=== PATIENT | male | born 1945 | race Caucasian/White ===

== ENCOUNTER 2017-07-03 13:15 | Emergency (ER) | payer OTHER ==
[~2017-07-03] VITALS: Ht 172.7 cm; Wt 109.3 kg
[~2017-07-03 13:15] MED LIST: ASPEC81 PO; ATOR-24 PO; AVD5 PO; BENICAR PO; CMD3 PO; CRG125 PO; CYAN250T PO; FOLIC ACID PO; IMDSR60 PO; NTRGSL/4 UT; NXM/40 PO; PYRI100T4 PO; WARF-283 PO
[2017-07-03 13:32] VITALS: TEMP 37.1; Ht 172.7 cm; Wt 109.3 kg
[2017-07-03] MEDS ORDERED: SODIUM CHLORIDE 0.9% 1000ML 500 ML IV STA (13:51)
[2017-07-03] MEDS ORDERED: ONDANSETRON INJ 2 MG/ML 2 ML VIAL IV STA ×2 (13:51→17:08)
--- NOTE | 2017-07-03 14:08 | EMERGENCY ROOM VISIT NOTE ---
History Report prepared by Jimi: Shana Julien Under the Supervision of: Dr. Carlos Naylor M.D. First contact with patient: 13:35 Chief Complaint: GI ASSESSMENT Stated Complaint: BOWEL OBSTRUCTION-SEVERE PAIN-RT KIDNEY AREA Nursing Triage Summary: pt reports hx of bowel obstruction , started with the same pain this morning , with N V History of Present Illness The patient is a 72 year old white male with a past medical history of PE, factor V clotting disorder, bowel obstruction, hypertension, asthma, and CAD who presents to the ED with a cc of constant right sided abdominal pain beginning this morning. The patient states that he woke up from sleep this morning from right sided flank and abdominal pressure. He notes that he been constipated and has been trying to drink more fluids recently. He reports that he has been straining with bowel movements. Positive nausea, intermittent palpitations, belching, difficulty passing gas. Negative urinary symptoms, penile pain, scrotal pain, chest pain, fever, chills, vomiting. The patient states that he is on Aspirin and Warfarin and has heart stents. He notes that he has had hernia repairs before, bowel resection, and cholecystectomy. Source of History: patient Onset: this morning Position: abdomen Quality: pressure Timing: constant Associated Symptoms: + nausea, No fevers, No chills, No chest pain, No vomiting, No urinary symptoms Note: Positive scrotal swelling, intermittent palpitations, belching, difficulty passing gas. Negative penile pain, scrotal pain. Review of Systems See HPI for pertinent positives and negatives. A total of ten systems were reviewed and were otherwise negative. Past Medical & Surgical Medical Problems: (1) Asthma (2) Heart disease (3) Hypertension Surgical Problems: (1) History of gastric surgery (2) History of hand surgery (3) History of hip surgery Family History Gallbladder disease Heart disease Hypertension Kidney disease Kidney stones Social History Smoking Status: Former Smoker Alcohol Use: occasionally Drug Use: none Marital Status: Housing Status: lives with family Occupation Status: employed Current/Historical Medications Scheduled Aspirin (Aspirin Ec), 81 MG PO DAILY Atorvastatin (Lipitor), 20 MG PO DAILY Carvedilol (Coreg), 12.5 MG PO BIDM Cyanocobalamin (Vitamin B-12), 1,000 MCG PO DAILY Dutasteride (Avodart), 0.5 MG PO DAILY Esomeprazole Magnesium (Nexium), 40 MG PO DAILY Isosorbide Mononitrate (Isosorbide Mononitrate ER), 60 MG PO DAILY Nitroglycerin (Nitrostat), 0.4 MG UT PRN Olmesartan Medoxomil (Benicar), 10 MG PO DAILY Pyridoxine (Vitamin B6), 100 MG PO DAILY Warfarin Sod (Jantoven), 3 MG PO 4XWK Warfarin Sodium (Warfarin Sodium), 4 MG PO 3XWK Allergies Coded Allergies: Moxifloxacin (Verified Allergy, Intermediate, ITCHING. N/V, 03/18/16) Physical Exam Vital Signs Date Time Temp Pulse Resp B/P (MAP) Pulse Ox O2 Delivery O2 Flow Rate FiO2 07/03/17 22:51 94 17 150/98 95 07/03/17 21:30 83 19 169/105 98 Room Air 07/03/17 19:27 59 18 168/88 92 Room Air 07/03/17 18:53 78 07/03/17 18:30 57 20 170/95 92 Room Air 07/03/17 18:00 66 12 181/95 96 Room Air 07/03/17 17:21 60 16 174/100 96 Room Air 07/03/17 15:30 74 17 172/105 98 Room Air 07/03/17 15:01 191/99 07/03/17 15:00 61 14 96 Room Air 07/03/17 14:30 69 17 170/112 96 Room Air 07/03/17 14:24 58 07/03/17 14:00 64 14 170/97 98 Room Air 07/03/17 13:32 37.1 63 20 187/95 98 Room Air Physical Exam GENERAL: Awake, alert, well-appearing, mild discomfort HENT: Right eye subconjunctival hemorrhage without hyphema, vision intact EYES: Normal conjunctiva. Sclera non-icteric. NECK: Supple. No nuchal rigidity. FROM. RESPIRATORY: CTAB, no rhonchi, wheezing, crackles CARDIAC: RRR, no MRG ABDOMEN: Midline incisional laparotomy scar, LLQ incisional scar, pain greater in lower abdomen than upper abdomen, RUQ tenderness to palpation, appears distended, bowel sounds diminished obturators psoas MSK: No chest wall TTP, no LE edema NEURO: GCS 15, CN 2-12 intact, moves all 4s on command SKIN: No rash or jaundice noted. : circumcised, testes distended, no pain or swelling. Medical Decision & Procedures ER Provider Diagnostic Interpretation: Radiology results as stated below per my review and radiologist interpretation: CHEST ONE VIEW PORTABLE FINDINGS: Lung volumes are at the lower limits of normal. There is no pneumothorax or pleural effusion. There is mild elevation of the right hemidiaphragm. Mild cardiomegaly is noted without evidence of pulmonary edema. IMPRESSION: No acute cardiopulmonary findings. Electronically signed by: Rubens Sullivan M.D. 07/03/2017 2:23 PM Dictated Date/Time: 07/03/2017 2:22 PM ABDOMEN AND PELVIS CT WITH IV AND ORAL CONTRAST CT DOSE: 1269.54 mGy.cm HISTORY: acute generalized abdominal pain TECHNIQUE: Multiaxial CT images of the abdomen and pelvis were performed following the use of intravenous and oral contrast. A dose lowering technique was utilized adhering to the principles of ALARA. COMPARISON STUDY: Renal ultrasound 03/18/2016. FINDINGS: Small hiatus hernia. A 7 mm nodule within the base of the left lower lobe on image 89. Linear scarlike densities within the base of the right lower lobe. No pneumoperitoneum. No pneumatosis. Bilateral total hip arthroplasties. Multiple small fat-containing ventral hernias. Cholecystectomy. Hepatic steatosis. A 1.5 cm enhancing lesion within the spleen. The adrenal glands and left kidney are unremarkable. Heterogeneous enhancement within the upper to mid right kidney. There is also right greater than left perinephric edema. No renal or ureteral stones. No hydronephrosis. Of note, the the distal ureters are not well visualized due to the metallic artifact from the total hip arthroplasties. The visualized bladder appears unremarkable. A few colonic diverticula. No definite bowel wall thickening or obstruction. Normal appendix. IMPRESSION: 1. Heterogeneous enhancement within the upper to mid right kidney with associated perinephric edema. This favors a pyelonephritis. Recommend correlation with urinalysis. 2. No renal or ureteral stones. No hydronephrosis. 3. Small hiatus hernia. 4. Multiple small fat-containing midline epigastric hernia is. 5. A 1.5 cm enhancing lesion within the spleen. This is indeterminate but favors a benign lesion. 6. A 7 mm nodule within the left lower lobe. Please refer to the chart below for recommended follow-up. Please refer to below summary of Fleischner criteria recommendations for follow-up of incidental CT nodules (H MacMahon, Guidelines for management of small pulmonary nodules detected on CT scans: A statement from the Fleischner Society, Radiology 237: [id number].) SOLID NODULES Solitary nodule size: <6 mm * Low risk patients: no follow-up needed * high risk patients: optional CT at 12 months Solitary nodule size: 6-8 mm * Low risk patients: follow-up at 6-12 months, then consider further follow-up at 18-24 months * high risk patients: initial follow-up CT at 6-12 months and then at 18-24 months if no change Solitary nodule size: >8 mm * either low or high risk patients - consider follow-up CT at 3 months, and/or CT-PET, and/or biopsy Multiple nodules size: <6 mm * Low risk patients: no routine follow-up * high risk patients: optional CT at 12 months Multiple nodules size: 6-8 mm * Low risk patients: follow-up at 3-6 months, then consider further follow-up at 18-24 months * high risk patients: follow-up at 3-6 months, then at 18-24 months if no change Multiple nodules size: >8 mm * Low risk patients: follow-up at 3-6 months, then consider further follow-up at 18-24 months * high risk patients: follow-up at 3-6 months, then at 18-24 months if no change Note: newly detected indeterminate nodule in persons 35 years of age or older. * Low risk patients: minimal or absent history of smoking and/or other known risk factors * high risk patients: history of smoking or of other known risk factors (e.g. first degree relative with lung cancer, or exposure to asbestos, radon, uranium) * if a nodule up to 8 mm is partly solid or is ground glass further follow-up is required after 24 months to exclude possible slow growing adenocarcinoma (JOSE R) SUBSOLID NODULES Solitary pure ground-glass nodule * nodule size <6 mm - no CT follow-up required * nodule size >=6 mm - follow-up CT at 6-12 months, then every 2 years until 5 years Solitary part-solid nodule * nodule size <6 mm - no CT follow-up required * nodule size >=6 mm - follow-up CT at 3-6 months. If unchanged, and solid component remains <6 mm, then annual follow-up for 5 years Multiple subsolid nodules * nodule size <6 mm - follow-up CT at 3-6 months, consider further follow-up at 2 and 4 years if stable * nodule size >=6 mm - follow-up CT at 3-6 months, subsequent management based on the most suspicious nodule(s) Electronically signed by: Melquiades Mccoy M.D. 07/03/2017 5:47 PM Dictated Date/Time: 07/03/2017 5:37 PM Laboratory Results 07/03/17 14:16 Red Blood Count 4.96, Mean Corpuscular Volume 91.3, Mean Corpuscular Hemoglobin 31.5, Mean Corpuscular Hemoglobin Concent 34.4, Mean Platelet Volume 9.9, Neutrophils (%) (Auto) 84.8, Lymphocytes (%) (Auto) 9.9, Monocytes (%) (Auto) 4.8, Eosinophils (%) (Auto) 0.1, Basophils (%) (Auto) 0.1, Neutrophils # (Auto) 8.60, Lymphocytes # (Auto) 1.00, Monocytes # (Auto) 0.49, Eosinophils # (Auto) 0.01, Basophils # (Auto) 0.01 07/03/17 14:16 Test 07/03/17 14:16 07/03/17 14:35 07/03/17 17:25 White Blood Count 10.14 K/uL (4.8-10.8) Red Blood Count 4.96 M/uL (4.7-6.1) Hemoglobin 15.6 g/dL (14.0-18.0) Hematocrit 45.3 % (42-52) Mean Corpuscular Volume 91.3 fL (80-100) Mean Corpuscular Hemoglobin 31.5 pg (25-34) Mean Corpuscular Hemoglobin Concent 34.4 g/dl (32-36) Platelet Count 141 K/uL (130-400) Mean Platelet Volume 9.9 fL (7.4-10.4) Neutrophils (%) (Auto) 84.8 % Lymphocytes (%) (Auto) 9.9 % Monocytes (%) (Auto) 4.8 % Eosinophils (%) (Auto) 0.1 % Basophils (%) (Auto) 0.1 % Neutrophils # (Auto) 8.60 K/uL (1.4-6.5) Lymphocytes # (Auto) 1.00 K/uL (1.2-3.4) Monocytes # (Auto) 0.49 K/uL (0.11-0.59) Eosinophils # (Auto) 0.01 K/uL (0-0.5) Basophils # (Auto) 0.01 K/uL (0-0.2) RDW Standard Deviation 43.3 fL (36.4-46.3) RDW Coefficient of Variation 13.1 % (11.5-14.5) Immature Granulocyte % (Auto) 0.3 % Immature Granulocyte # (Auto) 0.03 K/uL (0.00-0.02) Prothrombin Time 33.1 SECONDS (9.0-12.0) Prothromb Time International Ratio 3.0 (0.9-1.1) Venous Blood pH 7.43 (7.36-7.41) Venous Blood Partial Pressure CO2 37 mmHg (38.0-50.0) Venous Blood Partial Pressure O2 48 mmHg Venous Blood HCO3 24 mmol/L Venous Blood Oxygen Saturation 81.9 % Venous Blood Base Excess -0.4 mEq/L Anion Gap 9.0 mmol/L (3-11) Est Creatinine Clear Calc Drug Dose 73.8 ml/min Estimated GFR () 77.9 Estimated GFR (Non- 67.2 BUN/Creatinine Ratio 16.1 (10-20) Calcium Level 8.5 mg/dl (8.5-10.1) Total Bilirubin 0.7 mg/dl (0.2-1) Direct Bilirubin 0.2 mg/dl (0-0.2) Aspartate Amino Transf (AST/SGOT) 20 U/L (15-37) Alanine Aminotransferase (ALT/SGPT) 36 U/L (12-78) Alkaline Phosphatase 77 U/L (45-117) Total Protein 7.2 gm/dl (6.4-8.2) Albumin 3.4 gm/dl (3.4-5.0) Lipase 93 U/L (73-393) Bedside Lactic Acid Venous 1.90 mmol/L (0.90-1.70) Bedside Troponin I < 0.030 ng/ml (0-0.045) Urine Color YELLOW Urine Appearance CLEAR (CLEAR) Urine pH 5.0 (4.5-7.5) Urine Specific [place] 1.020 (1.000-1.030) Urine Protein NEG (NEG) Urine Glucose (UA) 2+ (NEG) Urine Ketones NEG (NEG) Urine Occult Blood NEG (NEG) Urine Nitrite NEG (NEG) Urine Bilirubin NEG (NEG) Urine Urobilinogen NEG (NEG) Urine Leukocyte Esterase NEG (NEG) Laboratory results reviewed by me Medications Administered Medications (Trade) Dose Ordered Sig/Love Route Start Time Stop Time Status Last Admin Dose Admin Sodium Chloride 500 ml @ 999 mls/hr Q31M STAT IV 07/03/17 13:51 07/03/17 14:21 DC 07/03/17 14:41 999 MLS/HR Ondansetron HCl (Zofran Inj) 4 mg NOW STAT IV 07/03/17 13:51 07/03/17 13:52 DC 07/03/17 14:42 4 MG Morphine Sulfate (MoRPHine SULFATE INJ) 4 mg NOW STAT IV 07/03/17 17:08 07/03/17 17:09 DC 07/03/17 17:18 4 MG Ondansetron HCl (Zofran Inj) 4 mg NOW STAT IV 07/03/17 17:08 07/03/17 17:09 DC 07/03/17 17:17 4 MG Sodium Chloride 500 ml @ 999 mls/hr Q31M STAT IV 07/03/17 17:08 07/03/17 17:38 DC 07/03/17 17:20 999 MLS/HR Lactulose (Chronulac Syrup) 30 gm NOW STAT PO 07/03/17 18:11 07/03/17 18:12 DC 07/03/17 19:25 30 GM Miscellaneous Medication (Milk And Molasses Enema) 1 ea ONE STAT VA 07/03/17 18:11 07/03/17 18:12 DC 07/03/17 18:11 1 EA Metoclopramide HCl (Reglan Inj) 10 mg NOW STAT IV 07/03/17 18:52 07/03/17 18:53 DC 07/03/17 19:25 10 MG ECG Indication: abdominal pain Rate (beats per minute): 59 Rhythm: sinus bradycardia Findings: RBBB, T-wave inversion (Anterior and L3), other (QRS prolonged) ED Course 1335: The patient was evaluated in room B9. A complete history and physical exam was performed. 1708: I reevaluated the patient. He is still having some pain. Medical Decision The patient is a 72 year old white male with a past medical history of PE, factor V clotting disorder, bowel obstruction, hypertension, asthma, and CAD who presents to the ED with a cc of constant right sided abdominal pain beginning this morning. Differential diagnosis: Etiologies such as appendicitis, diverticulitis, PUD, biliary pathology, UTI, pancreatitis, obstruction, mesenteric ischemia, aortic pathology, infections, inflammatory bowel disease, renal colic, as well as others were entertained. Patient was seen and evaluated at the bedside. Patient's story more concerning for abdominal pathology. Patient had an EKG and troponin that were completed. Patient's EKG with no acute changes and negative troponin. Patient had negative chest x-ray. Patient's abdomen nondistended patient states he has been obstipated. Patient has had significant surgical procedures and adhesions in the past along with prior bowel obstruction. This concerning for possible bowel obstruction. Patient had a CT of the abdomen and pelvis was ordered. Patient's blood work fairly unremarkable. Patient's lactate mildly elevated at 1.9. Patient was given fluids. Patient was given subsequent rounds of pain medication and anti-medics. Patient CT completed. No definite bowel obstruction or bowel wall thickening. LLL nodule. Informed and will need to follow up. Patient still w/ mild pain. Lactulose and MOM enema ordered. Patient CT did have decreased enhancement of R upper/mid pole of kidney. Spoke w/ radiology who stated more consistent w/ pyelo ; however, patient w/ a UA that is w/o signs of infection or blood. Patent renal artery, patent ureter. No kidney stones identified. Patient was given additional pain control. I signed out care to Dr. Caballero to ensure patient has a bowel movement. If pain still present and unable to tolerate PO or inability to have a BM, patient to be admitted. If able, then likely d/c to home w/ return precautions. Medication Reconcilliation Current Medication List: was personally reviewed by me Blood Pressure Screening Patient's blood pressure: Elevated blood pressure Blood pressure disposition: Referred to PCP Impression Primary Impression: Abdominal pain Additional Impression: Lung nodule Scribe Attestation The scribe's documentation has been prepared under my direction and personally reviewed by me in its entirety. I confirm that the note above accurately reflects all work, treatment, procedures, and medical decision making performed by me. Departure Information Referrals No Doctor, Assigned (PCP) Patient Instructions Abdominal Pain, Diet High Fiber, ED Constipation, ED Diet High Fiber, My [facility] Additional Instructions Please return to the emergency department if you have worsening or recurrent symptoms not amenable to at-home treatment. Please call for a follow-up appointment with her primary care physician. Please take your medications as prescribed. If you have other concerns and/or complaints please feel free to also call your primary care physician's office or return the ED for further evaluation, management, and treatment. Please avoid narcotics and benadryl as this may slow your bowel transit. Please add fiber, fluids, and leafy greens to your diet to help w/ your bowel movements. Please also consider taking senna and/or docusate to help w/ your bowel movements. You were found to have a small nodule that was > 6mm in your left lower lung. Please follow up in 3-6 months to have a repeat CT of your chest. Solitary part-solid nodule * nodule size <6 mm - no CT follow-up required * nodule size >=6 mm - follow-up CT at 3-6 months. If unchanged, and solid component remains <6 mm, then annual follow-up for 5 years You were found to have an elevated blood pressure today (>120 sytolic or >90 diastolic). Per medicare guidelines, you need to follow up with this blood pressure screening with your Primary Care Physician (PCP). For a new PCP call [phone]. You have been examined and treated today on an emergency basis only. This is not a substitute for, or an effort to provide, complete comprehensive medical care. It is impossible to recognize and treat all injuries or illnesses in a single emergency department visit. It is therefore important that you follow up closely with [facility]. Call as soon as possible for an appointment. Thank you for your time and consideration. I look forward to speaking with you again soon. Please don't hesitate to call us if you have any questions. Problem Qualifiers Primary Impression: Abdominal pain Abdominal location: lower abdomen, unspecified Qualified Codes: R10.30 - Lower abdominal pain, unspecified
[2017-07-03] MEDS ORDERED: OPTIRAY 320 IV PRN (14:15)
--- NOTE | 2017-07-03 14:25 | DIAGNOSTIC IMAGING REPORT ---
CHEST ONE VIEW PORTABLE CLINICAL HISTORY: Abdominal pain. COMPARISON STUDY: Chest radiograph January 07, 2012. FINDINGS: Lung volumes are at the lower limits of normal. There is no pneumothorax or pleural effusion. There is mild elevation of the right hemidiaphragm. Mild cardiomegaly is noted without evidence of pulmonary edema. IMPRESSION: No acute cardiopulmonary findings. Electronically signed by: Rubens Sullivan M.D. 07/03/2017 2:23 PM Dictated Date/Time: 07/03/2017 2:22 PM
[2017-07-03 14:27] LABS: BASO % 0.1 %; BASO ABS # 0.01 K/uL (0-0.2); COMPLETE YES; EOS % 0.1 %; HEMATOCRIT 45.3 % (42-52); IG% 0.3 %; LYMPH % 9.9 %; MEAN CELL VOLUME 91.3 fL (80-100); MEAN CORPUSCULAR HEMOGLOBIN 31.5 pg (25-34); MEAN CORPUSCULAR HGB CONC 34.4 g/dl (32-36); MEAN PLATELET VOLUME 9.9 fL (7.4-10.4); MONO % 4.8 %; NEUT % 84.8 %; PLATELET COUNT 141 K/uL (130-400); RED BLOOD COUNT 4.96 M/uL (4.7-6.1); WHITE BLOOD COUNT 10.14 K/uL (4.8-10.8)
[2017-07-03 14:28] LABS: VEN BLD GAS O2 SATURATION 81.9 %; VEN BLOOD GAS BASE EXCESS -0.4 mEq/L
[2017-07-03] MEDS ORDERED: CARV12.52 PO (14:29)
[2017-07-03] MEDS ORDERED: ATOR-22 PO (14:29)
[2017-07-03] MEDS ORDERED: DUTA0.5C PO (14:29)
[2017-07-03] MEDS ORDERED: ASPI81TA28 PO (14:29)
[2017-07-03] MEDS ORDERED: BNC5 PO (14:29)
[2017-07-03] MEDS ORDERED: WARF3TAB6 PO (14:30)
[2017-07-03 14:45] LABS: BUN/CREATININE RATIO 16.1 (10-20); CALCIUM 8.5 mg/dl (8.5-10.1); CREATININE 1.1 mg/dl (0.60-1.40)
[2017-07-03] MEDS ORDERED: SODIUM CHLORIDE 0.9% 500ML 500 ML IV STA (17:08)
[2017-07-03] MEDS ORDERED: MoRPHine SULFATE 4 MG/ML 1 ML CARP\\VIAL IV STA (17:08)
[2017-07-03 17:39] LABS: URINE APPEARANCE CLEAR (CLEAR); URINE BILIRUBIN NEG (NEG); URINE COLOR YELLOW; URINE NITRITE NEG (NEG); UROBILINOGEN NEG (NEG); ZZUR CULT IF INDIC CLEAN CATCH NO
[2017-07-03 17:41] LABS: MANUAL MICROSCOPIC REQUIRED? NO; REVIEW REQ? NO
--- NOTE | 2017-07-03 17:48 | DIAGNOSTIC IMAGING REPORT ---
ADDENDUM There is a duplicated right renal collecting system. Therefore, it is the upper pole moiety which demonstrates decreased enhancement. However, there is no hydronephrosis. If the patient is not presenting with infectious-type symptoms, then a [address] with intravenous contrast is recommended to evaluate for resolution or stability of this finding. The ureters appear to join distally. Electronically signed by: Melquiades Mccoy M.D. 07/03/2017 6:35 PM Dictated Date/Time: 07/03/2017 6:33 PM ORIGINAL REPORT ABDOMEN AND PELVIS CT WITH IV AND ORAL CONTRAST CT DOSE: 1269.54 mGy.cm HISTORY: acute generalized abdominal pain TECHNIQUE: Multiaxial CT images of the abdomen and pelvis were performed following the use of intravenous and oral contrast. A dose lowering technique was utilized adhering to the principles of ALARA. COMPARISON STUDY: Renal ultrasound 03/18/2016. FINDINGS: Small hiatus hernia. A 7 mm nodule within the base of the left lower lobe on image 89. Linear scarlike densities within the base of the right lower lobe. No pneumoperitoneum. No pneumatosis. Bilateral total hip arthroplasties. Multiple small fat-containing ventral hernias. Cholecystectomy. Hepatic steatosis. A 1.5 cm enhancing lesion within the spleen. The adrenal glands and left kidney are unremarkable. Heterogeneous enhancement within the upper to mid right kidney. There is also right greater than left perinephric edema. No renal or ureteral stones. No hydronephrosis. Of note, the the distal ureters are not well visualized due to the metallic artifact from the total hip arthroplasties. The visualized bladder appears unremarkable. A few colonic diverticula. No definite bowel wall thickening or obstruction. Normal appendix. IMPRESSION: 1. Heterogeneous enhancement within the upper to mid right kidney with associated perinephric edema. This favors a pyelonephritis. Recommend correlation with urinalysis. 2. No renal or ureteral stones. No hydronephrosis. 3. Small hiatus hernia. 4. Multiple small fat-containing midline epigastric hernia is. 5. A 1.5 cm enhancing lesion within the spleen. This is indeterminate but favors a benign lesion. 6. A 7 mm nodule within the left lower lobe. Please refer to the chart below for recommended follow-up. Please refer to below summary of Fleischner criteria recommendations for follow-up of incidental CT nodules (Marilyn Bishop, Guidelines for management of small pulmonary nodules detected on CT scans: A statement from the Fleischner Society, Radiology 237: [phone].) SOLID NODULES Solitary nodule size: <6 mm * Low risk patients: no follow-up needed * high risk patients: optional CT at 12 months Solitary nodule size: 6-8 mm * Low risk patients: follow-up at 6-12 months, then consider further follow-up at 18-24 months * high risk patients: initial follow-up CT at 6-12 months and then at 18-24 months if no change Solitary nodule size: >8 mm * either low or high risk patients - consider follow-up CT at 3 months, and/or CT-PET, and/or biopsy Multiple nodules size: <6 mm * Low risk patients: no routine follow-up * high risk patients: optional CT at 12 months Multiple nodules size: 6-8 mm * Low risk patients: follow-up at 3-6 months, then consider further follow-up at 18-24 months * high risk patients: follow-up at 3-6 months, then at 18-24 months if no change Multiple nodules size: >8 mm * Low risk patients: follow-up at 3-6 months, then consider further follow-up at 18-24 months * high risk patients: follow-up at 3-6 months, then at 18-24 months if no change Note: newly detected indeterminate nodule in persons 35 years of age or older. * Low risk patients: minimal or absent history of smoking and/or other known risk factors * high risk patients: history of smoking or of other known risk factors (e.g. first degree relative with lung cancer, or exposure to asbestos, radon, uranium) * if a nodule up to 8 mm is partly solid or is ground glass further follow-up is required after 24 months to exclude possible slow growing adenocarcinoma (JOSE R) SUBSOLID NODULES Solitary pure ground-glass nodule * nodule size <6 mm - no CT follow-up required * nodule size >=6 mm - follow-up CT at 6-12 months, then every 2 years until 5 years Solitary part-solid nodule * nodule size <6 mm - no CT follow-up required * nodule size >=6 mm - follow-up CT at 3-6 months. If unchanged, and solid component remains <6 mm, then annual follow-up for 5 years Multiple subsolid nodules * nodule size <6 mm - follow-up CT at 3-6 months, consider further follow-up at 2 and 4 years if stable * nodule size >=6 mm - follow-up CT at 3-6 months, subsequent management based on the most suspicious nodule(s) Electronically signed by: Melquiades Mccoy M.D. 07/03/2017 5:47 PM Dictated Date/Time: 07/03/2017 5:37 PM
[2017-07-03] MEDS ORDERED: LACTULOSE SYRUP 20 GM/30 ML UDC PO STA (18:11)
[2017-07-03] MEDS ORDERED: MILK AND MOLASSES ENEMA PR STA (18:11)
[2017-07-03] MEDS ORDERED: METOCLOPRAMIDE HCL INJ 5 MG/ML 2 ML VIAL IV STA (18:52)
--- NOTE | 2017-07-03 18:52 | EMERGENCY ROOM VISIT NOTE ---
ED Visit Note First contact with patient: 20:04 s/o from Dr. Naylor. On coumadin for factor V. Abd pain with constipation. CT negative for obstruction. Labs unremarkable. Lactate 1.9 prior to fluids. UA negative therefore CT ?pyelo not likely. EKG trop negative. Plan: If no BM and can't tolerate PO then will admit. Otherwise, pcp f/u. Patient reassessed after enema and still unable to have a bowel movement. Rectal exam performed to attempt disimpaction were no stool within the rectum. However discussed with patient and he attempted to ambulate and subsequently was eventually to have a large bowel movement with relief. Tolerating po fluids without difficulty. Discharged per instructions.
[2017-07-03 19:11] LABS: PROTHROMBIN TIME (PATIENT) 33.1 SECONDS (9.0-12.0)
[2017-07-03 22:51] VITALS: BP 150/98; PULSE 94; O2SAT 95
== END 2017-07-03 22:50 | disposition home or self-care (01) ==
LOC: C.EDB 13:20
DX: R10.30 Lower abdominal pain, unspecified (principal); R91.1 Solitary pulmonary nodule; K59.00 Constipation, unspecified; R11.0 Nausea; R00.1 Bradycardia, unspecified; I45.10 Unspecified right bundle-branch block; I10 Essential (primary) hypertension; J45.909 Unspecified asthma, uncomplicated; D68.2 Hereditary deficiency of other clotting factors; Z79.01 Long term (current) use of anticoagulants; Z79.82 Long term (current) use of aspirin; Z79.899 Other long term (current) drug therapy; Z86.711 Personal history of pulmonary embolism; Z87.19 Personal history of other diseases of the digestive system; Z82.49 Family history of ischemic heart disease and other diseases of the circulatory system; Z83.6 Family history of other diseases of the respiratory system; Z83.79 Family history of other diseases of the digestive system; Z84.1 Family history of disorders of kidney and ureter; F17.200 Nicotine dependence, unspecified, uncomplicated

== ENCOUNTER 2017-11-17 07:47 | Inpatient (IN) | payer OTHER ==
[~2017-11-17] VITALS: Ht 170.2 cm; Wt 114.9 kg
[~2017-11-17 07:47] MED LIST changes: -ASPEC81 PO; +ASPI81TA28 PO; +ATOR-22 PO; -ATOR-24 PO; -AVD5 PO; -BENICAR PO; +BNC5 PO; +CARV12.52 PO; -CMD3 PO; -CRG125 PO; +DUTA0.5C PO; -FOLIC ACID PO; +WARF3TAB6 PO
[2017-11-17] MEDS ORDERED: MoRPHine SULFATE 4 MG/ML 1 ML CARP\\VIAL IV STA ×2 (07:55→12:39)
[2017-11-17] MEDS ORDERED: SODIUM CHLORIDE 0.9% 1000ML 1,000 ML IV STA (07:55)
[2017-11-17] MEDS ORDERED: ONDANSETRON INJ 2 MG/ML 2 ML VIAL IV STA (07:55)
--- NOTE | 2017-11-17 08:02 | EMERGENCY ROOM VISIT NOTE ---
History Report prepared by Jimi: Yanelis Degroot Under the Supervision of: Dr. Merle Willis M.D. First contact with patient: 07:53 Chief Complaint: LEG PAIN,LEG INJURY Stated Complaint: HIP PAIN History of Present Illness The patient is a 72 year old male who presents to the Emergency Room with complaints of constant right leg pain beginning 2 days ago. He rates his pain at a 9/10. The patient states that he slipped and fell on ice 2 days ago, and that he landed on his left knee while his right leg straightened out. The patient states that he hit his head but denies having head pain from it. The patient reports having nausea, but denies vomiting. He reports a history of a bilateral hip replacement and states that he is on Coumadin and aspirin. The patient denies a history of diabetes. Source of History: patient Onset: 2 days ago Position: leg (right) Symptom Intensity: rated at a 9/10 Timing: constant Associated Symptoms: + nausea, No vomiting Review of Systems See HPI for pertinent positives & negatives. A total of 10 systems reviewed and were otherwise negative. Past Medical & Surgical Medical Problems: (1) Asthma (2) Heart disease (3) Hypertension Surgical Problems: (1) History of gastric surgery (2) History of hand surgery (3) History of hip surgery Family History Gallbladder disease Heart disease Hypertension Kidney disease Kidney stones Social History Smoking Status: Former Smoker Alcohol Use: occasionally Drug Use: none Marital Status: Housing Status: lives with family Occupation Status: employed Current/Historical Medications Scheduled Aspirin (Aspirin Ec), 81 MG PO 1200 Atorvastatin (Lipitor), 40 MG PO PM Carvedilol (Coreg), 12.5 MG PO BIDM Cyanocobalamin (Vitamin B-12), 1,000 MCG PO 1200 Docusate Sodium (Docusate Sodium), 1 CAP PO TIDM Dutasteride (Avodart), 0.5 MG PO QAM Esomeprazole Magnesium (Nexium), 40 MG PO HS Folic Acid (Folvite), 1 MG PO 1200 Isosorbide Mononitrate (Isosorbide Mononitrate ER), 60 MG PO QAM Nitroglycerin (Nitrostat), 0.4 MG UT PRN Olmesartan Medoxomil (Benicar), 10 MG PO HS Pyridoxine (Vitamin B6), 100 MG PO 1200 Warfarin Sod (Jantoven), 3 MG PO [id number] Warfarin Sodium (Warfarin Sodium), 4 MG PO [id number] Scheduled PRN Hydrocodone/Acetaminophen 5MG/325MG ([place] 5MG/325MG), 1 TABLET PO Q4H PRN for Pain Allergies Coded Allergies: Moxifloxacin (Verified Allergy, Intermediate, ITCHING. N/V, 11/17/17) Physical Exam Vital Signs Date Time Temp Pulse Resp B/P (MAP) Pulse Ox O2 Delivery O2 Flow Rate FiO2 11/17/17 15:11 75 18 104/68 97 Room Air 11/17/17 13:03 72 12 113/67 98 Room Air 11/17/17 12:18 70 16 134/76 96 Room Air 11/17/17 12:12 71 11/17/17 10:56 74 13 150/96 97 Room Air 11/17/17 09:48 67 18 131/82 11/17/17 08:02 80 11/17/17 07:54 36.5 85 18 134/111 98 Room Air Physical Exam Vital signs reviewed. General: Well-appearing male, in some discomfort. HEENT: No scleral icterus, PERRLA, neck supple. Atraumatic. Cardiovascular: Regular rate and rhythm, no extra sounds. Pulmonary: Clear to auscultation bilaterally, normal work of breathing. Abdomen: Soft, nontender, nondistended, positive bowel sounds. Musculoskeletal: No peripheral edema. Large hematoma to medial and posterior right thigh with swelling of the anterior and posterior thigh. Pain with range of motion of right hip, no significant pain to palpation over the lumbar spine. Minimal discomfort with range of motion of the left knee. No significant distal lower extremity edema. Neurovascularly intact distally. Neurologic: Patient awake alert and oriented x 3. Skin: Warm, dry, no rash Medical Decision & Procedures ER Provider Diagnostic Interpretation: Radiology results as stated below per my review and radiologist interpretation: L-SPINE MIN 4 VIEWS ROUTINE HISTORY: Pain low back pain COMPARISON: 03/18/2016 FINDINGS: There is no fracture. No subluxation. Moderate degenerative disc change most prominent from L4 through S1. This is similar as compared to the prior study. Mild degenerative disc change throughout the remainder the lumbar region. Osteophytic change of the entire lumbar region unaltered from the prior study. No evidence for subluxation. Evidence for an old fracture of the sacrococcygeal junction. Bilateral total hip arthroplasties. IMPRESSION: Degenerative change throughout the low lumbar spine and to lesser extent upper lumbar spine. Findings are perhaps minimally progressive compared to the prior study. The above report was generated using voice recognition software. It may contain grammatical, syntax or spelling errors. Electronically signed by: Emil Dee M.D. 11/17/2017 9:12 AM Dictated Date/Time: 11/17/2017 9:10 AM R KNEE 1 OR 2 VIEWS ROUTINE HISTORY: 72 years-old Male L >R knee pain, fall acute right knee pain status post fall COMPARISON: Left knee radiographs of same day TECHNIQUE: 2 views of the right knee FINDINGS: Mild genu varum deformity of the right knee of approximately 10 degrees with mild tricompartmental degenerative changes. Small joint effusion. No acute fracture or subluxation is identified. Peripheral vascular disease. IMPRESSION: 1. No acute fracture or subluxation identified. 2. Mild genu varum with mild tricompartmental degenerative changes. 3. Peripheral vascular disease. The above report was generated using voice recognition software. It may contain grammatical, syntax or spelling errors. Electronically signed by: Sven Hairston M.D. 11/17/2017 10:48 AM Dictated Date/Time: 11/17/2017 10:44 AM R HIP UNILATERAL 2 VIEWS CLINICAL HISTORY: Right hip pain COMPARISON: July 2011 DISCUSSION: There are postsurgical changes of a total right hip arthroplasty. No acute fractures or dislocations are visualized. There is a crescentic calcification at the level of the lesser trochanter. This may relate to a prior avulsion. This does not appear acute, but was not present in 2010 IMPRESSION: No acute fractures or dislocations identified. Postsurgical changes of a right total hip arthroplasty Electronically signed by: Devan Osullivan M.D. 11/17/2017 10:44 AM Dictated Date/Time: 11/17/2017 10:41 AM HEAD WITHOUT CONTRAST (CT) CLINICAL HISTORY: 72 years-old Male with CHI. Acute headache status post fall TECHNIQUE: Multiple axial CT images of the head were obtained without contrast. A dose lowering technique was utilized adhering to the principles of ALARA. CT DOSE: 537.48 mGy.cm COMPARISON: CT head 01/07/2012. FINDINGS: No acute intracranial hemorrhage, midline shift, intracranial mass, hydrocephalus, territorial ischemia or abnormal extra-axial collection. Mild brain atrophy. Probable senescent calcifications of the lentiform nuclei, right greater than left, unchanged. Ill-defined areas of low-attenuation within the periventricular white matter suggests chronic microvascular ischemic changes. The calvarium is intact. The paranasal sinuses, mastoid air cells, and middle ear cavities are clear. IMPRESSION: No acute intracranial abnormality. The above report was generated using voice recognition software. It may contain grammatical, syntax or spelling errors. Electronically signed by: Sven Hairston M.D. 11/17/2017 8:46 AM Dictated Date/Time: 11/17/2017 8:40 AM L KNEE 1 OR 2 VIEWS ROUTINE CLINICAL HISTORY: LEFT HIP, OKD BY ER MD trauma. Pain. COMPARISON: None. DISCUSSION: Minimal degenerative change. Minimal chondrocalcinosis. No acute abnormality. There is no evidence for soft tissue swelling. IMPRESSION: Minimal degenerative change. Minimal chondrocalcinosis. No acute posttraumatic bony antibody. The above report was generated using voice recognition software. It may contain grammatical, syntax or spelling errors. Electronically signed by: Emil Dee M.D. 11/17/2017 9:15 AM Dictated Date/Time: 11/17/2017 9:13 AM L HIP UNILATERAL 2 VIEWS CLINICAL HISTORY: Left hip pain COMPARISON: 2010 DISCUSSION: 3 views are provided for interpretation. There are postsurgical changes of a total left hip arthroplasty. No acute fractures or dislocations are visualized. There is 1.5 mm of lucency surrounding the tip of the femoral spike. This represents a slight interval increase from the prior 2010 study. IMPRESSION: 1. No fractures or dislocations identified 2. Subtle increase in the lucency surrounding the tip of the femoral spike. Electronically signed by: Devan Osullivan M.D. 11/17/2017 9:18 AM Dictated Date/Time: 11/17/2017 9:15 AM Laboratory Results Test 11/17/17 08:00 Activated Partial Thromboplast Time 49.7 SECONDS (21.0-31.0) Partial Thromboplastin Ratio 1.9 Total Bilirubin 0.8 mg/dl (0.2-1) Direct Bilirubin 0.2 mg/dl (0-0.2) Aspartate Amino Transf (AST/SGOT) 22 U/L (15-37) Alanine Aminotransferase (ALT/SGPT) 30 U/L (12-78) Alkaline Phosphatase 59 U/L (45-117) Total Protein 7.0 gm/dl (6.4-8.2) Albumin 3.4 gm/dl (3.4-5.0) Laboratory results per my review. Medications Administered Medications (Trade) Dose Ordered Sig/Love Route Start Time Stop Time Status Last Admin Dose Admin Morphine Sulfate (MoRPHine SULFATE INJ) 4 mg NOW STAT IV 11/17/17 07:55 11/17/17 08:01 DC 11/17/17 08:28 4 MG Ondansetron HCl (Zofran Inj) 4 mg NOW STAT IV 11/17/17 07:55 11/17/17 08:01 DC 11/17/17 08:28 4 MG Morphine Sulfate (MoRPHine SULFATE INJ) 4 mg NOW STAT IV 11/17/17 12:39 11/17/17 12:40 DC 11/17/17 12:39 4 MG Acetaminophen/ Hydrocodone Bitart ([place] 5/325 Tab) 1 tab Q4H PRN PO 11/17/17 17:15 12/01/17 17:14 11/18/17 16:24 1 TAB ED Course 0754: Past medical records reviewed. The patient was evaluated in room B6. A complete history and physical examination was performed. 0755: Ordered Sodium Chloride 1,000 ml @ 150 mls/hr IV, Zofran Inj 4 mg IV, Morphine Sulfate 4 mg IV. 1239: Ordered Morphine Sulfate Sulfate 4 mg IV. 1435: [facility] is in the room. Medical Decision Differentials include: fracture, dislocation, contusion, muscular strain, and hematoma. This patient was evaluated and appeared to be in some discomfort. IV access was obtained and laboratory work was drawn. The patient was given IV morphine and Zofran for his discomfort. Laboratory work was obtained and reveals a stable H&H. CT scan of the head was performed due to the mechanism of injury and anticoagulation, there is no evidence of acute intracranial abnormality. X- rays of the bilateral hips reveal BLAS. Patient's left prosthetic reveals some lucency around the distal femoral spike. The patient has the least amount of pain in this area. The right hip reveals no acute fracture or abnormality. The patient has a large hematoma along the thigh. He did require second dose of IV morphine for comfort. A PT OT evaluation was obtained. Pt will require inpatient rehab. He was referred to the hospitalist service for repeat H/H d/t coumadin and large hematoma of the thigh. His Hbg has dropped 3 points from previous. Pt and are aware of the plan and agree. Impression Primary Impression: Leg pain, right Additional Impressions: Hematoma of right thigh Anticoagulant long-term use Scribe Attestation The scribe's documentation has been prepared under my direction and personally reviewed by me in its entirety. I confirm that the note above accurately reflects all work, treatment, procedures, and medical decision making performed by me. Departure Information Prescriptions Atorvastatin (LIPITOR) 20 Mg Tab 40 MG PO PM, #30 Prov: Brayden Foley MD 11/17/17 Referrals Nate Regan M.D. (PCP) Patient Instructions My [facility] Problem Qualifiers
[2017-11-17 08:22] LABS: BASO % 0.1 %; BASO ABS # 0.01 K/uL (0-0.2); EOS % 0.2 %; EOS ABS # 0.02 K/uL (0-0.5); HEMATOCRIT 36.2 % (42-52); HEMOGLOBIN 12.7 g/dL (14.0-18.0); IG# 0.04 K/uL (0.00-0.02); LYMPH % 10.3 %; LYMPH ABS # 1.23 K/uL (1.2-3.4); MEAN CELL VOLUME 90.7 fL (80-100); MEAN CORPUSCULAR HEMOGLOBIN 31.8 pg (25-34); MEAN CORPUSCULAR HGB CONC 35.1 g/dl (32-36); MEAN PLATELET VOLUME 10.3 fL (7.4-10.4); MONO % 11.5 %; MONO ABS # 1.37 K/uL (0.11-0.59); NEUT % 77.6 %; NEUT ABS # 9.29 K/uL (1.4-6.5); PLATELET COUNT 156 K/uL (130-400); RED CELL DISTRIBUTION WIDTH CV 13.3 % (11.5-14.5); RED CELL DISTRIBUTION WIDTH SD 44.3 fL (36.4-46.3); WHITE BLOOD COUNT 11.96 K/uL (4.8-10.8)
[2017-11-17 08:40] LABS: ALBUMIN 3.4 gm/dl (3.4-5.0); CALCIUM 8.3 mg/dl (8.5-10.1); CREATININE 0.77 mg/dl (0.60-1.40); POTASSIUM 3.5 mmol/L (3.5-5.1)
[2017-11-17 08:41] LABS: INR 3.3 (0.9-1.1)
--- NOTE | 2017-11-17 08:47 | DIAGNOSTIC IMAGING REPORT ---
HEAD WITHOUT CONTRAST (CT) CLINICAL HISTORY: 72 years-old Male with CHI. Acute headache status post fall TECHNIQUE: Multiple axial CT images of the head were obtained without contrast. A dose lowering technique was utilized adhering to the principles of ALARA. CT DOSE: 537.48 mGy.cm COMPARISON: CT head 01/07/2012. FINDINGS: No acute intracranial hemorrhage, midline shift, intracranial mass, hydrocephalus, territorial ischemia or abnormal extra-axial collection. Mild brain atrophy. Probable senescent calcifications of the lentiform nuclei, right greater than left, unchanged. Ill-defined areas of low-attenuation within the periventricular white matter suggests chronic microvascular ischemic changes. The calvarium is intact. The paranasal sinuses, mastoid air cells, and middle ear cavities are clear. IMPRESSION: No acute intracranial abnormality. The above report was generated using voice recognition software. It may contain grammatical, syntax or spelling errors. Electronically signed by: Sven Hairston M.D. 11/17/2017 8:46 AM Dictated Date/Time: 11/17/2017 8:40 AM
[2017-11-17 09:05] LABS: PTT PATIENT 49.7 SECONDS (21.0-31.0)
--- NOTE | 2017-11-17 09:13 | DIAGNOSTIC IMAGING REPORT ---
L-SPINE MIN 4 VIEWS ROUTINE HISTORY: Pain low back pain COMPARISON: 03/18/2016 FINDINGS: There is no fracture. No subluxation. Moderate degenerative disc change most prominent from L4 through S1. This is similar as compared to the prior study. Mild degenerative disc change throughout the remainder the lumbar region. Osteophytic change of the entire lumbar region unaltered from the prior study. No evidence for subluxation. Evidence for an old fracture of the sacrococcygeal junction. Bilateral total hip arthroplasties. IMPRESSION: Degenerative change throughout the low lumbar spine and to lesser extent upper lumbar spine. Findings are perhaps minimally progressive compared to the prior study. The above report was generated using voice recognition software. It may contain grammatical, syntax or spelling errors. Electronically signed by: Emil Dee M.D. 11/17/2017 9:12 AM Dictated Date/Time: 11/17/2017 9:10 AM
--- NOTE | 2017-11-17 09:17 | DIAGNOSTIC IMAGING REPORT ---
L KNEE 1 OR 2 VIEWS ROUTINE CLINICAL HISTORY: LEFT HIP, OKD BY ER MD trauma. Pain. COMPARISON: None. DISCUSSION: Minimal degenerative change. Minimal chondrocalcinosis. No acute abnormality. There is no evidence for soft tissue swelling. IMPRESSION: Minimal degenerative change. Minimal chondrocalcinosis. No acute posttraumatic bony antibody. The above report was generated using voice recognition software. It may contain grammatical, syntax or spelling errors. Electronically signed by: Emil Dee M.D. 11/17/2017 9:15 AM Dictated Date/Time: 11/17/2017 9:13 AM
--- NOTE | 2017-11-17 09:19 | DIAGNOSTIC IMAGING REPORT ---
L HIP UNILATERAL 2 VIEWS CLINICAL HISTORY: Left hip pain COMPARISON: 2011 DISCUSSION: 3 views are provided for interpretation. There are postsurgical changes of a total left hip arthroplasty. No acute fractures or dislocations are visualized. There is 1.5 mm of lucency surrounding the tip of the femoral spike. This represents a slight interval increase from the prior 2010 study. IMPRESSION: 1. No fractures or dislocations identified 2. Subtle increase in the lucency surrounding the tip of the femoral spike. Electronically signed by: Devan Osullivan M.D. 11/17/2017 9:18 AM Dictated Date/Time: 11/17/2017 9:15 AM
[2017-11-17] MEDS ORDERED: FOLI1TAB8 PO (10:38)
[2017-11-17] MEDS ORDERED: DOCU100C31 PO (10:39)
[2017-11-17] MEDS ORDERED: HYDR-5688 PO (10:41)
--- NOTE | 2017-11-17 10:46 | DIAGNOSTIC IMAGING REPORT ---
R HIP UNILATERAL 2 VIEWS CLINICAL HISTORY: Right hip pain COMPARISON: July 2011 DISCUSSION: There are postsurgical changes of a total right hip arthroplasty. No acute fractures or dislocations are visualized. There is a crescentic calcification at the level of the lesser trochanter. This may relate to a prior avulsion. This does not appear acute, but was not present in 2010 IMPRESSION: No acute fractures or dislocations identified. Postsurgical changes of a right total hip arthroplasty Electronically signed by: Devan Osullivan M.D. 11/17/2017 10:44 AM Dictated Date/Time: 11/17/2017 10:41 AM
--- NOTE | 2017-11-17 10:49 | DIAGNOSTIC IMAGING REPORT ---
R KNEE 1 OR 2 VIEWS ROUTINE HISTORY: 72 years-old Male L >R knee pain, fall acute right knee pain status post fall COMPARISON: Left knee radiographs of same day TECHNIQUE: 2 views of the right knee FINDINGS: Mild genu varum deformity of the right knee of approximately 10 degrees with mild tricompartmental degenerative changes. Small joint effusion. No acute fracture or subluxation is identified. Peripheral vascular disease. IMPRESSION: 1. No acute fracture or subluxation identified. 2. Mild genu varum with mild tricompartmental degenerative changes. 3. Peripheral vascular disease. The above report was generated using voice recognition software. It may contain grammatical, syntax or spelling errors. Electronically signed by: Sven Hairston M.D. 11/17/2017 10:48 AM Dictated Date/Time: 11/17/2017 10:44 AM
[2017-11-17 13:33] VITALS: BP 123/73
[2017-11-17] MEDS ORDERED: HYDROCODONE/ACETAMOPHEN 5/325MG TAB PO PRN (17:15)
[2017-11-17] MEDS ORDERED: NITROGLYCERIN 0.4 MG SL PER TAB CHARGE UT PRN (17:15)
[2017-11-17] MEDS ORDERED: ONDANSETRON INJ 2 MG/ML 2 ML VIAL IV PRN (17:15)
[2017-11-17] MEDS ORDERED: ACETAMINOPHEN 325 MG TAB PO PRN (17:15)
[2017-11-17] MEDS ORDERED: ALUMINUM/MAGNESIUM/SIMETH (MAALOX MAX) 30 ML UDC PO PRN (17:15)
[2017-11-17] MEDS ORDERED: ATOR-22 PO (17:28)
[2017-11-17] MEDS ORDERED: POLYETHYLENE (MIRALAX) 17 GM PACK PO PRN (17:30)
[2017-11-17 17:53] VITALS: O2SAT 96; Ht 170.2 cm; Wt 114.9 kg
--- NOTE | 2017-11-17 17:59 | HISTORY & PHYSICAL EXAMINATION ---
DATE OF ADMISSION: 11/17/2017 CHIEF COMPLAINT: Status post fall and right thigh hematoma. HISTORY OF PRESENT ILLNESS: This is a 72-year-old male with past medical history significant for hypertension, obesity, CAD status post stent, hyperlipidemia, history of depression, osteoarthrosis, diaphragmatic hernia, history of factor V Leiden deficiency, history of multiple mini strokes 20 years ago and was placed on Coumadin and since then he was doing okay and history of pulmonary embolism in 1967 and also in 1974 after abdominal surgery, who came here because of status post fall and right thigh hematoma. A couple of days ago patient slipped on the ice on his driveway and fell on his left knee and then on the right thigh. No loss of consciousness. Since then, he was having severe pain in his right thigh. He is only able to walk a few steps and is not able to sit. That is the reason he came to the ER today. He did not stop taking Coumadin because of his history and his INR supposed to be in between 2.5 and 3.5. Denies any blood in the stools or blood in the urine. He felt dizzy and nauseous when he is standing up, but no headaches, no runny nose, no cough, no sore throat, no difficulty swallowing. No chest pain, no shortness of breath, no abdominal pain. Currently resting comfortably and hemodynamically stable. ALLERGIES: AVELOX. PAST MEDICAL HISTORY: As mentioned above. PAST SURGICAL HISTORY: Left heart catheterization, laparoscopic cholecystectomy, laparoscopic inguinal hernia repair, lumbar spine fusion surgery, partial removal of the colon, tonsillectomy and adenoidectomy, repair of the diaphragm, repair of the transthoracic hernia, repair of acute ruptured rotator cuff, and total hip replacement on the left side. MEDICATIONS: The patient is on Benicar 10 mg p.o. daily, Lipitor 40 mg p.o. daily, Colace 100 mg p.o. t.i.d., Avodart 0.5 mg capsule p.o. daily, Coumadin as directed 3 and 4 mg, Imdur 60 mg p.o. daily, esomeprazole 40 mg p.o. daily, Coreg 12.5 mg p.o. b.i.d., vitamin B6 100 mg p.o. daily, nitroglycerin 0.4 mg p.o. sublingual p.r.n., cyanocobalamin 1000 mcg p.o. daily, folic acid 1 mg p.o. daily, and aspirin 81 mg p.o. daily. FAMILY HISTORY: Significant for mother had arthritis, eye problems, gastrointestinal disorder, glaucoma, heart disorder, hypertension and stroke. Father had thyroid disorder and gastrointestinal disorder. SOCIAL HISTORY: . Former smoker, quit in 2017 Smoked cigars. Alcohol occasionally. No drug use. REVIEW OF SYMPTOMS: As per HPI. Rest of review of symptoms negative. PHYSICAL EXAMINATION: GENERAL: The patient is obese, not in distress. VITAL SIGNS: Temperature 36.5, pulse 75, respiratory rate 18, blood pressure 104/68, oxygen 97% on room air. HEENT: No pallor, no icterus. Pupils equal, round, and reactive to light. NECK: No JVD, no neck masses, no carotid bruits. CARDIOVASCULAR: S1, S2 heard; regular rate and rhythm; no murmur, no gallop. RESPIRATORY SYSTEM: Normal AP diameter. No accessory muscle use. No wheezing, no crackles. ABDOMEN: Soft, bowel sounds present. Nontender. No distention. CENTRAL NERVOUS SYSTEM: Cranial nerves II-XII grossly intact. Nonfocal. EXTREMITIES: Right thigh bruising on the middle side of the thigh and right thigh swelling noted and tender. LABORATORY DATA: WBC 11.9, hemoglobin 12.7, hematocrit 36.2, and platelets 156. Sodium 136, potassium 3.5, chloride 103, bicarbonate 24, BUN 9, creatinine 0.7, serum glucose 141, calcium 8.3. Total bilirubin 0.8, direct bilirubin 0.2, AST 22, ALT 30, alkaline phosphatase 59, albumin 3.4. PT 33.7 and INR 3.3. IMAGING DATA: Lumbar spine x-ray - degenerative changes seen. Right knee x-ray - no acute fracture or subluxation identified, mild genu varum and mild tricompartmental degenerative changes. Right hip x-ray - no acute fractures or dislocation identified. CT of the head - no acute intracranial abnormalities. Left knee x-ray - mild chondrocalcinosis, no acute findings. Left hip x-ray - no fractures or dislocation identified . increase in the lucencies around the tip of the femoral spike. ASSESSMENT AND PLAN: This is a 72-year-old male who presents with fall and right thigh hematoma. 1. Status post mechanical fall , a couple of days ago and having ambulatory dysfunction because of pain and also swelling on the right thigh with a hematoma and bruise. The patient is on Coumadin, INR is 3.3. Will reverse the INR with IV vitamin K. Follow H&H. Physical therapy, occupational therapy. Plan for rehabilitation. Will consult ortho for any further recommendations. Monitor and observe on the medical floor. 2. Anemia, acute blood loss secondary to above with right thigh hematoma. Hemoglobin down from 15 to 12, reversing the INR. Follow H&H. 3. History of factor V Leiden deficiency, history of pulmonary embolism twice in 1967 and once in 1974, history of mini strokes 20 years ago and no more episodes since starting on Coumadin. Currently, goal of INR is 2.5 to 3.5. Presented with INR of 3.3. Holding Coumadin, reversing INR secondary to hematoma and anemia. To restart as soon as possible. 4. History of coronary artery disease status post stent. We will continue the Lipitor, Imdur and Coreg, holding the aspirin. 5. Hypertension. Continue Benicar, Imdur and Coreg. We will monitor the blood pressure. 6. History of hyperlipidemia. Continue statin. 7. History of benign prostatic hyperplasia, continue avodart. 8. Deep venous thrombosis prophylaxis, sequential compression devices for now. 9. Disposition: Observation on medical floor. Physical therapy, Occupational therapy, social service to help with discharge planning. Plan for [facility] when bed available. Level 1 full code. MTDD
[2017-11-17] MEDS ORDERED: PHYTONADIONE INJ 2.5 MG in SODIUM CHLORIDE 0.9% 50ML 50 ML IV ONE (18:00)
[2017-11-17 19:00] VITALS: BP 129/68; PULSE 90; TEMP 36.7; O2SAT 98
[2017-11-17] MEDS: SODIUM CHLORIDE 0.9% 1000ML 1,000 ML IV SCH (19:35)
[2017-11-17] MEDS ORDERED: IV FLUIDS COMPLETED PRN (20:30)
[2017-11-17] MEDS: PANTOprazole SOD 40 MG TAB PO SCH (21:15)
[2017-11-17] MEDS: DOCUSATE SODIUM 100 MG CAP PO SCH (21:15)
[2017-11-17] MEDS: ATORVASTATIN 40 MG TAB PO SCH (21:15)
[2017-11-17] MEDS: CARVEDILOL 12.5 MG TAB PO SCH (21:15)
[2017-11-17] MEDS: OLMESARTAN MEDOXOMIL 20 MG TAB PO SCH (21:16)
[2017-11-17 21:30] VITALS: BP 107/64; PULSE 84
[2017-11-17 22:56] VITALS: BP 115/62; PULSE 85; TEMP 36.8; O2SAT 94
[2017-11-18 06:10] LABS: BASO % 0.1 %; BASO ABS # 0.01 K/uL (0-0.2); EOS % 0.5 %; EOS ABS # 0.04 K/uL (0-0.5); HEMATOCRIT 30.2 % (42-52); HEMOGLOBIN 10.7 g/dL (14.0-18.0); IG# 0.03 K/uL (0.00-0.02); LYMPH % 20.3 %; LYMPH ABS # 1.79 K/uL (1.2-3.4); MEAN CELL VOLUME 91.5 fL (80-100); MEAN CORPUSCULAR HEMOGLOBIN 32.4 pg (25-34); MEAN CORPUSCULAR HGB CONC 35.4 g/dl (32-36); MEAN PLATELET VOLUME 10.1 fL (7.4-10.4); MONO % 13.3 %; MONO ABS # 1.17 K/uL (0.11-0.59); NEUT % 65.5 %; NEUT ABS # 5.76 K/uL (1.4-6.5); PLATELET COUNT 125 K/uL (130-400); RED CELL DISTRIBUTION WIDTH CV 13.7 % (11.5-14.5); RED CELL DISTRIBUTION WIDTH SD 45.3 fL (36.4-46.3)
[2017-11-18 06:33] LABS: INR 1.4 (0.9-1.1)
[2017-11-18 06:45] LABS: CREATININE 0.72 mg/dl (0.60-1.40); POTASSIUM 3.4 mmol/L (3.5-5.1)
[2017-11-18 07:51] VITALS: BP 119/71; PULSE 74; TEMP 37; O2SAT 97
[2017-11-18] MEDS: SODIUM CHLORIDE 0.9% 1000ML 1,000 ML IV SCH (08:26)
[2017-11-18] MEDS: ISOSORBIDE MONONITRATE 60 MG TABCR PO SCH (09:12)
[2017-11-18] MEDS: CARVEDILOL 12.5 MG TAB PO SCH ×2 (09:12→19:09)
[2017-11-18] MEDS: DOCUSATE SODIUM 100 MG CAP PO SCH ×3 (09:12→18:43)
[2017-11-18] MEDS: CYANOCOBALAMIN 500 MCG TAB (VIT B-12) PO SCH (12:02)
[2017-11-18] MEDS: PYRIDOXINE HCL 50 MG TAB PO SCH (12:02)
[2017-11-18 15:33] VITALS: BP 102/53; PULSE 80; TEMP 37.1; O2SAT 96
[2017-11-18] MEDS ORDERED: POTASSIUM CHLORIDE 10 MEQ TABCR PO ONE (16:00)
--- NOTE | 2017-11-18 16:00 | Progress Note ---
Internal Med Progress Note Date of Service: Nov 18, 2017. Provider Documentation: SUBJECTIVE: Seen and examined at bedside States having RLE pain with movement Denies chest pain, SOB, dizziness Family at bedside No other complaints OBJECTIVE: Vital Signs-as noted below Physical Exam: Vitals signs as noted above General Appearance:Obese, no apparent distress Head: normocephalic, Atraumatic Eyes: normal inspection, EOMI, PERRL Neck: supple, Trachea midline Respiratory/Chest: Normal breath sounds, CTA Cardiovascular: S1, S2, No murmur Abdomen/GI:Soft, Non tender, Bowel sounds present Extremities/Musculoskelatal:normal inspection, Large Ecchymosis on RLE Neurologic/Psych:AAOX3, grossly no focal neurological deficits Skin: normal color, warm Lab data as noted below. ASSESSMENT & PLAN: Patient is a 72 yr male who presents with fall and right thigh hematoma. S/P Mechanical fall Right thigh Hematoma: patient on coumadin INR:3.3 on admission S/P VIt K INR:1.4 today Hb dropped to 10.7 but partly likely hemodilutional secondary to IV fluids Extremity USD: Subcutaneous soft tissue edema in right thigh. No organized collection is identified to indicate hematoma. Conservative management for now Appreciate Orthopedics Input Will resume coumadin at low dose 1mg today given history of PE, Factor V Monitor Hb, INR Pain control PT/OT May need Rehab placement Anemia, acute blood loss secondary to above Monitor Hb Will transfuse PRBCs if needed Hypokalemia: Replace and monitor H/O factor V Leiden deficiency H/O Pulmonary embolism H/O mini strokes Restart coumadin Monitor INR continue statin Goal of INR is 2.5 to 3.5. H/O CAD S/P stent continue Lipitor, Imdur, Coreg hold aspirin for now Hypertension Continue Benicar, Imdur and Coreg monitor Hyperlipidemia Continue statin BPH: continue avodart. DVT Px: SCDs Restarted Coumadin Code Status: Full Code Disposition: To be determined PT/OT Vital Signs: Date Time Temp Pulse Resp B/P (MAP) Pulse Ox O2 Delivery O2 Flow Rate FiO2 11/18/17 18:49 86 108/65 (79) 11/18/17 15:33 37.1 80 20 102/53 (69) 96 Room Air 11/18/17 15:30 Room Air 11/18/17 07:51 37.0 74 16 119/71 (87) 97 Room Air 11/18/17 07:10 Room Air 11/17/17 23:27 Room Air 11/17/17 22:56 36.8 85 18 115/62 (79) 94 Room Air 11/17/17 21:30 84 107/64 (78) Lab Results: Results Past 24 Hours Test 11/18/17 05:39 Range/Units White Blood Count 8.80 4.8-10.8 K/uL Red Blood Count 3.30 4.7-6.1 M/uL Hemoglobin 10.7 14.0-18.0 g/dL Hematocrit 30.2 42-52 % Mean Corpuscular Volume 91.5 80-100 fL Mean Corpuscular Hemoglobin 32.4 25-34 pg Mean Corpuscular Hemoglobin Concent 35.4 32-36 g/dl Platelet Count 125 130-400 K/uL Mean Platelet Volume 10.1 7.4-10.4 fL Neutrophils (%) (Auto) 65.5 % Lymphocytes (%) (Auto) 20.3 % Monocytes (%) (Auto) 13.3 % Eosinophils (%) (Auto) 0.5 % Basophils (%) (Auto) 0.1 % Neutrophils # (Auto) 5.76 1.4-6.5 K/uL Lymphocytes # (Auto) 1.79 1.2-3.4 K/uL Monocytes # (Auto) 1.17 0.11-0.59 K/uL Eosinophils # (Auto) 0.04 0-0.5 K/uL Basophils # (Auto) 0.01 0-0.2 K/uL RDW Standard Deviation 45.3 36.4-46.3 fL RDW Coefficient of Variation 13.7 11.5-14.5 % Immature Granulocyte % (Auto) 0.3 % Immature Granulocyte # (Auto) 0.03 0.00-0.02 K/uL Prothrombin Time 14.8 9.0-12.0 SECONDS Prothromb Time International Ratio 1.4 0.9-1.1 Sodium Level 138 136-145 mmol/L Potassium Level 3.4 3.5-5.1 mmol/L Chloride Level 104 98-107 mmol/L Carbon Dioxide Level 25 21-32 mmol/L Anion Gap 9.0 3-11 mmol/L Blood Urea Nitrogen 14 7-18 mg/dl Creatinine 0.72 0.60-1.40 mg/dl Est Creatinine Clear Calc Drug Dose 114.0 ml/min Estimated GFR () 108.8 Estimated GFR (Non- 93.9 BUN/Creatinine Ratio 19.8 10-20 Random Glucose 120 70-99 mg/dl Calcium Level 8.0 8.5-10.1 mg/dl Magnesium Level 2.0 1.8-2.4 mg/dl Total Creatine Kinase 406 39-308 U/L
[2017-11-18] MEDS ORDERED: NURSING VERBAL MED ORDER ONE (16:30)
--- NOTE | 2017-11-18 16:47 | Orthopedic Consultation ---
Orthopedic Consultation Date of Consultation: Nov 18, 2017. Attending Physician: Vitaliy Rangel MD Reason for Consultation: Right thigh pain and swelling History of Present Illness Mr. Rockwell is a 72-year-old male who presented with right thigh pain after a fall 3 days ago on November 15. He slipped on some ice in his driveway, and stretched out his right leg during the fall. He developed swelling, bruising, and pain in the right posterior thigh. He is chronically on Coumadin due to factor V Leiden deficiency, history of TIAs, as well as a PE in the past. This thigh injury has caused significant pain for him, eventually requiring presentation to the emergency department. Since the fall, his pain is gradually improved. He is able to lay down comfortably, and even now stand comfortably, but he still has significant pain when sitting directly on the bruise. Orthopedics was consulted for additional management options. Past Medical/Surgical History Medical Problems: (1) Abdominal pain Status: Acute (2) Anticoagulant long-term use Status: Acute (3) Hematoma of right thigh Status: Acute (4) Leg pain, right Status: Acute (5) Lung nodule Status: Acute Family History Gallbladder disease Heart disease Hypertension Kidney disease Kidney stones Social History Smoking Status: Former Smoker Drug Use: none Marital Status: Housing Status: lives with family Occupation Status: employed Allergies Coded Allergies: Moxifloxacin (Verified Allergy, Intermediate, ITCHING. N/V, 11/17/17) Home Medications Scheduled Aspirin (Aspirin Ec), 81 MG PO 1200 Atorvastatin (Lipitor), 40 MG PO PM Carvedilol (Coreg), 12.5 MG PO BIDM Cyanocobalamin (Vitamin B-12), 1,000 MCG PO 1200 Docusate Sodium (Docusate Sodium), 1 CAP PO TIDM Dutasteride (Avodart), 0.5 MG PO QAM Esomeprazole Magnesium (Nexium), 40 MG PO HS Folic Acid (Folvite), 1 MG PO 1200 Isosorbide Mononitrate (Isosorbide Mononitrate ER), 60 MG PO QAM Nitroglycerin (Nitrostat), 0.4 MG UT PRN Olmesartan Medoxomil (Benicar), 10 MG PO HS Pyridoxine (Vitamin B6), 100 MG PO 1200 Warfarin Sod (Jantoven), 3 MG PO [id number] Warfarin Sodium (Warfarin Sodium), 4 MG PO [id number] Scheduled PRN Hydrocodone/Acetaminophen 5MG/325MG (Butler 5MG/325MG), 1 TABLET PO Q4H PRN for Pain Current Inpatient Medications Current Inpatient Medications Medications (Trade) Dose Ordered Sig/Love Route Start Time Stop Time Status Last Admin Dose Admin Acetaminophen (Tylenol Tab) 650 mg Q4H PRN PO 11/17/17 17:15 12/17/17 17:14 Al Hydrox/Mg Hydrox/Simethicone (Maalox Max Susp) 15 ml Q4H PRN PO 11/17/17 17:15 12/17/17 17:14 Polyethylene (Miralax Powder Packet) 17 gm DAILY PRN PO 11/17/17 17:30 12/17/17 17:29 Ondansetron HCl (Zofran Inj) 4 mg Q6H PRN IV 11/17/17 17:15 12/17/17 17:14 Carvedilol (Coreg Tab) 12.5 mg BIDM PO 11/17/17 19:30 12/17/17 19:29 11/18/17 09:12 12.5 MG Cyanocobalamin (Vitamin B-12 Tab) 1,000 mcg DAILY@1200 PO 11/18/17 12:00 12/18/17 11:59 11/18/17 12:02 1,000 MCG Docusate Sodium (coLACE CAP) 100 mg TIDM PO 11/17/17 19:30 12/17/17 19:29 11/18/17 12:02 100 MG Folic Acid (Folvite Tab) 1 mg DAILY@1200 PO 11/18/17 12:00 12/18/17 11:59 11/18/17 12:02 1 MG Acetaminophen/ Hydrocodone Bitart (Butler 5/325 Tab) 1 tab Q4H PRN PO 11/17/17 17:15 12/01/17 17:14 11/18/17 16:24 1 TAB Isosorbide Mononitrate (Imdur Ext Rel Tab) 60 mg QAM PO 11/18/17 09:00 12/18/17 08:59 11/18/17 09:12 60 MG Nitroglycerin (Nitrostat Tab) 0.4 mg UD PRN UT 11/17/17 17:15 12/17/17 17:14 Olmesartan (Benicar Tab) 10 mg HS PO 11/17/17 21:00 12/17/17 20:59 11/17/17 21:16 10 MG Pyridoxine HCl (Vitamin B-6 Tab) 100 mg DAILY@1200 PO 11/18/17 12:00 12/18/17 11:59 11/18/17 12:02 100 MG Pantoprazole Sodium (Protonix Tab) 40 mg HS PO 11/17/17 21:00 12/17/17 20:59 11/17/17 21:15 40 MG Atorvastatin Calcium (Lipitor Tab) 40 mg PM PO 11/17/17 21:00 12/17/17 20:59 11/17/17 21:15 40 MG Miscellaneous (Iv Fluids Completed) 1 ea PRN PRN N/A 11/17/17 20:30 11/17/18 20:29 Dutasteride (Avodart) 0.5 mg DAILY PO 11/19/17 09:00 12/19/17 08:59 Review of Systems Musculoskeletal: + problem reported (Right thigh pain) Physical Exam Date Time Temp Pulse Resp B/P (MAP) Pulse Ox O2 Delivery O2 Flow Rate FiO2 11/18/17 15:33 37.1 80 20 102/53 (69) 96 Room Air 11/18/17 07:51 37.0 74 16 119/71 (87) 97 Room Air 11/18/17 07:10 Room Air 11/17/17 23:27 Room Air 11/17/17 22:56 36.8 85 18 115/62 (79) 94 Room Air 11/17/17 21:30 84 107/64 (78) 11/17/17 19:00 36.7 90 16 129/68 (88) 98 Room Air 11/17/17 19:00 98 Room Air 11/17/17 18:48 82 20 104/62 95 11/17/17 18:42 82 20 104/62 95 Room Air 11/17/17 17:53 96 Room Air 11/17/17 17:41 90 18 122/62 96 Room Air Extremities/Musculoskelatal: + pertinent finding (Significant swelling and ecchymosis right posterior thigh. Posterior compartment firm, but no pain with passive stretch of muscle group (knee extension). Motor and sensory intact distally. Foot warm and well perfused.) Neurologic/Psych: no motor/sensory deficits Laboratory Results Last 24 Hours Test 11/17/17 18:53 11/18/17 05:39 Urine Color YELLOW Urine Appearance CLEAR Urine pH 5.0 Urine Specific [place] 1.016 Urine Protein NEG Urine Glucose (UA) NEG Urine Ketones NEG Urine Occult Blood NEG Urine Nitrite NEG Urine Bilirubin NEG Urine Urobilinogen NEG Urine Leukocyte Esterase NEG White Blood Count 8.80 K/uL Red Blood Count 3.30 M/uL Hemoglobin 10.7 g/dL Hematocrit 30.2 % Mean Corpuscular Volume 91.5 fL Mean Corpuscular Hemoglobin 32.4 pg Mean Corpuscular Hemoglobin Concent 35.4 g/dl Platelet Count 125 K/uL Mean Platelet Volume 10.1 fL Neutrophils (%) (Auto) 65.5 % Lymphocytes (%) (Auto) 20.3 % Monocytes (%) (Auto) 13.3 % Eosinophils (%) (Auto) 0.5 % Basophils (%) (Auto) 0.1 % Neutrophils # (Auto) 5.76 K/uL Lymphocytes # (Auto) 1.79 K/uL Monocytes # (Auto) 1.17 K/uL Eosinophils # (Auto) 0.04 K/uL Basophils # (Auto) 0.01 K/uL RDW Standard Deviation 45.3 fL RDW Coefficient of Variation 13.7 % Immature Granulocyte % (Auto) 0.3 % Immature Granulocyte # (Auto) 0.03 K/uL Prothrombin Time 14.8 SECONDS Prothromb Time International Ratio 1.4 Sodium Level 138 mmol/L Potassium Level 3.4 mmol/L Chloride Level 104 mmol/L Carbon Dioxide Level 25 mmol/L Anion Gap 9.0 mmol/L Blood Urea Nitrogen 14 mg/dl Creatinine 0.72 mg/dl Est Creatinine Clear Calc Drug Dose 114.0 ml/min Estimated GFR () 108.8 Estimated GFR (Non- 93.9 BUN/Creatinine Ratio 19.8 Random Glucose 120 mg/dl Calcium Level 8.0 mg/dl Magnesium Level 2.0 mg/dl Total Creatine Kinase 406 U/L Assessment & Plan (1) Hematoma of right thigh 72-year-old patient on chronic Coumadin therapy, now with right posterior thigh hematoma after a fall. Ultrasound is pending to evaluate hematoma size. No evidence of compartment syndrome currently; patient has no pain with passive stretch and is neurologically intact distally. Patient seems to be clinically improving over the past few days. He is now able to stand and move his leg comfortably, which she was not able to do a few days ago. He still has pain mostly when sitting directly on the hematoma. I advised him that we could consider an ultrasound-guided aspiration of the hematoma in order to improve his pain, but this carries with it the risk of iatrogenic infection of the hematoma. This could be potentially devastating with his total hip prosthesis in very close proximity. We mutually decided on observation for now. His INR has been reduced from 3.3 down to 1.4 after holding his Coumadin and initiating vitamin K therapy. The concern is his history of TIAs and PE in the past. I think we could reinitiate Coumadin therapy at this point, as any doses given now will take several days to have a significant effect. I recommend close observation for significant worsening of his pain as his INR comes back into the therapeutic range. Problem Qualifiers (1) Hematoma of right thigh: Encounter type: initial encounter Qualified Codes: S70.11XA - Contusion of right thigh, initial encounter
[2017-11-18] MEDS ORDERED: WARFARIN SOD 1 MG TAB PO ONE (17:15)
--- NOTE | 2017-11-18 17:56 | DIAGNOSTIC IMAGING REPORT ---
ULTRASOUND RIGHT LOWER EXTREMITY NONVASCULAR CLINICAL HISTORY: Right thigh pain. Fall. COMPARISON STUDY: Radiographs of the right hip dated 11/17/2017. FINDINGS: Real-time grayscale sonography of the soft tissues of the right thigh is performed at the site of interest. Subcutaneous fluid is identified. No organized collection is seen to suggest hematoma. IMPRESSION: Subcutaneous soft tissue edema is seen in the right thigh at the site of interest. No organized collection is identified to indicate hematoma. Electronically signed by: Chau Michel M.D. 11/18/2017 5:54 PM Dictated Date/Time: 11/18/2017 5:53 PM
[2017-11-18 18:49] VITALS: BP 108/65; PULSE 86
[2017-11-18 20:38] LABS: HEMATOCRIT 28.4 % (42-52); HEMOGLOBIN 10.1 g/dL (14.0-18.0)
[2017-11-18] MEDS: PANTOprazole SOD 40 MG TAB PO SCH (20:48)
[2017-11-18] MEDS: OLMESARTAN MEDOXOMIL 20 MG TAB PO SCH (20:48)
[2017-11-18] MEDS: ATORVASTATIN 40 MG TAB PO SCH (21:25)
[2017-11-18 23:40] VITALS: BP 108/61; PULSE 79; TEMP 37.2; O2SAT 96
[2017-11-19 06:27] LABS: BASO % 0.1 %; BASO ABS # 0.01 K/uL (0-0.2); EOS % 0.7 %; EOS ABS # 0.05 K/uL (0-0.5); HEMATOCRIT 29.5 % (42-52); HEMOGLOBIN 10.4 g/dL (14.0-18.0); IG# 0.02 K/uL (0.00-0.02); LYMPH % 21.8 %; LYMPH ABS # 1.58 K/uL (1.2-3.4); MEAN CELL VOLUME 91.6 fL (80-100); MEAN CORPUSCULAR HEMOGLOBIN 32.3 pg (25-34); MEAN CORPUSCULAR HGB CONC 35.3 g/dl (32-36); MEAN PLATELET VOLUME 9.8 fL (7.4-10.4); MONO % 11.4 %; MONO ABS # 0.83 K/uL (0.11-0.59); NEUT % 65.7 %; NEUT ABS # 4.77 K/uL (1.4-6.5); PLATELET COUNT 129 K/uL (130-400); RED CELL DISTRIBUTION WIDTH CV 13.6 % (11.5-14.5); RED CELL DISTRIBUTION WIDTH SD 45.3 fL (36.4-46.3); WHITE BLOOD COUNT 7.26 K/uL (4.8-10.8)
[2017-11-19 06:37] LABS: INR 1.1 (0.9-1.1)
[2017-11-19 07:05] LABS: CALCIUM 8.1 mg/dl (8.5-10.1); CREATININE 0.69 mg/dl (0.60-1.40); POTASSIUM 3.6 mmol/L (3.5-5.1)
[2017-11-19 07:51] VITALS: BP 131/87; PULSE 81; TEMP 36.9; O2SAT 96
[2017-11-19] MEDS: DOCUSATE SODIUM 100 MG CAP PO SCH ×3 (08:38→17:53)
[2017-11-19] MEDS: ISOSORBIDE MONONITRATE 60 MG TABCR PO SCH (08:38)
[2017-11-19] MEDS: CARVEDILOL 12.5 MG TAB PO SCH ×2 (08:38→17:53)
[2017-11-19] MEDS: DUTASTERIDE 0.5MG PO SCH (08:40)
[2017-11-19] MEDS: CYANOCOBALAMIN 500 MCG TAB (VIT B-12) PO SCH (11:48)
[2017-11-19] MEDS: PYRIDOXINE HCL 50 MG TAB PO SCH (11:48)
[2017-11-19 14:53] VITALS: BP 124/67; PULSE 78; TEMP 36.8; O2SAT 94
[2017-11-19] MEDS ORDERED: WARFARIN SOD 2 MG TAB PO ONE (16:00)
--- NOTE | 2017-11-19 17:01 | Orthopedic Progress Note ---
Orthopedic Progress Note Date of Service Nov 19, 2017. Subjective Additional Notes: Patient notes significant improvement in right posterior thigh pain since yesterday. Notes that he has been much more mobile. Is ambulating and has even been able to sit on the edge of the bed now--yesterday he was unable to tolerate sitting. When laying in bed he only has 1-2/10 pain. Able to fully straighten knee and flex hip some. Objective calves soft nontender, N/V intact, capillary refill less than 2 sec., A&O x3, toes mobile Right posterior thigh feels significantly less swollen and tight compared to yesterday. Still with significant spreading ecchymosis. -No pain with passive stretch. -Motor and sensation intact in tibial and peroneal nerve distribution. -Foot warm and well perfused. Date Time Temp Pulse Resp B/P (MAP) Pulse Ox O2 Delivery O2 Flow Rate FiO2 11/19/17 14:53 36.8 78 16 124/67 (86) 94 Room Air 11/19/17 07:51 36.9 81 19 131/87 (102) 96 Room Air 11/19/17 07:15 Room Air 11/19/17 00:12 Room Air 11/18/17 23:40 37.2 79 16 108/61 (77) 96 Room Air 11/18/17 18:49 86 108/65 (79) Laboratory Results 24 Hours: Test 11/18/17 20:18 11/19/17 06:05 Hematocrit 28.4 % 29.5 % Hemoglobin 10.1 g/dL 10.4 g/dL White Blood Count 7.26 K/uL Red Blood Count 3.22 M/uL Mean Corpuscular Volume 91.6 fL Mean Corpuscular Hemoglobin 32.3 pg Mean Corpuscular Hemoglobin Concent 35.3 g/dl Platelet Count 129 K/uL Mean Platelet Volume 9.8 fL Neutrophils (%) (Auto) 65.7 % Lymphocytes (%) (Auto) 21.8 % Monocytes (%) (Auto) 11.4 % Eosinophils (%) (Auto) 0.7 % Basophils (%) (Auto) 0.1 % Neutrophils # (Auto) 4.77 K/uL Lymphocytes # (Auto) 1.58 K/uL Monocytes # (Auto) 0.83 K/uL Eosinophils # (Auto) 0.05 K/uL Basophils # (Auto) 0.01 K/uL Prothromb Time International Ratio 1.1 Prothrombin Time 11.4 SECONDS Assessment & Plan (1) Hematoma of right thigh Swelling and pain continues to improve. No evidence of compartment syndrome. INR now down to 1.1. Should be safe to increase Coumadin dosing back to regular home dose. INR likely will take several days to get back into therapeutic range. Again reiterated to patient on what to watch for in terms of increasing swelling and pain as INR comes back up into therapeutic range. He should immediately seek medical care if he has significant worsening of his pain, swelling, circulation, numbness, or ability to move hip or knee.
--- NOTE | 2017-11-19 17:21 | Progress Note ---
Internal Med Progress Note Date of Service: Nov 19, 2017. Provider Documentation: SUBJECTIVE: Seen and examined at bedside States RLE pain has decreased and is able to move leg better today No worsening of swelling Denies chest pain, SOB, dizziness Family at bedside No other complaints Hb stable OBJECTIVE: Vital Signs-as noted below Physical Exam: Vitals signs as noted above General Appearance:Obese, no apparent distress Head: normocephalic, Atraumatic Eyes: normal inspection, EOMI, PERRL Neck: supple, Trachea midline Respiratory/Chest: Normal breath sounds, CTA Cardiovascular: S1, S2, No murmur Abdomen/GI:Soft, Non tender, Bowel sounds present Extremities/Musculoskelatal:normal inspection, Large Ecchymosis on RLE Neurologic/Psych:AAOX3, grossly no focal neurological deficits Skin: normal color, warm Lab data as noted below. ASSESSMENT & PLAN: Patient is a 72 yr male who presents with fall and right thigh hematoma. S/P Mechanical fall Right thigh Hematoma: patient on coumadin INR:3.3 on admission S/P VIt K INR:1.1 today, give coumadin 2mg today Hb stable: 10.4 today Extremity USD: Subcutaneous soft tissue edema in right thigh. No organized collection is identified to indicate hematoma. Conservative management for now Appreciate Orthopedics Input Coumadin resumed given history of PE, Factor V Monitor Hb, INR Pain control PT/OT May need Rehab placement Anemia, acute blood loss secondary to above Monitor Hb Will transfuse PRBCs if needed Hypokalemia: monitor H/O factor V Leiden deficiency H/O Pulmonary embolism H/O mini strokes coumadin resumed Monitor INR continue statin Goal of INR is 2.5 to 3.5. H/O CAD S/P stent continue Lipitor, Imdur, Coreg hold aspirin for now Hypertension Continue Benicar, Imdur and Coreg monitor Hyperlipidemia Continue statin BPH: continue avodart. DVT Px: SCDs Restarted Coumadin Code Status: Full Code Disposition: To be determined PT/OT Vital Signs: Date Time Temp Pulse Resp B/P (MAP) Pulse Ox O2 Delivery O2 Flow Rate FiO2 11/19/17 14:53 36.8 78 16 124/67 (86) 94 Room Air 11/19/17 07:51 36.9 81 19 131/87 (102) 96 Room Air 11/19/17 07:15 Room Air 11/19/17 00:12 Room Air 11/18/17 23:40 37.2 79 16 108/61 (77) 96 Room Air 11/18/17 18:49 86 108/65 (79) Lab Results: Results Past 24 Hours Test 11/18/17 20:18 11/19/17 06:05 Range/Units Hemoglobin 10.1 10.4 14.0-18.0 g/dL Hematocrit 28.4 29.5 42-52 % White Blood Count 7.26 4.8-10.8 K/uL Red Blood Count 3.22 4.7-6.1 M/uL Mean Corpuscular Volume 91.6 80-100 fL Mean Corpuscular Hemoglobin 32.3 25-34 pg Mean Corpuscular Hemoglobin Concent 35.3 32-36 g/dl Platelet Count 129 130-400 K/uL Mean Platelet Volume 9.8 7.4-10.4 fL Neutrophils (%) (Auto) 65.7 % Lymphocytes (%) (Auto) 21.8 % Monocytes (%) (Auto) 11.4 % Eosinophils (%) (Auto) 0.7 % Basophils (%) (Auto) 0.1 % Neutrophils # (Auto) 4.77 1.4-6.5 K/uL Lymphocytes # (Auto) 1.58 1.2-3.4 K/uL Monocytes # (Auto) 0.83 0.11-0.59 K/uL Eosinophils # (Auto) 0.05 0-0.5 K/uL Basophils # (Auto) 0.01 0-0.2 K/uL RDW Standard Deviation 45.3 36.4-46.3 fL RDW Coefficient of Variation 13.6 11.5-14.5 % Immature Granulocyte % (Auto) 0.3 % Immature Granulocyte # (Auto) 0.02 0.00-0.02 K/uL Prothrombin Time 11.4 9.0-12.0 SECONDS Prothromb Time International Ratio 1.1 0.9-1.1 Sodium Level 139 136-145 mmol/L Potassium Level 3.6 3.5-5.1 mmol/L Chloride Level 105 98-107 mmol/L Carbon Dioxide Level 26 21-32 mmol/L Anion Gap 8.0 3-11 mmol/L Blood Urea Nitrogen 16 7-18 mg/dl Creatinine 0.69 0.60-1.40 mg/dl Est Creatinine Clear Calc Drug Dose 118.9 ml/min Estimated GFR () 110.7 Estimated GFR (Non- 95.5 BUN/Creatinine Ratio 22.7 10-20 Random Glucose 121 70-99 mg/dl Calcium Level 8.1 8.5-10.1 mg/dl Magnesium Level 2.2 1.8-2.4 mg/dl
[2017-11-19 17:52] VITALS: BP 137/75; PULSE 75
[2017-11-19] MEDS: OLMESARTAN MEDOXOMIL 20 MG TAB PO SCH (21:46)
[2017-11-19] MEDS: ATORVASTATIN 40 MG TAB PO SCH (21:47)
[2017-11-19] MEDS: PANTOprazole SOD 40 MG TAB PO SCH (22:36)
[2017-11-19 22:55] VITALS: BP 134/78; PULSE 78; TEMP 37.1; O2SAT 94
[2017-11-20 06:02] LABS: BASO % 0.1 %; BASO ABS # 0.01 K/uL (0-0.2); EOS % 0.8 %; EOS ABS # 0.06 K/uL (0-0.5); HEMATOCRIT 30.9 % (42-52); HEMOGLOBIN 10.7 g/dL (14.0-18.0); IG# 0.03 K/uL (0.00-0.02); LYMPH ABS # 1.36 K/uL (1.2-3.4); MEAN CELL VOLUME 92.2 fL (80-100); MEAN CORPUSCULAR HEMOGLOBIN 31.9 pg (25-34); MEAN CORPUSCULAR HGB CONC 34.6 g/dl (32-36); MONO % 10.7 %; MONO ABS # 0.81 K/uL (0.11-0.59); NEUT ABS # 5.28 K/uL (1.4-6.5); PLATELET COUNT 173 K/uL (130-400); RED CELL DISTRIBUTION WIDTH CV 13.7 % (11.5-14.5); RED CELL DISTRIBUTION WIDTH SD 45.2 fL (36.4-46.3); WHITE BLOOD COUNT 7.55 K/uL (4.8-10.8)
[2017-11-20 06:07] LABS: INR 1.1 (0.9-1.1)
[2017-11-20 06:35] LABS: CALCIUM 8.5 mg/dl (8.5-10.1); CREATININE 0.82 mg/dl (0.60-1.40); POTASSIUM 3.9 mmol/L (3.5-5.1)
[2017-11-20 07:47] VITALS: BP 144/75; PULSE 79; TEMP 36.7; O2SAT 96
[2017-11-20] MEDS: DOCUSATE SODIUM 100 MG CAP PO SCH ×3 (08:21→18:21)
[2017-11-20] MEDS: CARVEDILOL 12.5 MG TAB PO SCH ×2 (08:21→18:21)
[2017-11-20] MEDS: ISOSORBIDE MONONITRATE 60 MG TABCR PO SCH (08:21)
[2017-11-20] MEDS: DUTASTERIDE 0.5MG PO SCH (08:22)
[2017-11-20] MEDS: CYANOCOBALAMIN 500 MCG TAB (VIT B-12) PO SCH (11:40)
[2017-11-20] MEDS: PYRIDOXINE HCL 50 MG TAB PO SCH (11:40)
[2017-11-20 15:05] VITALS: BP 123/70; PULSE 80; TEMP 37.5; O2SAT 96
--- NOTE | 2017-11-20 15:30 | Progress Note ---
Internal Med Progress Note Date of Service: Nov 20, 2017. Provider Documentation: SUBJECTIVE: Seen and examined at bedside Leg pain and swelling continues to improve Denies chest pain, SOB, dizziness Family at bedside No other complaints Hb stable OBJECTIVE: Vital Signs-as noted below Physical Exam: Vitals signs as noted above General Appearance:Obese, no apparent distress Head: normocephalic, Atraumatic Eyes: normal inspection, EOMI, PERRL Neck: supple, Trachea midline Respiratory/Chest: Normal breath sounds, CTA Cardiovascular: S1, S2, No murmur Abdomen/GI:Soft, Non tender, Bowel sounds present Extremities/Musculoskelatal:normal inspection, Large Ecchymosis on RLE Neurologic/Psych:AAOX3, grossly no focal neurological deficits Skin: normal color, warm Lab data as noted below. ASSESSMENT & PLAN: Patient is a 72 yr male who presents with fall and right thigh hematoma. S/P Mechanical fall Right thigh Hematoma: patient on coumadin INR:3.3 on admission S/P VIt K INR:1.1 today, give coumadin 4mg today Hb stable: 10.7 today Extremity USD: Subcutaneous soft tissue edema in right thigh. No organized collection is identified to indicate hematoma. Conservative management for now Appreciate Orthopedics Input Coumadin resumed given history of PE, Factor V Monitor Hb, INR Pain control PT/OT May need Rehab placement Anemia, acute blood loss secondary to above Monitor Hb transfuse PRBCs if needed Hypokalemia: monitor H/O factor V Leiden deficiency H/O Pulmonary embolism H/O mini strokes coumadin resumed Monitor INR continue statin Goal of INR is 2.5 to 3.5. H/O CAD S/P stent continue Lipitor, Imdur, Coreg hold aspirin for now Hypertension Continue Benicar, Imdur and Coreg monitor Hyperlipidemia Continue statin BPH: continue avodart. DVT Px: SCDs On Coumadin Code Status: Full Code Disposition: To be determined PT/OT Vital Signs: Date Time Temp Pulse Resp B/P (MAP) Pulse Ox O2 Delivery O2 Flow Rate FiO2 11/20/17 15:05 37.5 80 18 123/70 (87) 96 Room Air 11/20/17 08:15 Room Air 11/20/17 07:47 36.7 79 16 144/75 (98) 96 Room Air 11/20/17 00:30 Room Air 11/19/17 22:55 37.1 78 16 134/78 (96) 94 Room Air 11/19/17 17:52 75 137/75 (95) 11/19/17 16:15 Room Air Lab Results: Results Past 24 Hours Test 11/20/17 05:18 Range/Units White Blood Count 7.55 4.8-10.8 K/uL Red Blood Count 3.35 4.7-6.1 M/uL Hemoglobin 10.7 14.0-18.0 g/dL Hematocrit 30.9 42-52 % Mean Corpuscular Volume 92.2 80-100 fL Mean Corpuscular Hemoglobin 31.9 25-34 pg Mean Corpuscular Hemoglobin Concent 34.6 32-36 g/dl Platelet Count 173 130-400 K/uL Mean Platelet Volume 10.0 7.4-10.4 fL Neutrophils (%) (Auto) 70.0 % Lymphocytes (%) (Auto) 18.0 % Monocytes (%) (Auto) 10.7 % Eosinophils (%) (Auto) 0.8 % Basophils (%) (Auto) 0.1 % Neutrophils # (Auto) 5.28 1.4-6.5 K/uL Lymphocytes # (Auto) 1.36 1.2-3.4 K/uL Monocytes # (Auto) 0.81 0.11-0.59 K/uL Eosinophils # (Auto) 0.06 0-0.5 K/uL Basophils # (Auto) 0.01 0-0.2 K/uL RDW Standard Deviation 45.2 36.4-46.3 fL RDW Coefficient of Variation 13.7 11.5-14.5 % Immature Granulocyte % (Auto) 0.4 % Immature Granulocyte # (Auto) 0.03 0.00-0.02 K/uL Prothrombin Time 11.1 9.0-12.0 SECONDS Prothromb Time International Ratio 1.1 0.9-1.1 Sodium Level 136 136-145 mmol/L Potassium Level 3.9 3.5-5.1 mmol/L Chloride Level 103 98-107 mmol/L Carbon Dioxide Level 25 21-32 mmol/L Anion Gap 8.0 3-11 mmol/L Blood Urea Nitrogen 17 7-18 mg/dl Creatinine 0.82 0.60-1.40 mg/dl Est Creatinine Clear Calc Drug Dose 100.1 ml/min Estimated GFR () 103.1 Estimated GFR (Non- 89.0 BUN/Creatinine Ratio 20.7 10-20 Random Glucose 148 70-99 mg/dl Calcium Level 8.5 8.5-10.1 mg/dl Magnesium Level 2.2 1.8-2.4 mg/dl
[2017-11-20] MEDS ORDERED: WARFARIN SOD 4 MG TAB PO SCH (16:00)
[2017-11-20 18:20] VITALS: BP 113/71; PULSE 75
[2017-11-20] MEDS: PANTOprazole SOD 40 MG TAB PO SCH (20:40)
[2017-11-20] MEDS: ATORVASTATIN 40 MG TAB PO SCH (20:40)
[2017-11-20] MEDS: OLMESARTAN MEDOXOMIL 20 MG TAB PO SCH (20:41)
[2017-11-20 22:52] VITALS: BP 144/80; PULSE 81; TEMP 37.2; O2SAT 98
[2017-11-21 06:29] LABS: HEMATOCRIT 32.4 % (42-52); HEMOGLOBIN 11.2 g/dL (14.0-18.0)
[2017-11-21 06:47] LABS: INR 1.1 (0.9-1.1)
[2017-11-21 07:16] VITALS: BP 146/88; PULSE 78; TEMP 37.4; O2SAT 97
[2017-11-21] MEDS: DOCUSATE SODIUM 100 MG CAP PO SCH ×2 (08:34→12:05)
[2017-11-21] MEDS: CARVEDILOL 12.5 MG TAB PO SCH (08:34)
[2017-11-21] MEDS: ISOSORBIDE MONONITRATE 60 MG TABCR PO SCH (08:35)
[2017-11-21] MEDS: DUTASTERIDE 0.5MG PO SCH (08:35)
[2017-11-21] MEDS: PYRIDOXINE HCL 50 MG TAB PO SCH (12:05)
[2017-11-21] MEDS: CYANOCOBALAMIN 500 MCG TAB (VIT B-12) PO SCH (12:05)
--- NOTE | 2017-11-21 13:06 | Progress Note ---
Internal Med Progress Note Date of Service: Nov 21, 2017. Provider Documentation: SUBJECTIVE: Seen and examined at bedside Leg pain and swelling much improved Denies chest pain, SOB, dizziness No other complaints Hb stable while on coumadin No new complaints OBJECTIVE: Vital Signs-as noted below Physical Exam: Vitals signs as noted above General Appearance:Obese, no apparent distress Head: normocephalic, Atraumatic Eyes: normal inspection, EOMI, PERRL Neck: supple, Trachea midline Respiratory/Chest: Normal breath sounds, CTA Cardiovascular: S1, S2, No murmur Abdomen/GI:Soft, Non tender, Bowel sounds present Extremities/Musculoskelatal:normal inspection, Large Ecchymosis on RLE Neurologic/Psych:AAOX3, grossly no focal neurological deficits Skin: normal color, warm Lab data as noted below. ASSESSMENT & PLAN: Patient is a 72 yr male who presents with fall and right thigh hematoma. S/P Mechanical fall Ambulatory dysfunction Right thigh Hematoma: patient on coumadin INR:3.3 on admission S/P VIt K INR:1.1 today, give coumadin 4mg Hb stable: 11.2 today Extremity USD: Subcutaneous soft tissue edema in right thigh. No organized collection is identified to indicate hematoma. Conservative management for now Appreciate Orthopedics Input Coumadin resumed given history of PE, Factor V Monitor Hb, INR Pain control PT/OT Plan to discharge to Rehab facility today Anemia, acute blood loss secondary to above Monitor Hb Hypokalemia: Resolved monitor H/O factor V Leiden deficiency H/O Pulmonary embolism H/O mini strokes coumadin resumed Monitor INR continue statin Goal of INR is 2.5 to 3.5. H/O CAD S/P stent continue Lipitor, Imdur, Coreg hold aspirin for now Hypertension Continue Benicar, Imdur and Coreg monitor Hyperlipidemia Continue statin BPH: continue avodart. DVT Px: SCDs On Coumadin Code Status: Full Code Disposition: Plan to discharged to Acute Rehab facility today Get PT/INR check tomorrow and follow up with your doctor for coumadin dosage Follow up with your Primary Care Physician in 1 week Seek immediate medical attention if you have significant worsening of pain, swelling, numbness, decreased mobility or bleeding issues Vital Signs: Date Time Temp Pulse Resp B/P (MAP) Pulse Ox O2 Delivery O2 Flow Rate FiO2 11/21/17 07:30 Room Air 11/21/17 07:16 37.4 78 18 146/88 (107) 97 Room Air 11/20/17 23:55 Room Air 11/20/17 22:52 37.2 81 20 144/80 (101) 98 Room Air 11/20/17 18:20 75 113/71 (85) 11/20/17 16:20 Room Air 11/20/17 15:05 37.5 80 18 123/70 (87) 96 Room Air Lab Results: Results Past 24 Hours Test 11/21/17 05:05 Range/Units Hemoglobin 11.2 14.0-18.0 g/dL Hematocrit 32.4 42-52 % Prothrombin Time 11.3 9.0-12.0 SECONDS Prothromb Time International Ratio 1.1 0.9-1.1
[2017-11-21] MEDS ORDERED: MRLP17X PO (13:08)
--- NOTE | 2017-11-21 13:11 | Discharge Summary ---
Discharge Summary Date of Service Nov 21, 2017. Discharge Summary Admission Date: Nov 18, 2017 at 20:01 Discharge Date: Nov 21, 2017 Discharge Disposition: Rehab Principal Diagnosis: Mechanical Fall, Right leg Hematoma, Ambulatory dysfunction Procedures: CT head: : No acute intracranial abnormality RLE USD: Subcutaneous soft tissue edema is seen in the right thigh at the site of interest. No organized collection is identified to indicate hematoma Hip X ray: No acute fractures or dislocations identified. Postsurgical changes of a right total hip arthroplasty Consultations: Orthopedics Pending Studies/Follow-Up: Get PT/INR check tomorrow and follow up with your doctor for Coumadin dosage Follow up with your Primary Care Physician in 1 week Seek immediate medical attention if you have significant worsening of pain, swelling, numbness, decreased mobility or bleeding issues Medication Reconciliation New Medications: Polyethylene (Miralax) 17 Gm Pow 17 GM PO DAILY PRN for Constipation for 7 Days, #7 EA Continued Medications: Aspirin (Aspirin Ec) 81 Mg Tab 81 MG PO 1200 Atorvastatin (Lipitor) 20 Mg Tab 40 MG PO PM, #30 Carvedilol (Coreg) 12.5 Mg Tab 12.5 MG PO BIDM Cyanocobalamin (Vitamin B-12) 250 Mcg Tab 1000 MCG PO 1200 Docusate Sodium (Docusate Sodium) 100 Mg Cap 1 CAP PO TIDM Dutasteride (Avodart) 0.5 Mg Cap 0.5 MG PO QAM Esomeprazole Magnesium (Nexium) 40 Mg Capcr 40 MG PO HS Folic Acid (Folvite) 1 Mg Tab 1 MG PO 1200 Hydrocodone/Acetaminophen 5MG/325MG (Hale 5MG/325MG) Tab 1 TABLET PO Q4H PRN for Pain PRN PAIN Isosorbide Mononitrate (Isosorbide Mononitrate ER) 60 Mg Tab 60 MG PO QAM Nitroglycerin (Nitrostat) 0.4 Mg Tab 0.4 MG UT PRN FOR CHEST PAIN. NO MORE THAN 3 TABLETS Olmesartan Medoxomil (Benicar) 5 Mg Tab 10 MG PO HS Pyridoxine (Vitamin B6) 100 Mg Tab 100 MG PO 1200 Warfarin Sod (Jantoven) 3 Mg Tab 3 MG PO 4XWK TAKE 3MG TBN-OTO-VQT-SAT Warfarin Sodium (Warfarin Sodium) 4 Mg Tab 4 MG PO 3XWK TAKE 4MG EVERY SUN-TUE-SAT Admission Information HPI (per Admitting provider): CHIEF COMPLAINT: Status post fall and right thigh hematoma. HISTORY OF PRESENT ILLNESS: This is a 72-year-old male with past medical history significant for hypertension, obesity, CAD status post stent, hyperlipidemia, history of depression, osteoarthrosis, diaphragmatic hernia, history of factor V Leiden deficiency, history of multiple mini strokes 20 years ago and was placed on Coumadin and since then he was doing okay and history of pulmonary embolism in 1967 and also in 1974 after abdominal surgery, who came here because of status post fall and right thigh hematoma. A couple of days ago patient slipped on the ice on his driveway and fell on his left knee and then on the right thigh. No loss of consciousness. Since then, he was having severe pain in his right thigh. He is only able to walk a few steps and is not able to sit. That is the reason he came to the ER today. He did not stop taking Coumadin because of his history and his INR supposed to be in between 2.5 and 3.5. Denies any blood in the stools or blood in the urine. He felt dizzy and nauseous when he is standing up, but no headaches, no runny nose, no cough, no sore throat, no difficulty swallowing. No chest pain, no shortness of breath, no abdominal pain. Currently resting comfortably and hemodynamically stable. Physical Exam (per Admitting): PHYSICAL EXAMINATION: GENERAL: The patient is obese, not in distress. VITAL SIGNS: Temperature 36.5, pulse 75, respiratory rate 18, blood pressure 104/68, oxygen 97% on room air. HEENT: No pallor, no icterus. Pupils equal, round, and reactive to light. NECK: No JVD, no neck masses, no carotid bruits. CARDIOVASCULAR: S1, S2 heard; regular rate and rhythm; no murmur, no gallop. RESPIRATORY SYSTEM: Normal AP diameter. No accessory muscle use. No wheezing, no crackles. ABDOMEN: Soft, bowel sounds present. Nontender. No distention. CENTRAL NERVOUS SYSTEM: Cranial nerves II-XII grossly intact. Nonfocal. EXTREMITIES: Right thigh bruising on the middle side of the thigh and right thigh swelling noted and tender. Hospital Course Patient is a 72 yr male who presents with fall and right thigh hematoma. S/P Mechanical fall Ambulatory dysfunction Right thigh Hematoma: patient on coumadin INR:3.3 on admission S/P VIt K INR:1.1 today, give coumadin 4mg Hb stable: 11.2 today Extremity USD: Subcutaneous soft tissue edema in right thigh. No organized collection is identified to indicate hematoma. Conservative management for now Appreciate Orthopedics Input Coumadin resumed given history of PE, Factor V Monitor Hb, INR Pain control PT/OT Plan to discharge to Rehab facility today Anemia, acute blood loss secondary to above Monitor Hb Hypokalemia: Resolved monitor H/O factor V Leiden deficiency H/O Pulmonary embolism H/O mini strokes coumadin resumed Monitor INR continue statin Goal of INR is 2.5 to 3.5. H/O CAD S/P stent continue Lipitor, Imdur, Coreg hold aspirin for now Hypertension Continue Benicar, Imdur and Coreg monitor Hyperlipidemia Continue statin BPH: continue avodart. DVT Px: SCDs On Coumadin Code Status: Full Code Disposition: Plan to discharged to Acute Rehab facility today Get PT/INR check tomorrow and follow up with your doctor for coumadin dosage Follow up with your Primary Care Physician in 1 week Seek immediate medical attention if you have significant worsening of pain, swelling, numbness, decreased mobility or bleeding issues Total time spent on discharge = 35 minutes This includes examination of the patient, discharge planning, medication reconciliation, and communication with other providers. Discharge Instructions Discharge Instructions Date of Service Nov 21, 2017. Admission Reason for Admission: Hematoma Of Right Thigh, Leg Pain, Right Discharge Discharge Diagnosis / Problem: Mechanical Fall, Right leg Hematoma, Ambulatory dysfunction Discharge Goals Goal(s): Decrease discomfort, Improve function Activity Recommendations Activity Limitations: resume your previous activity Exercise/Sports Limitations: as tolerated . Instructions / Follow-Up Instructions / Follow-Up Get PT/INR check tomorrow and follow up with your doctor for Coumadin dosage Follow up with your Primary Care Physician in 1 week Seek immediate medical attention if you have significant worsening of pain, swelling, numbness, decreased mobility or bleeding issues Current Hospital Diet Patient's current hospital diet: AHA Diet (Heart Healthy) Discharge Diet Recommended Diet: AHA Diet (Heart Healthy) Pending Studies Studies pending at discharge: no Medical Emergencies . Who to Call and When: Medical Emergencies: If at any time you feel your situation is an emergency, please call 911 immediately. . Non-Emergent Contact Non-Emergency issues call your: Primary Care Provider Call Non-Emergent contact if: you have a fever, your pain is not controlled, your pain is worsening, your pain is unusual for you, your pain is concerning you, you have any medication questions . . "Provider Documentation" section prepared by Vitaliy Rangel. . VTE Core Measure Inpt VTE Proph given/why not?: Warfarin (Coumadin) <Electronically signed by Vitaliy Rangel MD> Signed: 11/21/17 1310 Signed: The status of this report is Signed * If report status is Draft, the document has not been finalized by the responsible provider.
[2017-11-21 13:20] VITALS: BP 146/88; PULSE 78; TEMP 37.4; O2SAT 97
== END 2017-11-21 15:20 | DRG 812 ==
LOC: EDBD 07:47 → C.EDB 07:52 → C.MSW 17:19 → ENRESERV 17:33 → OBSVTOIN 11-18 20:01
PROVIDERS: ADMIT Internal Medicine; ATTEND Internal Medicine
DX: D62 Acute posthemorrhagic anemia (principal); D68.2 Hereditary deficiency of other clotting factors; S70.11XA Contusion of right thigh, initial encounter; R26.2 Difficulty in walking, not elsewhere classified; E87.6 Hypokalemia; M25.562 Pain in left knee; I11.9 Hypertensive heart disease without heart failure; I25.10 Atherosclerotic heart disease of native coronary artery without angina pectoris; N40.0 Benign prostatic hyperplasia without lower urinary tract symptoms; E78.5 Hyperlipidemia, unspecified; J45.909 Unspecified asthma, uncomplicated; E66.9 Obesity, unspecified; Z79.899 Other long term (current) drug therapy; Z79.01 Long term (current) use of anticoagulants; Z79.82 Long term (current) use of aspirin; Z86.711 Personal history of pulmonary embolism; Z96.643 Presence of artificial hip joint, bilateral; Z86.73 Personal history of transient ischemic attack (TIA), and cerebral infarction without residual deficits; Z68.39 Body mass index [BMI] 39.0-39.9, adult; Z95.5 Presence of coronary angioplasty implant and graft; Z87.39 Personal history of other diseases of the musculoskeletal system and connective tissue; Z87.891 Personal history of nicotine dependence; Y92.014 Private driveway to single-family (private) house as the place of occurrence of the external cause; Z82.49 Family history of ischemic heart disease and other diseases of the circulatory system; Z84.1 Family history of disorders of kidney and ureter; Z82.3 Family history of stroke; Z82.61 Family history of arthritis; Z83.49 Family history of other endocrine, nutritional and metabolic diseases; Z83.511 Family history of glaucoma; W00.0XXA Fall on same level due to ice and snow, initial encounter; Y99.8 Other external cause status

== ENCOUNTER 2019-01-05 17:49 | Observation (INO) ==
[2019-01-05] MEDS ORDERED: ONDANSETRON INJ 2 MG/ML 2 ML VIAL IV STA (18:06)
[2019-01-05] MEDS ORDERED: MoRPHine SULFATE 4 MG/ML 1 ML CARP\\VIAL IV STA (18:06)
[2019-01-05] MEDS ORDERED: SODIUM CHLORIDE 0.9% 1000ML 1,000 ML IV SCH (18:15)
--- NOTE | 2019-01-05 18:26 | XRay Report ---
XR chest 1V portable CLINICAL HISTORY: cp dyspnea COMPARISON STUDY: 08/28/2018 FINDINGS: The bones soft tissues and hemidiaphragms are normal. The cardiomediastinal silhouette is n ormal. The lungs are clear. The pulmonary vasculature is normal. IMPRESSION: Negative chest. The above report was generated using voice recognition software. It may contain grammatical, syntax or spelling errors. Electronically signed by: Emil Dee M.D. 01/05/2019 6:25 PM
[2019-01-05 18:30] LABS: Basophils # (auto) 0.02 K/uL (0-0.2); Basophils % (auto) 0.3 %; Eosinophils # (auto) 0.13 K/uL (0-0.5); Eosinophils % (auto) 2.1 %; Hematocrit (blood only) 42.2 % (42-52); Hemoglobin 14.5 g/dL (14.0-18.0); Immature Granulocytes # (auto) 0.01 K/uL (0.00-0.02); Immature Granulocytes % (auto) 0.2 %; Lymphocytes # (auto) 1.46 K/uL (1.2-3.4); Lymphocytes % (auto) 23.7 %; Mean Corpuscular Hgb Conc 34.4 g/dL (32-36); Mean Corpuscular Volume 88.8 fL (80-100); Mean Platelet Volume 10.3 fL (7.4-10.4); Monocytes % (auto) 9.7 %; Neutrophils # (auto) 3.95 K/uL (1.4-6.5); Platelet Count 140 K/uL (130-400); RDW Coefficient of Variation 14.1 % (11.5-14.5); RDW Standard Deviation 45.5 fL (36.4-46.3); Red Blood Count 4.75 M/uL (4.7-6.1); White Blood Count 6.17 K/uL (4.8-10.8)
[2019-01-05 18:41] LABS: INR 2.6 (0.9-1.1); Partial Thromboplastin Ratio 1.4; Partial Thromboplastin Time 37.1 Seconds (21.0-31.0); Prothrombin Time 24.7 Seconds (9.0-12.0)
[2019-01-05 18:47] LABS: Alanine Aminotransferase 22 U/L (12-78); Albumin Level 3.2 gm/dl (3.4-5.0); Aspartate Aminotransferase 16 U/L (15-37); BUN Creatinine Ratio 16.8 (10-20); Blood Urea Nitrogen 15 mg/dl (7-18); Calcium 8.3 mg/dl (8.5-10.1); Carbon Dioxide 25 mmol/L (21-32); Chloride 108 mmol/L (98-107); Creatinine Clr Calc Pharmacy 90.2 ml/min; Est GFR (African American) 99.5; Est GFR (Non-African American) 85.8; Glucose 129 mg/dl (70-99); Potassium 3.9 mmol/L (3.5-5.1); Sodium 139 mmol/L (136-145)
[2019-01-05 18:52] LABS: Albumin Globulin Ratio 0.8 (0.9-2); Alkaline Phosphatase 77 U/L (45-117); Bilirubin,Total 0.4 mg/dl (0.2-1); Globulin 3.8 gm/dl (2.5-4.0); Troponin I < 0.015 ng/ml (0-0.045)
[2019-01-05] MEDS ORDERED: IOVERSOL 100ml IV PRN (19:13)
--- NOTE | 2019-01-05 19:25 | CT Scan Report ---
CT abd pelvis IV con only CT DOSE: 1303.51 mGy.cm HISTORY: Pain cp/abdominal pain, ?obstruction TECHNIQUE: Multiaxial CT images of the abdomen and pelvis were performed following the use of intrave nous contrast. A dose lowering technique was utilized adhering to the principles of ALARA. COMPARISON STUDY: 08/28/2018 FINDINGS: Partial interval repair of several procedure described ventral hernias. Several small herni a persists. Nonobstructive bowel pattern. Nodular densities right lung base are stable. Small unchanged hiatal he rnia. Liver spleen and pancreas are unremarkable. Prior cholecystectomy. The adrenal glands are milad l. Kidneys negative for hydronephrosis. Bladder is midline. Bilateral total hip arthroplasties. IMPRESSION: 1. No evidence for bowel obstruction. 2. Stable postoperative changes of ventral hernia repair and prior cholecystectomy. 3. Several small residual fat-containing ventral hernias considered nonobstructive findings. 4. Stable nodularity right lung base. The above report was generated using voice recognition software. It may contain grammatical, syntax or spelling errors. Electronically signed by: Emil Dee M.D. 01/05/2019 7:24 PM
[2019-01-05 19:43] LABS: Appearance Urine Clear (Clear); Bilirubin Urine Negative (Negative); Blood Urine Negative (Negative); Color Urine Yellow; Glucose Urine UA Negative (Negative); Ketones Urine Negative (Negative); Leukocyte Esterase Urine Negative (Negative); Nitrite Urine Negative (Negative); Protein Urine Negative (Negative); Specific Gravity Urine 1.019 (1.000-1.030); Urobilinogen Urine Negative (Negative)
[2019-01-05] MEDS ORDERED: FAMOTIDINE 20MG/5ML IV PUSH IV STA (19:48)
[2019-01-05] MEDS ORDERED: ASPIRIN CHEW 324 MG PO STA (19:48)
--- NOTE | 2019-01-05 19:48 | Emergency Department Note ---
Entered by Xi Steward acting as a scribe for Tony Musa M.D. History of Present Illness General Chief complaint: Chest Pain Stated complaint: CHEST PAIN Source: patient Limitations: no limitations History of Present Illness Provider complaint: chest pain Onset (ago): hour(s) Location: chest Radiation: non-radiation Maximum Pain Intensity: 9 Quality: + other (tightness) Associated symptoms: + shortness of breath and + other (+kidney pain ) The patient is a 73 year old male who presents to the Emergency Room with complaints of chest pain that began earlier in the day prior to arrival. The p atient states that he had to manually lift a chain-linked fence this morning and states after is when his pain began. The patient describes his chest pain as a tightness. The patient states that he has dull abdominal pain, shortness of breath, and kidney pain. The patient denies any recent falls. The patient denies any radiation of pain into his neck or arms. The patient states that his chest pain and abdominal pain are slightly relieved when he is laying down. The patient states that his bowels have not been normal since July. The patient states that he is still on Coumadin. Home Medications Home Medications Medication Instructions Recorded Confirmed Type aspirin [Aspir-81] 81 mg PO DAILY 08/28/18 01/05/19 History atorvastatin [Lipitor] 40 mg PO DAILY 08/28/18 01/05/19 History carvedilol [Coreg] 12.5 mg PO BID 08/28/18 01/05/19 History cyanocobalamin (vitamin B-12) 1,000 mcg PO DAILY 08/28/18 01/05/19 History [Vitamin B-12] esomeprazole magnesium [Nexium] 40 mg PO HS 08/28/18 01/05/19 History isosorbide mononitrate 60 mg PO DAILY 08/28/18 01/05/19 History nitroglycerin [Nitrostat] 0.4 mg SUBLINGUAL UD PRN 08/28/18 01/05/19 History olmesartan [Benicar] 10 mg PO DAILY 08/28/18 01/05/19 History pyridoxine (vitamin B6) [Vitamin 100 mg PO DAILY 08/28/18 01/05/19 History B-6] warfarin [Coumadin] See Rx Instructions .ROUTE .COMPLEX 08/28/18 01/05/19 History folic acid 0.8 mg PO DAILY 01/05/19 01/05/19 History Allergies Allergy/AdvReac Type Severity Reaction Status Date / Time moxifloxacin Allergy Intermediate ITCHING. 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 and A total of 10 systems reviewed and were otherwise negative Physical Exam Vital Signs Vital Signs - 24 hr 01/05/19 17:53 01/05/19 18:30 01/05/19 18:31 Temperature 36.9 C Temperature Source Oral Sepsis Recent Fever Within 48 Hours No Sepsis Action Taken by Nursing No Action Required Pulse Rate 66 61 66 Pulse Rate [Apical] Pulse Rate [Right Finger] Pulse Rate from SpO2 Sensor 61 Pulse Rhythm Regular Regular Pulse Rhythm [Apical] Pulse Rhythm [Right Finger] Pulse Strength Normal Pulse Strength [Apical] Pulse Strength [Right Finger] Respiratory Rate 18 13 18 Respiratory Effort / Characteristics Non-Labored Non-Labored Respiratory Depth Normal Normal Respiratory Pattern Regular Blood Pressure 174/91 H 158/89 H Blood Pressure [Left Arm] Blood Pressure [Right Arm] Blood Pressure Mean 118 112 Blood Pressure Mean [Left Arm] Blood Pressure Mean [Right Arm] Blood Pressure Position Sitting Blood Pressure Position [Left Arm] Blood Pressure Position [Right Arm] Pulse Oximetry 97 97 96 Oxygen Delivery Method Room Air Room Air Room Air 01/05/19 19:00 01/05/19 19:07 01/05/19 20:48 Temperature Temperature Source Sepsis Recent Fever Within 48 Hours Sepsis Action Taken by Nursing Pulse Rate 57 L 55 L Pulse Rate [Apical] Pulse Rate [Right Finger] Pulse Rate from SpO2 Sensor 57 L Pulse Rhythm Pulse Rhythm [Apical] Pulse Rhythm [Right Finger] Pulse Strength Pulse Strength [Apical] Pulse Strength [Right Finger] Respiratory Rate 18 14 Respiratory Effort / Characteristics Respiratory Depth Respiratory Pattern Blood Pressure 170/91 H 163/96 H 169/100 H Blood Pressure [Left Arm] Blood Pressure [Right Arm] Blood Pressure Mean 117 118 Blood Pressure Mean [Left Arm] Blood Pressure Mean [Right Arm] Blood Pressure Position Blood Pressure Position [Left Arm] Blood Pressure Position [Right Arm] Pulse Oximetry 95 97 Oxygen Delivery Method Room Air 01/05/19 21:15 01/05/19 21:18 01/05/19 21:49 Temperature 36.7 C Temperature Source Oral Sepsis Recent Fever Within 48 Hours Sepsis Action Taken by Nursing Pulse Rate 56 L Pulse Rate [Apical] Pulse Rate [Right Finger] 58 L Pulse Rate from SpO2 Sensor Pulse Rhythm Pulse Rhythm [Apical] Pulse Rhythm [Right Finger] Regular Pulse Strength Pulse Strength [Apical] Pulse Strength [Right Finger] Normal Respiratory Rate 18 Respiratory Effort / Characteristics Non-Labored Non-Labored Spontaneous Respiratory Depth Normal Normal Respiratory Pattern Regular Regular Blood Pressure Blood Pressure [Left Arm] 172/68 H Blood Pressure [Right Arm] Blood Pressure Mean Blood Pressure Mean [Left Arm] 102 Blood Pressure Mean [Right Arm] Blood Pressure Position Blood Pressure Position [Left Arm] Sitting Blood Pressure Position [Right Arm] Pulse Oximetry 95 Oxygen Delivery Method Room Air 01/05/19 22:16 01/05/19 22:25 01/05/19 23:19 Temperature 36.5 C Temperature Source Oral Sepsis Recent Fever Within 48 Hours Sepsis Action Taken by Nursing Pulse Rate Pulse Rate [Apical] 57 L 53 L 58 L Pulse Rate [Right Finger] Pulse Rate from SpO2 Sensor Pulse Rhythm Pulse Rhythm [Apical] Regular Pulse Rhythm [Right Finger] Pulse Strength Pulse Strength [Apical] Normal Pulse Strength [Right Finger] Respiratory Rate 18 16 Respiratory Effort / Characteristics Non-Labored Respiratory Depth Normal Normal Respiratory Pattern Regular Regular Blood Pressure Blood Pressure [Left Arm] 172/94 H 170/94 H 174/91 H Blood Pressure [Right Arm] 187/95 H Blood Pressure Mean Blood Pressure Mean [Left Arm] 120 119 118 Blood Pressure Mean [Right Arm] 125 Blood Pressure Position Blood Pressure Position [Left Arm] Semi-fowlers Semi-fowlers Lying Blood Pressure Position [Right Arm] Semi-fowlers Pulse Oximetry 97 94 Oxygen Delivery Method Room Air Room Air GENERAL: Awake, alert, uncomfortable-appearing. HENT: Normocephalic, atraumatic. EYES: Normal conjunctiva. Sclera non-icteric. NECK: Supple. No nuchal rigidity. RESPIRATORY: Clear to auscultation. No wheezes. Normal respiratory effort. CARDIAC: Normal rate. Normal rhythm. Extremities warm and well perfused. GI: Soft, non-distended. Mild to moderate diffuse abdominal tenderness. No rebound. RECTAL: Deferred. MUSCULOSKELETAL: Atraumatic. Chest examination reveals no tenderness. LOWER EXTREMITIES: Calves are equal size bilaterally and non-tender. No edema NEURO: Normal sensorium. No sensory or motor deficits noted. No facial droop. SKIN: Warm and dry. No rash or jaundice noted. Course 1757: Past medical records reviewed. The patient was evaluated in room C11B, and a complete history and physical examination were performed. 1945: I discussed the patient's case with Dr. Og Almazan Hospitalist who will evaluate the patient for further hospitalization. I updated the patient on his results and admission. Consultations Consultation #1: Dr. Og Almazan Hospitalist Time: 19:46 Administered Medications Carvedilol (Coreg) 12.5 mg PO BIDM JEANE Stop: 02/04/19 21:59 Last Admin: 01/05/19 22:15 Dose: Not Given Documented by: [id number] Sodium Chloride (Nss 1000ml) 1,000 mls @ 75 mls/hr IV .[id number] JEANE Stop: 02/04/19 21:14 Last Admin: 01/05/19 21:36 Dose: 75 mls/hr Documented by: [id number] Morphine Sulfate (Morphine Sulfate) 3 mg IV Q3H PRN PRN Reason: Pain Stop: 01/19/19 21:46 Last Admin: 01/05/19 21:55 Dose: 3 mg Documented by: [id number] Pantoprazole Sodium (Protonix) 40 mg PO BID JEANE Stop: 02/04/19 21:59 Last Admin: 01/05/19 22:37 Dose: 40 mg Documented by: [id number] Warfarin Sodium (Coumadin) 3 mg PO [id number] JEANE Stop: 02/04/19 21:59 Last Admin: 01/05/19 22:37 Dose: 3 mg Documented by: [id number] Discontinued Medications Al Hydrox/Mg Hydrox/Simethicone (Maalox Max) 30 ml PO NOW STA Stop: 01/05/19 22:38 Last Admin: 01/05/19 22:58 Dose: 30 ml Documented by: [id number] Aspirin (Aspirin) 324 mg PO NOW STA Stop: 01/05/19 19:49 Last Admin: 01/05/19 20:00 Dose: 324 mg Documented by: [id number] Dicyclomine HCl (Bentyl) 10 mg PO NOW ONE Stop: 01/05/19 23:01 Last Admin: 01/05/19 22:57 Dose: 10 mg Documented by: [id number] Famotidine (Pepcid 20mg Iv Push) 20 mg IV ONE STA Stop: 01/05/19 19:49 Last Admin: 01/05/19 20:00 Dose: 20 mg Documented by: [id number] Hydralazine HCl (Apresoline) 25 mg PO NOW ONE Stop: 01/05/19 22:46 Last Admin: 01/05/19 22:57 Dose: 25 mg Documented by: [id number] Sodium Chloride (Nss 1000ml) 1,000 mls @ 999 mls/hr IV .Q1H1M JEANE Stop: 01/05/19 19:15 Last Infusion: 01/05/19 19:58 Dose: 0 mls/hr Documented by: [id number] Admin: 01/05/19 18:30 Dose: 999 mls/hr Documented by: [id number] Ioversol (Optiray 320 100ml) 90 ml IV ONCE PRN PRN Reason: Interaction Checking Stop: 01/09/19 19:12 Last Admin: 01/05/19 19:14 Dose: 90 ml Documented by: [id number] Morphine Sulfate (Morphine Sulfate) 4 mg IV NOW STA Stop: 01/05/19 18:07 Last Admin: 01/05/19 18:30 Dose: 4 mg Documented by: [id number] Ondansetron HCl (Zofran) 4 mg IV NOW STA Stop: 01/05/19 18:07 Last Admin: 01/05/19 18:30 Dose: 4 mg Documented by: [id number] Medical Decision Making Differential Diagnosis The differential was considered includes acute myocardial infarction, acute coronary syndrome, myocarditis, pericarditis, pericardial effusions /tamponad, esophageal perforation, thoracic aortic dissection, pulmonary embolism, pneumonia, pneumothorax, pancreatitis, shingles, acute cholecystitis, perforated abdominal viscus, pancreatitis, hepatitis, or acute cholecystitis, AAA, UTI, pyelonephritis, kidney stones, appendicitis, diverticulitis, shingles, bowel obstruction mesenteric ischemia, intussusception, hernia. Medical Records Attestation: I reviewed the patient's medical records. Home Medications Current Medication List: was personally reviewed by me Laboratory Data Attestation: I reviewed the patient's lab results. Result diagrams: 01/05/19 18:15 01/05/19 18:15 Lab Results 01/05/19 01/05/19 01/05/19 Range/Units 18:15 18:15 18:15 WBC 6.17 (4.8-10.8) K/uL RBC 4.75 (4.7-6.1) M/uL Hgb 14.5 (14.0-18.0) g/dL Hct 42.2 (42-52) % MCV 88.8 (80-100) fL MCH 30.5 (25-34) pg MCHC 34.4 (32-36) g/dL RDW Std Deviation 45.5 (36.4-46.3) fL RDW Coeff of Guille 14.1 (11.5-14.5) % Plt Count 140 (130-400) K/uL MPV 10.3 (7.4-10.4) fL Immature Gran % (Auto) 0.2 % Neut % (Auto) 64.0 % Lymph % (Auto) 23.7 % Stanley % (Auto) 9.7 % Eos % (Auto) 2.1 % Baso % (Auto) 0.3 % Immature Gran # (Auto) 0.01 (0.00-0.02) K/uL Neut # (Auto) 3.95 (1.4-6.5) K/uL Lymph # (Auto) 1.46 (1.2-3.4) K/uL Stanley # (Auto) 0.60 H (0.11-0.59) K/uL Eos # (Auto) 0.13 (0-0.5) K/uL Baso # (Auto) 0.02 (0-0.2) K/uL PT 24.7 H (9.0-12.0) Seconds INR 2.6 H (0.9-1.1) APTT 37.1 H (21.0-31.0) Seconds PTT Ratio 1.4 Sodium 139 (136-145) mmol/L Potassium 3.9 (3.5-5.1) mmol/L Chloride 108 H (98-107) mmol/L Carbon Dioxide 25 (21-32) mmol/L Anion Gap 6.0 (3-11) BUN 15 (7-18) mg/dl Creatinine 0.88 (0.6-1.4) mg/dl Est Cr Clr Drug Dosing 90.2 ml/min Est GFR ( Amer) 99.5 Est GFR (Non-Af Amer) 85.8 BUN/Creatinine Ratio 16.8 (10-20) Glucose 129 H (70-99) mg/dl Calcium 8.3 L (8.5-10.1) mg/dl Total Bilirubin 0.4 (0.2-1) mg/dl AST 16 (15-37) U/L ALT 22 (12-78) U/L Alkaline Phosphatase 77 (45-117) U/L POC Troponin I (0-0.045) ng/ml Troponin I < 0.015 (0-0.045) ng/ml Total Protein 7.0 (6.4-8.2) gm/dl Albumin 3.2 L (3.4-5.0) gm/dl Globulin 3.8 (2.5-4.0) gm/dl Albumin/Globulin Ratio 0.8 L (0.9-2) Lipase 87 (73-393) U/L Urine Color Urine Appearance (Clear) Urine pH (4.5-7.5) Ur Specific [place] (1.000-1.030) Urine Protein (Negative) Urine Glucose (UA) (Negative) Urine Ketones (Negative) Urine Blood (Negative) Urine Nitrite (Negative) Urine Bilirubin (Negative) Urine Urobilinogen (Negative) Ur Leukocyte Esterase (Negative) 01/05/19 01/05/19 01/05/19 Range/Units 18:26 19:26 21:30 WBC (4.8-10.8) K/uL RBC (4.7-6.1) M/uL Hgb (14.0-18.0) g/dL Hct (42-52) % MCV (80-100) fL MCH (25-34) pg MCHC (32-36) g/dL RDW Std Deviation (36.4-46.3) fL RDW Coeff of Guille (11.5-14.5) % Plt Count (130-400) K/uL MPV (7.4-10.4) fL Immature Gran % (Auto) % Neut % (Auto) % Lymph % (Auto) % Stanley % (Auto) % Eos % (Auto) % Baso % (Auto) % Immature Gran # (Auto) (0.00-0.02) K/uL Neut # (Auto) (1.4-6.5) K/uL Lymph # (Auto) (1.2-3.4) K/uL Stanley # (Auto) (0.11-0.59) K/uL Eos # (Auto) (0-0.5) K/uL Baso # (Auto) (0-0.2) K/uL PT (9.0-12.0) Seconds INR (0.9-1.1) APTT (21.0-31.0) Seconds PTT Ratio Sodium (136-145) mmol/L Potassium (3.5-5.1) mmol/L Chloride (98-107) mmol/L Carbon Dioxide (21-32) mmol/L Anion Gap (3-11) BUN (7-18) mg/dl Creatinine (0.6-1.4) mg/dl Est Cr Clr Drug Dosing ml/min Est GFR ( Amer) Est GFR (Non-Af Amer) BUN/Creatinine Ratio (10-20) Glucose (70-99) mg/dl Calcium (8.5-10.1) mg/dl Total Bilirubin (0.2-1) mg/dl AST (15-37) U/L ALT (12-78) U/L Alkaline Phosphatase (45-117) U/L POC Troponin I < 0.03 (0-0.045) ng/ml Troponin I < 0.015 (0-0.045) ng/ml Total Protein (6.4-8.2) gm/dl Albumin (3.4-5.0) gm/dl Globulin (2.5-4.0) gm/dl Albumin/Globulin Ratio (0.9-2) Lipase (73-393) U/L Urine Color Yellow Urine Appearance Clear (Clear) Urine pH 7.0 (4.5-7.5) Ur Specific [place] 1.019 (1.000-1.030) Urine Protein Negative (Negative) Urine Glucose (UA) Negative (Negative) Urine Ketones Negative (Negative) Urine Blood Negative (Negative) Urine Nitrite Negative (Negative) Urine Bilirubin Negative (Negative) Urine Urobilinogen Negative (Negative) Ur Leukocyte Esterase Negative (Negative) Imaging Data Attestation: I personally reviewed and interpreted this imaging study as follows: Radiologist's Impression: Radiology results as stated below per my review and the radiologist's interpretation: XR chest 1V portable CLINICAL HISTORY: cp dyspnea COMPARISON STUDY: 08/28/2018 FINDINGS: The bones soft tissues and hemidiaphragms are normal. The cardiomediastinal silhouette is normal. The lungs are clear. The pulmonary vasculature is normal. IMPRESSION: Negative chest. The above report was generated using voice recognition software. It may contain grammatical, syntax or spelling errors. Electronically signed by: Emil Dee M.D. 01/05/2019 6:[address] abd pelvis IV con only CT DOSE: 1303.51 mGy.cm HISTORY: Pain cp/abdominal pain, ?obstruction TECHNIQUE: Multiaxial CT images of the abdomen and pelvis were performed following the use of intravenous contrast. A dose lowering technique was utilized adhering to the principles of ALARA. COMPARISON STUDY: 08/28/2018 FINDINGS: Partial interval repair of several procedure described ventral hernias. Several small hernia persists. Nonobstructive bowel pattern. Nodular densities right lung base are stable. Small unchanged hiatal hernia. Liver spleen and pancreas are unremarkable. Prior cholecystectomy. The adrenal glands are normal. Kidneys negative for hydronephrosis. Bladder is midline. Bilateral total hip arthroplasties. IMPRESSION: 1. No evidence for bowel obstruction. 2. Stable postoperative changes of ventral hernia repair and prior cholecystectomy. 3. Several small residual fat-containing ventral hernias considered nonobstructive findings. 4. Stable nodularity right lung base. The above report was generated using voice recognition software. It may contain grammatical, syntax or spelling errors. Electronically signed by: Emil Dee M.D. 01/05/2019 7:24 PM ECG Data Attestation: I personally reviewed and interpreted this ECG as follows: Indication: chest pain Rate (beats per minute): 67 Rhythm: normal sinus Findings: + other (nonspecific T wave changes) and + RBBB; no PVC Comparison ECG Date: from (08/28/18) Change: no significant change Blood Pressure Blood Pressure Findings: Elevated blood pressure Blood Pressure Disposition: further management by hospitalist MDM Narrative Patient is a 73-year-old gentleman with a past medical history of CAD, factor V Leiden on Coumadin with a history of VT E, and small bowel obstruction presenting today with complaint of chest pain abdominal pain tachycardia hypertension concerns for recurrent bowel obstruction. States very small bowel movement today and some nausea history of multiple abdominal surgeries but years back. Does have a cardiac history states chest pains a little stronger today and does radiate to his back. No trauma. Some mild diffuse abdominal tenderness. EKG appears grossly unchanged. Troponin tract to help evaluate for any evidence of an NSTEMI luckily these are negative on initial draw. Has had some chest discomfort for prior obstructions. Anticoagulated and doubt PE. Doubt this is dissection. CT of the abdomen pelvis was completed help exclude intra-abdominal pathology such as obstruction or pancreatitis. Pancreatic enzymes and hepatitis enzymes completed as well without evidence of significant inflammation. No infectious symptomatologies really. Given some symptomatic treatment here. CT pelvis does not show any acute intra-abdominal pathology. Given his persistent symptoms in the short onset to of some concern this could be involving cardiac disease as I am not seeing any GI pathology. Discussed with the hospitalist for admission for further cardiac evaluation. This could possibly be cardiac versus more of a gastroenteritis based on the evaluation here discussed with patient again the hospitalist. Impression & Plan Chest pain, Epigastric abdominal pain Discharge Plan Visit Data *Final* Discharge Date/Time: 01/05/19 20:48 Chief Complaint: Chest Pain Stated Complaint: CHEST PAIN ED Provider: Tony Musa Discharge Problem: Chest pain, Epigastric abdominal pain Patient Disposition: Admitted As Inpatient Discharge Instructions Interventions: ED Discharge Assessment Last Done: 01/05/19 20:48 Discharge Problem: Chest pain Qualifiers: Chest pain type: unspecified Qualified Code(s): R07.9 - Chest pain, unspecified The scribe's documentation has been prepared under my direction and personally reviewed by me in its entirety. I confirm that the note above accurately reflects all work, treatment, procedures, and medical decision making performed by me.
[2019-01-05] MEDS ORDERED: ONDANSETRON INJ 2 MG/ML 2 ML VIAL IV PRN (21:15)
[2019-01-05] MEDS ORDERED: NON-FORMULARY MEDICATION (Esomeprazole Magnesium [Nexium] 40 MG) PO SCH (21:15)
[2019-01-05] MEDS ORDERED: NITROGLYCERIN SL 0.4 MG/TAB TAB SL PRN ×2 (21:15)
[2019-01-05] MEDS ORDERED: ACETAMINOPHEN 325 MG TAB PO PRN (21:15)
[2019-01-05] MEDS ORDERED: ALUMINUM/MAGNESIUM SUSP 30 ML UDC PO PRN (21:15)
[2019-01-05] MEDS: SODIUM CHLORIDE 0.9% 1000ML 1,000 ML IV SCH (21:36)
[2019-01-05] MEDS ORDERED: MoRPHine SULFATE 4 MG/ML 1 ML CARP\\VIAL IV PRN (21:47)
[2019-01-05] MEDS ORDERED: WARFARIN SOD 3 MG TAB PO SCH ×2 (22:00)
[2019-01-05] MEDS: CARVEDILOL 12.5 MG TAB PO SCH (22:15)
[2019-01-05] MEDS ORDERED: ALUMINUM/MAGNESIUM/SIMETH (MAALOX MAX) 30 ML UDC PO STA (22:37)
[2019-01-05] MEDS: PANTOprazole 40 MG TAB PO SCH (22:37)
--- NOTE | 2019-01-05 22:46 | History and Physical Report ---
DATE OF ADMISSION: 01/05/2019 CHIEF COMPLAINT: Abdominal pain and chest pain. HISTORY OF PRESENT ILLNESS: This is a 73-year-old male with past medical history significant for CAD status post stents, prediabetes, hyperlipidemia, hypertension, history of hematoma of right lower extremity, history of factor V deficiency, history of pulmonary embolism on Coumadin, history of depression, history of recurrent bowel obstructions comes with abdominal pain that started around noon time, felt nauseous. Pain is severe in nature, band-like in the epigastric region radiating to the chest, 9/10 in severity, also associated with some nausea. He is also having ongoing issues with diarrhea and constipation since last several months. He moved a small amount of bowels today. Appetite is not that great. He says the pain starts in the epigastrium and goes to chest and then the chest feels tight. No shortness of breath, no cough. Hard to hear. No headaches, no blurred visions, no sore throat, no difficulty swallowing. Sleeps okay. Normal bladder movements. No blood in the stools or hematuria. No swelling in the legs. No rash. Currently resting comfortably and hemodynamically stable. ALLERGIES: AVELOX. PAST MEDICAL HISTORY: As mentioned above. PAST SURGICAL HISTORY: Heart catheterization, colonoscopy, laparoscopic cholecystectomy, bilateral inguinal hernia repair, lumbar spine fusion with bone graft, partial removal of colon, tonsillectomy, adenoidectomy, repair of the diaphragm hernia transthoracic, repair of ruptured rotator cuff, total hip replacement in the left side. MEDICATIONS: The patient is on nitroglycerin 0.4 mg sublingual p.r.n., Coreg 12.5 mg p.o. b.i.d., Lipitor 40 mg p.o. daily, Benicar 10 mg p.o. daily, MiraLax 17 grams p.o. daily p.r.n., Coumadin as directed, cyanocobalamin 1000 mcg p.o. daily, Nexium 40 mg p.o. daily, Imdur 60 mg p.o. daily, vitamin B6 100 mg p.o. daily, folic acid 1 mg p.o. daily, aspirin 81 mg p.o. daily. FAMILY HISTORY: Significant for mother has arthritis, eye problems, gastrointestinal disorder, glaucoma, heart disorder, hypertension, and stroke. Father has thyroid disorder and gastrointestinal disorder. SOCIAL HISTORY: and lives with his . Former smoker, smoked 3 packs a day for 26 years, quit in 1989. No alcohol use, no drug use. REVIEW OF SYSTEMS: As per HPI. Rest of review of symptoms negative. PHYSICAL EXAMINATION: GENERAL: The patient is of moderate build, not in acute distress. VITAL SIGNS: Temperature 36.9, pulse 57, respiratory rate 18, blood pressure 163/96, oxygen 95% on room air. HEENT: No pallor, no icterus. Pupils equal, round, and react to light. NECK: No JVD, no neck masses, no carotid bruit. CARDIOVASCULAR: S1, S2 heard, regular rate and rhythm, no murmur, no gallop. RESPIRATORY SYSTEM: Normal AP diameter. No accessory muscle use. No wheezing, no crackles. ABDOMEN: Soft, bowel sounds present. Diffuse tenderness. No guarding, no rigidity. No distention. CENTRAL NERVOUS SYSTEM: Cranial nerves II-XII grossly intact, nonfocal. EXTREMITIES: No edema, no erythema. LABORATORY DATA: WBC 6.1, hemoglobin 14.5, hematocrit 42.2, platelets 140. PT 24.7, INR 2.6, APTT 37.1. Sodium 139, potassium 3.9, chloride 108, bicarbonate 25, BUN 15, creatinine 0.8, serum glucose 129, calcium 8.3, total bilirubin 0.4, AST 16, ALT 22, alkaline phosphatase 77. Troponin I less than 0.015. Lipase was 87. Urinalysis negative. IMAGING DATA: Chest x-ray, negative chest. CT abdomen and pelvis, no evidence for bowel obstruction. Stable postoperative changes of ventral hernia repair and prior cholecystectomy. Several small residual fat-containing ventral hernia nonobstructive findings. Stable nodularity at right lung base. EKG: Normal sinus rhythm with left axis deviation at a rate of 67, no acute ST changes seen. ASSESSMENT AND PLAN: This is a 73-year-old male who presents with abdominal pain radiating to his chest. 1. Abdominal pain, ongoing diarrhea and constipation since a few months. History of recurrent bowel obstructions,from adhesions. Currently CAT scan does not show any obstruction.tenderness mostly in the epigastric region, possibly peptic ulcer disease, gastric ulcers. Was placed on Nexium daily at home. We will place on Protonix 40 b.i.d. and is supposed to see GI this month. Will consult GI for further recommendations. We will keep him n.p.o. for now and on gentle fluids. Also having constipation alternating with diarrhea. IBS?. Will also give a dose of Maalox and Bentyl. Morphine prn. 2. Chest pain that is radiating from his belly. The patient has history of coronary artery disease status post stent. Recent stress test done in 2017 was okay. EKG and his troponin were negative. We will follow serial cardiac enzymes. Repeat EKG and echocardiogram. If any concerns, we will consult cardiology. 3. Prediabetes. We will follow HbA1c levels. 4. Coronary artery disease status post stent. Continue his home medication of aspirin, Coreg, statin, and Imdur. 5. History of hypertension. Continue Coreg, Benicar, Imdur. Monitor his blood pressure. 6. History of factor V Leiden deficiency and history of pulmonary embolism, on Coumadin. INR therapeutic. Follow PT/INR. 7. History of hyperlipidemia. Continue statin. Follow the lipid profile. 8. Deep venous thrombosis prophylaxis, on Coumadin. DISPOSITION: Observation on tele floor. Expect discharge home and follow with family doctor. Level 1 full code only if there is chance of recovery. MTDD
[2019-01-05] MEDS ORDERED: DICYCLOMINE HCL 10 MG CAP PO ONE (23:00)
[2019-01-06 03:50] LABS: INR 2.5 (0.9-1.1); Prothrombin Time 23.9 Seconds (9.0-12.0)
[2019-01-06 04:12] LABS: Chol HDL Ratio 3; Cholesterol 156 mg/dl (0-200); HDL Cholesterol 52 mg/dl; LDL Cholesterol Calculated 84 mg/dl; Triglycerides 98 mg/dl (0-150); Troponin I < 0.015 ng/ml (0-0.045); VLDL Cholesterol 20 mg/dl
[2019-01-06 05:42] LABS: Basophils # (auto) 0.02 K/uL (0-0.2); Basophils % (auto) 0.2 %; Eosinophils # (auto) 0.11 K/uL (0-0.5); Eosinophils % (auto) 1.1 %; Hematocrit (blood only) 43.9 % (42-52); Hemoglobin 15.3 g/dL (14.0-18.0); Immature Granulocytes # (auto) 0.01 K/uL (0.00-0.02); Immature Granulocytes % (auto) 0.1 %; Lymphocytes # (auto) 1.26 K/uL (1.2-3.4); Lymphocytes % (auto) 12.8 %; Mean Corpuscular Hgb Conc 34.9 g/dL (32-36); Mean Corpuscular Volume 89.4 fL (80-100); Mean Platelet Volume 9.7 fL (7.4-10.4); Monocytes # (auto) 0.69 K/uL (0.11-0.59); Neutrophils # (auto) 7.79 K/uL (1.4-6.5); Neutrophils % (auto) 78.8 %; Platelet Count 127 K/uL (130-400); RDW Coefficient of Variation 14.1 % (11.5-14.5); RDW Standard Deviation 46.2 fL (36.4-46.3); Red Blood Count 4.91 M/uL (4.7-6.1); White Blood Count 9.88 K/uL (4.8-10.8)
[2019-01-06 06:04] LABS: BUN Creatinine Ratio 16.1 (10-20); Calcium 8.1 mg/dl (8.5-10.1); Creatinine Clr Calc Pharmacy 107.8 ml/min; Est GFR (African American) 107.4; Est GFR (Non-African American) 92.7; Magnesium 2.1 mg/dl (1.8-2.4)
[2019-01-06] MEDS ORDERED: PERFLUTREN LIPID MICROSPHERE (DEFINITY) IV ONE (07:28)
[2019-01-06 07:56] LABS: Estimated Average Glucose 140 mg/dl; Hemoglobin A1C 6.5 % (4.5-5.6)
[2019-01-06] MEDS: PANTOprazole 40 MG TAB PO SCH ×2 (08:13→20:00)
[2019-01-06] MEDS: ASPIRIN 81 MG ECTAB PO SCH (08:14)
[2019-01-06] MEDS: FOLIC ACID 400 MCG TAB PO SCH (08:14)
[2019-01-06] MEDS: ATORVASTATIN 40 MG TAB PO SCH (08:14)
[2019-01-06] MEDS: CYANOCOBALAMIN 500 MCG TABLET (VITAMIN B-12) PO SCH (08:15)
[2019-01-06] MEDS: PYRIDOXINE HCL 50 MG TAB PO SCH (08:15)
[2019-01-06] MEDS: CARVEDILOL 12.5 MG TAB PO SCH ×2 (08:16→17:56)
[2019-01-06] MEDS: ISOSORBIDE MONO EXTENDED REL 60 MG TABCR PO SCH (08:16)
[2019-01-06] MEDS: OLMESARTAN MEDOXOMIL 5 MG TAB PO SCH (08:17)
[2019-01-06] MEDS ORDERED: OLMESARTAN MEDOXOMIL 10 MG PO SCH (09:00)
[2019-01-06] MEDS: SODIUM CHLORIDE 0.9% 1000ML 1,000 ML IV SCH ×2 (10:16→22:45)
--- NOTE | 2019-01-06 10:51 | Hospitalist Progress Note ---
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 for now (2) Chest pain: Has history of CAD and status post stent placement Likely noncardiac pain during this admission EKG and serial cardiac enzymes unremarkable Lipid profile remain unremarkable Denies any more chest pain (3) Factor V Leiden mutation: Has history of pulmonary embolism Has been on Coumadin and INR is therapeutic at 2.5 Subjective He is a 73-year-old male with past medical history significant for CAD status post stents, prediabetes, hyperlipidemia, hypertension, history of hematoma of right lower extremity, history of factor V deficiency, history of pulmonary embolism on Coumadin, history of depression, history of recurrent bowel obstructions comes with abdominal pain that started around noon time, felt nauseous. 01/06 Abdominal pain and distention are much better Bowel moved Denies any chest pain and/or palpitation Physical Exam Vital Signs (Past 24 Hours): Last Vital Signs Temp 36.6 C 01/06/19 08:16 Pulse 65 01/06/19 08:16 Resp 18 01/06/19 08:16 BP 158/92 H 01/06/19 08:16 Pulse Ox 93 01/06/19 08:16 Physical Exam: No apparent distress at rest Constitutional: WD/WN, vitals as above Eyes: PERRL, conjunctivae normal, anicteric sclerae ENMT: external ear and nose normal, oropharynx normal Neck: trachea midline, no thyromegaly Respiratory: normal respiratory effort, lungs clear to auscultation Cardiovascular: Rate/Rhythm: regular rate and regular rhythm Heart Sounds: normal S1 and normal S2 Gastrointestinal (Abdomen): Inspection/Auscultation: + abdomen distended (Minimally), normal bowel sounds and + abdominal surgical scar (Multiple scars indicating multiple laparotomies in the past) Percussion/Palpation: + abdomen tender (Minimally tender left lower quadrant) and abdomen soft Has big incisional hernia without any evidence of obstruction Neurologic: Alert, awake and oriented Results & Data Laboratory Results Short CBC 01/05/19 01/06/19 Range/Units 18:15 05:25 WBC 6.17 9.88 (4.8-10.8) K/uL Hgb 14.5 15.3 (14.0-18.0) g/dL Hct 42.2 43.9 (42-52) % Plt Count 140 127 L (130-400) K/uL BMP 01/05/19 01/06/19 18:15 05:25 Sodium 139 138 Potassium 3.9 4.0 Chloride 108 H 107 Carbon Dioxide 25 25 BUN 15 12 Creatinine 0.88 0.73 Glucose 129 H 133 H Calcium 8.3 L 8.1 L Cardiac Enzymes 01/05/19 01/05/19 01/06/19 Range/Units 18:15 21:30 03:16 Troponin I < 0.015 < 0.015 < 0.015 (0-0.045) ng/ml 01/06/19 Range/Units 09:07 Troponin I < 0.015 (0-0.045) ng/ml Liver Function 01/05/19 Range/Units 18:15 Total Bilirubin 0.4 (0.2-1) mg/dl AST 16 (15-37) U/L ALT 22 (12-78) U/L Alkaline Phosphatase 77 (45-117) U/L Albumin 3.2 L (3.4-5.0) gm/dl Urine 01/05/19 Range/Units 19:26 Urine Color Yellow Urine Appearance Clear (Clear) Urine pH 7.0 (4.5-7.5) Ur Specific Stand[place] 1.019 (1.000-1.030) Urine Protein Negative (Negative) Urine Glucose (UA) Negative (Negative) Medications Administered Current Inpatient Medications Acetaminophen (Tylenol) 650 mg PO Q4H PRN PRN Reason: Pain or Fever Stop: 02/04/19 21:14 Al Hydrox/Mg Hydrox/Simethicone (Maalox) 15 ml PO Q4H PRN PRN Reason: Dyspepsia Stop: 02/04/19 21:14 Aspirin (Ecotrin Ectab) 81 mg PO DAILY [facility] Stop: 02/05/19 08:59 Last Admin: 01/06/19 08:14 Dose: 81 mg Documented by: Atorvastatin Calcium (Lipitor) 40 mg PO DAILY [facility] Stop: 02/05/19 08:59 Last Admin: 01/06/19 08:14 Dose: 40 mg Documented by: Carvedilol (Coreg) 12.5 mg PO BIDM [facility] Stop: 02/04/19 21:59 Last Admin: 01/06/19 08:16 Dose: 12.5 mg Documented by: Cyanocobalamin (Vitamin B-12) 1,000 mcg PO DAILY [facility] Stop: 02/05/19 08:59 Last Admin: 01/06/19 08:15 Dose: 1,000 mcg Documented by: Folic Acid (Folvite) 800 mcg PO DAILY [facility] Stop: 02/05/19 08:59 Last Admin: 01/06/19 08:14 Dose: 800 mcg Documented by: Sodium Chloride (Nss 1000ml) 1,000 mls @ 75 mls/hr IV .[id number] [facility] Stop: 02/04/19 21:14 Last Admin: 01/06/19 10:16 Dose: 75 mls/hr Documented by: Isosorbide Mononitrate (Imdur Extended Rel) 60 mg PO DAILY [facility] Stop: 02/05/19 08:59 Last Admin: 01/06/19 08:16 Dose: 60 mg Documented by: Morphine Sulfate (Morphine Sulfate) 3 mg IV Q3H PRN PRN Reason: Pain Stop: 01/19/19 21:46 Last Admin: 01/05/19 21:55 Dose: 3 mg Documented by: Nitroglycerin (Nitrostat) 0.4 mg SL UD PRN PRN Reason: Chest Pain Stop: 02/04/19 21:14 Olmesartan (Benicar) 10 mg PO DAILY [facility] Stop: 02/05/19 08:59 Last Admin: 01/06/19 08:17 Dose: 10 mg Documented by: Ondansetron HCl (Zofran) 4 mg IV Q6H PRN PRN Reason: Nausea Stop: 02/04/19 21:14 Pantoprazole Sodium (Protonix) 40 mg PO BID [facility] Stop: 02/04/19 21:59 Last Admin: 01/06/19 08:13 Dose: 40 mg Documented by: Pyridoxine HCl (Vitamin B-6) 100 mg PO DAILY [facility] Stop: 02/05/19 08:59 Last Admin: 01/06/19 08:15 Dose: 100 mg Documented by: Warfarin Sodium (Coumadin) 4 mg PO TuSa@1600 [facility] Stop: 02/05/19 15:59 Warfarin Sodium (Coumadin) 3 mg PO SuMoWeThFr@1600 [facility] Stop: 02/04/19 21:59 Last Admin: 01/05/19 22:37 Dose: 3 mg Documented by: (1) Chest pain Chest pain type: unspecified Qualified Code(s): R07.9 - Chest pain, unspecified
--- NOTE | 2019-01-06 13:00 | Gastrointestinal Consultation ---
Date of Consultation January 06, 2019 History of Present Illness Attending Physician: Heath Smith MD Pt with h/o mult abd surgeries, h//o recent SBO, reports chronic alt diarrhea and constipation, now admit with abrupt onset of upper abd pain and distention yesterday. Denies n/v reflux. Last BM yesterday, passing flatus; denies recent change in BM although reports frequent small volume, often liquid or small caliber stools. CT on admission did not show SBO. He is currently without significant pain, hungry, and still passing flatus. ASSESSMENT AND PLAN: I suspect that he has symptoms related to adhesive disease. CT suggests that he may have partial gastric outlet obstruction related to hernia; I suspect that he may have chornic low grade SBO, or defecatory disorder secondary to adhesions, as well. 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 Would consider d/c on empiric 7 d course of BID Cipro to treat possible bacterial overgrowth. Please call with questions, will sign off. Allergies Allergy/AdvReac Type Severity Reaction Status Date / Time moxifloxacin Allergy Intermediate ITCHING. Verified 08/28/18 19:46 N/V Home Medications Home Medications Medication Instructions Recorded Confirmed Type aspirin [Aspir-81] 81 mg PO DAILY 08/28/18 01/05/19 History atorvastatin [Lipitor] 40 mg PO DAILY 08/28/18 01/05/19 History carvedilol [Coreg] 12.5 mg PO BID 08/28/18 01/05/19 History cyanocobalamin (vitamin B-12) 1,000 mcg PO DAILY 08/28/18 01/05/19 History [Vitamin B-12] esomeprazole magnesium [Nexium] 40 mg PO HS 08/28/18 01/05/19 History isosorbide mononitrate 60 mg PO DAILY 08/28/18 01/05/19 History nitroglycerin [Nitrostat] 0.4 mg SUBLINGUAL UD PRN 08/28/18 01/05/19 History olmesartan [Benicar] 10 mg PO DAILY 08/28/18 01/05/19 History pyridoxine (vitamin B6) [Vitamin 100 mg PO DAILY 08/28/18 01/05/19 History B-6] warfarin [Coumadin] See Rx Instructions .ROUTE .COMPLEX 08/28/18 01/05/19 History folic acid 0.8 mg PO DAILY 01/05/19 01/05/19 History Patient History Medical History Diverticulosis (Chronic) Surgical History History of cholecystectomy (Chronic) Social History Preferred Language: Afghan Communication Ability: Effective Stoper Required: No Beliefs That Will Affect Care: None Current Living Situation: Spouse 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 Other Information That Helps Us Care for You: No Feels Safe at Home: Yes Safety Concerns: Feels Safe At This Time Smoking Status: Former smoker Hx Alcohol Use: No Hx Substance Use: No Physical Exam Vital Signs (Past 24 Hours): Last Vital Signs Temp 36.5 C 01/06/19 11:42 Pulse 60 01/06/19 11:42 Resp 18 01/06/19 11:42 BP 117/71 01/06/19 11:42 Pulse Ox 92 01/06/19 11:42 Physical Exam: Appears comfortable, obese HEENT: oc mildy dry, no thrush CV: RRR Resp: CTA Abd: mult scarssoft, ventral hernia, non distended and non tympanic with normal BS by my exam Extrem: no edema Results & Data Laboratory Results Labs and imaging reviewed. To me, it appears that body of stomach enters ventral hernia; however, he has no gastric distention or SBO
[2019-01-06] MEDS ORDERED: WARFARIN SOD 4 MG TAB PO SCH (16:00)
[2019-01-07 07:14] LABS: INR 3.1 (0.9-1.1); Prothrombin Time 29.1 Seconds (9.0-12.0)
[2019-01-07] MEDS: CARVEDILOL 12.5 MG TAB PO SCH (08:14)
[2019-01-07] MEDS: CYANOCOBALAMIN 500 MCG TABLET (VITAMIN B-12) PO SCH (08:15)
[2019-01-07] MEDS: OLMESARTAN MEDOXOMIL 5 MG TAB PO SCH (08:15)
[2019-01-07] MEDS: ISOSORBIDE MONO EXTENDED REL 60 MG TABCR PO SCH (08:15)
[2019-01-07] MEDS: PANTOprazole 40 MG TAB PO SCH (08:15)
[2019-01-07] MEDS: PYRIDOXINE HCL 50 MG TAB PO SCH (08:16)
[2019-01-07] MEDS: ASPIRIN 81 MG ECTAB PO SCH (08:16)
[2019-01-07] MEDS: ATORVASTATIN 40 MG TAB PO SCH (08:17)
[2019-01-07] MEDS: FOLIC ACID 400 MCG TAB PO SCH (08:17)
--- NOTE | 2019-01-07 11:44 | Hospitalist Progress Note ---
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 for now Has been feeling a lot better as of today Will advance diet if tolerated will be discharged home this afternoon Discontinue IV fluid and increase more ambulation (2) Chest pain: Has history of CAD and status post stent placement Likely noncardiac pain during this admission EKG and serial cardiac enzymes unremarkable Lipid profile remain unremarkable Denies any more chest pain Resolved (3) Factor V Leiden mutation: Has history of pulmonary embolism Has been on Coumadin and INR is therapeutic at 2.5 Continue Coumadin Discharge home after lunch Keep regular appointment as an outpatient with GI Subjective He is a 73-year-old male with past medical history significant for CAD status post stents, prediabetes, hyperlipidemia, hypertension, history of hematoma of right lower extremity, history of factor V deficiency, history of pulmonary embolism on Coumadin, history of depression, history of recurrent bowel obstructions comes with abdominal pain that started around noon time, felt nauseous. 3 Abdominal pain and distention are much better Bowel moved Denies any chest pain and/or palpitation 3 Denies any symptoms today and has been tolerating clears so far No abdominal pain and distention We will advance diet if tolerated, will be going home Physical Exam Vital Signs (Past 24 Hours): Last Vital Signs Temp 36.8 C 01/07/19 11:35 Pulse 53 L 01/07/19 11:35 Resp 18 01/07/19 11:35 BP 149/81 H 01/07/19 11:35 Pulse Ox 94 01/07/19 11:35 Constitutional: WD/WN, vitals as above Eyes: PERRL, conjunctivae normal, anicteric sclerae ENMT: external ear and nose normal, oropharynx normal Neck: trachea midline, no thyromegaly Respiratory: normal respiratory effort, lungs clear to auscultation Cardiovascular: Rate/Rhythm: regular rate and regular rhythm Heart Sounds: normal S1 and normal S2 Gastrointestinal (Abdomen): Inspection/Auscultation: normal bowel sounds and + abdominal surgical scar (Multiple scars indicating multiple laparotomies in the past) Percussion/Palpation: abdomen soft Neurologic: PERRL, EOMI, accommodation nl, no face palsy, no dysarthria Results & Data Medications Administered Current Inpatient Medications Acetaminophen (Tylenol) 650 mg PO Q4H PRN PRN Reason: Pain or Fever Stop: 02/04/19 21:14 Al Hydrox/Mg Hydrox/Simethicone (Maalox) 15 ml PO Q4H PRN PRN Reason: Dyspepsia Stop: 02/04/19 21:14 Aspirin (Ecotrin Ectab) 81 mg PO DAILY [facility] Stop: 02/05/19 08:59 Last Admin: 01/07/19 08:16 Dose: 81 mg Documented by: Atorvastatin Calcium (Lipitor) 40 mg PO DAILY [facility] Stop: 02/05/19 08:59 Last Admin: 01/07/19 08:17 Dose: 40 mg Documented by: Carvedilol (Coreg) 12.5 mg PO BIDM [facility] Stop: 02/04/19 21:59 Last Admin: 01/07/19 08:14 Dose: 12.5 mg Documented by: Cyanocobalamin (Vitamin B-12) 1,000 mcg PO DAILY [facility] Stop: 02/05/19 08:59 Last Admin: 01/07/19 08:15 Dose: 1,000 mcg Documented by: Folic Acid (Folvite) 800 mcg PO DAILY [facility] Stop: 02/05/19 08:59 Last Admin: 01/07/19 08:17 Dose: 800 mcg Documented by: Sodium Chloride (Nss 1000ml) 1,000 mls @ 75 mls/hr IV .[id number] [facility] Stop: 02/04/19 21:14 Last Infusion: 01/07/19 10:32 Dose: Infused Documented by: Isosorbide Mononitrate (Imdur Extended Rel) 60 mg PO DAILY [facility] Stop: 02/05/19 08:59 Last Admin: 01/07/19 08:15 Dose: 60 mg Documented by: Morphine Sulfate (Morphine Sulfate) 3 mg IV Q3H PRN PRN Reason: Pain Stop: 01/19/19 21:46 Last Admin: 01/05/19 21:55 Dose: 3 mg Documented by: Nitroglycerin (Nitrostat) 0.4 mg SL UD PRN PRN Reason: Chest Pain Stop: 02/04/19 21:14 Olmesartan (Benicar) 10 mg PO DAILY [facility] Stop: 02/05/19 08:59 Last Admin: 01/07/19 08:15 Dose: 10 mg Documented by: Ondansetron HCl (Zofran) 4 mg IV Q6H PRN PRN Reason: Nausea Stop: 02/04/19 21:14 Pantoprazole Sodium (Protonix) 40 mg PO BID [facility] Stop: 02/04/19 21:59 Last Admin: 01/07/19 08:15 Dose: 40 mg Documented by: Pyridoxine HCl (Vitamin B-6) 100 mg PO DAILY [facility] Stop: 02/05/19 08:59 Last Admin: 01/07/19 08:16 Dose: 100 mg Documented by: Warfarin Sodium (Coumadin) 4 mg PO TuSa@1600 [facility] Stop: 02/05/19 15:59 Last Admin: 01/06/19 17:56 Dose: 4 mg Documented by: Warfarin Sodium (Coumadin) 3 mg PO SuMoWeThFr@1600 [facility] Stop: 02/04/19 21:59 Last Admin: 01/05/19 22:37 Dose: 3 mg Documented by: (1) Chest pain Chest pain type: unspecified Qualified Code(s): R07.9 - Chest pain, unspecified
[2019-01-07] MEDS ORDERED: AMOXICILLIN/CLAVULANATE 875 MG TAB PO ONE (14:30)
[2019-01-07] MEDS ORDERED: WARFARIN SOD 4 MG TAB PO SCH (16:00)
--- NOTE | 2019-01-08 07:25 | Discharge Summary ---
Date of Service January 09, 2019 Admission HPI Per Admitting Provider DICTATED BY: Brayden Foley MD DATE OF ADMISSION: 01/05/2019 CHIEF COMPLAINT: Abdominal pain and chest pain. HISTORY OF PRESENT ILLNESS: This is a 73-year-old male with past medical history significant for CAD status post stents, prediabetes, hyperlipidemia, hypertension, history of hematoma of right lower extremity, history of factor V deficiency, history of pulmonary embolism on Coumadin, history of depression, history of recurrent bowel obstructions comes with abdominal pain that started around noon time, felt nauseous. Pain is severe in nature, band-like in the epigastric region radiating to the chest, 9/10 in severity, also associated with some nausea. He is also having ongoing issues with diarrhea and constipation since last several months. He moved a small amount of bowels today. Appetite is not that great. He says the pain starts in the epigastrium and goes to chest and then the chest feels tight. No shortness of breath, no cough. Hard to hear. No headaches, no blurred visions, no sore throat, no difficulty swallowing. Sleeps okay. Normal bladder movements. No blood in the stools or hematuria. No swelling in the legs. No rash. Currently resting comfortably and hemodynamically stable. Discharge Data Consultations 01/05/19 19:46 ED Decision to Admit Stat 01/05/19 21:15 Consult Case Management - Discharge Planning Routine 01/06/19 08:00 Consult Gastroenterology Routine
--- NOTE | 2019-01-08 08:34 | Discharge Summary ---
Date of Service January 08, 2019 Admission HPI Per Admitting Provider DICTATED BY: Brayden Foley MD DATE OF ADMISSION: 01/05/2019 CHIEF COMPLAINT: Abdominal pain and chest pain. HISTORY OF PRESENT ILLNESS: This is a 73-year-old male with past medical history significant for CAD status post stents, prediabetes, hyperlipidemia, hypertension, history of hematoma of right lower extremity, history of factor V deficiency, history of pulmonary embolism on Coumadin, history of depression, history of recurrent bowel obstructions comes with abdominal pain that started around noon time, felt nauseous. Pain is severe in nature, band-like in the epigastric region radiating to the chest, 9/10 in severity, also associated with some nausea. He is also having ongoing issues with diarrhea and constipation since last several months. He moved a small amount of bowels today. Appetite is not that great. He says the pain starts in the epigastrium and goes to chest and then the chest feels tight. No shortness of breath, no cough. Hard to hear. No headaches, no blurred visions, no sore throat, no difficulty swallowing. Sleeps okay. Normal bladder movements. No blood in the stools or hematuria. No swelling in the legs. No rash. Currently resting comfortably and hemodynamically stable. Admission Exam Per Admitting Provider GENERAL: The patient is of moderate build, not in acute distress. VITAL SIGNS: Temperature 36.9, pulse 57, respiratory rate 18, blood pressure 163/96, oxygen 95% on room air. HEENT: No pallor, no icterus. Pupils equal, round, and react to light. NECK: No JVD, no neck masses, no carotid bruit. CARDIOVASCULAR: S1, S2 heard, regular rate and rhythm, no murmur, no gallop. RESPIRATORY SYSTEM: Normal AP diameter. No accessory muscle use. No wheezing, no crackles. ABDOMEN: Soft, bowel sounds present. Diffuse tenderness. No guarding, no rigidity. No distention. CENTRAL NERVOUS SYSTEM: Cranial nerves II-XII grossly intact, nonfocal. EXTREMITIES: No edema, no erythema. Principal Diagnosis Partial SBO and 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 Discharge Exam Constitutional WD/WN, vitals as above Eyes PERRL, conjunctivae normal, anicteric sclerae ENMT external ear and nose normal, oropharynx normal Neck trachea midline, no thyromegaly Respiratory normal respiratory effort, lungs clear to auscultation Cardiovascular Rate/Rhythm: regular rate and regular rhythm Heart Sounds: normal S1 and normal S2 Gastrointestinal (Abdomen) Inspection/Auscultation: normal bowel sounds and + abdominal surgical scar (Multiple scars indicating multiple laparotomies in the past) Percussion/Palpation: abdomen soft Neurologic PERRL, EOMI, accommodation nl, no face palsy, no dysarthria Discharge Data Allergies Allergy/AdvReac Type Severity Reaction Status Date / Time moxifloxacin Allergy Intermediate ITCHING. 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 for now Has been feeling a lot better as of today Will advance diet if tolerated will be discharged home this afternoon Discontinue IV fluid and increase more ambulation (2) Chest pain: Has history of CAD and status post stent placement Likely noncardiac pain during this admission EKG and serial cardiac enzymes unremarkable Lipid profile remain unremarkable Denies any more chest pain Resolved (3) Factor V Leiden mutation: Has history of pulmonary embolism Has been on Coumadin and INR is therapeutic at 2.5 Continue Coumadin Discharge home after lunch Keep regular appointment as an outpatient with GI Total Time Total Time Spent Total Time Spent (In Minutes): 35 minutes Total Time Includes: Examination of the Patient, Discharge Planning, Medication Reconciliation and Communication With Other Providers Discharge Plan Discharge Items Patient Disposition: Home - Self-Care Reason For Visit: ABDOMINAL PAIN, CHEST PAIN Discharge Diagnosis: Partial SBO and 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 Condition: Good Discharge Goals: Decrease discomfort, Improve function and Increase independence Activity: Resume your previous activity Non-emergency contact: Primary Care Provider Call non-emergency contact if: you have any medication questions and your symptoms worsen Follow-up/Referrals: Mckenna Kapoor, DO [Primary Care Provider] - (Please make an appointment with your primary care physician in 1 week. 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 Prescriptions: New amoxicillin-pot clavulanate [Augmentin] 875-125 mg tablet 1 tab PO BID Qty: 14 RF: 0 Continued warfarin [Coumadin] 2 mg tablet See Rx Instructions .ROUTE .COMPLEX RF: 0 atorvastatin [Lipitor] 40 mg tablet 40 mg PO DAILY RF: 0 carvedilol [Coreg] 12.5 mg tablet 12.5 mg PO BID RF: 0 cyanocobalamin (vitamin B-12) [Vitamin B-12] 1,000 mcg Tablet 1,000 mcg PO DAILY RF: 0 aspirin [Aspir-81] 81 mg Tablet,Delayed Release (Dr/Ec) 81 mg PO DAILY RF: 0 isosorbide mononitrate 60 mg tablet extended release 24 hr 60 mg PO DAILY RF: 0 esomeprazole magnesium [Nexium] 40 mg capsule,delayed release(DR/EC) 40 mg PO HS RF: 0 nitroglycerin [Nitrostat] 0.4 mg Tablet, Sublingual 0.4 mg Sublingual UD PRN (Reason: Chest Pain) RF: 0 pyridoxine (vitamin B6) [Vitamin B-6] 100 mg Tablet 100 mg PO DAILY RF: 0 olmesartan [Benicar] 5 mg tablet 10 mg PO DAILY RF: 0 folic acid 800 mcg Tablet 0.8 mg PO DAILY RF: 0 Stand-Alone Forms: Call Back Authorization, [facility]/Other Patient Handouts: Diabetes Meal Planning, Diabetes Type 2 Discharge Orders: Discharge Order (Routine); Ordered 01/07/19 Ordered By: Heath Smith Admission Data Admit Date/Time: 01/05/19 20:30 Attending Provider: Heath Smith Admit Provider: Brayden Foley Primary Care Provider: Mckenna Kapoor Other Providers: Brayden Foley ; Tylor Singletary ; Vish Acuña ; Esther Ribeiro ; Justin Son ; Matrha Cooper ; Davi Rios ; Velvet Cardoso ; Davin Jones ; Nick Hudson ; Zakia Smith ; Malia Rodgers ; Ida Houser ; Diya Disla ; William Amaral Service: Telemetry Medical Other Interventions: Discharge Summary Assessment (RN) Last Done: 01/07/19 14:57 DC Date/Time DO NOT enter until pt leaves facility: 01/07/19 15:52
== END 2019-01-07 15:52 | disposition home or self-care (01) ==
LOC: ED 17:49 → 2N 17:49

== ENCOUNTER 2024-06-09 17:35 | Inpatient (IN) ==
--- OUTSIDE RECORDS SUMMARY | 2024-06-09 17:45 | External Medical Summary | Summary of Care ---
Author Name Unknown Organization [facility] Address [address] [place] [address] Phone [phone] Care Team Providers Care Decorating Supervisor Name Role Phone Jake Green DO Primary Care Provid er Encounter Details Date Type Department Care Team (Latest Contact Info) Description 06/05/2024 12:18 PM EDT - 06/05/2024 11:59 PM EDT Hospital Encounter [facility], [place] [address] [place] [address] Arrived Discharge Disposition: Home - Self Care Allergies Active Allergy Reactions Criticality Noted Date Comments Moxifloxacin Hcl In Nacl Itching,Nausea/vomit ing High 07/08/2012 20 minutes after first dose, hands itchy, head itchy, started vomiting documented as of this encounter (statuses as of 06/06/2024) Medications Medication Sig Dispensed Refills Start Date End Date Status pyridOXINE (VITAMIN B-6) 100 MG Tablet Take 1 Tablet by mouth in the morning. Active Cyanocobalamin 1000 MCG CAPS Take 1 Capsule by mouth in the morning. Active fluticasone (FLONASE) 50 MCG/ACT nasal sprayIndications:Al lergic rhinitis due to pollen, unspecified seasonality Administer 2 sprays each nostril every 12 hrs x 2 weeks, then 2 spray each nostril before bedtime; preceded by saline rinse 1 Bottle 5 12/12/2018 Active CPAP every night at bedtime. Active Aspirin EC 81 MG Oral Tablet Delayed Release Take 1 Tab by mouth daily. 30 Tab 3 05/18/2021 Active Folic Acid 1 MG Oral Tablet Take 1 Tablet by mouth in the morning. Active Nitroglycerin 0.4 MG Sublingual Tablet Sublingual (Nitrostat)Indicati ons:Chronic coronary artery disease 1 tab under tongue as needed for chest pain, no more than 3 tabs in 15 minutes 25 Tablet 5 03/15/2022 Active Cyclobenzaprine HCl 10 MG Oral Tablet (Flexeril)Indicatio ns:Acute left-sided low back pain without sciatica Take 1 Tablet by mouth every 8 hours as needed for Muscle spasms. 30 Tablet 04/18/2023 Active Isosorbide Mononitrate ER 60 MG Oral Tablet Extended Release 24 Hour (Imdur)Indications: Chronic coronary artery disease,Stable angina (HCC),HTN, goal below 140/90 TAKE 1 TABLET BY MOUTH EVERY DAY 90 Tablet 3 06/28/2023 Active Esomeprazole Magnesium 40 MG Oral Capsule Delayed Release TAKE 1 CAPSULE BY MOUTH EVERY MORNING 90 Capsule 2 11/01/2023 Active Atorvastatin Calcium 80 MG Oral Tablet (Lipitor)Indication s:Dyslipidemia, goal LDL below 70 TAKE 1 TABLET BY MOUTH EVERY DAY IN THE MORNING 90 Tablet 3 11/02/2023 Active Ezetimibe 10 MG Oral Tablet (Zetia)Indications: Dyslipidemia, goal LDL below 70 TAKE 1 TABLET BY MOUTH EVERY DAY 90 Tablet 3 01/23/2024 Active Olmesartan Medoxomil 5 MG Oral Tablet (Benicar)Indication s:Coronary artery disease involving mohegan coronary artery of mohegan heart without angina pectoris,HTN, goal below 140/90 TAKE 1 TABLET BY MOUTH TWICE A DAY 180 Tablet 3 01/23/2024 Active Carvedilol 25 MG Oral Tablet (Coreg)Indications: Hypertension associated with type 2 diabetes mellitus (HCC),HTN, goal below 140/90,S/P angioplasty with stent TAKE 1 TABLET BY MOUTH TWICE A DAY 180 Tablet 3 02/22/2024 Active Furosemide 20 MG Oral Tablet (Lasix)Indications: HTN, goal below 140/90,Coronary artery disease involving mohegan coronary artery of mohegan heart without angina pectoris TAKE 1 TABLET BY MOUTH EVERY DAY IN THE MORNING 90 Tablet 3 02/22/2024 Active Warfarin Sodium 2 MG Oral Tablet (Coumadin)Indicatio ns:Anticoagulation management encounter TAKE 1 TABLET BY MOUTH WITH 1 MG DOSE ON TUE,TUE,, , TUESDAY and Tuesday AND 2 TABS ON Tuesday (4mg Tuesday and 3mg all other days - 1mg and 2mg tablets) 120 Tablet 3 04/23/2024 Active Additional Information Patient taking differently: Taking 2mg on Tuesday and the other days 3 mg., Reported on 06/05/2024 tiZANidine HCl 4 MG Oral Capsule (Zanaflex)Indicatio ns:Strain of lumbar region, initial encounter Take 1 Capsule by mouth 3 times a day as needed for Muscle spasms. 30 Capsule 1 04/24/2024 Active Warfarin Sodium 1 MG Oral Tablet (Coumadin)Indicatio ns:Factor V deficiency, congenital (HCC),History of pulmonary embolus (PE) Take 1-2 Tablets by mouth in the morning. As directed by anticoag clinic (4mg Tuesday and 3mg all other days - 1mg and 2mg tablets). 180 Tablet 3 04/30/2024 Active Diclofenac Sodium 1 % External Gel (Voltaren) Apply topically to affected area 4 times a day. 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), atypical squamous proliferation/regressing KA (L elbow 09/2020) Type 2 diabetes mellitus wit hout complication, without long-term current use of insulin 03/13/2019 Supraventricular tachycardia 03/13/2019 Coronary artery disease invo lving mohegan coronary artery of mohegan heart without angina pectoris 03/13/2019 History of pulmonary embolus (PE) 12/02/2017 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 ABNORMAL COAGULATION PROFILE 10/16/2002 Overview: Factor V OSTEOARTHROS NOS-PELVIS Adjustment disorder with depressed mood Factor V deficiency, congenital documented as of this encounter (statuses as of 06/06/2024) Resolved Problems Problem Noted Date Diagnosed Date Resolved Date Dyslipidemia, goal LDL below 70 01/23/2024 05/07/2024 Orthostatic lightheadedness 05/10/2021 04/02/2022 Postoperative anemia due to acute blood loss 04/02/2022 COPD, group B, by GOLD 2017 classification 02/09/2021 04/02/2022 Overview: Per COPD GOLD Classification Coronary artery disease invo lving mohegan coronary artery of mohegan heart with angina pectoris 11/21/2020 04/28/2021 Morbid obesity 01/01/2020 05/14/2021 Overview: Per Obesity protocol Prediabetes 12/11/2018 04/11/2019 Overview: Per Prediabetes protocol #1 Hematoma of right lower extremity 11/22/2017 10/23/2019 Fall at home 11/22/2017 03/13/2019 History of factor V Leiden mutation 11/22/2017 10/23/2019 Gait abnormality 11/22/2017 04/02/2022 penitentiary resident 11/22/20172017 OBESITY, BMI 30-34 (SEE ACTUAL BMI) 01/22/2010 10/23/2019 Overview: Per Obesity Taxonomy ADVANCE DIRECTIVE INFORMATION 02/19/2009 10/23/2019 Overview: No, Advance Directive brochure offered , patient declined. Hemorrhage of rectum and anus 02/19/2009 08/17/2017 Abdominal pain, epigastric 02/19/2009 0 03/13/2019 Rotator cuff syndrome 10/06/20072016 Obesity, BMI not known 10/19/200401/22 Overview: Per Obesity Taxonomy Chronic coronary artery disease 10/19/2004 10/23/2019 Stable angina 10/19/2004 08/17/2017 Phlebitis and thrombophlebit is of other deep vessels of lower extremities 10/19/2004 08/17/2017 Pulmonary embolus 10/19/2004 06/05/2018 Nonspecific reaction to tube rculin skin test without active tuberculosis 10/19/2004 08/17/2017 Overview: TREATED 1 YEAR IN [facility] ICD-10 update of inactive term IMPOTENCE, ORGANIC ORIGN 02/07/200312/2021 Anticoagulation management encounter 04/26/2002 03/13/2019 Dyslipidemia, goal LDL below 70 04/02/2022 Overview: Per Lipid Taxonomy. Hypertension associated with type 2 diabetes mellitus 04/02/2022 Diaphragmatic hernia 022 Special screening for malign ant neoplasms, unspecified intestine 08/17/2017 Screening for prostate cancer 01/08/2009 Overview: Resolved per Screening Diagnosis Protocol #6 documented as of this encounter (statuses as of 06/06/2024) Immunizations Name Administration Dates Next Due COVID-19 mRNA, LNP-s, No Pre serve, 2-Dose Series ([employer]) 09/25/2021,01/10/2021,12/13/2020 Pneumococcal Conjugate Vacc, 13 Valent (Prevnar) 02/04/2016 Pneumococcal Polysaccharide PPV23 (Pneumovax) 08/17/2017,04/03/2007 Season Influenza, Quad, PF, Adjuvanted, 65+ Yrs, IM (FLUAD) 07/16/2020 Seasonal Influenza Virus Vac cine, Unspecified Formulation 09/06/2018,08/17/2017,08/16/2016 Seasonal Influenza, PF, 6 M & above, IM , (FluLaval or Fluzone) 09/06/2018,08/17/2017 Seasonal Influenza, Quadriva lent Hd (Fluzone Hd) 08/22/2023,10/05/2022,09/23/2021 Seasonal Influenza, Quadriva lent, No Preserve, IM 08/16/2016 Seasonal Influenza, Split, I IV3, With Preserve, Inj 06/27/2015,08/08/2014,09/03/2013,07/31,07/19/2011,09/14/2010,10/03/2009 ,09/30/2008,09/11/2007,09/19/2006 Seasonal Influenza, Trivalen t, Adjuvanted, 65+ yrs 07/17/2020,07/17/2019 TD - Tetanus/Diptheria (ADULT) 06/25/2003 TDAP (age 10 and older)(Boostrix) 01/23/2024, TDAP, Age 7 and older, IM (Adacel) 10/03/2009(De mattyd: Patient Refused) Zoster Vaccine Recombinant (Shingrix) 07/17/2020 ,04/30/2020,03/10/2020 documented as of this encounter Social History Tobacco Use Types Packs/Day Years Used Date Smoking Tobacco: Every Day Cigars Smokeless Tobacco: Former Chew Quit: 11/29/2008 Comments:has 1 cigar 3-4 day s a week Quit 3 ppd x 26 years, still using cigars, 1 a day Alcohol Use Standard Drinks/Week Comments Yes 10 (1 standard drink = 0.6 oz pu re alcohol) occ AUDIT-C Answer Date Recorded Frequency of Alcohol Consumption Never 10/11/2018 Average Number of Drinks Not on file 018 Frequency of Binge Drinking Not on file 09/30 PHQ-2 Answer Date Recorded PHQ Adult Total Score 0 11/07/2023 Hunger Vital Sign Answer Date Recorded Within the past 12 months, y ou worried that your food would run out before you got the money to buy more. Never true 04/18/20 23 Within the past 12 months, t he food you bought just didn't last and you didn't have money to get more. Never true 04/18/2023 Childcare Answer Date Recorded Do you feel overwhelmed with taking care of a child, family member or friend? No 04/18/2023 Does your family need help f inding childcare? (Household - for ages 0-17 years) Not on file 04/18/2023 Clothing Answer Date Recorded Have you been unable to get clothing when it was really needed? No 04/18/2023 Is your family able to get c lothes or diapers when needed? (Household - for ages 0-17 years) Not on file 04/18/2023 Personal Safety Answer Date Recorded Do you feel unsafe or have concerns for your saf ety? No 04/18/2023 Do you have concerns for you r family's safety? (Household - for ages 0-17 years) Not on file 04/18/2023 Utilities Answer Date Recorded Do you have trouble paying y our heating, water, or electric bill? (Adult - for ages 18 years and over) Not on file 04/19/2024 Is your family able to pay t he heat, water, or electric bill? (Household - for ages 0-17 years) Not on file 04/19/2024 Does your family have access to good internet? (Household - for ages 0-17 years) Not on file 04/19/2024 Employment Status Answer Date Recorded Are you unemployed or without regular income? No 04/18/2023 Does the household have a re gular source of income? (Household - for ages 0-17 years) Not on file 04/18/2023 Social Connections Answer Date Recorded How often do you feel lonely or isolated from those around you? (Adult - for ages 18 years and over) Not on file 04/19/2024 Financial Resource Strain Answer Date R ecorded Do you have any trouble payi ng for your medications, or do you think you might in the future? No 04/18/2023 Does your family have troubl e paying for medicine? (Household - for ages 0-17 years) Not on file 04/18/2023 Transportation Needs Answer Date Record ed READ ONLY Do you have troubl e getting a ride to medical visits or work? Never True 04/18/2023 Does your family have a hard time getting a ride to doctors visits? (Household - for ages 0-17 years) Not on file 04/18/2023 Has lack of transportation k ept you from medical appointments, meetings, work, or from getting things needed for daily living? Check all that apply. (Adult - for ages 18 years and over) Not on file 04/18/2023 Do you (or your family) have trouble finding or paying for a ride (transportation)? (Household - for ages 0-17 years) Not on file 04/18/2023 Housing Stability Answer Date Recorded Do you currently live in a s helter or have no steady place to sleep at night? No 04/18/2023 READ ONLY Do you think you a re at risk of becoming homeless? No 04/18/2023 Does your family worry about paying for your home or becoming homeless? (Household - for ages 0-17 years) Not on file 0 04/18/2023 Are you homeless or worried that you might be in the future? (Adult - for ages 18 years and over) Not on file Are you (or your family) mason eless or worried that you might be in the future? (Household - for ages 0-17 years) Not on file Food Insecurity Answer Date Recorded Do you need food for this week? No 04/18/2023 Are you able to get enough f ood for your family? (Household - for ages 0-17 years) Not on file 04/18/2023 Does your family need food t his week? (Household - for ages 0-17 years) Not on file 04/18/2023 Do you always have enough fo od for your family? (Household - for ages 0-17 years) Not on file 04/18/2023 Sex and Gender Information Value Date Recorded Sex Assigned at Male 03/13/2019 7:56 AM EDT Gender Identity Male 03/13/2019 7:56 AM EDT Sexual Orientation Straight 03/13/2019 7: 56 AM EDT Job Start Date Occupation Industry Not on file Not on file Not on file documented as of this encounter Functional Status Functional Status Response Date of Assess ment Are you deaf or do you have serious difficulty h earing? No 06/02/2021 Are you blind or do you have serious difficulty seeing, even when wearing glasses? No 06/02/2021 Do you have serious difficul ty walking or climbing stairs? (5 years old or older) No 06/02/2021 Do you have difficulty dress ing or bathing? (5 years old or older) No 06/02/2021 Because of a physical, menta l, or emotional condition, do you have difficulty doing errands alone such as visiting a doctor s office or shopping? (15 years old or older) No 06/02/20 21 Cognitive Status Response Date of Assessm ent Because of a physical, menta l, or emotional condition, do you have serious difficulty concentrating, remembering, or making decisions? (5 years old or older) No 06/02/2021 documented as of this encounter Plan of Treatment Upcoming Encounters Date Type Department Care Team (Latest Contact Info) Description 06/25/2024 8:40 AM EDT Anticoagulation Pharmacy [address] [phone] Pharmacist1, [facility] [address] [address] 06/26/2024 11:00 AM EDT Office Visit Dermatology[address] [place] [address] Jaja Perez PA-C [address] [place] [address] [place] [address] 07/23/2024 8:00 AM EDT Office Visit Cardiology, [facility] [address] [place] [address] Jasmin Ferrer PA-C [address] [place] [address] 08/13/2024 8:30 AM EDT Hospital Encounter [facility], Endoscopy Room [facility] [address] [place] [phone] Justin Son MD [address] [place] [address] 08/13/2024 8:30 AM EDT - 08/13/2024 9:00 AM EDT Surgery ENDO [facility], Endoscopy Room [facility] [address] [place] [phone] Justin Son MD [address] [place] [address] COLONOSCOPY FLEXIBLE PROXIMAL DIAGNOSTIC 09/04/2024 8:30 AM EST Office Visit Podiatry [facility] [address] [place] [phone] Lio Hairston, DPJamarcus [address] [place] [address] 11/05/2024 9:20 AM EST Office Visit General Internal Medicine [facility] [place] [address] [place] [address] Jake Green, DO [address] [place] [address] Pending Results Name Type Priority Associated Diagnoses Date /Time XR HIP UNILAT 2-3 VIEWS INCLUDING AP PELVIS Medical Imaging Routine Chronic hip pain after total replacement of right hip joint 06/05/2024 12:34 PM EDT Scheduled Procedures Name Priority Associated Diagnoses Date/Ti me COLONOSCOPY FLEXIBLE PROXIMAL DIAGNOSTIC Recall History of colon polyps 08/13/2024 8:30 AM EDT Health Maintenance Due Date Last Done Comments DISCUSS TOBACCO CESSATION (REFER TO SMARTSET #0848) 1945 Adult Wellness Visit 2012 COVID-19 Vaccine ( season) 2023 09/25/2021, 01/10/2021, 12/13/2020 Colonoscopy 01/26/2024 01/25/2019, 12/30, 11/30/2010 Influenza Vaccine (FLU shot) (#1) 2024 08/22/2023, 10/05/2022, 09/23/2021, Additional history exists Diabetic Eye Exam 10/17/2024 10/17/2023, , 10/23/2019, Additional history exists HbA1c 11/05/2024 05/05/2024, 09/30, 04/04/2023, Additional history exists Depression Screening 11/07/2024 11/07/2023 Albumin/Creatinine Ratio 05/05/2025 024, 09/14/2022, 04/02/2022 GFR 05/05/2025 05/05/2024, 09/30, 04/04/2023, Additional history exists Diabetic Foot Exam 05/07/2025 05/07/2024, 0 05/09/2023, 04/02/2022, Additional history exists O2 ASSESSMENT COMPLETED IN PAST YEAR FOR COPD 05/07/2025 05/07/2024 DTaP,Tdap,and Td Vaccines (3 - Td or Tdap) 01/22/2034 01/23/2024, 02/12/2013, 06/25/2003 Pneumococcal Vaccine: 65+ Years Completed 08/17/2017, 02/04/2016, 04/03/2007 RETIRED - COLONOSCOPY-EVERY 5 YRS AGES 18-100 Discontinued 01/25/2019, 01/25/2019, 11/30/2010 Zoster Vaccines Completed 07/17/2020, 10/2019, 03/10/2020 Alpha-1 Antitrypsin Completed 04/16/2022 HPV (Gardasil) Vaccine Aged Out No lo nger eligible based on patient's age to complete this topic Hepatitis B Vaccine Aged Out No longe r eligible based on patient's age to complete this topic MENINGOCOCCAL (MENACTRA/MENVEO) Aged Out No longer eligible based on patient's age to complete this topic documented as of this encounter Medical Devices Implanted Type Area Silk Finisher Device Identifier Shelf Expiration Date Model / Serial / Lot Cable/Short Gtr 2232-02-16 - [id number] Implanted:Qty: 1 on 05/08/2021 by Graham Ascencio MD at [facility] [place], [place] Right: Leg Upper [employer] 03/01/203102-15 / / [id number] Cable/Sle Beaded D/M 20 - [id number] Implanted:Qty: 1 on 05/08/2021 by Graham Ascencio MD at [facility] [place] [place] Right: Leg Upper YUE : ORTHOPAEDICS 11/16/2025 6704-0-520 / / [id number] 15mm 150mm Sts Distal Stem Implanted:Qty: 1 on 05/08/2021 by Graham Ascencio MD at [facility] [place] [place] Right: Leg Upper [employer] : ORTHOPEDICS 04/02/2030 [id number] / / [id number] High Offset Cone Proximal Body Implanted:Qty: 1 on 05/08/2021 by Graham Ascencio MD at [facility] [place] [place] Right: Leg Upper [employer] : ORTHOPEDICS 07/08/2030 [id number] / / [id number] Cable/Short Gtr 2232-02-16 - [id number] Implanted:Qty: 1 on 05/08/2021 by Graham Ascencio MD at [facility] [place] [place] Right: Leg Upper [employer] 01/27/2031 4-18 / / [id number] Head Bioloxd Option 36mm - [id number] Implanted:Qty: 1 on 05/08/2021 by Graham Ascencio MD at [facility] [place] [place] Right: Leg Upper [employer] 08/21/2030 650-1057 / / [id number] Hip Fmrl Insert Ceropt Sleve-6 - [id number] Implanted:Qty: 1 on 05/08/2021 by Graham Ascencio MD at [facility] [place] [place] Right: Leg Upper [employer] 11/20/2030 650-1064 / / [id number] Cable/Short Gtr 2232-02-16 - [id number] Implanted:Qty: 1 on 05/08/2021 by Graham Ascencio MD at [facility] [place] [place] Right: Leg Upper [employer] 01/27/2031 4-18 / / [id number] Cable/Short Gtr 2232-02-16 - [id number] Implanted:Qty: 1 on 05/08/2021 by Graham Ascencio MD at [facility] [place] [place] Right: Leg Upper [employer] 01/20/2031 4-18 / / [id number] Cable/Sle Beaded D/M 20 Vit - [id number] Implanted:Qty: 1 on 05/08/2021 by Graham Ascencio MD at [facility] Right: Leg Upper YUE : ORTHOPAEDICS 11/30/2025 6704-0-520 / / [id number] documented as of this encounter Advance Directives * Full Code (Latest Code Status on File) Date Activated Date Inactivated Comments 06/02/2021 1:31 PM 06/03/2021 3:24 PM This order ref lects the patients wishes and were consensually agreed upon. * Full Code Date Activated Date Inactivated Comments 05/08/2021 4:51 PM 05/18/2021 7:50 PM This order re flects the patients wishes and were consensually agreed upon. * Full Code Date Activated Date Inactivated Comments 04/07/2021 12:54 PM 04/07/2021 5:58 PM This order re flects the patients wishes and were consensually agreed upon. Care Teams Decorating Supervisor Relationship Specialty Start Date End Date Jake Green DO [address] [place] [id number] PCP - General Internal Medicine 09/16/21 documented as of this encounter
--- OUTSIDE RECORDS SUMMARY | 2024-06-09 17:45 | External Medical Summary | Summary of Care ---
Author Name Unknown Organization [facility] Address [address] [place] [address] Phone [phone] Care Team Providers Care Tie Binder Name Role Phone Jake Green DO Primary Care Provid er Reason for Visit * Reason Onset Date Comments Surgery Procedure Cancelled 06/08/2024 Encounter Details Date Type Department Care Team (Late st Contact Info) Description 06/08/2024 Telephone Gastroenterology, [facility] [address] [place] [address] Justin Son MD [address] [place] [address] Surgery Procedure Cancelled Allergies Active Allergy Reactions Criticality Noted Date Comments Moxifloxacin Hcl In Nacl Itching,Nausea/vomit ing High 07/08/2012 20 minutes after first dose, hands itchy, head itchy, started vomiting documented as of this encounter (statuses as of 06/08/2024) Medications Medication Sig Dispensed Refills Start Date [...] Oral Tablet (Benicar)Indication s: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,HTN, goal below 140/90 [...] HTN, goal below 140/90,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 TAKE 1 TABLET BY MOUTH EVERY DAY IN THE MORNING 90 Tablet 3 02/22/2024 Active Warfarin Sodium 2 MG Oral Tablet (Coumadin)Indicatio ns:Anticoagulation management encounter TAKE 1 TABLET BY MOUTH WITH 1 MG DOSE ON SUN,MON,, , TUESDAY and Tuesday AND 2 TABS [...] as of this encounter (statuses as of 06/08/2024) Active Problems Problem Noted Date Diagnosed Date [...] tachycardia 03/13/2019 Coronary artery disease invo lving modoc coronary artery of modoc heart without angina pectoris 03/13/2019 History of pulmonary embolus (PE) 12/02/2017 DNR (do not resuscitate) 11/27/2017 detention current use of anticoagulant therapy 0 11/22/2017 [...] as of this encounter (statuses as of 06/08/2024) Resolved Problems Problem Noted Date Diagnosed Date Resolved Date Dyslipidemia, goal LDL below 70 01/23/2024 05/07/2024 Orthostatic lightheadedness 05/10/2021 04/02/2022 Postoperative anemia due to acute blood loss 04/02/2022 COPD, group B, by GOLD 2017 classification 02/09/2021 04/02/2022 Overview: Per COPD GOLD Classification Coronary artery disease invo lving modoc coronary artery of modoc heart with angina pectoris 11/21/2020 04/28/2021 Morbid obesity 01/01/2020 05/14/2021 Overview: Per Obesity protocol Prediabetes 12/11/2018 04/11/2019 Overview: Per Prediabetes protocol #1 Hematoma of right lower extremity 11/22/2017 10/23/2019 Fall at home 11/22/2017 03/13/2019 History of factor V Leiden mutation 11/22/2017 10/23/2019 Gait abnormality 11/22/2017 04/02/2022 longterm resident 11/22/20172017 OBESITY, BMI 30-34 (SEE ACTUAL [...] 10/19/2004 08/17/2017 Overview: TREATED 1 YEAR IN [facility] ICD-10 update of inactive term IMPOTENCE, ORGANIC [...] as of this encounter (statuses as of 06/08/2024) Immunizations Name Administration Dates Next Due COVID-19 mRNA, LNP-s, No Pre serve, 2-Dose Series (Sentrinsic) 09/25/2021,01/10/2021,12/13/2020 Pneumococcal Conjugate Vacc, 13 Valent (Prevnar) [...] Age 7 and older, IM (Adacel) 10/03/2009(De jadon: Patient Refused) Zoster Vaccine Recombinant (Shingrix) 07/17/2020 [...] Average Number of Drinks Not on file Frequency of Binge Drinking Not on file [...] No 06/02/2021 documented as of this encounter Miscellaneous Notes * Telephone Encounter - Melody Rangel OSA - 06/08/2024 11:31 AM EDT PROCEDURE AND CASE CANCELLED FOR THE PT AT THIS TIME * Telephone Encounter - Tiffany Clarke OSA - 06/08/2024 9:21 AM EDT Pt called and is cancelling procedure scheduled for 08/13/24. Does not want to reschedule. documented in this encounter Plan of Treatment Upcoming Encounters Date Type Department Care Team (Late st Contact Info) Description 06/25/2024 8:40 AM EDT Anticoagulation Pharmacy [address] [address] Pharmacist1, [facility] [address] [address] 06/26/2024 11:00 AM EDT Office Visit Dermatology[address] [address] Jaja Perez PA-C [address] [place] [address] [place] [address] 07/23/2024 8:00 AM EDT Office Visit Cardiology, [facility] [address] [place] [address] Jasmin Ferrer PA-C [address] [place] [address] 09/04/2024 8:30 AM EST Office Visit Podiatry [facility] [address] [facility] [address] [place] [phone] Lio Hairston, DPM [address] [place] [address] 11/05/2024 9:20 AM EST Office Visit General Internal Medicine [facility] [address] [place] [address] Jake Green, [address] [place] [address] Health Maintenance Due Date Last Done Comments DISCUSS TOBACCO CESSATION (REFER TO SMARTSET #3291) 1945 Adult Wellness Visit 2012 COVID-19 Vaccine [...] this encounter Medical Devices Implanted Type Area Data Reporting Analyst Device Identifier Shelf Expiration Date Model / Serial / Lot Cable/Short Gtr 2232-02-16 - [id number] Implanted:Qty: 1 on 05/08/2021 by Graham Ascencio MD at OR [facility] Right: Leg Upper [employer] 03/01/2031-02-15 / / [id number] Cable/Sle Beaded D/M 20 Vit - [id number] Implanted:Qty: 1 on 05/08/2021 by Graham Ascencio MD at OR [facility] Right: Leg Upper YUE : ORTHOPAEDICS 11/16/2025 6704-0-520 / / [id number] 15mm 150mm Sts Distal Stem Implanted:Qty: 1 on 05/08/2021 by Graham Ascencio MD at OR [facility] Right: Leg Upper BI[employer] : ORTHOPEDICS 04/02/2030 [id number] / / [id number] High Offset Cone Proximal Body Implanted:Qty: 1 on 05/08/2021 by Graham Ascencio MD at OR [facility] Right: Leg Upper BIOM[employer] : ORTHOPEDICS 07/08/2030 [id number] / / [id number] Cable/Short Gtr 2232-02-16 - [id number] Implanted:Qty: 1 on 05/08/2021 by Graham Ascencio MD at OR [facility] Right: Leg Upper [employer] 01/27/2031 4-18 / / [id number] Head Bioloxd Option 36mm - [id number] Implanted:Qty: 1 on 05/08/2021 by Graham Ascencio MD at OR [facility] Right: Leg Upper [employer] 08/21/2030 650-1057 / / [id number] Hip Fmrl Insert Ceropt Sleve-6 - [id number] Implanted:Qty: 1 on 05/08/2021 by Graham Ascencio MD at OR [facility] Right: Leg Upper [employer] 11/20/2030 650-1064 / / [id number] Cable/Short Gtr 2232-02-16 - [id number] Implanted:Qty: 1 on 05/08/2021 by Graham Ascencio MD at OR [facility] Right: Leg Upper [employer] 01/27/2031 4-18 / / [id number] Cable/Short Gtr 2232-02-16 - [id number] Implanted:Qty: 1 on 05/08/2021 by Graham Ascencio MD at OR [facility] Right: Leg Upper [employer] 01/20/2031 4-18 / / [id number] Cable/Sle Beaded D/M 20 Vit - [id number] Implanted:Qty: 1 on 05/08/2021 by Graahm Ascencio MD at OR [facility] Right: Leg Upper YUE : ORTHOPAEDICS 11/30/2025 6704-0-520 / / [id number] documented as of this encounter Advance Directives [...] and were consensually agreed upon. Care Teams Tie Binder Relationship Specialty Start Date End Date Jake Green DO [address] [place] [address] PCP - General Internal Medicine 09/16/21 documented as of this encounter
--- OUTSIDE RECORDS SUMMARY | 2024-06-09 17:46 | External Medical Summary | Summary of Care ---
Author Name Unknown Organization [facility] Address [address] [place] [address] Phone [phone] Care Team Providers Care Print Manager Name Role Phone Jake Green DO Primary Care Provid er Reason for Visit * Reason Onset Date Comments Advice 04/30/2024 Order Request 04/30/2024 Encounter Details Date Type Department Care Team ([facility] st Contact Info) Description 04/30/[address] [phone] Jake Green DO [address] [place] [address] [phone] Advice; Order Request Allergies Active Allergy Reactions Criticality Noted Date Comments Moxifloxacin Hcl In Nacl Itching,Nausea/vomit ing High 07/08/2012 20 minutes after first dose, hands itchy, head itchy, started vomiting documented as of this encounter (statuses as of 05/04/2024) Medications Medication Sig Dispensed Refills Start Date End Date Status pyridOXINE (VITAMIN B-6) 100 MG Tablet Take 1 Tablet by mouth in the morning. Active Cyanocobalamin 1000 MCG CAPS Take 1 Capsule by mouth in the morning. Active fluticasone (FLONASE) 50 MCG/ACT nasal sprayIndications:A llergic rhinitis due to pollen, unspecified seasonality Administer [...] Active Nitroglycerin 0.4 MG Sublingual Tablet Sublingual (Nitrostat)Indicat ions:Chronic coronary artery disease 1 tab under tongue as needed for chest pain, no more than 3 tabs in 15 minutes 25 Tablet 5 03/15/2022 Active Additional Information Patient not taking.Reported on 04/24/2024 Cyclobenzaprine HCl 10 MG Oral Tablet (Flexeril)Indicati ons:Acute left-sided low back pain without sciatica Take 1 Tablet by mouth every 8 hours as needed for Muscle spasms. 30 Tablet 04/18/2023 Active Isosorbide Mononitrate ER 60 MG Oral Tablet Extended Release 24 Hour (Imdur)Indications :Chronic coronary artery disease,Stable angina (HCC),HTN, goal below 140/90 TAKE 1 TABLET BY MOUTH EVERY DAY 90 Tablet 3 06/28/2023 Active Esomeprazole Magnesium 40 MG Oral Capsule Delayed Release TAKE 1 CAPSULE BY MOUTH EVERY MORNING 90 Capsule 2 11/01/2023 Active Atorvastatin Calcium 80 MG Oral Tablet (Lipitor)Indicatio ns:Dyslipidemia, goal LDL below 70 TAKE 1 TABLET BY MOUTH EVERY DAY IN THE MORNING 90 Tablet 3 11/02/2023 Active Ezetimibe 10 MG Oral Tablet (Zetia)Indications :Dyslipidemia, goal LDL below 70 TAKE 1 TABLET BY MOUTH EVERY DAY 90 Tablet 3 01/23/2024 Active Olmesartan Medoxomil 5 MG Oral Tablet (Benicar)Indicatio ns:Coronary artery disease involving pilot point coronary artery of pilot [place] heart without angina pectoris,HTN, goal below 140/90 TAKE 1 TABLET BY MOUTH TWICE A DAY 180 Tablet 3 01/23/2024 Active Carvedilol 25 MG Oral Tablet (Coreg)Indications :Hypertension associated with type 2 diabetes mellitus (HCC),HTN, goal below 140/90,S/P angioplasty with stent TAKE 1 TABLET BY MOUTH TWICE A DAY 180 Tablet 3 02/22/2024 Active Furosemide 20 MG Oral Tablet (Lasix)Indications :HTN, goal below 140/90,Coronary artery disease involving pilot point coronary artery of pilot [place] heart without angina pectoris TAKE 1 TABLET BY MOUTH EVERY DAY IN THE MORNING 90 Tablet 3 02/22/2024 Active Warfarin Sodium 2 MG Oral Tablet (Coumadin)Indicati ons:Anticoagulatio n management encounter TAKE 1 TABLET BY MOUTH WITH 1 MG DOSE ON TUE,TUE,, , TUESDAY and Tuesday AND 2 TABS ON Tuesday (4mg Tuesday and 3mg all other days - 1mg and 2mg tablets) 120 Tablet 3 04/23/2024 Active predniSONE 10 MG Oral Tablet (Deltasone)Indicat ions:Strain of lumbar region, initial encounter Take 1 Tablet by mouth daily for 5 days, THEN 0.5 Tablets daily for 5 days. As directed. 8 Tablet 04/24/2024 05/04/2024 Active tiZANidine HCl 4 MG Oral Capsule (Zanaflex)Indicati ons:Strain of lumbar region, initial encounter Take 1 Capsule by mouth 3 times a day as needed for Muscle spasms. 30 Capsule 1 04/24/2024 Active Warfarin Sodium 1 MG Oral Tablet (Coumadin)Indicati ons:Factor V deficiency, congenital (HCC),History of pulmonary embolus (PE) Take 1-2 Tablets by mouth in the morning. As directed by anticoag clinic (4mg Tuesday and 3mg all other days - 1mg and 2mg tablets). 180 Tablet 3 04/30/2024 Active documented as of this encounter (statuses as of 05/04/2024) Active Problems Problem Noted Date Diagnosed Date Dyslipidemia, goal LDL below 70 01/23/2024 Dilated aortic root 10/11/2022 COPD, group B, [...] tachycardia 03/13/2019 Coronary artery disease invo lving pilot point coronary artery of pilot [place] heart without angina pectoris 03/13/2019 History of pulmonary embolus (PE) 12/02/2017 DNR (do not resuscitate) 11/27/2017 care home current use of anticoagulant therapy 0 11/22/2017 Overview: ICD-10 update of inactive term Impaired mobility and ADLs 11/22/2017 HTN, goal below 140/90 08/16/2016 S/P angioplasty with stent 04/30/2011 Overview: BMS to RCA 04/08/11 Hyperlipidemia associated with type 2 diabetes m ellitus 10/15/2009 Overview: Per Lipid Taxonomy. ABNORMAL COAGULATION PROFILE 10/16/2002 Overview: Factor V OSTEOARTHROS NOS-PELVIS Adjustment disorder with depressed mood Factor V deficiency, congenital documented as of this encounter (statuses as of 05/04/2024) Resolved Problems Problem Noted Date Diagnosed Date Resolved Date Orthostatic lightheadedness 05/10/2021 04/02/2022 Postoperative anemia due to acute blood loss 04/02/2022 COPD, group B, by GOLD 2017 classification 02/09/2021 04/02/2022 Overview: Per COPD GOLD Classification Coronary artery disease invo lving pilot point coronary artery of pilot point heart with angina pectoris 11/21/2020 04/28/2021 Morbid obesity 01/01/2020 05/14/2021 Overview: Per Obesity protocol Prediabetes 12/11/2018 04/11/2019 Overview: Per Prediabetes protocol #1 Hematoma of right lower extremity 11/22/2017 10/23/2019 Fall at home 11/22/2017 03/13/2019 History of factor V Leiden mutation 11/22/2017 10/23/2019 Gait abnormality 11/22/2017 04/02/2022 skilled nursing resident 11/22/20172017 OBESITY, BMI 30-34 (SEE ACTUAL [...] 10/19/2004 08/17/2017 Overview: TREATED 1 YEAR IN [facility] ICD-10 update of inactive term IMPOTENCE, [...] as of this encounter (statuses as of 05/04/2024) Immunizations Name Administration Dates Next Due COVID-19 mRNA, LNP-s, No Pre serve, 2-Dose Series ([place]) 09/25/2021,01/10/2021,12/13/2020 Pneumococcal Conjugate Vacc, 13 Valent (Prevnar) [...] Influenza, Split, I IV3, With Preserve, Inj 06/27/2015,08/08/2014,09/03/2013,1010/2011,07/19/2011,09/14/2010,10/03/20 09,09/30/2008,09/11/2007,09/19/2006,1 11/23/2002,09/06/2002 09/23/2004 Seasonal Influenza, Trivalen t, Adjuvanted, 65+ yrs 07/17/2020,07/17/2019 TD - Tetanus/Diptheria (ADULT) 06/25/2003 TDAP (age 10 and older)(Boostrix) 01/23/2024, TDAP, Age 7 and older, IM (Adacel) 10/03/2009(Elliott: Patient Refused) Zoster Vaccine Recombinant (Shingrix) 07/17/2020 [...] encounter Miscellaneous Notes * Telephone Encounter - Ayana Pineda LPN - 05/04/2024 8:31 AM EDT Patients aware and conveyed verbal understanding. * Telephone Encounter - Fiona Singletary MED ASSIST - 05/01/2024 9:27 AM EDT Called patient, left message to return call. Myg sent * Telephone Encounter - Jake Green DO - 04/30/2024 5:38 PM EDT Patient has both of these labs already ordered from previous visit. He should have fasting labs done prior to appointment on May 07 * Telephone Encounter - Ivana Patiño OSA - 04/30/2024 1:38 PM EDT An order was requested for this patient. Name of Requesting Provider: Patient and insurance requesting Order Requested: EGFR Blood Test and UACR Urine Test Diagnosis/Reason for Request: Insurance requesting kidney function testing If order request is for Mammogram: Is the patient having any breast symptoms? N/A Is there a chance of ? N/A Has the patient had any breast problems in the past? NA What location AND department does the patient wish to have their order completed at? isinger Fax Number, if applicable: If the caller is not a current patient, please advise the patient to call their current PCP to havethe order's prior to being seen in our office. The patient was informed that our providers would not order anything (medication, labs, etc.) prior to being seen. documented in this encounter Plan of Treatment Upcoming Encounters Date Type Department Care Team (Latest Contact Info) Description 05/07/2024 3:40 PM EDT Office Visit [facility] Internal [facility] [address] [facility] [address] Jake Green, [address] [place] [address] 05/14/2024 9:40 AM EDT Anticoagulation Pharmacy [facility] [address] [place] [phone] Pharmacist1, [facility] [place] [address] [place] [address] 05/29/2024 8:30 AM EDT Office Visit Podiatry [facility] [address] [facility] [address] [place] [address] Lio Hairston, [facility] [address] [place] [address] 06/26/2024 11:00 AM EDT Office Visit Dermatology, [address] [address] Jaja Perez PA-C [address] [place] [address] [place] [address] 07/23/2024 8:00 AM EDT Office Visit Cardiology, [facility] [address] [facility] [place] [address] Jasmin Ferrer PA-C [address] [place] [address] 08/13/2024 8:30 AM EDT Hospital Encounter ENDO [facility], Endoscopy Room [facility] [address] [place] [address] Justin Son MD [address] [place] [address] 08/13/2024 8:30 AM EDT - 08/13/2024 9:00 AM EDT Surgery ENDO [facility], Endoscopy Room [facility] [address] [place] [phone] Justin Son MD [address] [place] [address] COLONOSCOPY FLEXIBLE PROXIMAL DIAGNOSTIC Scheduled Procedures Name Priority Associated Diagnoses Date/Ti me COLONOSCOPY FLEXIBLE PROXIMAL DIAGNOSTIC Recall History of colon polyps 08/13/2024 8:30 AM EDT Health Maintenance Due Date Last Done Comments DISCUSS TOBACCO CESSATION (REFER TO SMARTSET #5751) 1945 COVID-19 Vaccine ( season) 2023 09/25/2021, 01/10/2021, 12/13/2020 Albumin/Creatinine Ratio 09/14/2023 09/14/2022, 06/0 12/2021 Colonoscopy 01/26/2024 01/25/2019, 12/30, 11/30/2010 HbA1c 04/17/2024 10/17/2023, 06/0 02/2023, 09/14/2022, Additional history exists Diabetic Foot Exam 05/09/2024 05/09/2023, 0 04/02/2022, 11/21/2020, Additional history exists Influenza Vaccine (FLU shot) (#1) 2024 08/22/2023, 10/05/2022, 09/23/2021, Additional history exists Diabetic Eye Exam 10/17/2024 10/17/2023, , 10/23/2019, Additional history exists GFR 10/17/2024 10/17/2023, 02/2023, 09/14/2022, Additional history exists Depression Screening 11/07/2024 11/07/2023 O2 ASSESSMENT COMPLETED IN PAST YEAR FOR COPD 04/24/2025 04/24/2024 DTaP,Tdap,and Td Vaccines (3 - Td or [...] this encounter Medical Devices Implanted Type Area Asset Management Coordinator Device Identifier Shelf Expiration Date Model / Serial / Lot Cable/Short Gtr 2232-02-16 - [id number] Implanted:Qty: 1 on 05/08/2021 by Graham Ascencio MD at OR [facility] Right: Leg Upper [employer] 03/01/2031--18 / / [id number] Cable/Sle Beaded D/M 20 Vit - [id number] Implanted:Qty: 1 on 05/08/2021 by Graham Ascencio MD at OR [facility] Right: Leg Upper YUE : ORTHOPAEDICS 11/16/2025 6704-0-520 / / [id number] 15mm 150mm Sts Distal Stem Implanted:Qty: 1 on 05/08/2021 by Graham Ascencio MD at OR [facility] Right: Leg Upper [employer] : ORTHOPEDICS 04/02/2030 [id number] / / [id number] High Offset Cone Proximal Body Implanted:Qty: 1 on 05/08/2021 by Graham Ascencio MD at OR [facility] Right: Leg Upper [employer] : ORTHOPEDICS 07/08/2030 [id number] / / [id number] Cable/Short Gtr 2232-02-16 [id number] Implanted:Qty: 1 on 05/08/2021 by Graham Ascencio MD at OR [facility] Right: Leg Upper [employer] 01/27/2031 4-18 / / [id number] Head Bioloxd Option 36mm - [id number] Implanted:Qty: 1 on 05/08/2021 by Graham Ascencio MD at OR [facility] Right: Leg Upper [employer] 08/21/2030 650-1057 / / [id number] Hip Fmrl Insert Ceropt Sleve-6 - [id number] Implanted:Qty: 1 on 05/08/2021 by Graham Ascencio MD at OR [facility] Right: Leg Upper [employer] 11/20/2030 650-1064 / / [id number] Cable/Short Gtr 2232-02-16 [id number] Implanted:Qty: 1 on 05/08/2021 by Graham Ascencio MD at OR [facility] Right: Leg Upper [employer] 01/27/2031 4-18 / / [id number] Cable/Short Gtr 2232-02-16 [id number] Implanted:Qty: 1 on 05/08/2021 by Graham Ascencio MD at OR [facility] Right: Leg Upper [employer] 01/20/2031 4-18 / / [id number] Cable/Sle Beaded D/M 20 Vit - [id number] Implanted:Qty: 1 on 05/08/2021 by Graham Ascencio MD at OR [facility] Right: Leg Upper YUE : ORTHOPAEDICS 11/30/2025 6704-0-520 / / [id number] documented as of this encounter Advance Directives [...] and were consensually agreed upon. Care Teams Print Manager Relationship Specialty Start Date End Date Jake Green DO [address] [place] [id number] PCP - General Internal Medicine 09/16/21 documented as of this encounter
--- OUTSIDE RECORDS SUMMARY | 2024-06-09 17:46 | External Medical Summary ---
Author Name Unknown Address Unknown Organization [id number][place] [place] [address] [facility] [place] [address] Laboratory Report Ordering Provider Test Date Status PATRICIA AGUDELO 05/05/2024 08:07:00 Final Observation Date Value Abnormality Reference (Units ) Status Triglyceride 05/05/2024 08:07:00 126 <=174 ( mg/dL) Final Triglyceride Reference Range s (mg/dL):
<150 Acceptable
150-174 Borderline high
175-499 High
>=500 Very high Cholesterol 05/05/2024 08:07:00 146 <200 (mg /dL) Final Total Cholesterol Reference Ranges (mg/dL):
<200 Desirable
200-239 Borderline high
>=240 High HDL 05/05/2024 08:07:00 54 >39 (mg/dL ) Final HDL Cholesterol Reference Ra nges (mg/dL):
>=60 High (Desirable)
<50 Low (Undesirable) For Females
<40 Low (Undesirable) For Males NON-HDL CHOLESTEROL 05/05/2024 08:07:00 92 <=159 (mg/dL) Final Non-HDL Cholesterol Referenc e Range (mg/dL):
<100 Target level for high risk ASCVD patient
<130 Optimal for general population
130-159 Near optimal for general population
160-189 Borderline High
190-219 High
>=220 Very High LDL, (calculated) 05/05/2024 08:07:00 67 <= 129 (mg/dL) Final LDL Cholesterol Reference Ra nges (mg/dL):
<70 Target level for high risk ASCVD patient
<100 Optimal for general population
100-129 Near optimal for general population
130-159 Borderline high
160-189 High
>=190 Very high Performing Location [facility] [place] [address] [facility] [address]
--- OUTSIDE RECORDS SUMMARY | 2024-06-09 17:46 | External Medical Summary ---
Author Name Unknown Address Unknown Organization [id number]:[facility] [facility] [place] [address] [facility] [address] Laboratory Report Ordering Provider Test Date Status PATRICIA AGUDELO 05/05/2024 08:07:00 Final Observation Date Value Abnormality Reference (Units ) Status HbA1C 05/05/2024 08:07:00 6.6 Above high normal 4. 0-5.6 (%) Final The use of HbA1c to monitor glycemic status is based on normal hemoglobin and HbA composition. This test should not be used in patients with abnormal hemoglobin that affects the half life of the red blood cell or the in vivo glycation rates. Glucose, estimated average 05/05/2024 08:07:00 143 Above high normal <126 (mg/dL) Andrae liu Performing Location [facility] [place] [address] [facility] [address]
--- OUTSIDE RECORDS SUMMARY | 2024-06-09 17:46 | External Medical Summary ---
Author Name Unknown Address Unknown Organization : Laboratory Report Ordering Provider Test Date Status KWASI MAYORGA 05/14/2024 09:47:26 Final Therapeutic ranges for non-o perative patients:
Prophylaxsis/treatment of DVT: (Range:2.0-3.0)
Treatment of pulmonary embolism:(Range:2.0-3.0)
Prevention of systemic embolism from:
-tissue heart valves
-acute myocardial infarction
-valvular heart disease
-atrial fibrillation
(Range: 2.0-3.0)
Mechanical prosthetic valves: (Range: 2.5-3.5) Observation Date Value Abnormality Reference (Units ) Status INR in Capillary blood by Coagulation assay 05/14/2024 09:47:26 4.1 (INR) Final Performing Location
--- OUTSIDE RECORDS SUMMARY | 2024-06-09 17:46 | External Medical Summary | Summary of Care ---
Author Name Unknown Organization [facility] Address [address] [place] [address] Phone [phone] Care Team Providers Care Associate Store Manager Name Role Phone Jake Green DO Primary Care Provid er Reason for Visit * Reason Comments Dosage Adjustment In Person (Anticoag Cl inic) Encounter Details Date Type Department Care Team (Latest Contact Info) Description 05/29/2024 2:20 PM EDT Anticoagulation Pharmacy [address] [phone] Pharmacist1, [facility] [address] [address] Factor V deficiency, congenital (HCC)*; ABNORMAL COAGULATION PROFILE; History of pulmonary embolus (PE); Anticoagulation management encounter Allergies Active Allergy Reactions Criticality Noted Date Comments Moxifloxacin Hcl In Nacl Itching,Nausea/vomit ing High 07/08/2012 20 minutes after first dose, hands itchy, head itchy, started vomiting documented as of this encounter (statuses as of 05/29/2024) Medications Medication Sig Dispensed Refills Start Date [...] Oral Tablet (Benicar)Indication s: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,HTN, goal below 140/90 [...] HTN, goal below 140/90,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 TAKE 1 TABLET [...] 2mg tablets) 120 Tablet 3 04/23/2024 Active tiZANidine HCl 4 MG Oral Capsule (Zanaflex)Indicatio [...] as of this encounter (statuses as of 05/29/2024) Active Problems Problem Noted Date Diagnosed Date [...] tachycardia 03/13/2019 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 ABNORMAL COAGULATION PROFILE 10/16/2002 Overview: Factor V OSTEOARTHROS NOS-PELVIS Adjustment disorder with depressed mood Factor V deficiency, congenital documented as of this encounter (statuses as of 05/29/2024) Resolved Problems Problem Noted Date Diagnosed Date Resolved Date Dyslipidemia, goal LDL below 70 01/23/2024 05/07/2024 Orthostatic lightheadedness 05/10/2021 04/02/2022 Postoperative anemia due to acute blood loss 04/02/2022 COPD, group B, by GOLD 2017 classification 02/09/2021 04/02/2022 Overview: Per COPD GOLD Classification Coronary artery disease invo lving solomon coronary artery of solomon heart with angina pectoris 11/21/2020 04/28/2021 Morbid obesity 01/01/2020 05/14/2021 Overview: Per Obesity protocol Prediabetes 12/11/2018 04/11/2019 Overview: Per Prediabetes protocol #1 Hematoma of right lower extremity 11/22/2017 10/23/2019 Fall at home 11/22/2017 03/13/2019 History of factor V Leiden mutation 11/22/2017 10/23/2019 Gait abnormality 11/22/2017 04/02/2022 [facility] resident 11/22/20172017 OBESITY, BMI 30-34 (SEE ACTUAL [...] 10/19/2004 08/17/2017 Overview: TREATED 1 YEAR IN [facility] ICD-10 update of inactive term IMPOTENCE, [...] as of this encounter (statuses as of 05/29/2024) Immunizations Name Administration Dates Next Due COVID-19 mRNA, LNP-s, No Pre serve, 2-Dose Series (Axonify) 09/25/2021,01/10/2021,12/13/2020 Pneumococcal Conjugate Vacc, 13 Valent (Prevnar) [...] Age 7 and older, IM (Adacel) 10/03/2009(De ferred: Patient Refused) Zoster Vaccine Recombinant (Shingrix) 07/17/2020 [...] 04/18/2023 Does the household have a re lar source of income? (Household - for ages [...] No 06/02/2021 documented as of this encounter Progress Notes * Chrissy Maxwell RPh - 05/29/2024 7:56 AM EDT Medication Therapy Disease Management - Anticoagulation Patient: Sohail Rockwell Sr. | : 1945 Subjective Patient-Reported Symptoms: Patient Findings Negatives: Signs/symptoms of thrombosis, Signs/symptoms of bleeding, Change in health, Change in alcohol use, Change in activity, Upcoming invasive procedure, Missed doses, Extra doses, Change in medications, Change in diet/appetite, Bruising Objective Current Warfarin Dose As of 05/29/2024 Warfarin maintenance plan: 3 mg (2 mg x 1 and 1 mg x 1) every day INR Result As of 05/29/2024 INR goal: 2.5-3.5 INR used for dosin.4 (05/29/2024) Assessment & Plan Warfarin Plan As of 05/29/2024 Full warfarin instructions: 2 mg every Wed; 3 mg all other days Next INR check: 06/26/2024 Repeat PT/INR in 4 week(s) Weekly dose: decreased - to continue downward trend of INR. Aware of adjustment Additional Dosing Information: Description Decreased dose when not having Whiskey 2mg TuTh and 3mg all other days Chrissy Maxwell RPh Clinical Pharmacist 05/29/2024, 7:56 AM documented in this encounter Plan of Treatment Upcoming Encounters Date Type Department Care Team (Latest Contact Info) Description 06/25/2024 8:40 AM EDT Anticoagulation Pharmacy [address] [phone] Pharmacist1, [facility] [address] [phone] 06/26/2024 11:00 AM EDT Office Visit Dermatology, [address], [place] [address] Jaja Perez PA-C [address] [place] [address] [place] [address] 07/23/2024 8:00 AM EDT Office Visit Cardiology, [facility] [address] [place] [address] Jasmin Ferrer PA-C [address] [place] [address] 08/13/2024 8:30 AM EDT Hospital Encounter ENDO [facility], Endoscopy Room [facility] [address] [place] [phone] Justin Son MD [address] [place] [address] 08/13/2024 8:30 AM EDT - 08/13/2024 9:00 AM EDT Surgery ENDO [facility], Endoscopy Room [facility] [address] [place] [phone] Justin Son MD [address] [place] [address] COLONOSCOPY FLEXIBLE PROXIMAL DIAGNOSTIC 09/04/2024 8:30 AM EST Office Visit Podiatry [facility], [address] [place] [phone] Lio Hairston, PENG [address] [facility] [place] [address] 11/05/2024 9:20 AM EST Office Visit General Internal Medicine [facility] [address] [place] [address] Jake Green, DO [address] [place] [phone] Scheduled Procedures Name Priority Associated Diagnoses Date/Ti me COLONOSCOPY FLEXIBLE PROXIMAL DIAGNOSTIC Recall History of colon polyps 08/13/2024 8:30 AM EDT Health Maintenance Due Date Last Done Comments DISCUSS TOBACCO CESSATION (REFER TO SMARTSET #7847) 1945 COVID-19 Vaccine ( season) 2023 09/25/2021, 01/10/2021, 12/13/2020 Colonoscopy 01/26/2024 01/25/2019, 12/30, 11/30/2010 *CXR OR CT FOR COPD EVER 05/13/2024 Influenza Vaccine (FLU shot) (#1) 2024 08/22/2023, [...] 01/25/2019, 01/25/2019, 11/30/2010 Zoster Vaccines Completed 07/17/2020, 070 10/2019, 03/10/2020 Hepatitis C Screening Completed 04/27/2021 , 04/27/2021, 04/27/2021, Additional history exists Alpha-1 Antitrypsin Completed 04/16/2022 *BASELINE EKG FOR HTN Completed 01/23/2024 , 10/11/2022, 04/28/2021, Additional history exists HPV (Gardasil) Vaccine Aged Out No lo nger eligible based on patient's age to complete this topic Hepatitis B Vaccine Aged Out No longe r eligible based on patient's age to complete this topic MENINGOCOCCAL (MENACTRA/MENVEO) Aged Out No longer eligible based on patient's age to complete this topic documented as of this encounter Medical Devices Implanted Type Area [employer]eronautical [employer] Professor Device Identifier Shelf Expiration Date Model / Serial / Lot Cable/Short Gtr 2232-02-16 - [id number] Implanted:Qty: 1 on 05/08/2021 by Graham Ascencio MD at [place] [facility] [place] Right: Leg Upper [employer] 03/01/2031-18 / / [id number] Cable/Sle Beaded D/M 20 Vit - [id number] Implanted:Qty: 1 on 05/08/2021 by Graham Ascencio MD at [place] [facility] [place] Right: Leg Upper [employer] : ORTHOPAEDICS 11/16/2025 6704-0-520 / / [id number] 15mm 150mm Sts Distal Stem Implanted:Qty: 1 on 05/08/2021 by Graham Ascencio MD at [place] [facility] [place] Right: Leg Upper [employer] : ORTHOPEDICS 04/02/2030-649449 / / [id number] High Offset Cone Proximal Body Implanted:Qty: 1 on 05/08/2021 by Graham Ascencio MD at [place] [facility] [place] Right: Leg Upper [employer] : ORTHOPEDICS 07/08/2030-031137 / / [id number] Cable/Short Gtr 2232-02-16 - [id number] Implanted:Qty: 1 on 05/08/2021 by Graham Ascencio MD at [place] [facility] [place] Right: Leg Upper [employer] 01/27/2031 4-18 / / [id number] Head Bioloxd Option 36mm - [id number] Implanted:Qty: 1 on 05/08/2021 by Graham Ascecnio MD at [place] [facility] [place] Right: Leg Upper [employer] 08/21/2030 650-1057 / / [id number] Hip Fmrl Insert Ceropt Sleve-6 - [id number] Implanted:Qty: 1 on 05/08/2021 by Graham Ascencio MD at [place] [facility] [place] Right: Leg Upper [employer] 11/20/2030 650-1064 / / [id number] Cable/Short Gtr 2232-02-16 - [id number] Implanted:Qty: 1 on 05/08/2021 by Graham Ascencio MD at [place] [facility] [place] Right: Leg Upper [employer] 01/27/2031 4-18 / / [id number] Cable/Short Gtr 2232-02-16 - [id number] Implanted:Qty: 1 on 05/08/2021 by Graham Ascencio MD at [place] [facility] [place] Right: Leg Upper [employer] 01/20/2031 4-18 / / [id number] Cable/Sle Beaded D/M 20 Vit - [id number] Implanted:Qty: 1 on 05/08/2021 by Graham Ascnecio MD at [place] [facility] [place] Right: Leg Upper [employer]UE : ORTHOPAEDICS 11/30/2025 6704-0-520 / / [id number] documented as of this encounter Procedures Procedure Name Priority Date/Time Associated Diagnosis Comments INR FINGERSTICK, POINT OF CARE STAT 05/29/2024 8:00 AM EDT Factor V deficiency, congenital (HCC) ABNORMAL COAGULATION PROFILE History of pulmonary embolus (PE) Anticoagulation management encounter documented in this encounter Results * INR FINGERSTICK, POINT OF CARE (05/29/2024 8:00 AM EDT) Fingerstick INR 3.4 INR 8:11 AM EDT [facility] 60-86 Blood 05/29/2024 8:00 AM EDT 05/29/2024 8:11 AM EDT Narrative NATALEE NARVAEZ 60-86 - 05/29/2024 8:11 AM EDT Therapeutic ranges for non-operative patients: Prophylaxsis/treatment of DVT: (Range:2.0-3.0) Treatment of pulmonary embolism:(Range:2.0-3.0) Prevention of systemic embolism from: -tissue heart valves -acute myocardial infarction -valvular heart disease -atrial fibrillation (Range: 2.0-3.0) Mechanical prosthetic valves: (Range: 2.5-3.5) Chrissy Maxwell [facility] POINT OF CAR E TEST DOCKED DEVICE UNSOLICITED RESULTS NATALEE NARVAEZ 60-[address] [place] [address], [facility] documented in this encounter Visit Diagnoses Diagnosis Factor V deficiency, 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 Care Teams Associate Store Manager Relationship Specialty Start Date End Date Jake Green DO [address] [place] [address] PCP - General Internal Medicine 09/16/21 documented as of this encounter"
--- OUTSIDE RECORDS SUMMARY | 2024-06-09 17:46 | External Medical Summary | Summary of Care ---
Author Name Unknown Organization [facility] Address [address] [place] [address] Phone [phone] Care Team Providers Care Intelligence Officer Basic Name Role Phone Jake Green Primary Care Provid er Reason for Visit * Reason Comments Diabetic Foot Care Encounter Details Date Type Department Care Team (Late st Contact Info) Description 05/29/2024 8:30 AM EDT Office Visit Podiatry [address] [place] [address] Lio Hairston, DPM [address], [place] [phone] Type II diabetes mellitus with peripheral circulatory disorder (HCC)*; Onychomycosis with ingrown toenail; Pain due to onychomycosis of toenails of both feet Allergies Active Allergy Reactions Criticality Noted Date [...] Oral Tablet (Benicar)Indication s:Coronary artery disease involving [place] coronary artery of [place] heart without angina pectoris,HTN, goal below 140/90 [...] HTN, goal below 140/90,Coronary artery disease involving [place] coronary artery of [place] heart without angina pectoris TAKE 1 TABLET [...] tachycardia 03/13/2019 Coronary artery disease invo lving [place] coronary artery of [place] heart without angina pectoris 03/13/2019 History of pulmonary embolus (PE) 12/02/2017 DNR (do not resuscitate) 11/27/2017 group home current use of anticoagulant therapy 0 [...] GOLD Classification Coronary artery disease invo lving [place] coronary artery of [place] heart with angina pectoris 11/21/2020 04/28/2021 Morbid obesity 01/01/2020 05/14/2021 Overview: Per Obesity protocol Prediabetes 12/11/2018 04/11/2019 Overview: Per Prediabetes protocol #1 Hematoma of right lower extremity 11/22/2017 10/23/2019 Fall at home 11/22/2017 03/13/2019 History of factor V Leiden mutation 11/22/2017 10/23/2019 Gait abnormality 11/22/2017 04/02/2022 prison resident 11/22/20172017 OBESITY, BMI 30-34 (SEE ACTUAL [...] 08/17/2017 Overview: TREATED 1 YEAR IN [facility] ICD-10 update of inactive term IMPOTENCE, [...] mRNA, LNP-s, No Pre serve, 2-Dose Series ([employer]) 09/25/2021,01/10/2021,12/13/2020 Pneumococcal Conjugate Vacc, 13 Valent (Prevnar) [...] as of this encounter Progress Notes * Lio Hairston, PENG - 05/29/2024 8:19 AM EDT Subjective: Patient presents with thickened painful fungal nails. Patient is a diet controlled diabetic Patient alert and oriented to person, place and time. 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[place] coronary artery of [place] heart with angina pectoris (HCC)11/21/2020 Depressive disorder, not elsewhere classified Diaphragmatic hernia Dyslipidemia, goal LDL below 160 Esophageal reflux HTN, goal below 140/90 Intestinal obstruction (HCC) 2008, 2009 Lung nodule Obesity, BMI not known Osteoarthrosis, unspecified whether generalized or localized, pelvic region and thigh Phlebitis and thrombophlebitis of other deep vessels of lower extremities Pneumonia Pulmonary embolus (HCC) post op 1986 Stable angina (HCC) 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 IN [facility] Past Surgical History: Procedure Laterality Date ARTHROCENT ASP &/OR INJ MAJOR JX/BURSA W/O US Right 04/07/2021 ARTHROCENTESIS OR INJECTION MAJOR JOINT performed by Graham Ascencio MD at OR [facility] BONE DEBRIDEMENT, FIRST 20 CM2 Right 06/02/2021 DEBRIDEMENT SKIN SUBCUTANEOUS TISSUE MUSCLE AND BONE performed by Graham Ascencio MD at OR [facility] CATHETERIZE LEFT HEART THRU SKIN 2004 ([facility]) 95% Ra, 40% LAD & RCA COLONOSCOPY 04/29/2009 Dr Howard [facility] - 2 polyps removed COLONOSCOPY 01/28/2011 ANASTAMOSIS AT 20 CM, Dr Palma-[facility] COLONOSCOPY, DIAGNOSTIC (RECTUM) 01/25/2019 adenomatous polyp, repeat 5 yrs/COLONOSCOPY FLEXIBLE PROXIMAL DIAGNOSTIC performed by Nick Hudson MD at ENDOSCOPY [facility] EGD, FLEXIBLE, DIAGNOSTIC 01/25/2019 normal/ESOPHAGOGASTRODUODENOSCOPY (EGD), FLEXIBLE, TRANSORAL, DIAGNOSTIC performed by Nick Hudson MD at ENDOSCOPY [facility] INFORMATION REPAIR R ELBOW LAPAROSCOPY; CHOLECYSTECTOMY 01/08/2010 Dr Howard-[facility] LAPAROSCOPY; REPAIR INITIAL INGUINAL HERNIA BOTH LUMBAR SPINE FUSION W/BONE GRAFT X2; 1974, 1979 PARTIAL REMOVAL OF COLON 12" removed; 2008 REMOVE TONSILS & ADENOIDS, UNDER 12 REPAIR DIAPHRAGM HERNIA,TRANSTHORAX 1986 REPAIR INITIAL INGUINAL HERNIA REDUCIBLE AGE 5 OR MORE 1967-right; 1974-left REPAIR RUPTURED ROTATOR CUFF, ACUTE L-2000 REVISION OF TOTAL HIP JOINT SURGERY Right 05/08/2021 REVISION HIP ARTHROPLASTY FEMORAL performed by Graham Ascencio MD at OR [facility] TOTAL HIP REPLACEMENT & PROSTHESIS 05/08/2021 L-2000 Family History Problem Relation Name Age of Onset Leukemia Sister Peace Heart disease Sister Peace Other (MVA) Brother Alan Dementia Brother Stewart Heart disease Brother Stewart Arthritis Brother Stewart No Known Problems Brother Bill Glaucoma Mother Mickie Heart Disorder Mother Mickie Hypertension Mother Mickie Arthritis Mother Mickie Stroke Mother Mickie Eye Problems Mother Mickie Gastro-intestinal disorder Mother Mickie Heart Disorder Father Rony Thyroid Disorder Father Rony Gastro-intestinal disorder Father Rony No Known Problems Sister Karon Social History Socioeconomic History Marital status: Spouse name: Not on file Number of children: Not on file Years of education: Not on file Highest education level: Not on file Occupational History Not on file Tobacco Use Smoking status: Every Day Types: Cigars Smokeless tobacco: Former Types: Chew Quit date: 11/29/2008 Tobacco comments: has 1 cigar 3-4 days a week Quit 3 ppd x 26 years, still using cigars, 1 a day Vaping Use Vaping status: Never Used Substance and Sexual Activity Alcohol use: Yes Alcohol/week: 10.0 standard drinks of alcohol Types: 3 12 oz of beer, 7 1.5 oz of liquor per week Comment: occ Drug use: No Sexual activity: Not on file Other Topics Concern Not on file Social History Narrative No pets. No mold. Social Determinants of Health Financial Resource Strain: Low Risk (04/18/2023) Financial Resource Strain Do you have any trouble paying for your medications, or do you think you might in the future? (Adult - for ages 18 years and over): No Does your family have trouble paying for medicine? (Household - for ages 0-17 years): Not on file Food Insecurity: No Food Insecurity (04/18/2023) Food Insecurity Do you need food for this week? (Adult - for ages 18 years and over): No Are you able to get enough food for your family? (Household - for ages 0-17 years): Not on file Does your family need food this week? (Household - for ages 0-17 years): Not on file Do you always have enough food for your family? (Household - for ages 0-17 years): Not on file Transportation Needs: No Transportation Needs (04/18/2023) Transportation Needs Do you have trouble getting a ride to medical visits or work? (Adult - for ages 18 years and over):Never True Does your family have a hard time getting a ride to doctors visits? (Household - for ages 0-17 years): Not on file Has lack of transportation kept you from medical appointments, meetings, work, or from getting things needed for daily living? Check all that apply. (Adult - for ages 18 years and over): Not on file Do you (or your family) have trouble finding or paying for a ride (transportation)? (Household - for ages 0-17 years): Not on file Social Connections: Unknown (04/19/2024) Social Connections How often do you feel lonely or isolated from those around you? (Adult - for ages 18 years and over): Not on file Housing Stability: Low Risk (04/18/2023) Housing Stability Do you currently live in a senior living or have no steady place to sleep at night? (Adult - for ages 18 years and over): No Do you think you are at risk of becoming homeless? (Adult - for ages 18 years and over): No Does your family worry about paying for your home or becoming homeless? (Household - for ages 0-17 years): Not on file Are you homeless or worried that you might be in the future? (Adult - for ages 18 years and over): Not on file Are you (or your family) homeless or worried that you might be in the future? (Household - for ages0-17 years): Not on file Current Outpatient Medications Medication Sig Dispense Refill pyridOXINE (VITAMIN B-6) 100 MG Tablet Take 1 Tablet by mouth in the morning. Cyanocobalamin 1000 MCG CAPS Take 1 Capsule by mouth in the morning. fluticasone (FLONASE) 50 MCG/ACT nasal spray Administer 2 sprays each nostril every 12 hrs x 2 weeks, then 2 spray each nostril before bedtime; preceded by saline rinse 1 Bottle 5 CPAP every night at bedtime. Aspirin EC 81 MG Oral Tablet Delayed Release Take 1 Tab by mouth daily. 30 Tab 3 Folic Acid 1 MG Oral Tablet Take 1 Tablet by mouth in the morning. Nitroglycerin 0.4 MG Sublingual Tablet Sublingual (Nitrostat) 1 tab under tongue as needed for chest pain, no more than 3 tabs in 15 minutes 25 Tablet 5 Cyclobenzaprine HCl 10 MG Oral Tablet (Flexeril) Take 1 Tablet by mouth every 8 hours as needed forMuscle spasms. 30 Tablet 0 Isosorbide Mononitrate ER 60 MG Oral Tablet Extended Release 24 Hour (Imdur) TAKE 1 TABLET BY MOUTHEVERY DAY 90 Tablet 3 Esomeprazole Magnesium 40 MG Oral Capsule Delayed Release TAKE 1 CAPSULE BY MOUTH EVERY MORNING 90 Capsule 2 Atorvastatin Calcium 80 MG Oral Tablet (Lipitor) TAKE 1 TABLET BY MOUTH EVERY DAY IN THE MORNING 90Tablet 3 Ezetimibe 10 MG Oral Tablet (Zetia) TAKE 1 TABLET BY MOUTH EVERY DAY 90 Tablet 3 Olmesartan Medoxomil 5 MG Oral Tablet (Benicar) TAKE 1 TABLET BY MOUTH TWICE A DAY 180 Tablet 3 Carvedilol 25 MG Oral Tablet (Coreg) TAKE 1 TABLET BY MOUTH TWICE A DAY 180 Tablet 3 Furosemide 20 MG Oral Tablet (Lasix) TAKE 1 TABLET BY MOUTH EVERY DAY IN THE MORNING 90 Tablet 3 Warfarin Sodium 2 MG Oral Tablet (Coumadin) TAKE 1 TABLET BY MOUTH WITH 1 MG DOSE ON TUE,TUE,, , TUESDAY and Tuesday AND 2 TABS ON Tuesday (4mg Tuesday and 3mg all other days - 1mg and 2mg tablets) 120 Tablet 3 tiZANidine HCl 4 MG Oral Capsule (Zanaflex) Take 1 Capsule by mouth 3 times a day as needed for Muscle spasms. 30 Capsule 1 Warfarin Sodium 1 MG Oral Tablet (Coumadin) Take 1-2 Tablets by mouth in the morning. As directed by anticoag clinic (4mg Tuesday and 3mg all other days - 1mg and 2mg tablets). 180 Tablet 3 No current facility-administered medications for this visit. REVIEW OF SYSTEMS ROS EXAM: CONSTITUTIONAL: No change in weight, No weakness, No fatigue and No fevers, sweats, or chills EXTREMITIES: No pain, redness or swelling on the joints SKIN/INTEGUMENTARY: No edema, No rash and No itching NEUROLOGIC: Normal balance, No headaches, No seizures and No weakness DERMATOLOGICAL Right foot Nails: Thickened mycotic painful nails 1-5 Left foot Nails: ingrown left great toenail medial border, mycotic painful nails 1-5 VASCULAR EXAM Right foot Pulses: Dorsalis Pedis-1/4 palpable Left foot Pulses: Dorsalis Pedis- 0/4 palpable, diminished digital hair, thin atrophic skin NEUROLOGICAL: diminished ORTHOPEDIC: Unremarkable Assessment: The primary encounter diagnosis was Onychomycosis with ingrown toenail. Diagnoses of Pain due to onychomycosis of toenails of both feet and Type II diabetes mellitus with peripheral circulatory disorder (HCC) were also pertinent to this visit. Plan: 1. Discussed etiology and treatment options 2. Debridement of painful mycotic nails x 9 documented in this encounter Nursing Notes * Viktoriya Neal LPN - 05/29/2024 7:58 AM EDT Pt presents for routine diabetic foot care, A1c 6.6 on 05/05/2024. No pain in feet. documented in this encounter Plan of Treatment Upcoming Encounters Date Type Department Care Team (Latest Contact Info) Description 05/29/2024 2:20 PM EDT Anticoagulation Pharmacy [address] [phone] Pharmacist1, [facility] [address] [address] Factor V deficiency, congenital (HCC)*; ABNORMAL COAGULATION PROFILE; History of pulmonary embolus (PE); Anticoagulation management encounter 06/25/2024 8:40 AM EDT Anticoagulation Pharmacy [address] [place] [phone] Pharmacist1, [facility] [address] [place], [place] [address] 06/26/2024 11:00 AM EDT Office Visit Dermatology, [address], [place] [address] Jaja Perez PA-C [address] [place] [address] [place] [address] 07/23/2024 8:00 AM EDT Office Visit Cardiology, [facility] [address] [place] [address] Jasmin Ferrer PA-C [address] [place] [address] 08/13/2024 8:30 AM EDT Hospital Encounter ENDO [facility], Endoscopy Room [facility] [address] [place] [phone] Justin Son MD [address] [place] [address] 08/13/2024 8:30 AM EDT - 08/13/2024 9:00 AM EDT Surgery ENDO [facility], Endoscopy Room [facility] [address] [place] [phone] Justin Son MD [address] [place] [address] COLONOSCOPY FLEXIBLE PROXIMAL DIAGNOSTIC 09/04/2024 8:30 AM EST Office Visit Podiatry [address] [place] [phone] Lio Hairston, DPM [address] [place] [address] [place] [address] 11/05/2024 9:20 AM EST Office Visit General Internal Medicine Kenna Sigala [place] [address] [facility] [address] YeceniaJake peterson, DO [address] [place] [address] Scheduled Orders Name Type Priority Associated Diagnoses Orde r Schedule DEBRIDEMENT OF NAILS 6 OR MORE Procedures Routine Onychomycosis with ingrown toenail Pain due to onychomycosis of toenails of both feet Type II diabetes mellitus with peripheral circulatory disorder (HCC) Ordered: 05/29/2024 Scheduled Procedures Name Priority Associated Diagnoses Date/Ti me COLONOSCOPY FLEXIBLE PROXIMAL DIAGNOSTIC Recall History of colon polyps 08/13/2024 8:30 AM EDT Health Maintenance Due Date Last Done Comments DISCUSS TOBACCO CESSATION (REFER TO SMARTSET #0935) 1945 COVID-19 Vaccine ( season) 2023 09/25/2021, 01/10/2021, 12/13/2020 Colonoscopy 01/26/2024 01/25/2019, 12/30, 11/30/2010 *CXR OR CT FOR COPD EVER 05/13/2024 Influenza Vaccine (FLU shot) (#1) 2024 08/22/2023, 10/05/2022, 09/23/2021, Additional history exists Diabetic Eye Exam 10/17/2024 10/17/2023, , 10/23/2019, Additional history exists HbA1c 11/05/2024 05/05/2024, 09/30, 04/04/2023, Additional history exists Depression Screening 11/07/2024 11/07/2023 Albumin/Creatinine Ratio 05/05/20252 024, 09/14/2022, 04/02/2022 GFR 05/05/2025 05/05/2024, 09/30, [...] 11/30/2010 Zoster Vaccines Completed 07/17/2020, 10/2019, 03/10/2020 Hepatitis C Screening Completed 04/27/2021 [...] this encounter Medical Devices Implanted Type Area Hammer Fitter Device Identifier Shelf Expiration Date Model / Serial / Lot Cable/Short Gtr 2232-02-16 - [id number] Implanted:Qty: 1 on 05/08/2021 by Graham Ascencio MD at [place] [facility] Right: Leg Upper [employer] 03/01/2031-18 / / [id number] Cable/Sle Beaded D/M 20 Vit - [id number] Implanted:Qty: 1 on 05/08/2021 by Graham Ascencio MD at [facility] Right: Leg Upper YUE : ORTHOPAEDICS 11/16/2025 6704-0-520 / / [id number] 15mm 150mm Sts Distal Stem Implanted:Qty: 1 on 05/08/2021 by Graham Ascencio MD at [place] [facility] Right: Leg Upper [employer] : ORTHOPEDICS 04/02/2030 [id number] / / [id number] High Offset Cone Proximal Body Implanted:Qty: 1 on 05/08/2021 by Graham Ascencio MD at [place] [facility] Right: Leg Upper [employer] : ORTHOPEDICS 07/08/2030 [id number] / / [id number] Cable/Short Gtr 2232-02-16 - [id number] Implanted:Qty: 1 on 05/08/2021 by Graham Ascencio MD at [place] [facility] Right: Leg Upper [employer] 01/27/2031 4-18 / / [id number] Head Bioloxd Option 36mm - [id number] Implanted:Qty: 1 on 05/08/2021 by Graham Ascencio MD at [place] [facility] Right: Leg Upper [employer] 08/21/2030 [id number] / / [id number] Hip Fmrl Insert Ceropt Sleve-6 - [id number] Implanted:Qty: 1 on 05/08/2021 by Graham Ascencio MD at [place] [facility] Right: Leg Upper [employer] 11/20/2030 650-1064 / / [id number] Cable/Short Gtr 2232-02-16 - [id number] Implanted:Qty: 1 on 05/08/2021 by Graham Ascencio MD at [place] [facility] Right: Leg Upper [employer] 01/27/2031 4-18 / / [id number] Cable/Short Gtr 2232-02-16 [id number] Implanted:Qty: 1 on 05/08/2021 by Graham Ascencio MD at [place] [facility] Right: Leg Upper [employer] 01/20/2031 4-18 / / [id number] Cable/Sle Beaded D/M 20 Vit - [id number] Implanted:Qty: 1 on 05/08/2021 by Graham Ascencio MD at [place] [facility] Right: Leg Upper [employer]UE : ORTHOPAEDICS 11/30/2025 6704-0-520 / / [id number] documented as of this encounter Visit Diagnoses Diagnosis Type II diabetes mellitus with peripheral circulatory disorder (HCC)- Primary Type II or unspecified type diabetes mellitus with peripheral circulatory disorders, not stated as uncontrolled Onychomycosis with ingrown toenail Dermatophytosis of nail Pain due to onychomycosis of toenails of both feet Factor V deficiency, congenital (HCC)- Primary Congenital [...] and were consensually agreed upon. Care Teams Intelligence Officer Basic Relationship Specialty Start Date End Date Jake Green DO [address] [place] [id number] PCP - General Internal Medicine 09/16/21 documented as of this encounter
--- OUTSIDE RECORDS SUMMARY | 2024-06-09 17:46 | External Medical Summary | Summary of Care ---
Author Name Unknown Organization [facility] Address [address] [place] [address] Phone [phone] Care Team Providers Care Small Business Representative Name Role Phone Jake Green DO Primary Care Provid er Reason for Visit * Reason Comments Dosage Adjustment In Person (Anticoag Cl inic) Encounter Details Date Type Department Care Team (Latest Contact Info) Description 05/14/2024 9:40 AM EDT Anticoagulation Pharmacy [address] [phone] Pharmacist1, [facility] [address] [address] Factor V deficiency, congenital (HCC)*; ABNORMAL COAGULATION PROFILE; History of pulmonary embolus (PE); Anticoagulation management encounter Allergies Active Allergy Reactions Criticality Noted Date Comments Moxifloxacin Hcl In Nacl Itching,Nausea/vomit ing High 07/08/2012 20 minutes after first dose, hands itchy, head itchy, started vomiting documented as of this encounter (statuses as of 05/14/2024) Medications Medication Sig Dispensed Refills Start Date [...] Oral Tablet (Benicar)Indication s: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,HTN, goal below 140/90 [...] HTN, goal below 140/90,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 TAKE 1 TABLET [...] as of this encounter (statuses as of 05/14/2024) Active Problems Problem Noted Date Diagnosed Date [...] tachycardia 03/13/2019 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 03/13/2019 History of pulmonary embolus (PE) 12/02/2017 DNR (do not resuscitate) 11/27/2017 nursing home current use of anticoagulant therapy 0 [...] as of this encounter (statuses as of 05/14/2024) Resolved Problems Problem Noted Date Diagnosed Date Resolved Date Dyslipidemia, goal LDL below 70 01/23/2024 05/07/2024 Orthostatic lightheadedness 05/10/2021 04/02/2022 Postoperative anemia due to acute blood loss 04/02/2022 COPD, group B, by GOLD 2017 classification 02/09/2021 04/02/2022 Overview: Per COPD GOLD Classification Coronary artery disease invo lving elem coronary artery of elem heart with angina pectoris 11/21/2020 04/28/2021 Morbid obesity 01/01/2020 05/14/2021 Overview: Per Obesity protocol Prediabetes 12/11/2018 04/11/2019 Overview: Per Prediabetes protocol #1 Hematoma of right lower extremity 11/22/2017 10/23/2019 Fall at home 11/22/2017 03/13/2019 History of factor V Leiden mutation 11/22/2017 10/23/2019 Gait abnormality 11/22/2017 04/02/2022 detention resident 11/22/20172017 OBESITY, BMI 30-34 (SEE ACTUAL [...] 10/19/2004 08/17/2017 Overview: TREATED 1 YEAR IN [facility] ICD-10 update of inactive term IMPOTENCE, ORGANIC [...] as of this encounter (statuses as of 05/14/2024) Immunizations Name Administration Dates Next Due COVID-19 mRNA, LNP-s, No Pre serve, 2-Dose Series ([employer]) 09/25/2021,01/10/2021,12/13/2020 Pneumococcal Conjugate Vacc, 13 Valent (Prevnar) [...] Progress Notes * Chrissy Maxwell RPh - 05/14/2024 9:45 AM EDT Medication Therapy Disease Management - Anticoagulation Patient: Sohail Rockwell Sr. | : 1945 Subjective Patient-Reported Symptoms: Patient Findings Negatives: Signs/symptoms of thrombosis, Signs/symptoms of bleeding, Change in health, Change in alcohol use, Change in activity, Upcoming invasive procedure, Missed doses, Extra doses, Change in medications, Change in diet/appetite, Bruising Objective Current Warfarin Dose As of 05/14/2024 Warfarin maintenance plan: 4 mg (2 mg x 2) every Wed; 3 mg (2 mg x 1 and 1 mg x 1) all other days INR Result As of 05/14/2024 INR goal: 2.5-3.5 INR used for dosing: Assessment & Plan Warfarin Plan As of 05/14/2024 Full warfarin instructions: 4 mg every Wed; 3 mg all other days Next INR check: Repeat PT/INR in 2 week(s) Weekly dose: decreased Additional Dosing Information: Description Decreased dose when not having Whiskey 2mg TuTh and 3mg all other days Chrissy Maxwell RPh Clinical Pharmacist 05/14/2024, 9:45 AM documented in this encounter Plan of Treatment Upcoming Encounters Date Type Department Care Team (Latest Contact Info) Description 05/29/2024 8:30 AM EDT Office Visit Podiatry [address] [place] [address] Lio Hairston, PENG [address] [place] [address] 05/29/2024 2:20 PM EDT Anticoagulation Pharmacy [facility] [address] [facility] [place] [phone] Pharmacist1, [facility] Kathleen [address] [facility] [place] [address] 06/26/2024 11:00 AM EDT Office Visit Dermatology, [address] [place] [address] Jaja Perez PA-C [address] [place] [address] [place] [address] 07/23/2024 8:00 AM EDT Office Visit Cardiology, [facility] [address] [place] [address] Jasmin Ferrer PA-C [address] [place] [address] 08/13/2024 8:30 AM EDT Hospital Encounter ENDO [facility], Endoscopy Room [facility] [address] [place] [phone] Justin Son MD [address] [place] [address] 08/13/2024 8:30 AM EDT - 08/13/2024 9:00 AM EDT Surgery ENDO [facility], Endoscopy Room [facility] [address] [place] [phone] Justin Son MD [address] [place] [address] COLONOSCOPY FLEXIBLE PROXIMAL DIAGNOSTIC 11/05/2024 9:20 AM EST Office Visit General Internal Medicine [facility] [address] [place] [address] Jake Green DO [address] [place], [place] [id number] Scheduled Procedures Name Priority Associated Diagnoses Date/Ti me COLONOSCOPY FLEXIBLE PROXIMAL DIAGNOSTIC Recall History of colon polyps 08/13/2024 8:30 AM EDT Health Maintenance Due Date Last Done Comments DISCUSS TOBACCO CESSATION (REFER TO SMARTSET #0772) 1945 COVID-19 Vaccine ( season) 2023 09/25/2021, [...] 01/25/2019, 01/25/2019, 11/30/2010 Zoster Vaccines Completed 07/17/2020, 0710/2019, 03/10/2020 Alpha-1 Antitrypsin Completed 04/16/2022 *BASELINE EKG FOR [...] this encounter Medical Devices Implanted Type Area Interventional Physician Device Identifier Shelf Expiration Date Model / Serial / Lot Cable/Short Gtr 2232-02-16 - [id number] Implanted:Qty: 1 on 05/08/2021 by Graham Ascencio MD at OR [facility] Right: Leg Upper [employer] 03/01/2031 4-18 / / [id number] Cable/Sle Beaded D/M 20 Vit - [id number] Implanted:Qty: 1 on 05/08/2021 by Graham Ascencio MD at OR [facility] Right: Leg Upper YUE : ORTHOPAEDICS 11/16/2025 6704-0-520 / / [id number] 15mm 150mm Sts Distal Stem Implanted:Qty: 1 on 05/08/2021 by Graham Ascencio MD at OR [facility] Right: Leg Upper [employer] : ORTHOPEDICS 04/02/2030 [id number] / / [id number] High Offset Cone Proximal Body Implanted:Qty: 1 on 05/08/2021 by Graham Ascencio MD at OR [facility] Right: Leg Upper BI[employer] : ORTHOPEDICS 07/08/2030 [id number] / / [id number] Cable/Short Gtr 2232-02-16 - [id number] Implanted:Qty: 1 on 05/08/2021 by Graham Ascencio MD at OR [facility] Right: Leg Upper [employer] 01/27/2031 4-18 / / [id number] Head Bioloxd Option 36mm - [id number] Implanted:Qty: 1 on 05/08/2021 by Graham Ascencio MD at OR [facility] Right: Leg Upper [employer] 08/21/2030 650-1057 / / [id number] Hip Fmrl Insert Ceropt Sleve-6 - [id number] Implanted:Qty: 1 on 05/08/2021 by Graham Ascencio MD at OR [facility] Right: Leg Upper [employer] 11/20/2030 650-1064 / / [id number] Cable/Short Gtr 2232-02-16 - [id number] Implanted:Qty: 1 on 05/08/2021 by Graham Ascencio MD at OR [facility] Right: Leg Upper [employer] 01/27/2031 4-18 / / [id number] Cable/Short Gtr 2232-02-16 - [id number] Implanted:Qty: 1 on 05/08/2021 by Graham Ascencio MD at OR [facility] Right: Leg Upper [employer] 01/20/2031 4-18 / / [id number] Cable/Sle Beaded D/M 20 Vit - [id number] Implanted:Qty: 1 on 05/08/2021 by Graham Ascencio MD at OR [facility] Right: Leg Upper YUE : ORTHOPAEDICS 11/30/2025 6704-0-520 / / [id number] documented as of this encounter Procedures Procedure Name Priority Date/Time Associated Diagnosis Comments INR FINGERSTICK, POINT OF CARE STAT 05/14/2024 9:47 AM EDT Factor V deficiency, congenital (HCC) ABNORMAL COAGULATION PROFILE History of pulmonary embolus (PE) Anticoagulation management encounter documented in this encounter Results * INR FINGERSTICK, POINT OF CARE (05/14/2024 9:47 AM EDT) Fingerstick INR 4.1 INR 10:24 AM EDT [facility]86 Blood 05/14/2024 9:47 AM EDT 05/14/2024 10:24 AM EDT Narrative [facility]86 - 05/14/2024 10:24 AM EDT Therapeutic ranges for non-operative patients: Prophylaxsis/treatment of DVT: (Range:2.0-3.0) Treatment of pulmonary embolism:(Range:2.0-3.0) Prevention of systemic embolism from: -tissue heart valves -acute myocardial infarction -valvular heart disease -atrial fibrillation (Range: 2.0-3.0) Mechanical prosthetic valves: (Range: 2.5-3.5) Chrissy Maxwell [facility] LAB POINT OF CAR E TEST DOCKED DEVICE UNSOLICITED RESULTS [facility] [address] [place] [address], [facility] documented in this encounter Visit Diagnoses [...] and were consensually agreed upon. Care Teams Small Business Representative Relationship Specialty Start Date End Date Jake Green DO [address] [place] [phone] PCP - General Internal Medicine 09/16/21 documented as of this encounter"
--- OUTSIDE RECORDS SUMMARY | 2024-06-09 17:46 | External Medical Summary | Summary of Care ---
Author Name Unknown Organization [facility] Address [address] [place] [address] Phone [phone] Care Team Providers Care Head Of Mobile Name Role Phone Jake Green Primary Care Provid er Reason for Visit * Reason Comments Outpatient Testing Encounter Details Date Type Department Care Team (Late st Contact Info) Description 05/05/2024 8:30 AM EDT Laboratory Laboratory Patient Service [address] [phone] [address] Type 2 diabetes mellitus without complication, without long-term current use of insulin (HCC); Hypertension associated with type 2 diabetes mellitus (HCC); Hyperlipidemia associated with type 2 diabetes mellitus ([facility]) Allergies Active Allergy Reactions Criticality Noted Date Comments Moxifloxacin Hcl In Nacl Itching,Nausea/vomit ing High 07/08/2012 20 minutes after first dose, hands itchy, head itchy, started vomiting documented as of this encounter (statuses as of 05/05/2024) Medications Medication Sig Dispensed Refills Start Date [...] 04/24/2024 Cyclobenzaprine HCl 10 MG Oral Tablet (Flexeril)Indicatio [...] Oral Tablet (Benicar)Indication s:Coronary artery disease involving [place] coronary artery of [place] heart without angina pectoris,HTN, goal below 140/90 [...] HTN, goal below 140/90,Coronary artery disease involving [place] coronary artery of [place] heart without angina pectoris TAKE 1 TABLET [...] as of this encounter (statuses as of 05/05/2024) Active Problems Problem Noted Date Diagnosed Date [...] tachycardia 03/13/2019 Coronary artery disease invo lving [place] coronary artery of [place] heart without angina pectoris 03/13/2019 History of pulmonary embolus (PE) 12/02/2017 DNR (do not resuscitate) 11/27/2017 intermediate frame tender current use of anticoagulant therapy 0 11/22/2017 [...] as of this encounter (statuses as of 05/05/2024) Resolved Problems Problem Noted Date Diagnosed Date Resolved Date Orthostatic lightheadedness 05/10/2021 04/02/2022 Postoperative anemia due to acute blood loss 04/02/2022 COPD, group B, by GOLD 2017 classification 02/09/2021 04/02/2022 Overview: Per COPD GOLD Classification Coronary artery disease invo lving [place] coronary artery of [place] heart with angina pectoris 11/21/2020 04/28/2021 Morbid obesity 01/01/2020 05/14/2021 Overview: Per Obesity protocol Prediabetes 12/11/2018 04/11/2019 Overview: Per Prediabetes protocol #1 Hematoma of right lower extremity 11/22/2017 10/23/2019 Fall at home 11/22/2017 03/13/2019 History of factor V Leiden mutation 11/22/2017 10/23/2019 Gait abnormality 11/22/2017 04/02/2022 jail resident 11/22/20172017 OBESITY, BMI 30-34 (SEE ACTUAL [...] 10/19/2004 08/17/2017 Overview: TREATED 1 YEAR IN [facility] ICD-10 update of inactive term IMPOTENCE, [...] as of this encounter (statuses as of 05/05/2024) Immunizations Name Administration Dates Next Due COVID-19 mRNA, LNP-s, No Pre serve, 2-Dose Series ([employer]) 09/25/2021,01/10/2021,12/13/2020 Pneumococcal Conjugate Vacc, 13 Valent (Prevnar) [...] PM EDT Office Visit General Internal Medicine [facility] [address] [place] [address] Jake Green, [address] [place] [address] 05/14/2024 9:40 AM EDT Anticoagulation Pharmacy [facility] [address] [place] [phone] Pharmacist1, [facility] [address] [place] [address] 05/29/2024 8:30 AM EDT Office Visit Podiatry [address] [place] [phone] Lio Hairston, [facility] [address] [place] [address] 06/26/2024 11:00 AM EDT Office Visit Dermatology, [address] [address] Jaja Perez PA-C [address] [place] [address] [place] [address] 07/23/2024 8:00 AM EDT Office Visit Cardiology, [facility] [address] [place] [address] Jasmin Ferrer PA-C [address] [place] [address] 08/13/2024 8:30 AM EDT Hospital Encounter ENDO [facility], Endoscopy Room [facility] [address] [place] [address] Justin Son MD [address] [place] [address] 08/13/2024 8:30 AM EDT - 08/13/2024 9:00 AM EDT Surgery ENDO [facility], Endoscopy Room [facility] [address] [place] [address] Justin Son MD [address] [place] [address] COLONOSCOPY FLEXIBLE PROXIMAL DIAGNOSTIC Pending Results Name Type Priority Associated Diagnoses Date /Time ALBUMIN / CREATININE RATIO, URINE Lab Routine Type 2 diabetes mellitus without complication, without long-term current use of insulin (HCC) Hypertension associated with type 2 diabetes mellitus (HCC) Hyperlipidemia associated with type 2 diabetes mellitus (HCC) 05/05/2024 8:07 AM EDT COMPREHENSIVE METABOLIC PANEL Lab Routine Type 2 diabetes mellitus without complication, without long-term current use of insulin (HCC) Hypertension associated with type 2 diabetes mellitus (HCC) Hyperlipidemia associated with type 2 diabetes mellitus (HCC) 05/05/2024 8:07 AM EDT CBC WITH WBC DIFFERENTIAL Lab Routine Type 2 diabetes mellitus without complication, without long-term current use of insulin (HCC) Hypertension associated with type 2 diabetes mellitus (HCC) Hyperlipidemia associated with type 2 diabetes mellitus (HCC) 05/05/2024 8:07 AM EDT LIPID PANEL WITH DIRECT LDL IF TG IS HIGH Lab Routine Type 2 diabetes mellitus without complication, without long-term current use of insulin (HCC) Hypertension associated with type 2 diabetes mellitus (HCC) Hyperlipidemia associated with type 2 diabetes mellitus (HCC) 05/05/2024 8:07 AM EDT HEMOGLOBIN A1C Lab Routine Type 2 diabetes mellitus without complication, without long-term current use of insulin (HCC) Hypertension associated with type 2 diabetes mellitus (HCC) Hyperlipidemia associated with type 2 diabetes mellitus (HCC) 05/05/2024 8:07 AM EDT CBC Lab Routine Type 2 diabetes mellitus without complication, without long-term current use of insulin (HCC) Hypertension associated with type 2 diabetes mellitus (HCC) Hyperlipidemia associated with type 2 diabetes mellitus (HCC) 05/05/2024 8:07 AM EDT DIFFERENTIAL, AUTOMATED Lab Routine Type 2 diabetes mellitus without complication, without long-term current use of insulin (HCC) Hypertension associated with type 2 diabetes mellitus (HCC) Hyperlipidemia associated with type 2 diabetes mellitus (HCC) 05/05/2024 8:07 AM EDT Scheduled Procedures Name Priority Associated Diagnoses Date/Ti me COLONOSCOPY FLEXIBLE PROXIMAL DIAGNOSTIC Recall History of colon polyps 08/13/2024 8:30 AM EDT Health Maintenance Due Date Last Done Comments DISCUSS TOBACCO CESSATION (REFER TO SMARTSET #9194) 1945 COVID-19 Vaccine ( season) 2023 09/25/2021, [...] 10/23/2019, Additional history exists GFR 10/17/2024 10/17/2023, 06/0 02/2023, 09/14/2022, Additional history exists Depression Screening 11/07/2024 11/07/2023 O2 ASSESSMENT COMPLETED IN PAST YEAR FOR COPD 04/24/2025 04/24/2024 DTaP,Tdap,and Td Vaccines (3 - Td or Tdap) 01/22/2034 01/23/2024, 02/12/2013, 06/25/2003 Pneumococcal Vaccine: 65+ Years Completed 08/17/2017, 02/04/2016, 04/03/2007 RETIRED - COLONOSCOPY-EVERY 5 YRS AGES 18-100 Discontinued 01/25/2019, 01/25/2019, 11/30/2010 Zoster Vaccines Completed 07/17/2020, 0710/2019, 03/10/2020 Alpha-1 Antitrypsin Completed 04/16/2022 HPV (Gardasil) [...] this encounter Medical Devices Implanted Type Area Spike Machine Feeder Device Identifier Shelf Expiration Date Model / Serial / Lot Cable/Short Gtr 2232-02-16 - [id number] Implanted:Qty: 1 on 05/08/2021 by Graham Ascencio MD at OR [facility] Right: Leg Upper [employer] 03/01/2031 4-18 / / [id number] Cable/Sle Beaded D/M 20 Vit - [id number] Implanted:Qty: 1 on 05/08/2021 by Graham Ascencio MD at OR [facility] Right: Leg Upper YUE : ORTHOPAEDICS 11/16/2025 6704-0-520 / / [id number] 15mm 150mm Sts Distal Stem Implanted:Qty: 1 on 05/08/2021 by Graham Ascencio MD at OR [facility] Right: Leg Upper [employer] : ORTHOPEDICS 04/02/2030 [id number] / / [id number] High Offset Cone Proximal Body Implanted:Qty: 1 on 05/08/2021 by Graham Ascencio MD at OR [facility] Right: Leg Upper [employer] : ORTHOPEDICS 07/08/2030 [id number] / / [id number] Cable/Short Gtr 2232-02-16 - [id number] Implanted:Qty: 1 on 05/08/2021 by Graham Ascencio MD at OR [facility] Right: Leg Upper [employer] 01/27/2031 4-18 / / [id number] Head Bioloxd Option 36mm - [id number] Implanted:Qty: 1 on 05/08/2021 by Graham Ascencio MD at OR [facility] Right: Leg Upper [employer] 08/21/2030 650-1057 / / [id number] Hip Fmrl Insert Ceropt Sleve-6 - [id number] Implanted:Qty: 1 on 05/08/2021 by Graham Ascencio MD at OR [facility] Right: Leg Upper [employer] 11/20/2030 650-1064 / / [id number] Cable/Short Gtr 2232-02-16 - [id number] Implanted:Qty: 1 on 05/08/2021 by Graham Ascencio MD at OR [facility] Right: Leg Upper [employer] 01/27/2031 4-18 / / [id number] Cable/Short Gtr 2232-02-16 - [id number] Implanted:Qty: 1 on 05/08/2021 by Graham Ascencio MD at OR [facility] Right: Leg Upper [employer] 01/20/2031 4-18 / / [id number] Cable/Sle Beaded D/M 20 Vit - [id number] Implanted:Qty: 1 on 05/08/2021 by Graham Ascencio MD at OR [facility] Right: Leg Upper YUE : ORTHOPAEDICS 11/30/2025 6704-0-520 / / [id number] documented as of this encounter Visit Diagnoses Diagnosis Type 2 diabetes mellitus without complication, without long-term current use of insulin (HCC) Hypertension associated with type 2 diabetes mellitus (HCC) Hyperlipidemia associated with type 2 diabetes mellitus (HCC) History of colon polyps Personal history of [...] and were consensually agreed upon. Care Teams Head Of Mobile Relationship Specialty Start Date End Date Jake Green DO [address] [place] [id number] PCP - General Internal Medicine 09/16/21 documented as of this encounter
--- OUTSIDE RECORDS SUMMARY | 2024-06-09 17:46 | External Medical Summary | Summary of Care ---
Author Name Unknown Organization [facility] Address [address] [place] [address] Phone [phone] Care Team Providers Care Credit Counselor Name Role Phone Jake Green DO Primary Care Provid er Reason for Visit * Reason Comments Return Visit 6 mo return Encounter Details Date Type Department Care Team (Late st Contact Info) Description 05/07/2024 3:40 PM EDT Office Visit General Internal Medicine [facility] [address] [place] [address] Jake Green DO [address] [place] [address] Type 2 diabetes mellitus without complication, without long-term current use of insulin (HCC)*; Hyperlipidemia associated with type 2 diabetes mellitus (HCC); Screen for colon cancer; Hypertension associated with type 2 diabetes mellitus (HCC); Centrilobular emphysema (HCC); Dilated aortic root (HCC); Chronic diastolic heart failure (HCC); Coronary artery disease involving salamatof coronary artery of salamatof heart without angina pectoris; Body mass index (BMI) of 40.0 to 44.9 in adult (HCC) Allergies Active Allergy Reactions Criticality Noted Date Comments Moxifloxacin Hcl In Nacl Itching,Nausea/vomit ing High 07/08/2012 20 minutes after first dose, hands itchy, head itchy, started vomiting documented as of this encounter (statuses as of 05/07/2024) Medications Medication Sig Dispensed Refills Start Date End Date Status pyridOXINE (VITAMIN B-6) 100 MG Tablet Take 1 Tablet by mouth in the morning. Active Cyanocobalamin 1000 MCG CAPS Take 1 Capsule by mouth in the morning. Active fluticasone (FLONASE) 50 MCG/ACT nasal sprayIndications: Allergic rhinitis due to pollen, unspecified seasonality Administer [...] Active Nitroglycerin 0.4 MG Sublingual Tablet Sublingual (Nitrostat)Indica tions:Chronic coronary artery disease 1 tab under tongue as needed for chest pain, no more than 3 tabs in 15 minutes 25 Tablet 5 03/15/2022 Active Cyclobenzaprine HCl 10 MG Oral Tablet (Flexeril)Indicat ions:Acute left-sided low back pain without sciatica Take 1 Tablet by mouth every 8 hours as needed for Muscle spasms. 30 Tablet 04/18/2023 Active Isosorbide Mononitrate ER 60 MG Oral Tablet Extended Release 24 Hour (Imdur)Indication s:Chronic coronary artery disease,Stable angina (HCC),HTN, goal below 140/90 TAKE 1 TABLET BY MOUTH EVERY DAY 90 Tablet 3 06/28/2023 Active Esomeprazole Magnesium 40 MG Oral Capsule Delayed Release TAKE 1 CAPSULE BY MOUTH EVERY MORNING 90 Capsule 2 11/01/2023 Active Atorvastatin Calcium 80 MG Oral Tablet (Lipitor)Indicati ons:Dyslipidemia, goal LDL below 70 TAKE 1 TABLET BY MOUTH EVERY DAY IN THE MORNING 90 Tablet 3 11/02/2023 Active Ezetimibe 10 MG Oral Tablet (Zetia)Indication s:Dyslipidemia, goal LDL below 70 TAKE 1 TABLET BY MOUTH EVERY DAY 90 Tablet 3 01/23/2024 Active Olmesartan Medoxomil 5 MG Oral Tablet (Benicar)Indicati ons:Coronary artery disease involving salamatof coronary artery of salamatof heart without angina pectoris,HTN, goal below 140/90 TAKE 1 TABLET BY MOUTH TWICE A DAY 180 Tablet 3 01/23/2024 Active Carvedilol 25 MG Oral Tablet (Coreg)Indication s:Hypertension associated with type 2 diabetes mellitus (HCC),HTN, goal below 140/90,S/P angioplasty with stent TAKE 1 TABLET BY MOUTH TWICE A DAY 180 Tablet 3 02/22/2024 Active Furosemide 20 MG Oral Tablet (Lasix)Indication s:HTN, goal below 140/90,Coronary artery disease involving salamatof coronary artery of salamatof heart without angina pectoris TAKE 1 TABLET BY MOUTH EVERY DAY IN THE MORNING 90 Tablet 3 02/22/2024 Active Warfarin Sodium 2 MG Oral Tablet (Coumadin)Indicat ions:Anticoagulat ion management encounter TAKE 1 TABLET BY MOUTH WITH 1 MG DOSE ON TUE,TUE,, , TUESDAY and Tuesday AND 2 TABS ON Tuesday (4mg Tuesday and 3mg all other days - 1mg and 2mg tablets) 120 Tablet 3 04/23/2024 Active tiZANidine HCl 4 MG Oral Capsule (Zanaflex)Indicat ions:Strain of lumbar region, initial encounter Take 1 Capsule by mouth 3 times a day as needed for Muscle spasms. 30 Capsule 1 04/24/2024 Active Warfarin Sodium 1 MG Oral Tablet (Coumadin)Indicat ions:Factor V deficiency, congenital (HCC),History of pulmonary embolus (PE) Take 1-2 Tablets by mouth in the morning. As directed by anticoag clinic (4mg Tuesday and 3mg all other days - 1mg and 2mg tablets). 180 Tablet 3 04/30/2024 Active predniSONE 10 MG Oral Tablet (Deltasone)Indica tions:Strain of lumbar region, initial encounter Take 1 Tablet by mouth daily for 5 days, THEN 0.5 Tablets daily for 5 days. As directed. 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 0 11/22/2017 [...] as of this encounter (statuses as of 05/07/2024) Resolved Problems Problem Noted Date Diagnosed Date Resolved Date Dyslipidemia, goal LDL below 70 01/23/2024 05/07/2024 Orthostatic lightheadedness 05/10/2021 04/02/2022 Postoperative anemia due to acute blood loss 04/02/2022 COPD, group B, by GOLD 2017 classification 02/09/2021 04/02/2022 Overview: Per COPD GOLD Classification Coronary artery disease invo lving salamatof coronary artery of salamatof heart with angina pectoris 11/21/2020 04/28/2021 Morbid obesity 01/01/2020 05/14/2021 Overview: Per Obesity protocol Prediabetes 12/11/2018 04/11/2019 Overview: Per Prediabetes protocol #1 Hematoma of right lower extremity 11/22/2017 10/23/2019 Fall at home 11/22/2017 03/13/2019 History of factor V Leiden mutation 11/22/2017 10/23/2019 Gait abnormality 11/22/2017 04/02/2022 halfway resident 11/22/20172017 OBESITY, BMI 30-34 (SEE ACTUAL [...] 10/19/2004 08/17/2017 Overview: TREATED 1 YEAR IN [facility] ICD-10 update of inactive term IMPOTENCE, [...] as of this encounter (statuses as of 05/07/2024) Immunizations Name Administration Dates Next Due COVID-19 mRNA, LNP-s, No Pre serve, 2-Dose Series (Pfizer) 09/25/2021,01/10/2021,12/13/2020 Pneumococcal Conjugate Vacc, 13 Valent (Prevnar) [...] on file documented as of this encounter Last Filed Vital Signs Vital Sign Reading Time Taken Comments Blood Pressure 116/60 05/07/2024 3:41 PM EDT Pulse 62 05/07/2024 3:41 PM EDT Temperature 36.7 C (98 F) 05/07/2024 3:41 PM EDT Respiratory Rate - - Oxygen Saturation 97% 05/07/2024 3:41 PM EDT Inhaled Oxygen Concentration - - Weight 108.2 kg (238 lb 8 oz) 05/07/2024 3:41 PM EDT Height - - Body Mass Index 38.49 01/23/2024 10:38 AM EDT documented in this encounter Functional Status Functional Status Response [...] (15 years old or older) No 06/02/20 Cognitive Status Response Date of Assessm ent Because of a physical, menta l, or emotional condition, do you have serious difficulty concentrating, remembering, or making decisions? (5 years old or older) No 06/02/2021 documented as of this encounter Progress Notes * Jake Green, - 05/07/2024 3:50 PM EDT Subjective Sohail Grace Rockwell Sr. is a 78 year old male. Chief Complaint Patient presents with Return Visit 6 mo return HPI: Patient presents to office for routine follow up. Lab work done, results reviewed with patient. Medication list reviewed. DM2 maintained offType 2 diabetes maintained off medications. No acute issues or symptoms noted. Recent A1c well controlled at 6.6. Up-to-date on foot and eye exams. Hypertension, hyperlipidemia tolerating current treatment regimen without adverse effects. Vital stable today. No symptoms noted be consistent with elevation of baseline blood pressure. Recent labs showed stable renal function/electrolytes. Urine albumin screen negative. Total and LDL cholesterol at goal on current statin/Zetia History of COPD not requiring any regular inhaler use. No acute shortness of breath, cough, wheezing. No recent respiratory illnesses History of CAD without any acute cardiac issues. Maintained on aspirin 81 mg daily, atorvastatin 80mg daily, carvedilol twice daily. No acute issues overall PMH: Patient Active Problem List Diagnosis OSTEOARTHROS NOS-PELVIS Adjustment disorder with depressed mood Factor V deficiency, congenital ([facility]) ABNORMAL COAGULATION PROFILE Hyperlipidemia associated with type 2 diabetes mellitus ([facility]) S/P angioplasty with stent HTN, goal below 140/90 [facility] current use of anticoagulant therapy Impaired mobility and ADLs DNR (do not resuscitate) History of pulmonary embolus (PE) Type 2 diabetes mellitus without complication, without long-term current use of insulin ([facility]) Supraventricular tachycardia (HCC) Coronary artery disease involving salamatof coronary artery of salamatof heart without angina pectoris Hx of nonmelanoma skin cancer Chronic diastolic heart failure ([facility]) Centrilobular emphysema ([facility]) S/P revision of total hip Body mass index (BMI) of 40.0 to 44.9 in adult ([facility]) COPD, group B, by GOLD 2017 classification ([facility]) Dilated aortic root ([facility]) Dyslipidemia, goal LDL below 70 Current Outpatient Medications Medication Sig Dispense Refill [...] No current facility-administered medications for this visit. 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salamatof coronary artery of salamatof heart with angina pectoris (HCC)11/21/2020 Depressive disorder, not elsewhere classified Diaphragmatic hernia Dyslipidemia, goal LDL below 160 Esophageal reflux HTN, goal below 140/90 Intestinal obstruction (HCC) 2009 Lung nodule Obesity, BMI not known Osteoarthrosis, unspecified whether generalized or localized, pelvic region and thigh Phlebitis and thrombophlebitis of other deep vessels of lower extremities Pneumonia Pulmonary embolus (HCC) post op 1986 Stable angina (HCC) 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 IN [facility] Past Surgical History: Procedure Laterality Date ARTHROCENT ASP &/OR INJ MAJOR JX/BURSA W/O US Right 04/07/2021 ARTHROCENTESIS OR INJECTION MAJOR JOINT performed by Graham Ascencio MD at OR [facility] BONE DEBRIDEMENT, FIRST 20 CM2 Right 06/02/2021 DEBRIDEMENT SKIN SUBCUTANEOUS TISSUE MUSCLE AND BONE performed by Graham Ascencio MD at OR [facility] CATHETERIZE LEFT HEART THRU SKIN 2004 ([facility]) 95% Ra, 40% LAD & RCA COLONOSCOPY 04/29/2009 Dr Howard [facility] - 2 polyps removed COLONOSCOPY 01/28/2011 [facility], [facility]ST[facility] (RECTUM) 01/25/2019 adenomatous polyp, repeat 5 yrs/COLONOSCOPY FLEXIBLE PROXIMAL DIAGNOSTIC performed by Nick Hudson MD at ENDOSCOPY [facility] EGD, FLEXIBLE, DIAGNOSTIC 01/25/2019 normal/ESOPHAGOGASTRODUODENOSCOPY (EGD), FLEXIBLE, TRANSORAL, DIAGNOSTIC performed by Nick Hudson MD at ENDOSCOPY [facility] INFORMATION REPAIR R ELBOW LAPAROSCOPY; [facility]Y [facility]; REPAIR INITIAL INGUINAL HERNIA BOTH LUMBAR SPINE FUSION W/BONE GRAFT X2; 1974, 1979 PARTIAL REMOVAL OF COLON 12" removed; 2008 REMOVE TONSILS & ADENOIDS, UNDER 12 REPAIR DIAPHRAGM HERNIA,TRANSTHORAX 1986 REPAIR INITIAL INGUINAL HERNIA REDUCIBLE AGE 5 OR MORE 1967-right; 1974-left REPAIR RUPTURED ROTATOR CUFF, ACUTE -2000 REVISION OF TOTAL HIP JOINT SURGERY Right 05/08/2021 REVISION HIP ARTHROPLASTY FEMORAL performed by Graham Ascencio MD at OR [facility] TOTAL HIP REPLACEMENT & PROSTHESIS 05/08/2021 L-2000 Review of patient's allergies indicates: Allergen Reactions Avelox [Moxifloxacin Hcl In Nacl] Itching and Nausea/vomiting 20 minutes after first dose, hands itchy, head itchy, started vomiting Family History Problem Relation Name Age of [...] Father Rony No Known Problems Sister Karon Family Status Relation Status Mo at age 78 [place] 58 Sis Alive LEUKEMIA, CAD Bro at age 21 MVA Bro Alive NO HEART Bro Alive NO HEART, SEIZURES Mo (Not Specified) Fa Sis Alive Social History Socioeconomic History Marital status: Spouse [...] Stability Do you currently live in a half-way or have no steady place to sleep [...] - for ages0-17 years): Not on file Review of Systems Constitutional: Negative for chills, fatigue and fever. HENT: Negative for congestion, sore throat and trouble swallowing. Eyes: Negative for photophobia and pain. Respiratory: Negative for cough, shortness of breath and wheezing. Cardiovascular: Negative for chest pain and palpitations. Gastrointestinal: Negative for abdominal distention, abdominal pain, nausea and vomiting. Genitourinary: Negative for dysuria and frequency. Musculoskeletal: Negative for back pain and neck stiffness. Skin: Negative for pallor. Neurological: Negative for dizziness, light-headedness and headaches. Psychiatric/Behavioral: Negative for sleep disturbance. The patient is not nervous/anxious. Objective BP 116/60 | Pulse 62 | Temp 36.7 C (98 F) | Wt 108.2 kg (238 lb 8 oz) | SpO2 97% | BMI 38.49 kg/m | BSA 2.24 m Physical Exam Constitutional: General: He is not in acute distress. Appearance: He is not ill-appearing. HENT: Head: Normocephalic and atraumatic. Right Ear: Tympanic membrane, ear canal and external ear normal. Left Ear: Tympanic membrane, ear canal and external ear normal. Nose: Nose normal. No congestion or rhinorrhea. Mouth/Throat: Mouth: Mucous membranes are moist. Pharynx: Oropharynx is clear. Eyes: General: No scleral icterus. Extraocular Movements: Extraocular movements intact. Conjunctiva/sclera: Conjunctivae normal. Pupils: Pupils are equal, round, and reactive to light. Neck: Vascular: No carotid bruit. Cardiovascular: Rate and Rhythm: Normal rate and regular rhythm. Pulses: Normal pulses. Heart sounds: Normal heart sounds. No murmur heard. No friction rub. No gallop. Pulmonary: Effort: Pulmonary effort is normal. Breath sounds: Normal breath sounds. No wheezing, rhonchi or rales. Abdominal: General: Bowel sounds are normal. There is no distension. Palpations: Abdomen is soft. There is no mass. Tenderness: There is no abdominal tenderness. Musculoskeletal: General: No swelling or tenderness. Normal range of motion. Cervical back: Normal range of motion and neck supple. Right lower leg: No edema. Left lower leg: No edema. Skin: General: Skin is warm and dry. Coloration: Skin is not jaundiced. Findings: No rash. Neurological: General: No focal deficit present. Mental Status: He is oriented to person, place, and time. Cranial Nerves: No cranial nerve deficit. Sensory: No sensory deficit. Motor: No weakness. Psychiatric: Mood and Affect: Mood normal. Behavior: Behavior normal. Right foot:Edema: none Skin: normal Temp: normal Pulses: DP-2+ PT-2+ Callus: no significant callus formation Toes: no specific problems Nails: no problems Monofilament test: sensation intact in all areas. Left foot: Edema: none Skin: normal Temp: normal Pulses: DP-2+ PT-2+ Callus: no significant callus formation Toes: no specific problems Nails: no problems Monofilament test: sensation intact in all areas. Latest Reference Range & Units 05/05/24 08:07 Triglycerides <=174 mg/dL 126 Cholesterol <200 mg/dL 146 Non-HDL Cholesterol <=159 mg/dL 92 HDL Cholesterol >39 mg/dL 54 LDL Cholesterol <=129 mg/dL 67 Sodium 135 - 146 mmol/L 140 Potassium 3.5 - 5.1 mmol/L 4.5 Chloride 98 - 107 mmol/L 105 CO2 22 - 32 mmol/L 25 BUN 6 - 20 mg/dL 26 (H) Creatinine 0.6 - 1.2 mg/dL 1.0 Estimated Glomerular Filtration Rate >=60 mL/min 80 Anion Gap 7 - 15 mmol/L 10 Glucose 70 - 120 mg/dL 158 (H) Calcium 8.4 - 10.2 mg/dL 9.1 Protein 6.0 - 8.3 g/dL 6.7 Estimated Average Glucose <126 mg/dL 143 (H) Hemoglobin A1C 4.0 - 5.6 % 6.6 (H) CBC Rpt WBC 4.00 - 10.80 K/uL 7.75 RBC 4.50 - 5.25 M/uL 4.92 HGB 14.0 - 16.8 g/dL 15.6 HCT 40.0 - 48.4 % 46.5 MCV 82.0 - 99.5 fL 94.5 MCH 27.0 - 34.0 pg 31.7 MCHC 32.0 - 36.0 g/dL 33.5 RDW 11.5 - 15.5 % 14.1 PLT 140 - 400 K/uL 151 MPV 6.6 - 11.1 fL 10.8 CBC WITH WBC DIFFERENTIAL Rpt Absolute Neutrophils 1.80 - 7.70 K/uL 4.98 Absolute Lymphocytes 1.00 - 4.80 K/ul 1.95 Absolute Monocytes 0.00 - 1.10 K/uL 0.69 Absolute Eosinophils 0.00 - 0.70 K/uL 0.07 Absolute Basophils 0.00 - 0.20 K/uL 0.04 Albumin 3.8 - 5.0 g/dL 4.3 AST 10 - 50 U/L 20 ALT 10 - 50 U/L 30 Alkaline Phosphatase 35 - 130 U/L 74 Bilirubin, Total <=1.2 mg/dL 0.7 Albumin / Creatinine Ratio, Urine <30 mg/g Creat <9 Albumin, Random Urine mg/dL <1.20 Creatinine, Random Urine mg/dL 135 (H): Data is abnormally high Rpt: View report in Results Review for more information ASSESSMENT/PLAN: Type 2 diabetes mellitus without complication, without long-term current use of insulin (HCC) (Primary) - COMPREHENSIVE METABOLIC PANEL; Future; Expected date: 11/07/2024 - CBC WITH WBC DIFFERENTIAL; Future; Expected date: 11/07/2024 - LIPID PANEL WITH DIRECT LDL IF TG IS HIGH; Future; Expected date: 11/07/2024 - HEMOGLOBIN A1C; Future; Expected date: 11/07/2024 Hyperlipidemia associated with type 2 diabetes mellitus (HCC) - COMPREHENSIVE METABOLIC PANEL; Future; Expected date: 11/07/2024 - CBC WITH WBC DIFFERENTIAL; Future; Expected date: 11/07/2024 - LIPID PANEL WITH DIRECT LDL IF TG IS HIGH; Future; Expected date: 11/07/2024 - HEMOGLOBIN A1C; Future; Expected date: 11/07/2024 Screen for colon cancer - COLOGUARD Hypertension associated with type 2 diabetes mellitus (HCC) - COMPREHENSIVE METABOLIC PANEL; Future; Expected date: 11/07/2024 - CBC WITH WBC DIFFERENTIAL; Future; Expected date: 11/07/2024 - LIPID PANEL WITH DIRECT LDL IF TG IS HIGH; Future; Expected date: 11/07/2024 - HEMOGLOBIN A1C; Future; Expected date: 11/07/2024 Centrilobular emphysema (HCC) Dilated aortic root (HCC) Chronic diastolic heart failure (HCC) Coronary artery disease involving salamatof coronary artery of salamatof heart without angina pectoris Body mass index (BMI) of 40.0 to 44.9 in adult (HCC) Plan: Patient presents to office for routine follow-up. Feeling okay overall. No acute concerns Continue current medications. For his history of coronary disease is maintained on aspirin 81 mg daily, Imdur 60 daily, atorvastatin 80 mg daily, carvedilol 25 mg twice daily. No refills needed at this time Diabetes currently diet controlled. Continue with exercise 150 minutes or more moderate activity weekly. Diet low in carb/fat. Plenty of daily fiber, vegetables, lean protein like poultry or fish. Repeat labs in 6 months including CMP, CBC, lipids, A1c Foot exam done today without acute issues. Up-to-date on eye exam Patient does not wish to have further colonoscopy. Would be agreeable to Cologuard. Ordered today Follow Up: Return in about 6 months (around 11/07/2024), or if symptoms worsen or fail to improve, for Return with Physician. | For: Return with Physician | Check-out note: 6 month follow up Fasting labs 1 week prior Jake Green DO documented in this encounter Nursing Notes * Moreno Willis MED ASSIST - 05/07/2024 3:41 PM EDT The patient has been properly identified by confirmation of name and date of . Chief Complaint Patient presents with Return Visit 6 mo return documented in this encounter Plan of Treatment Upcoming Encounters Date Type Department Care Team (Latest Contact Info) Description 05/14/2024 9:40 AM EDT Anticoagulation Pharmacy [address] [phone] Pharmacist1, [facility] [address] [address] 05/29/2024 8:30 AM EDT Office Visit Podiatry [address] [place] [address] Lio Hairston, Jamarcus [address] [place] [address] 06/26/2024 11:00 AM EDT Office Visit Dermatology[address] [address] Jaja Perez PA-C [address] [place] [address] [place] [address] 07/23/2024 8:00 AM EDT Office Visit Cardiology, [facility] [address] [place] [address] Jasmin Ferrer PA-C [address] [place] [address] 08/13/2024 8:30 AM EDT Hospital Encounter ENDO [facility], Endoscopy Room [facility] [address] [place] [phone] Justin Son MD [address] [place] [address] 08/13/2024 8:30 AM EDT - 08/13/2024 9:00 AM EDT Surgery ENDO [facility], Endoscopy Room [facility] [address] [place] [phone] Justin Son MD [address] [place] [address] COLONOSCOPY FLEXIBLE PROXIMAL DIAGNOSTIC 11/05/2024 9:20 AM EST Office Visit General Internal Medicine [facility] [place] [address] [facility], [place] [address] Jake Green, [address] [address] Scheduled Orders Name Type Priority Associated Diagnoses Orde r Schedule COLOGUARD Lab Unrestricted Lab Screen for colon cancer Ordered: 05/07/2024 COMPREHENSIVE METABOLIC PANEL Lab Routine Type 2 diabetes mellitus without complication, without long-term current use of insulin (HCC) Hyperlipidemia associated with type 2 diabetes mellitus (HCC) Hypertension associated with type 2 diabetes mellitus (HCC) Expected: 11/07/2024 (Approximate), Expires: 05/07/2025 CBC WITH WBC DIFFERENTIAL Lab Routine Type 2 diabetes mellitus without complication, without long-term current use of insulin (HCC) Hyperlipidemia associated with type 2 diabetes mellitus (HCC) Hypertension associated with type 2 diabetes mellitus (HCC) Expected: 11/07/2024 (Approximate), Expires: 05/07/2025 LIPID PANEL WITH DIRECT LDL IF TG IS HIGH Lab Routine Type 2 diabetes mellitus without complication, without long-term current use of insulin (HCC) Hyperlipidemia associated with type 2 diabetes mellitus (HCC) Hypertension associated with type 2 diabetes mellitus (HCC) Expected: 11/07/2024, Expires: 05/07/2025 HEMOGLOBIN A1C Lab Routine Type 2 diabetes mellitus without complication, without long-term current use of insulin (HCC) Hyperlipidemia associated with type 2 diabetes mellitus (HCC) Hypertension associated with type 2 diabetes mellitus (HCC) Expected: 11/07/2024 (Approximate), Expires: 05/07/2025 Scheduled Procedures Name Priority Associated Diagnoses Date/Ti me COLONOSCOPY FLEXIBLE PROXIMAL DIAGNOSTIC Recall History of colon polyps 08/13/2024 8:30 AM EDT Health Maintenance Due Date Last Done Comments DISCUSS TOBACCO CESSATION (REFER TO SMARTSET #5213) 1945 COVID-19 Vaccine ( season) 2023 09/25/2021, [...] 01/25/2019, 01/25/2019, 11/30/2010 Zoster Vaccines Completed 07/17/2020, 07/0 10/2019, 03/10/2020 Alpha-1 Antitrypsin Completed 04/16/2022 HPV [...] this encounter Medical Devices Implanted Type Area Aix System Administrator Device Identifier Shelf Expiration Date Model / Serial / Lot Cable/Short Gtr 2232-02-16 - [id number] Implanted:Qty: 1 on 05/08/2021 by Graham Ascencio MD at OR [facility] Right: Leg Upper [employer] 03/01/2031 4-18 / / [id number] Cable/Sle Beaded D/M 20 Vit - [id number] Implanted:Qty: 1 on 05/08/2021 by Graham Ascencio MD at OR [facility] Right: Leg Upper YUE : ORTHOPAEDICS 11/16/2025 [id number] / / [id number] 15mm 150mm Sts Distal Stem Implanted:Qty: 1 on 05/08/2021 by Graham Ascencio MD at OR [facility] Right: Leg Upper [employer] : ORTHOPEDICS 04/02/2030 [id number] / / [id number] High Offset Cone Proximal Body Implanted:Qty: 1 on 05/08/2021 by Graham Ascencio MD at OR [facility] Right: Leg Upper [employer] : ORTHOPEDICS 07/08/2030 [id number] / / [id number] Cable/Short Gtr 2232-02-16 - [id number] Implanted:Qty: 1 on 05/08/2021 by Graham Ascencio MD at OR [facility] Right: Leg Upper [employer] 01/27/2031 4-18 / / [id number] Head Bioloxd Option 36mm - [id number] Implanted:Qty: 1 on 05/08/2021 by Graham Ascencio MD at OR [facility] Right: Leg Upper [employer] 08/21/2030 [id number] / / [id number] Hip Fmrl Insert Ceropt Sleve-6 - [id number] Implanted:Qty: 1 on 05/08/2021 by Graham Ascencio MD at OR [facility] Right: Leg Upper [employer] 11/20/2030 [id number] / / [id number] Cable/Short Gtr 2232-02-16 - [id number] Implanted:Qty: 1 on 05/08/2021 by Graham Ascencio MD at [place] [facility] Right: Leg Upper [employer] 01/27/2031 4-18 / / [id number] Cable/Short Gtr 2232-02-16 - [id number] Implanted:Qty: 1 on 05/08/2021 by Graham Ascencio MD at [place] [facility] Right: Leg Upper [employer] 01/20/2031 4-18 / / [id number] Cable/Sle Beaded D/M - [id number] Implanted:Qty: 1 on 05/08/2021 by Graham Ascencio MD at [place] [facility] Right: Leg Upper YUE : ORTHOPAEDICS 11/30/2025 6704-0-520 / / [id number] documented as of this encounter Visit Diagnoses Diagnosis Type 2 diabetes mellitus without complication, without long-term current use of insulin (HCC)- Primary Hyperlipidemia associated with type 2 diabetes mellitus (HCC) Screen for colon cancer Special screening for malignant neoplasms, colon Hypertension associated with type 2 diabetes mellitus (HCC) Centrilobular emphysema (HCC) Other emphysema Dilated aortic root (HCC) Thoracic aortic ectasia Chronic diastolic heart failure (HCC) Chronic diastolic heart failure 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 Care Teams Credit Counselor Relationship Specialty Start Date End Date Jake Green DO [address] [place] [address] [phone] PCP - General Internal Medicine 09/16/21 documented as of this encounter
--- OUTSIDE RECORDS SUMMARY | 2024-06-09 17:46 | External Medical Summary ---
Author Name Unknown Address Unknown Organization [id number]:[facility] [place] [address] [facility] [place] [address] Laboratory Report Ordering Provider Test Date Status PATRICIA AGUDELO 05/05/2024 08:07:00 Final Observation Date Value Abnormality Reference (Units ) Status BUN 05/05/2024 08:07:00 26 Above high normal 6-20 (mg/dL) Final Creatinine 05/05/2024 08:07:00 1.0 0.6-1.2 (mg/dL) Final Glomerular filtration rate/1.73 sq M.predicted [Volume Rate/Area] in Serum, Plasma or Blood by Creatinine-based formula (CKD-EPI) 05/05/2024 08:07:00 80 >=60 (mL/min) Final eGFR is calculated based on the CKD-EPI 2020 equation Sodium 05/05/2024 08:07:00 140 135-146 (m mol/L) Final Potassium 05/05/2024 08:07:00 4.5 3.5-5.1 (m mol/L) Final Cl 05/05/2024 08:07:00 105 98-107 (mm ol/L) Final CO2 05/05/2024 08:07:00 25 22-32 (mmo l/L) Final Anion gap 05/05/2024 08:07:00 10 7-15 (mmol /L) Final Glucose 05/05/2024 08:07:00 158 Above high normal 70 -120 (mg/dL) Final Albumin 05/05/2024 08:07:00 4.3 3.8-5.0 (g /dL) Final AST (Aspartate aminotransferase) 05/05/2024 08:07:00 20 10-50 (U/L) Fin al Alk Phos 05/05/2024 08:07:00 74 35-130 (U/ L) Final Bilirubin, Total 05/05/2024 08:07:00 0.7 <=1 .2 (mg/dL) Final Calcium 05/05/2024 08:07:00 9.1 8.4-10.2 ( mg/dL) Final Protein 05/05/2024 08:07:00 6.7 6.0-8.3 (g /dL) Final ALT (Alanine aminotransferase) 05/05/2024 08:07:00 30 10-50 (U/L) Andrae liu Performing Location [facility] [place] [address] [facility] [address]
--- OUTSIDE RECORDS SUMMARY | 2024-06-09 17:46 | External Medical Summary ---
Author Name Unknown Address Unknown Organization [id number]:[facility] [place] [address] [facility] [place] [address] Laboratory Report Ordering Provider Test Date Status PATRICIA AGUDELO 05/05/2024 08:07:00 Final Observation Date Value Abnormality Reference (Units ) Status SYNC LEUKOCYTES IN BLOOD BY AUTOMATED COUNT 05/05/2024 08:07:00 7.75 4.00-10.80 (K/uL) Final Segs 05/05/2024 08:07:00 64.2 40.0-75.0 (%) Final Lymphs % 05/05/2024 08:07:00 25.2 18.0-42.0 (%) Final Monos 05/05/2024 08:07:00 8.9 1.0-11.0 (%) Final Eosinophils 05/05/2024 08:07:00 0.9 0.0-6.0 (%) Final Basos 05/05/2024 08:07:00 0.5 0.0-2.0 (%) Final Immature Granulocyte, Percent 05/05/2024 08:07:00 0.3 0.0-2.0 (%) Final Absolute Segs 05/05/2024 08:07:00 4.98 1.80-7.70 (K/uL) Final Lymphs, absolute 05/05/2024 08:07:00 1.95 1.00-4.80 (K/ul) Final Monos, Abs 05/05/2024 08:07:00 0.69 0.00-1.10 (K/uL) Final Eos, Abs 05/05/2024 08:07:00 0.07 0.00-0.70 (K/uL) Final Basos, Abs 05/05/2024 08:07:00 0.04 0.00-0.20 (K/uL) Final Immature Granulocytes, Number 05/05/2024 08:07:00 0.02 0.00-0.20 (K/uL) Final Performing Location [facility] [place] [address] [facility] [address]
--- OUTSIDE RECORDS SUMMARY | 2024-06-09 17:46 | External Medical Summary ---
Author Name Unknown Address Unknown Organization : Laboratory Report Ordering Provider Test Date Status KWASI MAYORGA 05/29/2024 08:00:25 Final Therapeutic ranges for non-o perative patients:
Prophylaxsis/treatment of DVT: (Range:2.0-3.0)
Treatment of pulmonary embolism:(Range:2.0-3.0)
Prevention of systemic embolism from:
-tissue heart valves
-acute myocardial infarction
-valvular heart disease
-atrial fibrillation
(Range: 2.0-3.0)
Mechanical prosthetic valves: (Range: 2.5-3.5) Observation Date Value Abnormality Reference (Units ) Status INR in Capillary blood by Coagulation assay 05/29/2024 08:00:25 3.4 (INR) Final Performing Location
--- OUTSIDE RECORDS SUMMARY | 2024-06-09 17:46 | External Medical Summary ---
Author Name Unknown Address Unknown Organization K01:[facility] [place] - [address] [facility] [address] Laboratory Report Ordering Provider Test Date Status PATRICIA AGUDELO 05/05/2024 08:07:00 Final Observation Date Value Abnormality Reference (Units ) Status WBC, Total 05/05/2024 08:07:00 7.75 4.00-10.80 (K/uL) Final RBC 05/05/2024 08:07:00 4.92 4.50-5.25 (M/uL) Final Hemoglobin 05/05/2024 08:07:00 15.6 14.0-16.8 (g/dL) Final HCT 05/05/2024 08:07:00 46.5 40.0-48.4 (%) Final MCV 05/05/2024 08:07:00 94.5 82.0-99.5 (fL) Final MCH 05/05/2024 08:07:00 31.7 27.0-34.0 (pg) Final MCHC 05/05/2024 08:07:00 33.5 32.0-36.0 (g/dL) Final RDW 05/05/2024 08:07:00 14.1 11.5-15.5 (%) Final Platelets 05/05/2024 08:07:00 151 140-400 (K/uL) Final MPV 05/05/2024 08:07:00 10.8 6.6-11.1 (fL) Final Nucleated erythrocytes/100 leukocytes [Ratio] in Blood by Automated count 05/05/2024 08:07:00 0 <=0 (/100 WBCs) Final Performing Location [facility] [place] - [address] [facility] [address]
--- OUTSIDE RECORDS SUMMARY | 2024-06-09 17:46 | External Medical Summary | Summary of Care ---
Author Name Unknown Organization [facility] Address [address] [place] [address] Phone [phone] Care Team Providers Care Refractory Mixer Name Role Phone Jake Green DO Primary Care Provid er Reason for Visit * Reason Onset Date Comments Advice 04/30/2024 Order Request 04/30/2024 Encounter Details Date Type Department Care Team ([facility] st Contact Info) Description 04/30/[address] [phone] Jake Green DO [address] [place] [address] [phone] Advice; Order Request Allergies Active Allergy Reactions Criticality Noted Date Comments Moxifloxacin Hcl In Nacl Itching,Nausea/vomit ing High 07/08/2012 20 minutes after first dose, hands itchy, head itchy, started vomiting documented as of this encounter (statuses as of 05/01/2024) Medications Medication Sig Dispensed Refills Start Date [...] Oral Tablet (Benicar)Indicatio ns:Coronary artery disease involving cabazon coronary artery of cabazon heart without angina pectoris,HTN, goal below 140/90 [...] :HTN, goal below 140/90,Coronary artery disease involving cabazon coronary artery of cabazon heart without angina pectoris TAKE 1 TABLET [...] as of this encounter (statuses as of 05/01/2024) Active Problems Problem Noted Date Diagnosed Date [...] tachycardia 03/13/2019 Coronary artery disease invo lving cabazon coronary artery of cabazon heart without angina pectoris 03/13/2019 History of pulmonary embolus (PE) 12/02/2017 DNR (do not resuscitate) 11/27/2017 [facility] current use of anticoagulant therapy 0 11/22/2017 [...] as of this encounter (statuses as of 05/01/2024) Resolved Problems Problem Noted Date Diagnosed Date Resolved Date Orthostatic lightheadedness 05/10/2021 04/02/2022 Postoperative anemia due to acute blood loss 04/02/2022 COPD, group B, by GOLD 2017 classification 02/09/2021 04/02/2022 Overview: Per COPD GOLD Classification Coronary artery disease invo lving cabazon coronary artery of cabazon heart with angina pectoris 11/21/2020 04/28/2021 Morbid obesity 01/01/2020 05/14/2021 Overview: Per Obesity protocol Prediabetes 12/11/2018 04/11/2019 Overview: Per Prediabetes protocol #1 Hematoma of right lower extremity 11/22/2017 10/23/2019 Fall at home 11/22/2017 03/13/2019 History of factor V Leiden mutation 11/22/2017 10/23/2019 Gait abnormality 11/22/2017 04/02/2022 [facility] resident 11/22/20172017 OBESITY, BMI 30-34 (SEE ACTUAL [...] 10/19/2004 08/17/2017 Overview: TREATED 1 YEAR IN [facility] ICD-10 update of inactive term [...] as of this encounter (statuses as of 05/01/2024) Immunizations Name Administration Dates Next Due COVID-19 mRNA, LNP-s, No Pre serve, 2-Dose Series (MeMeMe) 09/25/2021,01/10/2021,12/13/2020 Pneumococcal Conjugate Vacc, 13 Valent (Prevnar) [...] encounter Miscellaneous Notes * Telephone Encounter - Fiona Singletary MED [...] wish to have their order completed at? [employer] Fax Number, if applicable: If the caller [...] PM EDT Office Visit General Internal Medicine [facility] [address] [place] [address] Jake Green, DO [address] [place] [address] 05/14/2024 9:40 AM EDT Anticoagulation Pharmacy [facility] [address] [place] [phone] Pharmacist1, [facility] [address] [place] [address] 05/29/2024 8:30 AM EDT Office Visit Podiatry [address] [place] [address] Lio Hairston, [facility] [address] [place] [address] 06/26/2024 11:00 AM EDT Office Visit Dermatology, [address] [address] Jaja Perez PA-C [address] [place] [address] [place] [address] 07/23/2024 8:00 AM EDT Office Visit Cardiology, [facility] [address] [place] [address] Jasmin Ferrer PA-C [address] [place] [address] 08/13/2024 8:30 AM EDT Hospital Encounter ENDO [facility], Endoscopy Room [facility] [address] [place] [phone] Justin Son MD [address] [place] [address] 08/13/2024 8:30 AM EDT - 08/13/2024 9:00 AM EDT Surgery ENDO [facility], Endoscopy Room [facility] [address] [place] [phone] Justin Son MD [address] [place] [address] COLONOSCOPY FLEXIBLE PROXIMAL DIAGNOSTIC Scheduled Procedures Name Priority Associated Diagnoses Date/Ti me COLONOSCOPY FLEXIBLE PROXIMAL DIAGNOSTIC Recall History of colon polyps 08/13/2024 8:30 AM EDT Health Maintenance Due Date Last Done Comments DISCUSS TOBACCO CESSATION (REFER TO SMARTSET #3291) 1945 COVID-19 Vaccine ( season) 2023 09/25/2021, [...] 07/17/2020, 10/2019, 03/10/2020 Alpha-1 Antitrypsin Completed 04/16/2022 GARDASIL-HPV IMMUNIZATION SERIES Aged Out No longer eligible based on patient's age to complete this topic Hepatitis B Aged Out No longer eligi ble based on patient's age to complete this topic MENINGOCOCCAL (MENACTRA/MENVEO) Aged Out No longer eligible based on patient's age to complete this topic documented as of this encounter Medical Devices Implanted Type Area School Secretary Device Identifier Shelf Expiration Date Model / Serial / Lot Cable/Short Gtr 2232-02-16 - [id number] Implanted:Qty: 1 on 05/08/2021 by Graham Ascencio MD at [place] [facility] Right: Leg Upper [employer] 03/01/203102-15 / / [id number] Cable/Sle Beaded D/M - [id number] Implanted:Qty: 1 on 05/08/2021 by Graham Ascencio MD at [place] [facility] Right: Leg Upper YUE : ORTHOPAEDICS 11/16/2025 6704-0-520 / / [id number] 15mm 150mm Sts Distal Stem Implanted:Qty: 1 on 05/08/2021 by Graham Ascencio MD at [place] [facility] Right: Leg Upper [employer] : ORTHOPEDICS 04/02/2030 [id number] / / [id number] High Offset Cone Proximal Body Implanted:Qty: 1 on 05/08/2021 by Graham Ascencio MD at [place] [facility] Right: Leg Upper [employer] : ORTHOPEDICS 07/08/2030 [id number] / / [id number] Cable/Short Gtr 2232-02-16 - [id number] Implanted:Qty: 1 on 05/08/2021 by Graham Ascencio MD at [place] [facility] Right: Leg Upper [employer] 01/27/2031 4-18 / / [id number] Head Bioloxd Option 36mm - [id number] Implanted:Qty: 1 on 05/08/2021 by Graham Ascencio MD at [place] [facility] Right: Leg Upper [employer] 08/21/2030 650-1057 / / [id number] Hip Fmrl Insert Ceropt Sleve-6 - [id number] Implanted:Qty: 1 on 05/08/2021 by Graham Ascencio MD at [place] [facility] Right: Leg Upper [employer] 11/20/2030 650-1064 / / [id number] Cable/Short Gtr 2232-02-16 [id number] Implanted:Qty: 1 on 05/08/2021 by Graham Ascencio MD at [place] [facility] Right: Leg Upper [employer] 01/27/2031 4-18 / / [id number] Cable/Short Gtr 2232-02-16 [id number] Implanted:Qty: 1 on 05/08/2021 by Graham Ascencio MD at [place] [facility] Right: Leg Upper [employer] 01/20/2031 4-18 / / [id number] Cable/Sle Beaded D/M 20 Vit - [id number] Implanted:Qty: 1 on 05/08/2021 by Graham Ascencio MD at [place] [facility] Right: Leg Upper YUE : ORTHOPAEDICS 11/30/2025 6704-0-520 / / [id number] documented as of this encounter Advance Directives [...] and were consensually agreed upon. Care Teams Refractory Mixer Relationship Specialty Start Date End Date Jake Green DO [address] [place] [id number] PCP - General Internal Medicine 09/16/21 documented as of this encounter
--- OUTSIDE RECORDS SUMMARY | 2024-06-09 17:47 | External Medical Summary | Summary of Care ---
Author Name Unknown Organization [facility] Address [address] [place] [address] Phone [phone] Care Team Providers Care Application Architect Name Role Phone Jake Green DO Primary Care Provid er Reason for Visit * Reason Comments Dosage Adjustment In Person (Anticoag Cl inic) Encounter Details Date Type Department Care Team (Latest Contact Info) Description 04/02/2024 8:20 AM EDT Anticoagulation Pharmacy [address] [phone] Pharmacist1, [facility] [address] [address] Factor V deficiency, congenital (HCC)*; ABNORMAL COAGULATION PROFILE; History of pulmonary embolus (PE); Anticoagulation management encounter Allergies Active Allergy Reactions Criticality Noted Date Comments Moxifloxacin Hcl In Nacl Itching,Nausea/vomit ing High 07/08/2012 20 minutes after first dose, hands itchy, head itchy, started vomiting documented as of this encounter (statuses as of 04/02/2024) Medications Medication Sig Dispensed Refills Start Date [...] 15 minutes 25 Tablet 5 03/15/2022 Active Warfarin Sodium 1 MG Oral Tablet (Coumadin)Indicatio ns:Factor V deficiency, congenital (HCC),History of pulmonary embolus (PE) TAKE 1-2 TABLETS BY MOUTH DAILY. DIRECTED BY ANTICOAG CLINIC 180 Tablet 3 04/04/2023 Active Warfarin Sodium 2 MG Oral Tablet (Coumadin)Indicatio ns:Anticoagulation management encounter TAKE 1 TABLET BY MOUTH WITH 1 MG DOSE ON SUN,MON,WED, THURS AND FRID AND 2 TABS ON & SAT 108 Tablet 4 04/04/2023 Active Cyclobenzaprine HCl 10 MG Oral Tablet [...] Oral Tablet (Benicar)Indication s:Coronary artery disease involving [place] coronary artery of [place] heart without angina pectoris,HTN, goal below 140/90 [...] HTN, goal below 140/90,Coronary artery disease involving [place] coronary artery of [place] heart without angina pectoris TAKE 1 TABLET BY MOUTH EVERY DAY IN THE MORNING 90 Tablet 3 02/22/2024 Active documented as of this encounter (statuses as of 04/02/2024) Active Problems Problem Noted Date Diagnosed Date [...] tachycardia 03/13/2019 Coronary artery disease invo lving tat[place]k coronary artery of [place] heart without angina pectoris 03/13/2019 History of pulmonary embolus (PE) 12/02/2017 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 0 11/22/2017 [...] as of this encounter (statuses as of 04/02/2024) Resolved Problems Problem Noted Date Diagnosed Date Resolved Date Orthostatic lightheadedness 05/10/2021 04/02/2022 Postoperative anemia due to acute blood loss 04/02/2022 COPD, group B, by GOLD 2017 classification 02/09/2021 04/02/2022 Overview: Per COPD GOLD Classification Coronary artery disease invo lving tatitlek coronary artery of tat[place] heart with angina pectoris 11/21/2020 04/28/2021 Morbid obesity 01/01/2020 05/14/2021 Overview: Per Obesity protocol Prediabetes 12/11/2018 04/11/2019 Overview: Per Prediabetes protocol #1 Hematoma of right lower extremity 11/22/2017 10/23/2019 Fall at home 11/22/2017 03/13/2019 History of factor V Leiden mutation 11/22/2017 10/23/2019 Gait abnormality 11/22/2017 04/02/2022 [facility] resident 11/22/20172017 OBESITY, BMI 30-34 (SEE ACTUAL [...] 10/19/2004 08/17/2017 Overview: TREATED 1 YEAR IN [facility] ICD-10 update of inactive term IMPOTENCE, [...] as of this encounter (statuses as of 04/02/2024) Immunizations Name Administration Dates Next Due COVID-19 [...] money to get more. Never true 04/18/2023 Sex and Gender Information Value Date [...] this encounter Progress Notes * Chrissy Maxwell RP - 04/02/2024 8:28 AM EDT Images from the original note were not included. Medication Therapy Disease Management - Anticoagulation Patient: Sohail Edwards Moiz Sr. | : 1945 Subjective Patient-Reported Symptoms: Objective Current Warfarin Dose As of 04/02/2024 INR Result As of 04/02/2024 INR goal: 2.5-3.5 INR used for dosin.6 (04/02/2024) Assessment & Plan Warfarin Plan As of 04/02/2024 Full warfarin instructions: 04/02: 1 mg; Otherwise 4 mg every Wed; 3 mg all other days Next INR check: 05/14/2024 Repeat PT/INR in 6 week(s) Weekly dose: not changed Additional Dosing Information: Description Decreased dose when not having Whiskey 2mg TuTh and 3mg all other days Chrissy Maxwell RP Clinical Pharmacist 04/02/2024, 8:29 AM documented in this encounter Plan of Treatment Upcoming Encounters Date Type Department Care Team (Latest Contact Info) Description 05/07/2024 3:40 PM EDT Office Visit General Internal Medicine [facility] [place] [address] [place] [address] Jake Green, [address] [address] 05/14/2024 9:40 AM EDT Anticoagulation Pharmacy [facility] [address] [place] [address] Pharmacist1, [facility] [address] [address] 05/29/2024 8:30 AM EDT Office Visit Podiatry [address] [place] [phone] Lio Hairston, M [address] [place] [address] 06/26/2024 11:00 AM EDT Office Visit Dermatology, [address] [address] Jaja Perez PA-C [address] [place] [address] [place] [address] 07/23/2024 8:00 AM EDT Office Visit Cardiology, [facility] [address] [place] [address] Jasmin Ferrer PA-C [address] [place] [address] 08/13/2024 8:30 AM EDT Hospital Encounter ENDO OSS, Endoscopy Room [facility] [address] [place] [address] Justin Son MD [address] [place] [address] 08/13/2024 8:30 AM EDT - 08/13/2024 9:00 AM EDT Surgery ENDO OSS, Endoscopy Room [facility] [address] [place] [phone] Justin Son MD [address] [place] [address] COLONOSCOPY FLEXIBLE PROXIMAL DIAGNOSTIC Scheduled Orders Name Type Priority Associated Diagnoses Orde r Schedule PT INR Lab Routine Factor V deficiency, congenital (HCC) ABNORMAL COAGULATION PROFILE History of pulmonary embolus (PE) Anticoagulation management encounter 26 Occurrences starting 04/02/2024 until 04/02/2025 INR FINGERSTICK, POINT OF CARE Point of Care Testing - Unsolicited Results STAT Factor V deficiency, congenital (HCC) ABNORMAL COAGULATION PROFILE History of pulmonary embolus (PE) Anticoagulation management encounter Every 2 Weeks for 26 Occurrences starting 04/02/2024 until 04/02/2025, 1 completed Scheduled Procedures Name Priority Associated Diagnoses Date/Ti me COLONOSCOPY FLEXIBLE PROXIMAL DIAGNOSTIC Recall History of colon polyps 08/13/2024 8:30 AM EDT Health Maintenance Due Date Last Done Comments DISCUSS TOBACCO CESSATION (REFER TO SMARTSET #1941) 1945 COVID-19 Vaccine ( season) 2023 09/25/2021, 01/10/2021, 12/13/2020 Albumin/Creatinine Ratio 09/14/2023 09/14/2022, 06/0 12/2021 Colonoscopy 01/26/2024 01/25/2019, 12/30, 11/30/2010 HbA1c 04/17/2024 10/17/2023, 06/0 02/2023, 09/14/2022, Additional history exists Diabetic Foot Exam 05/09/2024 05/09/2023, 0 04/02/2022, 11/21/2020, Additional history exists Diabetic Eye Exam 10/17/2024 10/17/2023, , 10/23/2019 GFR 10/17/2024 10/17/2023, 06/0 02/2023, 09/14/2022, Additional history exists Depression Screening 11/07/2024 11/07/2023 O2 ASSESSMENT COMPLETED IN PAST YEAR FOR COPD 01/22/2025 01/23/2024 DTaP,Tdap,and Td Vaccines (3 - Td or Tdap) 01/22/2034 01/23/2024, 02/12/2013, 06/25/2003 Pneumococcal Vaccine: 65+ Years Completed 08/17/2017, 02/04/2016, 04/03/2007 RETIRED - COLONOSCOPY-EVERY 5 YRS AGES 18-100 Discontinued 01/25/2019, 01/25/2019, 11/30/2010 Zoster Vaccines Completed 07/17/2020, 0710/2019, 03/10/2020 Alpha-1 Antitrypsin Completed 04/16/2022 Influenza Vaccine (FLU shot) Completed 08/22/2023, 10/05/2022, 09/23/2021, Additional history exists GARDASIL-HPV IMMUNIZATION SERIES Aged Out No longer eligible based on patient's age to complete this topic Hepatitis B Aged Out No longer eligi ble based on patient's age to complete this topic MENINGOCOCCAL (MENACTRA/MENVEO) Aged Out No longer eligible based on patient's age to complete this topic documented as of this encounter Medical Devices Implanted Type Area Jig Maker Device Identifier Shelf Expiration Date Model / Serial / Lot Cable/Short Gtr 2232-02-16 - [id number] Implanted:Qty: 1 on 05/08/2021 [place] Asc[place] [facility] [place]: Leg Upper [employer] 03/01/2031-18 / / [id number] Cable/Sle Beaded D/M 20 Vit - [id number] Implanted:Qty: 1 on 05/08/2021 by Graham Ascencio [place] [facility] [place]: Leg Upper YUE : ORTHOPAEDICS 11/16/2025 6704-0-520 / / [id number] 15mm 150mm Sts Distal Stem Implanted:Qty: 1 on 05/08/2021 by Graham Ascencio [place] [facility] [place]: Leg Upper [employer] : ORTHOPEDICS 04/02/2030-169311 / / [id number] High Offset Cone Proximal Body Implanted:Qty: 1 on 05/08/2021 by Graham Ascencio [place] [facility] [place]: Leg Upper BIOMET : ORTHOPEDICS 07/08/2030-332453 / / [id number] Cable/Short Gtr 2232-02-16 - [id number] Implanted:Qty: 1 on 05/08/2021 by Graham Ascencio [place] [facility] [place]: Leg Upper [employer] 01/27/2031 4-18 / / [id number] Head Bioloxd Option 36mm - [id number] Implanted:Qty: 1 on 05/08/2021 by Graham Ascencio [place] [facility] [place]: Leg Upper [employer] 08/21/2030 650-1057 / / [id number] Hip Fmrl Insert Ceropt Sleve-6 - [id number] Implanted:Qty: 1 on 05/08/2021 by Graham Ascencio [place] [facility] [place]: Leg Upper [employer] 11/20/2030 650-1064 / / [id number] Cable/Short Gtr 2232-02-16 - [id number] Implanted:Qty: 1 on 05/08/2021 by Graham Ascencio [place] [facility] [place]: Leg Upper [employer] 01/27/2031 4-18 / / [id number] Cable/Short Gtr 2232-02-16 - [id number] Implanted:Qty: 1 on 05/08/2021 by Graham Ascencio [place] [facility] [place]: Leg Upper [employer] 01/20/2031 4-18 / / [id number] Cable/Sle Beaded D/M 20 Vit - [id number] Implanted:Qty: 1 on 05/08/2021 by Graham Ascencio [place] [facility] [place]: Leg Upper YUE : ORTHOPAEDICS 11/30/2025 6704-0-520 / / [id number] documented as of this encounter Procedures Procedure Name Priority Date/Time Associated Diagnosis Comments INR FINGERSTICK, POINT OF CARE STAT 04/02/2024 8:39 AM EDT Factor V deficiency, congenital (HCC) ABNORMAL COAGULATION PROFILE History of pulmonary embolus (PE) Anticoagulation management encounter documented in this encounter Results * INR FINGERSTICK, POINT OF CARE (04/02/2024 8:39 AM EDT) Fingerstick INR 3.6 INR 8:45 AM EDT [facility] 60-86 Blood 04/02/2024 8:39 AM EDT 04/02/2024 8:45 AM EDT Narrative NATALEE NARVAEZ 60-86 - 04/02/2024 8:45 AM EDT Therapeutic ranges for non-operative patients: Prophylaxsis/treatment of DVT: (Range:2.0-3.0) Treatment of pulmonary embolism:(Range:2.0-3.0) Prevention of systemic embolism from: -tissue heart valves -acute myocardial infarction -valvular heart disease -atrial fibrillation (Range: 2.0-3.0) Mechanical prosthetic valves: (Range: 2.5-3.5) Chrissy Maxwell [facility] POINT OF CAR E TEST DOCKED DEVICE UNSOLICITED RESULTS NATALEE NARVAEZ 60-[address] [place] [address], [facility] documented in this encounter Visit Diagnoses Diagnosis [...] and were consensually agreed upon. Care Teams Application Architect Relationship Specialty Start Date End Date Jake Green DO [address] [place] [address] PCP - General Internal Medicine 09/16/21 documented as of this encounter"
--- OUTSIDE RECORDS SUMMARY | 2024-06-09 17:47 | External Medical Summary | Summary of Care ---
Author Name Unknown Organization [facility] Address [address] [place] [address] Phone [phone] Care Team Providers Care Rail Car Loader Name Role Phone Jake Gomez DO Primary Care Provid er Reason for Referral * Ancillary Services (Within 10 days (routine)) - Pending Review Specialty Diagnoses / Procedures Referred By Lorenzo guzman Referred To Contact Gastroenterology Diagnoses Colon cancer screening Jake Gomez DO [address] [place] [address] [address] Referral ID Status Reason Start Date Expiration Date Visits Requested Visits Authorized [id number] Pending Review Ancillary Services Required 02/28/[phone] Question Answer Referral Priority Within 10 days (routine) Where should this appointment be scheduled? [facility] Comments ALERT: Do not order for pediatric patients (18 years or younger). Cancel off screen and order PEDS GASTROENTEROLOGY CONSULT (Type: 1 visit only-Evaluate and Treat) The following Pt. Instructions are available: - Gastro Colonoscopy Prep Instructions [16811] - Gastro Colonoscopy Prep Instructions (Latvian Version) [91823] Go to the Pt. Instructions section within the Visit Navigator to access. Colonoscopy ASGE Guidelines: Average risk screening (begin at age 50, 10 year intervals) ADDITIONAL INFORMATION 1. Is the patient on Coumadin? Yes--Coumadin can be stopped for 5 days 2. Is the patient on Pradaxa? No Reason for Visit * Reason Onset Date Comments Appointment 02/27/2024 Encounter Details Date Type Department Care Team (Late st Contact Info) Description 02/27/2024 Telephone Gastroenterology, [facility] [address] [place] [address] Services, Scheduling [address] [facility] [place] [address] Appointment Allergies Active Allergy Reactions Criticality Noted Date Comments Moxifloxacin Hcl In Nacl Itching,Nausea/vomit ing High 07/08/2012 20 minutes after first dose, hands itchy, head itchy, started vomiting documented as of this encounter (statuses as of 02/28/2024) Medications Medication Sig Dispensed Refills Start Date End Date Status pyridOXINE (VITAMIN B-6) 100 MG Tablet Take 1 Tablet by mouth in the morning. 0 Active Cyanocobalamin 1000 MCG CAPS Take 1 Capsule by mouth in the morning. 0 Active fluticasone (FLONASE) 50 MCG/ACT nasal sprayIndications:Al lergic rhinitis due to pollen, unspecified seasonality Administer 2 sprays each nostril every 12 hrs x 2 weeks, then 2 spray each nostril before bedtime; preceded by saline rinse 1 Bottle 5 12/12/2018 Active CPAP every night at bedtime. 0 Active Aspirin EC 81 MG Oral Tablet Delayed Release Take 1 Tab by mouth daily. 30 Tab 3 05/18/2021 Active Folic Acid 1 MG Oral Tablet Take 1 Tablet by mouth in the morning. 0 Active Nitroglycerin 0.4 MG Sublingual Tablet Sublingual [...] THURS AND FRID AND 2 TABS ON TUES & SAT 108 Tablet 4 04/04/2023 Active Cyclobenzaprine HCl 10 MG Oral Tablet (Flexeril)Indicatio ns:Acute left-sided low back pain without sciatica Take 1 Tablet by mouth every 8 hours as needed for Muscle spasms. 30 Tablet 0 04/18/2023 Active Isosorbide Mononitrate ER 60 MG [...] Oral Tablet (Benicar)Indication s:Coronary artery disease involving [place] coronary artery of sk[place] heart without angina pectoris,HTN, goal below 140/90 [...] HTN, goal below 140/90,Coronary artery disease involving [place] coronary artery of [place] heart without angina pectoris TAKE 1 TABLET BY MOUTH EVERY DAY IN THE MORNING 90 Tablet 3 02/22/2024 Active documented as of this encounter (statuses as of 02/28/2024) Active Problems Problem Noted Date Diagnosed Date [...] tachycardia 03/13/2019 Coronary artery disease invo lving [place] coronary artery of [place] heart without angina pectoris 03/13/2019 History of pulmonary embolus (PE) 12/02/2017 DNR (do not resuscitate) 11/27/2017 emt intermediate current use of anticoagulant therapy 0 11/22/2017 Overview: ICD-10 update of inactive term Impaired mobility and ADLs 11/22/2017 HTN, goal below 140/90 08/16/2016 S/P angioplasty with stent 04/30/2011 Overview: BMS to RCA 04/08/11 Hyperlipidemia associated with type 2 diabetes m leandro 10/15/2009 Overview: Per Lipid Taxonomy. ABNORMAL COAGULATION PROFILE 10/16/2002 Overview: Factor V OSTEOARTHROS NOS-PELVIS Adjustment disorder with depressed mood Factor V deficiency, congenital documented as of this encounter (statuses as of 02/28/2024) Resolved Problems Problem Noted Date Diagnosed Date Resolved Date Orthostatic lightheadedness 05/10/2021 04/02/2022 Postoperative anemia due to acute blood loss 04/02/2022 COPD, group B, by GOLD 2017 classification 02/09/2021 04/02/2022 Overview: Per COPD GOLD Classification Coronary artery disease invo lving [place] coronary artery of sk[place] heart with angina pectoris 11/21/2020 04/28/2021 Morbid obesity 01/01/2020 05/14/2021 Overview: Per Obesity protocol Prediabetes 12/11/2018 04/11/2019 Overview: Per Prediabetes protocol #1 Hematoma of right lower extremity 11/22/2017 10/23/2019 Fall at home 11/22/2017 03/13/2019 History of factor V Leiden mutation 11/22/2017 10/23/2019 Gait abnormality 11/22/2017 04/02/2022 [facility] resident 11/22/20172017 OBESITY, BMI 30-34 (SEE ACTUAL [...] 10/19/2004 08/17/2017 Overview: TREATED 1 YEAR IN [facility] ICD-10 update of inactive term IMPOTENCE, ORGANIC [...] as of this encounter (statuses as of 02/28/2024) Immunizations Name Administration Dates Next Due COVID-19 [...] Influenza, Split, I IV3, With Preserve, Inj 06/27/2015,08/08/2014,09/03/2013,100 10/2011,07/19/2011,09/14/2010,10/03/20 09,09/30/2008,09/11/2007,09/19/2006,1 11/23/2002,09/06/2002 09/23/2004 Seasonal Influenza, Trivalen t, Adjuvanted, 65+ yrs 07/17/2020,07/17/2019 TD - Tetanus/Diptheria (ADULT) 06/25/2003 TDAP (age 10 and older)(Boostrix) 01/23/2024, TDAP (age 11 and older)(Adacel) 10/03/2009(Defer red: Patient Refused) Zoster Vaccine Recombinant (Shingrix) 07/17/2020 [...] encounter Miscellaneous Notes * Telephone Encounter - Katherin Fontanez OSA - 02/28/2024 1:55 PM EDT Pt is scheduled on 08/13/24 for a colonoscopy. * Addendum Note - Jake Gomez DO - 02/28/2024 10:32 AM EDT Addended by: JAKE GOMEZ on: 02/28/2024 10:32 AM Modules accepted: Orders * Telephone Encounter - Jake Gomez DO - 02/28/2024 10:32 AM EDT Colonoscopy referral placed * Telephone Encounter - Katherin Fontanez OSA - 02/28/2024 9:34 AM EDT I don't have an order for a colonoscopy. Can't find it in the chart. * Telephone Encounter - Damaris Ervin OSA - 02/28/2024 9:16 AM EDT Please assist with scheduling dwain, pt stopped into his PCP's office looking to schedule colonoscopy. Pt states its ok to reach him at [phone] & is ok to leave voicemail with callback number. Pt also states he would prefer Mondays if possible for scheduling. Thank you * Telephone Encounter - Karen Hunter OSA - 02/27/2024 12:30 PM EDT Please give him a call to schedule a colonoscopy,I tried the office no answer documented in this encounter Plan of Treatment Upcoming Encounters Date Type Department Care Team (Latest Contact Info) Description 04/02/2024 8:20 AM EDT Anticoagulation Pharmacy [address] [phone] Pharmacist, [facility] [address] [place] [address] 05/07/2024 3:40 PM EDT Office Visit General Internal Medicine [facility] [place] [address] [facility] [address] Norma Jake Schwarz, DO [address] [place] [address] 05/29/2024 8:30 AM EDT Office Visit Podiatry [facility] [place] [address] [facility] [address] [place] [address] Lio Hairston, M [address] [place] [address] 06/26/2024 11:00 AM EDT Office Visit Dermatology, [address] [address] Jaja Perez, [place] [address] [place] [address] [place] [address] 07/23/2024 8:00 AM EDT Office Visit Cardiology, [facility] [address] [place] [address] Jasmin Ferrer PA-C [address] [place] [address] 08/13/2024 8:30 AM EDT Hospital Encounter ENDO OSSC, Endoscopy Room [facility] [address] [place] [phone] Justin Son MD [address] [place] [address] 08/13/2024 8:30 AM EDT - 08/13/2024 9:00 AM EDT Surgery ENDO OSSC, Endoscopy Room [facility] [address] [place] [phone] Justin Son MD [address] [place] [address] COLONOSCOPY FLEXIBLE PROXIMAL DIAGNOSTIC Scheduled Procedures Name Priority Associated Diagnoses Date/Ti me COLONOSCOPY FLEXIBLE PROXIMAL DIAGNOSTIC Recall History of colon polyps 08/13/2024 8:30 AM EDT Scheduled Referrals Name Type Priority Associated Diagnoses Orde r Schedule COLONOSCOPY, GI REFERRAL OP Referral Within 10 days (routine) Colon cancer screening Ordered: 02/28/2024 Health Maintenance Due Date Last Done Comments DISCUSS TOBACCO CESSATION (REFER TO SMARTSET #1461) 1945 COVID-19 Vaccine ( season) 2023 09/25/2021, [...] 07/0 10/2019, 03/10/2020 Alpha-1 Antitrypsin Completed 04/16/2022 Influenza Vaccine [...] this encounter Medical Devices Implanted Type Area Equipment Services Associate Device Identifier Shelf Expiration Date Model / Serial / Lot Cable/Short Gtr 2232-02-16 - [id number] Implanted:Qty: 1 on 05/08/2021 by Graham Ascencio MD [place] [facility] [place] Right: Leg Upper [employer] 03/01/2031 4-18 / / [id number] Cable/Sle Beaded D/M 20 Vit - [id number] Implanted:Qty: 1 on 05/08/2021 by Graham Ascencio MD [place] [facility] [place] Right: Leg Upper YUE : ORTHOPAEDICS 11/16/2025 6704-0-520 / / [id number] 15mm 150mm Sts Distal Stem Implanted:Qty: 1 on 05/08/2021 by Graham Ascencio MD [place] [facility] [place] Right: Leg Upper [employer] : ORTHOPEDICS 04/02/2030 11-197670 / / [id number] High Offset Cone Proximal Body Implanted:Qty: 1 on 05/08/2021 by Graham Ascencio MD [place] [facility] [place] Right: Leg Upper [employer] : ORTHOPEDICS 07/08/2030 11-612784 / / [id number] Cable/Short Gtr 2232-02-16 - [id number] Implanted:Qty: 1 on 05/08/2021 by Graham Ascencio MD [place] [facility] [place] Right: Leg Upper [employer] 01/27/2031 4-18 / / [id number] Head Bioloxd Option 36mm - [id number] Implanted:Qty: 1 on 05/08/2021 by Graham Ascencio MD [place] [facility] [place] Right: Leg Upper [employer] 08/21/2030 650-1057 / / [id number] Hip Fmrl Insert Ceropt Sleve-6 - [id number] Implanted:Qty: 1 on 05/08/2021 by Graham Ascencio MD [place] [facility] [place] Right: Leg Upper [employer] 11/20/2030 650-1064 / / [id number] Cable/Short Gtr 2232-02-16 - [id number] Implanted:Qty: 1 on 05/08/2021 by Graham Ascencio MD [place] [facility] [place] Right: Leg Upper [employer] 01/27/2031 4-18 / / [id number] Cable/Short Gtr 2232-02-16 - [id number] Implanted:Qty: 1 on 05/08/2021 by Graham Ascencio MD [place] [facility] [place] Right: Leg Upper [employer] 01/20/2031 4-18 / / [id number] Cable/Sle Beaded D/M 20 Vit - [id number] Implanted:Qty: 1 on 05/08/2021 by Graham Ascencio MD [place] [facility] [place] Right: Leg Upper YUE : ORTHOPAEDICS 11/30/2025 6704-0-520 / / [id number] documented as of this encounter Visit Diagnoses Diagnosis Colon cancer screening- Primary Special screening for malignant neoplasms, colon History of colon polyps Personal history of colonic polyps documented in this encounter Advance Directives Latest Code Status on File Code Status Date Activated Date Inactivated Comments Full Code 06/02/2021 1:31 PM 06/03/2021 3:24 PM This or pippa reflects the patients wishes and were consensually agreed upon. Code Status History Code Status Date Activated Date Inactivated Comments Full Code 05/08/2021 4:51 PM 05/18/2021 7:50 PM This o rder reflects the patients wishes and were consensually agreed upon. Full Code 04/07/2021 12:54 PM 04/07/2021 5:58 PM This o rder reflects the patients wishes and were consensually agreed upon. Care Teams Rail Car Loader Relationship Specialty Start Date End Date Jake Gomez DO [address] [place] [id number] PCP - General Internal Medicine 09/16/21 documented as of this encounter
--- OUTSIDE RECORDS SUMMARY | 2024-06-09 17:47 | External Medical Summary | Summary of Care ---
Author Name Unknown Organization [facility] Address [address] [place] [address] Phone [phone] Care Team Providers Care Document Scanner Name Role Phone Jake Gomez DO Primary Care Provid er Reason for Visit * Reason Comments eRx-Medication Refill Encounter Details Date Type Department Care Team ([facility] Contact Info) Description 04/30/2024 [address]ill [address] [phone] Jake Gomez DO [address] [place] [id number] Factor V deficiency, congenital (HCC); History of pulmonary embolus (PE) Allergies Active Allergy Reactions Criticality Noted Date Comments Moxifloxacin Hcl In Nacl Itching,Nausea/vomit ing High 07/08/2012 20 minutes after first dose, hands itchy, head itchy, started vomiting documented as of this encounter (statuses as of 04/30/2024) Medications Medication Sig Dispensed Refills Start Date End Date Status pyridOXINE (VITAMIN B-6) 100 MG Tablet Take 1 Tablet by mouth in the morning. Active Cyanocobalamin 1000 MCG CAPS Take 1 Capsule by mouth in the morning. Active fluticasone (FLONASE) 50 MCG/ACT nasal sprayIndications :Allergic rhinitis due to pollen, unspecified seasonality Administer [...] Active Nitroglycerin 0.4 MG Sublingual Tablet Sublingual (Nitrostat)Indic ations:Chronic coronary artery disease 1 tab under tongue as needed for chest pain, no more than 3 tabs in 15 minutes 25 Tablet 5 03/15/2022 Active Additional Information Patient not taking.Reported on 04/24/2024 Cyclobenzaprine HCl 10 MG Oral Tablet (Flexeril)Indica tions:Acute left-sided low back pain without sciatica Take 1 Tablet by mouth every 8 hours as needed for Muscle spasms. 30 Tablet 04/18/2023 Active Isosorbide Mononitrate ER 60 MG Oral Tablet Extended Release 24 Hour (Imdur)Indicatio ns:Chronic coronary artery disease,Stable angina (HCC),HTN, goal below 140/90 TAKE 1 TABLET BY MOUTH EVERY DAY 90 Tablet 3 06/28/2023 Active Esomeprazole Magnesium 40 MG Oral Capsule Delayed Release TAKE 1 CAPSULE BY MOUTH EVERY MORNING 90 Capsule 2 11/01/2023 Active Atorvastatin Calcium 80 MG Oral Tablet (Lipitor)Indicat ions:Dyslipidemi a, goal LDL below 70 TAKE 1 TABLET BY MOUTH EVERY DAY IN THE MORNING 90 Tablet 3 11/02/2023 Active Ezetimibe 10 MG Oral Tablet (Zetia)Indicatio ns:Dyslipidemia, goal LDL below 70 TAKE 1 TABLET BY MOUTH EVERY DAY 90 Tablet 3 01/23/2024 Active Olmesartan Medoxomil 5 MG Oral Tablet (Benicar)Indicat ions:Coronary artery disease involving [place] coronary artery of [place] heart without angina pectoris,HTN, goal below 140/90 TAKE 1 TABLET BY MOUTH TWICE A DAY 180 Tablet 3 01/23/2024 Active Carvedilol 25 MG Oral Tablet (Coreg)Indicatio ns:Hypertension associated with type 2 diabetes mellitus (HCC),HTN, goal below 140/90,S/P angioplasty with stent TAKE 1 TABLET BY MOUTH TWICE A DAY 180 Tablet 3 02/22/2024 Active Furosemide 20 MG Oral Tablet (Lasix)Indicatio ns:HTN, goal below 140/90,Coronary artery disease involving [place] coronary artery of [place] heart without angina pectoris TAKE 1 TABLET BY MOUTH EVERY DAY IN THE MORNING 90 Tablet 3 02/22/2024 Active Warfarin Sodium 2 MG Oral Tablet (Coumadin)Indica tions:Anticoagul ation management encounter TAKE 1 TABLET BY MOUTH WITH 1 MG DOSE ON TUE,TUE,, , TUESDAY and Tuesday AND 2 TABS ON Tuesday (4mg Tuesday and 3mg all other days - 1mg and 2mg tablets) 120 Tablet 3 04/23/2024 Active predniSONE 10 MG Oral Tablet (Deltasone)Indic ations:Strain of lumbar region, initial encounter Take 1 Tablet by mouth daily for 5 days, THEN 0.5 Tablets daily for 5 days. As directed. 8 Tablet 04/24/2024 4 Active tiZANidine HCl 4 MG Oral Capsule (Zanaflex)Indica tions:Strain of lumbar region, initial encounter Take 1 Capsule by mouth 3 times a day as needed for Muscle spasms. 30 Capsule 1 04/24/2024 Active Warfarin Sodium 1 MG Oral Tablet (Coumadin)Indica tions:Factor V deficiency, congenital (HCC),History of pulmonary embolus (PE) Take 1-2 Tablets by mouth in the morning. As directed by anticoag clinic (4mg Tuesday and 3mg all other days - 1mg and 2mg tablets). 180 Tablet 3 04/30/2024 Active Warfarin Sodium 1 MG Oral Tablet (Coumadin)Indica tions:Factor V deficiency, congenital (HCC),History of pulmonary embolus (PE) TAKE 1-2 TABLETS BY MOUTH DAILY. DIRECTED BY ANTICOAG CLINIC 180 Tablet 3 04/04/2023 4 Discontinued documented as of this encounter (statuses as of 04/30/2024) Active Problems Problem Noted Date Diagnosed Date [...] tachycardia 03/13/2019 Coronary artery disease invo lving [place] coronary artery of [place] heart without angina pectoris 03/13/2019 History of pulmonary embolus (PE) 12/02/2017 DNR (do not resuscitate) 11/27/2017 [facility] current use of anticoagulant therapy 0 11/22/2017 [...] as of this encounter (statuses as of 04/30/2024) Resolved Problems Problem Noted Date Diagnosed Date Resolved Date Orthostatic lightheadedness 05/10/2021 04/02/2022 Postoperative anemia due to acute blood loss 1 04/02/2022 COPD, group B, by GOLD 2017 classification 02/09/2021 04/02/2022 Overview: Per COPD GOLD Classification Coronary artery disease invo lving [place] coronary artery of [place] heart with angina pectoris 11/21/2020 04/28/2021 Morbid [...] 10/19/2004 08/17/2017 Overview: TREATED 1 YEAR IN [facility] ICD-10 update of inactive term IMPOTENCE, [...] as of this encounter (statuses as of 04/30/2024) Immunizations Name Administration Dates Next Due COVID-19 mRNA, LNP-s, No Pre serve, 2-Dose Series (Pepperdata) 09/25/2021,01/10/2021,12/13/2020 Pneumococcal Conjugate Vacc, 13 Valent (Prevnar) [...] encounter Miscellaneous Notes * Telephone Encounter - Cathy Lara RPh - 04/30/2024 2:37 PM EDT Signed Prescriptions: Disp Refills Warfarin Sodium 1 MG Oral Tablet (Coumadin)180 Ta*3 Sig: Take 1-2 Tablets by mouth in the morning. As directed by anticoag clinic (4mg Tuesday and 3mg all other days - 1mg and 2mg tablets).Authorizing Provider: JAKE GOMEZ User: CATHY LARA documented in this encounter Plan of Treatment Upcoming Encounters Date Type Department Care Team (Latest Contact Info) Description 05/07/2024 3:40 PM EDT Office Visit General Internal Medicine [facility] [place] [address] [place] [address] Jake Gomez DO [address] [place] [address] 05/14/2024 9:40 AM EDT Anticoagulation Pharmacy [facility] [address] [place] [phone] Pharmacist1, [facility] [address] [place] [address] 05/29/2024 8:30 AM EDT Office Visit Podiatry [facility] [address] [facility] [address] [place] [phone] Lio Hairston, [facility] [address] [place] [address] 06/26/2024 11:00 AM EDT Office Visit Dermatology, [address] [address] Jaja Perez, PAAury [address] [place] [address] [place] [address] 07/23/2024 8:00 AM EDT Office Visit Cardiology, [facility] [address] [place] [address] Jasmin Ferrer PA-C [address] [place] [address] 08/13/2024 8:30 AM EDT Hospital Encounter ENDO [facility], Endoscopy Room [facility] [address] [place] [phone] Justin Son MD [address] [place] [address] 08/13/2024 8:30 AM EDT - 08/13/2024 9:00 AM EDT Surgery ENDO [facility], Endoscopy Room [facility] [address] [place] [phone] Justin Son MD [address] [place] [address] COLONOSCOPY FLEXIBLE PROXIMAL DIAGNOSTIC Scheduled Procedures Name Priority Associated Diagnoses Date/Ti me COLONOSCOPY FLEXIBLE PROXIMAL DIAGNOSTIC Recall History of colon polyps 08/13/2024 8:30 AM EDT Health Maintenance Due Date Last Done Comments DISCUSS TOBACCO CESSATION (REFER TO SMARTSET #3294) 1945 COVID-19 Vaccine ( season) 2023 09/25/2021, [...] 01/25/2019, 01/25/2019, 11/30/2010 Zoster Vaccines Completed 07/17/2020, 0 10/2019, 03/10/2020 Alpha-1 Antitrypsin Completed 04/16/2022 GARDASIL-HPV IMMUNIZATION SERIES Aged Out No longer eligible based on patient's age to complete this topic Hepatitis B Aged Out No longer eligi ble based on patient's age to complete this topic MENINGOCOCCAL (MENACTRA/MENVEO) Aged Out No longer eligible based on patient's age to complete this topic documented as of this encounter Medical Devices Implanted Type Area Grain Roaster Device Identifier Shelf Expiration Date Model / Serial / Lot Cable/Short Gtr 2232-02-16 - [id number] Implanted:Qty: 1 on 05/08/2021 by Graham Ascencio MD at OR [facility] Right: Leg Upper [employer] 03/01/2031 4-18 / / [id number] Cable/Sle Beaded D/M 20 Vit - [id number] Implanted:Qty: 1 on 05/08/2021 by Graham Ascencio MD at OR [facility] Right: Leg Upper YUE : ORTHOPAEDICS 11/16/2025 6704-0-520 / / [id number] 15mm 150mm Sts Distal Stem Implanted:Qty: 1 on 05/08/2021 by Graham Ascencio MD at OR [facility] Right: Leg Upper [employer] : ORTHOPEDICS 04/02/2030 [id number] / / [id number] High Offset Cone Proximal Body Implanted:Qty: 1 on 05/08/2021 by Graham Ascencio MD at OR [facility] Right: Leg Upper [employer] : ORTHOPEDICS 07/08/2030 [id number] / / [id number] Cable/Short Gtr 2232-02-16 - [id number] Implanted:Qty: 1 on 05/08/2021 by Graham Ascencio MD at OR [facility] Right: Leg Upper [employer] 01/27/2031 4-18 / / [id number] Head Bioloxd Option 36mm - [id number] Implanted:Qty: 1 on 05/08/2021 by Graham Ascencio MD at OR [facility] Right: Leg Upper [employer] 08/21/2030 650-1057 / / [id number] Hip Fmrl Insert Ceropt Sleve-6 - [id number] Implanted:Qty: 1 on 05/08/2021 by Graham Ascencio MD at OR [facility] Right: Leg Upper [employer] 11/20/2030 650-1064 / / [id number] Cable/Short Gtr 2232-02-16 - [id number] Implanted:Qty: 1 on 05/08/2021 by Graham Ascencio MD at OR [facility] Right: Leg Upper [employer] 01/27/2031 4-18 / / [id number] Cable/Short Gtr 2232-02-16 [id number] Implanted:Qty: 1 on 05/08/2021 by Graham Ascencio MD at OR [facility] Right: Leg Upper [employer] 01/20/2031 4-18 / / [id number] Cable/Sle Beaded D/M 20 Vit - [id number] Implanted:Qty: 1 on 05/08/2021 by Graham Ascencio MD at OR [facility] Right: Leg Upper YUE : ORTHOPAEDICS 11/30/2025 6704-0-520 / / [id number] documented as of this encounter Visit Diagnoses Diagnosis Factor V deficiency, 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 Care Teams Document Scanner Relationship Specialty Start Date End Date Jake Gomez DO [address] [place] [id number] PCP - General Internal Medicine 09/16/21 documented as of this encounter
--- OUTSIDE RECORDS SUMMARY | 2024-06-09 17:47 | External Medical Summary ---
Author Name Unknown Address Unknown Organization : Laboratory Report Ordering Provider Test Date Status KWASI MAYROGA 04/02/2024 08:39:43 Final Therapeutic ranges for non-o perative patients:
Prophylaxsis/treatment of DVT: (Range:2.0-3.0)
Treatment of pulmonary embolism:(Range:2.0-3.0)
Prevention of systemic embolism from:
-tissue heart valves
-acute myocardial infarction
-valvular heart disease
-atrial fibrillation
(Range: 2.0-3.0)
Mechanical prosthetic valves: (Range: 2.5-3.5) Observation Date Value Abnormality Reference (Units ) Status INR in Capillary blood by Coagulation assay 04/02/2024 08:39:43 3.6 (INR) Final Performing Location
--- OUTSIDE RECORDS SUMMARY | 2024-06-09 17:47 | External Medical Summary | Summary of Care ---
Author Name Unknown Organization [facility] Address [address] [place] [address] Phone [phone] Care Team Providers Care Bariatric Program Coordinator Name Role Phone Jake Green DO Primary Care Provid er Reason for Visit * Reason Comments Dosage Adjustment In Person (Anticoag Cl inic) Encounter Details Date Type Department Care Team (Latest Contact Info) Description 02/28/2024 8:50 AM EDT Anticoagulation Pharmacy [address] [phone] Pharmacist1, [facility] [address] [address] Factor V deficiency, congenital (HCC)*; ABNORMAL COAGULATION PROFILE; History of pulmonary embolus (PE); Anticoagulation management encounter; 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 Allergies Active Allergy Reactions Criticality Noted Date [...] MOUTH WITH 1 MG DOSE ON SUN,MON,WED, AND TUED AND 2 TABS ON & SAT 108 [...] Oral Tablet (Benicar)Indication s:Coronary artery disease involving [place] coronary artery of [place] heart without angina pectoris,HTN, goal below 140/90 [...] HTN, goal below 140/90,Coronary artery disease involving [place] coronary artery of [place] heart without angina pectoris TAKE 1 TABLET [...] tachycardia 03/13/2019 Coronary artery disease invo lving [place] coronary artery of [place] heart without angina pectoris 03/13/2019 History of pulmonary embolus (PE) 12/02/2017 DNR (do not resuscitate) 11/27/2017 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 | : 1945 Subjective Patient-Reported Symptoms: Patient Findings Positives: Upcoming invasive procedure (Patient notes need for upcoming procedure with colonscopy, prefers at . Notes already calling and needing scheduled. Assisted with sending to [facility] for assistance [facility] scheduling.) Negatives: Signs/symptoms of thrombosis, Signs/symptoms of bleeding, Change in health, Change in alcohol use, Change in activity, Missed doses, Extra doses, Change in medications, Change in diet/appetite, Bruising Objective Current Warfarin Dose As of 02/28/2024 Warfarin maintenance plan: 4 mg (2 mg x 2) every Wed; 3 mg (2 mg x 1 and 1 mg x 1) all other days INR Result As of 02/28/2024 INR goal: 2.5-3.5 INR used for dosin.2 (02/28/2024) Assessment & Plan Warfarin Plan As of 02/28/2024 Full warfarin instructions: 4 mg every Wed; 3 mg all other days No change documented: Chrissy Maxwell RPh Next INR check: 04/03/2024 Repeat PT/INR in 5 week(s) Weekly dose: not changed Patient aware if procedure scheduled BEFORE next [facility] Appointment to reach out as Coumadin will need to be stopped, and bridge with Lovenox, etc. He is aware of this. Additional Dosing Information: Description Decreased dose when not having Whiskey 2mg TuTh and 3mg all other days Chrissy Maxwell [facility] Clinical Pharmacist 02/28/2024, 8:31 AM documented in this encounter Plan of Treatment Upcoming Encounters Date Type Department Care Team (Late st Contact Info) Description 04/02/2024 8:20 AM EDT Anticoagulation Pharmacy [facility] [address] [place] [phone] Pharmacist1, [facility] [place] [address] [place] [address] 05/07/2024 3:40 PM EDT Office Visit General Internal Medicine [facility] [address] [place] [address] Jake Green, [address] [address] 05/29/2024 8:30 AM EDT Office Visit Podiatry [facility] [address] [facility] [address] [place] [phone] Lio Hairston, [facility] [address] [place] [address] 06/26/2024 11:00 AM EDT Office Visit Dermatology, [address] [address] Jaja Perez PA-C [address] [place] [address] [place] [address] 07/23/2024 8:00 AM EDT Office Visit Cardiology, [facility] [address] [facility] [place] [address] Jasmin Ferrer PA-C [address] [place] [address] Scheduled Procedures Name Priority Associated Diagnoses Date/Ti me COLONOSCOPY FLEXIBLE PROXIMAL DIAGNOSTIC Recall History of colon polyps Health Maintenance Due Date Last Done Comments DISCUSS TOBACCO CESSATION (REFER TO SMARTSET #8414) 1945 COVID-19 Vaccine ( season) 2023 09/25/2021, [...] this encounter Medical Devices Implanted Type Area Photography Teacher Device Identifier Shelf Expiration Date Model / Serial / Lot Cable/Short Gtr 2232-02-16 - [id number] Implanted:Qty: 1 on 05/08/2021 by Graham Asc[place]io [place] [facility] [place]: Leg Upper [employer] 03/01/2031 4-18 / / [id number] Cable/Sle Beaded D/M 20 Vit - [id number] Implanted:Qty: 1 on 05/08/2021 by Graham Ascencio [place] [facility] [place]: Leg Upper YUE : ORTHOPAEDICS 11/16/2025 6704-0-520 / / [id number] 15mm 150mm Sts Distal Stem Implanted:Qty: 1 on 05/08/2021 by Graham Ascencio [place] [facility] [place]: Leg Upper [employer] : ORTHOPEDICS 04/02/2030 [id number] / / [id number] High Offset Cone Proximal Body Implanted:Qty: 1 on 05/08/2021 by Graham Ascencio [place] [facility] [place]: Leg Upper [employer] : ORTHOPEDICS 07/08/2030 [id number] / / [id number] Cable/Short Gtr 2232-02-16 - [id number] Implanted:Qty: 1 on 05/08/2021 by Graham Ascencio [place] [facility] [place]: Leg Upper [employer] 01/27/2031-18 / / [id number] Head Bioloxd Option 36mm - [id number] Implanted:Qty: 1 on 05/08/2021 by Graham Ascencio [place] [facility] [place]: Leg Upper [employer] 08/21/2030 650-1057 / / [id number] Hip Fmrl Insert Ceropt Sleve-6 - [id number] Implanted:Qty: 1 on 05/08/2021 by Graham Ascencio [place] [facility] [place]: Leg Upper [employer] 11/20/2030 650-1064 / / [id number] Cable/Short Gtr 2232-02-16 - [id number] Implanted:Qty: 1 on 05/08/2021 by Graham Ascencio [place] [facility] [place]: Leg Upper [employer] 01/27/2031 4-18 / / [id number] Cable/Short Gtr 2232-02-16 - [id number] Implanted:Qty: 1 on 05/08/2021 by Graham Ascencio MD [place] [facility] [place]: Leg Upper [employer] 01/20/2031-18 / [id number] Cable/Sle Beaded D/M 20 - [id number] Implanted:Qty: 1 on 05/08/2021 by Graham Ascencio MD [place] [facility] [place]: Leg Upper YUE : ORTHOPAEDICS 11/30/2025 6704-0-520 / / [id number] documented as of this encounter Procedures Procedure Name Priority Date/Time Associated Diagnosis Comments INR FINGERSTICK, POINT OF CARE STAT 02/28/2024 9:04 AM EDT Factor V deficiency, congenital (HCC) ABNORMAL COAGULATION PROFILE History of pulmonary embolus (PE) Anticoagulation management encounter 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 documented in this encounter Results * INR FINGERSTICK, POINT OF CARE (02/28/2024 9:04 AM EDT) Fingerstick INR 3.2 INR 9:17 AM EDT [facility]-86 Blood 02/28/2024 9:04 AM EDT 02/28/2024 9:17 AM EDT Narrative [facility] - 02/28/2024 9:17 AM EDT Therapeutic ranges for non-operative patients: Prophylaxsis/treatment of DVT: (Range:2.0-3.0) Treatment of pulmonary embolism:(Range:2.0-3.0) Prevention of systemic embolism from: -tissue heart valves -acute myocardial infarction -valvular heart disease -atrial fibrillation (Range: 2.0-3.0) Mechanical prosthetic valves: (Range: 2.5-3.5) Alexa Ella Wade [facility] LAB POINT OF C ARE TEST DOCKED DEVICE UNSOLICITED RESULTS [facility] [address] [place] [id number], [facility] documented in this encounter Visit Diagnoses Diagnosis Factor V deficiency, 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 Care Teams Bariatric Program Coordinator Relationship Specialty Start Date End Date Jake Green DO [address] [place] [address] PCP - General Internal Medicine 09/16/21 documented as of this encounter"
--- OUTSIDE RECORDS SUMMARY | 2024-06-09 17:47 | External Medical Summary | Summary of Care ---
Author Name Unknown Organization [facility] Address [address] [place] [address] Phone [phone] Care Team Providers Care Automotive Brake Technician Name Role Phone VeronicafrankJake DO Primary Care Provid er Reason for Visit * Reason Comments Back Pain Encounter Details Date Type Department Care Team ([facility] st Contact Info) Description 04/24/2024 9:40 AM EDT Office Visit [facility] [address] [place] [address] Chong Barnes PA-C [address] [place] [address] Strain of lumbar region, initial encounter* Allergies Active Allergy Reactions Criticality Noted Date Comments Moxifloxacin Hcl In Nacl Itching,Nausea/vomit ing High 07/08/2012 20 minutes after first dose, hands itchy, head itchy, started vomiting documented as of this encounter (statuses as of 04/24/2024) Medications Medication Sig Dispensed Refills Start Date [...] Additional Information Patient not taking.Reported on 04/24/2024 Warfarin Sodium 1 MG Oral Tablet (Coumadin)Indicati ons:Factor V deficiency, congenital (HCC),History of pulmonary embolus (PE) TAKE 1-2 TABLETS BY MOUTH DAILY. DIRECTED BY [facility] 180 Tablet 3 04/04/2023 Active Cyclobenzaprine HCl 10 MG Oral Tablet (Flexeril)Indicati [...] Oral Tablet (Benicar)Indicatio ns:Coronary artery disease involving apache coronary artery of apache heart without angina pectoris,HTN, goal below 140/90 [...] :HTN, goal below 140/90,Coronary artery disease involving apache coronary artery of apache heart without angina pectoris TAKE 1 TABLET [...] Muscle spasms. 30 Capsule 1 04/24/2024 Active documented as of this encounter (statuses as of 04/24/2024) Active Problems Problem Noted Date Diagnosed Date [...] tachycardia 03/13/2019 Coronary artery disease invo lving apache coronary artery of apache heart without angina pectoris 03/13/2019 History of pulmonary embolus (PE) 12/02/2017 DNR (do not resuscitate) 11/27/2017 [facility] current use of anticoagulant therapy 0 11/22/2017 [...] as of this encounter (statuses as of 04/24/2024) Resolved Problems Problem Noted Date Diagnosed Date Resolved Date Orthostatic lightheadedness 05/10/2021 04/02/2022 Postoperative anemia due to acute blood loss 04/02/2022 COPD, group B, by GOLD 2017 classification 02/09/2021 04/02/2022 Overview: Per COPD GOLD Classification Coronary artery disease invo lving apache coronary artery of apache heart with angina pectoris 11/21/2020 04/28/2021 Morbid [...] as of this encounter (statuses as of 04/24/2024) Immunizations Name Administration Dates Next Due COVID-19 mRNA, LNP-s, No Pre serve, 2-Dose Series (Roam & Wander) 09/25/2021,01/10/2021,12/13/2020 Pneumococcal Conjugate Vacc, 13 Valent (Prevnar) [...] Cigars Smokeless Tobacco: Former Chew Quit: 11/29/2008 Tobacco Cessation:Ready to Q uit: Not Asked; Counseling Given: Not Answered Comments:has 1 cigar 3-4 days a week Quit [...] Sign Reading Time Taken Comments Blood Pressure 112/60 04/24/2024 9:25 AM EDT Pulse 67 04/24/2024 9:25 AM EDT Temperature 36.9 C (98.5 F) 04/24/2024 9:25 AM ED T Respiratory Rate 18 04/24/2024 9:25 AM EDT Oxygen Saturation 96% 04/24/2024 9:25 AM EDT Inhaled Oxygen Concentration - - Weight 109.3 kg (241 lb) 04/24/2024 9:25 AM EDT Height - - Body Mass Index 38.9 01/23/2024 10:38 AM EDT documented in this [...] as of this encounter Progress Notes * Chong Barnes PA-C - 04/24/2024 9:33 AM EDT Images from the original note were not included. History of Present Illness Sohail Edwards Moiz Wolfe. is a 78 year old male that presents for Back Pain He presents today for back pain that started a little over a week ago after helping his son with his boat. He tells me he doesn't have a position that is comfortable. He has been taking Flexeril, andTylenol with limited relief. Physical Exam Vitals: 04/24/24 0925 Temp: 36.9 C (98.5 F) Pulse: 67 Resp: 18 SpO2: 96% BP: 112/60 SPINE EXAM: GENERAL: healthy, alert, no distress PALPATION: Patient tender over right lower back. STRENGTH: Lower Extremity: Gluteus Medius: R: Normal - 5; L: Normal - 5 Iliopsoas: R: Normal - 5; L: Normal - 5 Hamstrings: R: Normal - 5; L: Normal - 5 Quadriceps: R: Normal - 5; L: Normal - 5 Large toe extensor: R: Normal - 5; L: Normal - 5 Foot extensor: R: Normal - 5; L: Normal - 5 Plantar flexion: R: Normal - 5; L: Normal - 5 Assessment and Plan Strain of lumbar region, initial encounter Recommended Heat/Ice, stretching. - predniSONE 10 MG Oral Tablet (Deltasone); Take 1 Tablet by mouth daily for 5 days, THEN 0.5 Tablets daily for 5 days. As directed. - tiZANidine HCl 4 MG Oral Capsule (Zanaflex); Take 1 Capsule by mouth 3 times a day as needed for Muscle spasms. Wrap-Up Chong Barnes PA-C documented in this encounter Nursing Notes * Dimas Glasgow LPN - 04/24/2024 9:25 AM EDT The patient has been properly identified by confirmation of name and date of . Chief Complaint Patient presents with Back Pain Was helping his son with a boat on tuesday. documented in this encounter Plan of Treatment Upcoming Encounters Date Type Department Care Team (Latest Contact Info) Description 05/07/2024 3:40 PM EDT Office Visit General Internal Medicine [facility] [address] [place] [address] Jake Green, [address] [place] [address] 05/14/2024 9:40 AM EDT Anticoagulation Pharmacy [address] [address] Pharmacist1, [facility] [address] [address] 05/29/2024 8:30 AM EDT Office Visit Podiatry [address] [place] [address] [place] [phone] Lio Hairston, DPM [address] [place] [address] 06/26/2024 11:00 AM EDT Office Visit Dermatology, [address], [place] [address] Jaja Perez PA-C [address] [place] [address] [place] [address] 07/23/2024 8:00 AM EDT Office Visit Cardiology, [facility] [address] [place] [address] Jasmin Ferrer PA-C [address] [place] [address] 08/13/2024 8:30 AM EDT Hospital Encounter ENDO OSS, Endoscopy Room [facility] [address] [place] [phone] Justin Son MD [address] [place] [address] 08/13/2024 8:30 AM EDT - 08/13/2024 9:00 AM EDT Surgery ENDO OSS, Endoscopy Room [facility] [address] [place] [phone] Justin Son MD [address] [place] [address] COLONOSCOPY FLEXIBLE PROXIMAL DIAGNOSTIC Scheduled Procedures Name [...] 0 10/2019, 03/10/2020 Alpha-1 Antitrypsin Completed 04/16/2022 Influenza [...] this encounter Medical Devices Implanted Type Area Medical Education Coordinator Device Identifier Shelf Expiration Date Model / Serial / Lot Cable/Short Gtr 2232-02-16 - [id number] Implanted:Qty: 1 on 05/08/2021 by Graham Ascencio [place] [facility] [place]: Leg Upper [employer] 03/01/2031 4-18 / / [id number] Cable/Sle Beaded D/M 20 Vit - [id number] Implanted:Qty: 1 on 05/08/2021 by Graham Ascencio [place] [facility] [place]: Leg Upper YUE : ORTHOPAEDICS 11/16/2025 6704-0-520 / / [id number] 15mm 150mm Sts Distal Stem Implanted:Qty: 1 on 05/08/2021 by Graham Ascencio MD [place] [facility] [place]: Leg Upper BIOM[employer] : ORTHOPEDICS 04/02/2030 [id number] / / [id number] High Offset Cone Proximal Body Implanted:Qty: 1 on 05/08/2021 by Graham Ascencio MD [place] [facility] [place]: Leg Upper [employer]OM[employer] : ORTHOPEDICS 07/08/2030 11-189829 / / [id number] Cable/Short Gtr 2232-02-16 - [id number] Implanted:Qty: 1 on 05/08/2021 by Graham Ascencio MD [place] [facility] [place] Right: Leg Upper [employer] 01/27/2031- / / [id number] Head Bioloxd Option 36mm - [id number] Implanted:Qty: 1 on 05/08/2021 by Graham Ascencio MD [place] [facility] [place] Right: Leg Upper [employer] 08/21/2030 650-1057 / / [id number] Hip Fmrl Insert Ceropt Sleve-6 - [id number] Implanted:Qty: 1 on 05/08/2021 by Graham Ascencio MD [place] [facility] [place] Right: Leg Upper [employer] 11/20/2030 650-1064 / / [id number] Cable/Short Gtr 2232-02-16 - [id number] Implanted:Qty: 1 on 05/08/2021 by Graham Ascencio MD [place] [facility] [place] Right: Leg Upper [employer] 01/27/2031-18 / / [id number] Cable/Short Gtr 2232-02-16 - [id number] Implanted:Qty: 1 on 05/08/2021 by Graham Ascencio MD [place] [facility] [place] Right: Leg Upper [employer] 01/20/2031- / / [id number] Cable/Sle Beaded D/M 20 - [id number] Implanted:Qty: 1 on 05/08/2021 by Graham Ascencio MD [place] [facility] [place] Right: Leg Upper YUE : ORTHOPAEDICS 11/30/2025 6704-0-520 / / [id number] documented as of this encounter Visit Diagnoses Diagnosis Strain of lumbar region, initial encounter- Primary History of colon polyps Personal history of [...] and were consensually agreed upon. Care Teams Automotive Brake Technician Relationship Specialty Start Date End Date Jake Green DO [address] [place] [address] PCP - General Internal Medicine 09/16/21 documented as of this encounter
--- OUTSIDE RECORDS SUMMARY | 2024-06-09 17:47 | External Medical Summary ---
Author Name Unknown Address Unknown Organization : Laboratory Report Ordering Provider Test Date Status KATHERINE ALVAREZ 02/28/2024 09:04:43 Final Therapeutic ranges for non-o perative patients:
Prophylaxsis/treatment of DVT: (Range:2.0-3.0)
Treatment of pulmonary embolism:(Range:2.0-3.0)
Prevention of systemic embolism from:
-tissue heart valves
-acute myocardial infarction
-valvular heart disease
-atrial fibrillation
(Range: 2.0-3.0)
Mechanical prosthetic valves: (Range: 2.5-3.5) Observation Date Value Abnormality Reference (Units ) Status INR in Capillary blood by Coagulation assay 02/28/2024 09:04:43 3.2 (INR) Final Performing Location
--- OUTSIDE RECORDS SUMMARY | 2024-06-09 17:47 | External Medical Summary | Summary of Care ---
Author Name Unknown Organization [facility] Address [address] [place] [address] Phone [phone] Care Team Providers Care Canopy Stringer Name Role Phone Jake Green DO Primary Care Provid er Reason for Visit * Reason Onset Date Comments Appointment 02/27/2024 Encounter Details Date Type Department Care Team (Late st Contact Info) Description 02/27/2024 Telephone Gastroenterology, [facility] [address] [place] [address] Services, Scheduling [address] [place] [address] Appointment Allergies Active Allergy Reactions Criticality Noted [...] WITH 1 MG DOSE ON SUN,MON,WED, AND AND 2 TABS ON & SAT 108 [...] Oral Tablet (Benicar)Indication s:Coronary artery disease involving diomede coronary artery of diomede heart without angina pectoris,HTN, goal below 140/90 [...] HTN, goal below 140/90,Coronary artery disease involving diomede coronary artery of diomede heart without angina pectoris TAKE 1 TABLET [...] tachycardia 03/13/2019 Coronary artery disease invo lving diomede coronary artery of diomede heart without angina pectoris 03/13/2019 History of pulmonary embolus (PE) 12/02/2017 DNR (do not 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 0 [...] GOLD Classification Coronary artery disease invo lving diomede coronary artery of diomede heart with angina pectoris 11/21/2020 04/28/2021 Morbid obesity 01/01/2020 05/14/2021 Overview: Per Obesity protocol Prediabetes 12/11/2018 04/11/2019 Overview: Per Prediabetes protocol #1 Hematoma of right lower extremity 11/22/2017 10/23/2019 Fall at home 11/22/2017 03/13/2019 History of factor V Leiden mutation 11/22/2017 10/23/2019 Gait abnormality 11/22/2017 04/02/2022 correction resident 11/22/20172017 OBESITY, BMI 30-34 (SEE ACTUAL [...] 10/19/2004 08/17/2017 Overview: TREATED 1 YEAR IN [facility] ICD-10 update of inactive term IMPOTENCE, [...] mRNA, LNP-s, No Pre serve, 2-Dose Series (Behind the Burner) 09/25/2021,01/10/2021,12/13/2020 Pneumococcal Conjugate Vacc, 13 Valent (Prevnar) [...] states its ok to reach him at [phone] & is ok to leave voicemail with [...] Description 04/02/2024 8:20 AM EDT Anticoagulation Pharmacy [facility], [address] [phone] Pharmacist1, [facility] [address] [place] [address] 05/07/2024 3:40 PM EDT Office Visit General Internal Medicine [facility] Sig[facility] [place] [address] [place] [address] Norma Jake Schwarz, DO [address] [place] [address] 05/29/2024 8:30 AM EDT Office Visit Podiatry [facility] [address] [facility] [address] [place] [address] Lio Hairston, DPM [address] [place] [address] 06/26/2024 11:00 AM EDT Office Visit Dermatology, [address] [address] Jaja Perez, [place] [address] [place] [address] [place] [address] 07/23/2024 8:00 AM EDT Office Visit Cardiology, [facility] [address] [place] [address] Jasmin Ferrer PA-C [address] [place] [address] Scheduled Procedures Name Priority Associated Diagnoses Date/Ti me COLONOSCOPY FLEXIBLE PROXIMAL DIAGNOSTIC Recall History of colon polyps Health Maintenance Due Date Last Done Comments DISCUSS TOBACCO CESSATION (REFER TO SMARTSET #3291) 1945 COVID-19 Vaccine ( season) 2023 09/25/2021, 01/10/2021, 12/13/2020 Albumin/Creatinine Ratio 09/14/2023 09/14/2022, 060 12/2021 Colonoscopy 01/26/2024 01/25/2019, 12/30, 11/30/2010 HbA1c 04/17/2024 10/17/2023, 060 02/2023, 09/14/2022, Additional history exists Diabetic Foot Exam 05/09/2024 05/09/2023, 0 04/02/2022, 11/21/2020, Additional history exists Diabetic Eye Exam 10/17/2024 10/17/2023, , 10/23/2019 GFR 10/17/2024 10/17/2023, 02/2023, 09/14/2022, Additional history exists Depression Screening 11/07/2024 11/07/2023 O2 ASSESSMENT COMPLETED IN PAST YEAR FOR COPD 01/22/2025 01/23/2024 DTaP,Tdap,and Td Vaccines (3 - Td or Tdap) 01/22/2034 01/23/2024, 02/12/2013, 06/25/2003 Pneumococcal Vaccine: 65+ Years Completed 08/17/2017, 02/04/2016, 04/03/2007 RETIRED - COLONOSCOPY-EVERY 5 YRS AGES 18-100 Discontinued 01/25/2019, 01/25/2019, 11/30/2010 Zoster Vaccines Completed 07/17/2020, 10/2019, 03/10/2020 Alpha-1 Antitrypsin Completed 04/16/2022 Influenza [...] this encounter Medical Devices Implanted Type Area Crystal Slicer Device Identifier Shelf Expiration Date Model / Serial / Lot Cable/Short Gtr 2232-02-16 - [id number] Implanted:Qty: 1 on 05/08/2021 by Graham Ascencio [place] [facility] [place]: Leg Upper [employer] 03/01/2031-02-15 / / [id number] Cable/Sle Beaded D/M - [id number] Implanted:Qty: 1 on 05/08/2021 by Graham Ascencio MD [place] [facility] [place]: Leg Upper YUE : ORTHOPAEDICS 11/16/2025 6704-0-520 / / [id number] 15mm 150mm Sts Distal Stem Implanted:Qty: 1 on 05/08/2021 by Graham Ascencio MD [place] [facility] [place]: Leg Upper [employer] : ORTHOPEDICS 04/02/2030 [id number] / / [id number] High Offset Cone Proximal Body Implanted:Qty: 1 on 05/08/2021 by Graham Ascencio MD [place] [facility] [place]: Leg Upper [employer] : ORTHOPEDICS 07/08/2030 11-200317 / / [id number] Cable/Short Gtr 2232-02-16 - [id number] Implanted:Qty: 1 on 05/08/2021 by Graham Ascencio MD [place] [facility] [place]: Leg Upper [employer] 01/27/2031 4-18 / / [id number] Head Bioloxd Option 36mm - [id number] Implanted:Qty: 1 on 05/08/2021 by Graham Ascencio MD [place] [facility] [place] Right: Leg Upper [employer] 08/21/2030 650-1057 / / [id number] Hip Fmrl Insert Ceropt Sleve-6 - [id number] Implanted:Qty: 1 on 05/08/2021 by Graham Ascencio MD [place] [facility] [place]: Leg Upper [employer] 11/20/2030 650-1064 / / [id number] Cable/Short Gtr 2232-02-16 - [id number] Implanted:Qty: 1 on 05/08/2021 by Graham Ascencio MD [place] [facility] [place]: Leg Upper [employer] 01/27/2031 4-18 / / [id number] Cable/Short Gtr 2232-02-16 - [id number] Implanted:Qty: 1 on 05/08/2021 by Graham Ascencio MD [place] [facility] [place]: Leg Upper [employer] 01/20/2031 4-18 / / [id number] Cable/Sle Beaded D/M 20 Vit - [id number] Implanted:Qty: 1 on 05/08/2021 by Graham Ascencio MD at OR [facility] Right: Leg Upper YUE : ORTHOPAEDICS 11/30/2025 6704-0-520 / / [id number] documented as of this encounter Advance Directives Latest Code Status [...] and were consensually agreed upon. Care Teams Canopy Stringer Relationship Specialty Start Date End Date Jake Green DO [address] [place] [address] PCP - General Internal Medicine 09/16/21 documented as of this encounter
--- OUTSIDE RECORDS SUMMARY | 2024-06-09 17:47 | External Medical Summary | Summary of Care ---
Author Name Unknown Organization [facility] Address [address] [place] [address] Phone [phone] Care Team Providers Care Assembler Tubing Name Role Phone Jake Gomez DO Primary Care Provid er Reason for Referral * Ancillary Services (Within 10 days (routine)) - Pending Review Specialty Diagnoses / Procedures Referred By Lorenzo guzman Referred To Contact Gastroenterology Diagnoses Colon cancer screening Jake Gomez DO [address] [place] [address] [address] Referral ID Status Reason Start Date Expiration Date Visits Requested Visits Authorized [id number] Pending Review Ancillary Services Required 02/28/[phone] Question Answer Referral Priority Within 10 days (routine) Where should this appointment be scheduled? [facility] Comments ALERT: Do not order for pediatric patients (18 years or younger). Cancel off screen and order PEDS GASTROENTEROLOGY CONSULT (Type: 1 visit only-Evaluate and Treat) The following Pt. Instructions are available: - Gastro Colonoscopy Prep Instructions [03970] - Gastro Colonoscopy Prep Instructions (Tajik Version) [34420] Go to the Pt. 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 TAKE 1 TABLET [...] tachycardia 03/13/2019 Coronary artery disease invo lving atka coronary artery of atka heart without angina pectoris 03/13/2019 History of pulmonary embolus (PE) 12/02/2017 DNR (do not resuscitate) 11/27/2017 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 0 11/22/2017 [...] GOLD Classification Coronary artery disease invo lving atka coronary artery of atka heart with angina pectoris 11/21/2020 04/28/2021 Morbid obesity 01/01/2020 05/14/2021 Overview: Per Obesity protocol Prediabetes 12/11/2018 04/11/2019 Overview: Per Prediabetes protocol #1 Hematoma of right lower extremity 11/22/2017 10/23/2019 Fall at home 11/22/2017 03/13/2019 History of factor V Leiden mutation 11/22/2017 10/23/2019 Gait abnormality 11/22/2017 04/02/2022 half-way resident 11/22/20172017 OBESITY, BMI 30-34 (SEE ACTUAL [...] 10/19/2004 08/17/2017 Overview: TREATED 1 YEAR IN [facility] ICD-10 update of inactive term [...] as of this encounter Miscellaneous Notes * Addendum Note - Jake Gomez DO [...] states its ok to reach him at [phone] & is ok to leave voicemail with [...] Description 04/02/2024 8:20 AM EDT Anticoagulation Pharmacy [address] [phone] Pharmacist1, [facility] [address] [address] 05/07/2024 3:40 PM EDT Office Visit General Internal Medicine [facility] [place] [facility] [address] Jake Gomez DO [address] [place] [address] 05/29/2024 8:30 AM EDT Office Visit Podiatry [facility] [address] [facility] [address] [place] [address] Lio Hairston, DPM [address] [place] [address] 06/26/2024 11:00 AM EDT Office Visit Dermatology, [address] [address] Jaja Perez PA-C [address] [place] [address] [place] [address] 07/23/2024 8:00 AM EDT Office Visit Cardiology, [facility] [address] [place] [address] Jasmin Ferrer PA-C [address] [place] [address] Scheduled Procedures Name Priority Associated Diagnoses Date/Ti me COLONOSCOPY FLEXIBLE PROXIMAL DIAGNOSTIC Recall History of colon polyps Scheduled Referrals Name Type Priority Associated Diagnoses Orde r Schedule COLONOSCOPY, GI REFERRAL OP Referral Within 10 days (routine) Colon cancer screening Ordered: 02/28/2024 Health Maintenance Due Date Last Done Comments DISCUSS TOBACCO CESSATION (REFER TO SMARTSET #3291) 1945 COVID-19 Vaccine ( season) 2023 09/25/2021, 01/10/2021, 12/13/2020 Albumin/Creatinine Ratio 09/14/2023 09/14/2022, 0 12/2021 Colonoscopy 01/26/2024 01/25/2019, 12/30, 11/30/2010 HbA1c [...] this encounter Medical Devices Implanted Type Area Makeup Artistry Instructor Device Identifier Shelf Expiration Date Model / Serial / Lot Cable/Short Gtr 2232-02-16 - [id number] Implanted:Qty: 1 on 05/08/2021 by Graham Ascencio MD at [place] [facility] [place] Right: Leg Upper [employer] 03/01/203102-15 / / [id number] Cable/Sle Beaded D/M 20 - [id number] Implanted:Qty: 1 on 05/08/2021 by Graham Ascencio MD at [place] [facility] Right: Leg Upper YUE : ORTHOPAEDICS 11/16/2025 6704-0-520 / / [id number] 15mm 150mm Sts Distal Stem Implanted:Qty: 1 on 05/08/2021 by Graham Ascencio MD at [place] [facility] Right: Leg Upper [employer] : ORTHOPEDICS 04/02/2030 11-400864 / / [id number] High Offset Cone Proximal Body Implanted:Qty: 1 on 05/08/2021 by Graham Ascencio MD at [place] [facility] Right: Leg Upper [employer] : ORTHOPEDICS 07/08/2030 11-165607 / / [id number] Cable/Short Gtr 2232-02-16 - [id number] Implanted:Qty: 1 on 05/08/2021 by Graham Ascencio MD at [place] [facility] Right: Leg Upper [employer] 01/27/2031 4-18 / / [id number] Head Bioloxd Option 36mm - [id number] Implanted:Qty: 1 on 05/08/2021 by Graham Ascencio MD at [place] [facility] Right: Leg Upper [employer] 08/21/2030 650-1057 / / [id number] Hip Fmrl Insert Ceropt Sleve-6 - [id number] Implanted:Qty: 1 on 05/08/2021 by Graham Ascencio MD at [place] [facility] Right: Leg Upper [employer] 11/20/2030 650-1064 / / [id number] Cable/Short Gtr 2232-02-16 - [id number] Implanted:Qty: 1 on 05/08/2021 by Graham Ascencio MD at [place] [facility] Right: Leg Upper [employer] 01/27/2031 4-18 / / [id number] Cable/Short Gtr 2232-02-16 [id number] Implanted:Qty: 1 on 05/08/2021 by Graham Ascencio MD at [place] [facility] Right: Leg Upper [employer] 01/20/2031 4-18 / / [id number] Cable/Sle Beaded D/M 20 Vit - [id number] Implanted:Qty: 1 on 05/08/2021 by Graham Ascencio MD at [facility] Right: Leg Upper YUE : ORTHOPAEDICS 11/30/2025 6704-0-520 / / [id number] documented as of this encounter Visit Diagnoses Diagnosis Colon cancer screening- Primary Special screening for malignant neoplasms, colon documented in this encounter Advance Directives Latest [...] and were consensually agreed upon. Care Teams Assembler Tubing Relationship Specialty Start Date End Date Jake Gomez DO [address] [place] [address] PCP - General Internal Medicine 09/16/21 documented as of this encounter
--- OUTSIDE RECORDS SUMMARY | 2024-06-09 17:47 | External Medical Summary | Summary of Care ---
Author Name Unknown Organization [facility] Address [address] [place] [address] Phone [phone] Care Team Providers Care Human Performance Consultant Name Role Phone Jake Gomez DO Primary Care Provid er Reason for Visit * Reason Comments eRx-Medication Refill Encounter Details Date Type Department Care Team ([facility] st Contact Info) Description 04/22/2024 [address] [phone] Jaek Gomez DO [address] [place] [address] Anticoagulation management encounter Allergies Active Allergy Reactions Criticality Noted Date Comments Moxifloxacin Hcl In Nacl Itching,Nausea/vomit ing High 07/08/2012 20 minutes after first dose, hands itchy, head itchy, started vomiting documented as of this encounter (statuses as of 04/23/2024) Medications Medication Sig Dispensed Refills Start Date [...] Oral Tablet (Benicar)Indicati ons:Coronary artery disease involving confederated salish coronary artery of confederated salish heart without angina pectoris,HTN, goal below 140/90 [...] s:HTN, goal below 140/90,Coronary artery disease involving confederated salish coronary artery of confederated salish heart without angina pectoris TAKE 1 TABLET BY MOUTH EVERY DAY IN THE MORNING 90 Tablet 3 02/22/2024 Active Warfarin Sodium 2 MG Oral Tablet (Coumadin)Indicat ions:Anticoagulat ion management encounter TAKE 1 TABLET BY MOUTH WITH 1 MG DOSE ON SUN,TUE,, , TUESDAY and Tuesday AND 2 TABS ON Tuesday (4mg Tuesday and 3mg all other days - 1mg and 2mg tablets) 120 Tablet 3 04/23/2024 Active Warfarin Sodium 2 MG Oral Tablet (Coumadin)Indicat ions:Anticoagulat ion management encounter TAKE 1 TABLET BY MOUTH WITH 1 MG DOSE ON SUN,TUE,TUE, AND AND 2 TABS ON & SAT 108 Tablet 4 04/04/2023 4 Discontinued documented as of this encounter (statuses as of 04/23/2024) Active Problems Problem Noted Date Diagnosed Date [...] 03/13/2019 Coronary artery disease invo lving confederated salish coronary artery of confederated salish heart without angina pectoris 03/13/2019 History of pulmonary embolus (PE) 12/02/2017 DNR (do not resuscitate) 11/27/2017 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 0 11/22/2017 [...] as of this encounter (statuses as of 04/23/2024) Resolved Problems Problem Noted Date Diagnosed Date Resolved Date Orthostatic lightheadedness 05/10/2021 04/02/2022 Postoperative anemia due to acute blood loss 04/02/2022 COPD, group B, by GOLD 2017 classification 02/09/2021 04/02/2022 Overview: Per COPD GOLD Classification Coronary artery disease invo lving confederated salish coronary artery of confederated salish heart with angina pectoris 11/21/2020 04/28/2021 Morbid obesity 01/01/2020 05/14/2021 Overview: Per Obesity protocol Prediabetes 12/11/2018 04/11/2019 Overview: Per Prediabetes protocol #1 Hematoma of right lower extremity 11/22/2017 10/23/2019 Fall at home 11/22/2017 03/13/2019 History of factor V Leiden mutation 11/22/2017 10/23/2019 Gait abnormality 11/22/2017 04/02/2022 [facility] resident 11/22/20172017 OBESITY, BMI 30-34 (SEE ACTUAL [...] 10/19/2004 08/17/2017 Overview: TREATED 1 YEAR IN [facility] ICD-10 update of inactive term [...] as of this encounter (statuses as of 04/23/2024) Immunizations Name Administration Dates Next Due COVID-19 mRNA, LNP-s, No Pre serve, 2-Dose Series ([employer]) 09/25/2021,01/10/2021,12/13/2020 Pneumococcal Conjugate Vacc, 13 Valent (Prevnar) [...] encounter Miscellaneous Notes * Telephone Encounter - Tierra Villalpando [facility] - 04/23/2024 8:37 AM EDTSigned Prescriptions: Disp Refills Warfarin Sodium 2 MG Oral Tablet (Coumadin)120 Ta*3 Sig: TAKE 1 TABLET BY MOUTH WITH 1 MG DOSE ON TUE,TUE,, , TUESDAY and Tuesday AND 2 TABS ON Tuesday (4mg Tuesday and 3mg all other days - 1mg and 2mg tablets)Authorizing Provider: JAKE GOMEZ User: TIERRA VILLALPANDO * Telephone Encounter - Tierra Villalpando RP - 04/23/2024 8:36 AM EDT Patient requesting refill. Medication sent to pharmacy as requested. Tierra Villalpando PharmD, [facility] Clinical Pharmacist 04/23/2024, 8:37 AM documented in this encounter Plan of Treatment Upcoming Encounters Date Type Department Care Team (Latest Contact Info) Description 05/07/2024 3:40 PM EDT Office Visit General Internal Medicine Kenna Sigala [place] [address] [place] [address] Jake Gomez DO [address] [place] [address] 05/14/2024 9:40 AM EDT Anticoagulation Pharmacy [address] [phone] Pharmacist1, [facility] [address] [address] 05/29/2024 8:30 AM EDT Office Visit Podiatry [facility] [address] [facility] [address] [place] [phone] Lio Hairston, [facility] [address] [place] [address] 06/26/2024 11:00 AM EDT Office Visit Dermatology, [address] [address] Jaja Perez, LUCIEN [address] [place] [address] [place] [phone] 07/23/2024 8:00 AM EDT Office Visit Cardiology, [facility] [address] [place] [address] Jasmin Ferrer PA-C [address] [place] [address] 08/13/2024 8:30 AM EDT Hospital Encounter ENDO [facility], Endoscopy Room [facility] [address] [place] [phone] Justin Son MD [address] [place] [address] 08/13/2024 8:30 AM EDT - 08/13/2024 9:00 AM EDT Surgery ENDO [facility], Endoscopy Room [facility] [address] [place] [phone] Justin Son MD [address] [place] [address] COLONOSCOPY FLEXIBLE PROXIMAL DIAGNOSTIC Scheduled Procedures Name Priority Associated Diagnoses Date/Ti me COLONOSCOPY FLEXIBLE PROXIMAL DIAGNOSTIC Recall History of colon polyps 08/13/2024 8:30 AM EDT Health Maintenance Due Date Last Done Comments DISCUSS TOBACCO CESSATION (REFER TO SMARTSET #3011) 1945 COVID-19 Vaccine ( - season) 2023 09/25/2021, 01/10/2021, 12/13/2020 Albumin/Creatinine Ratio [...] this encounter Medical Devices Implanted Type Area Government Instructor Device Identifier Shelf Expiration Date Model / Serial / Lot Cable/Short Gtr 2232-02-16 - [id number] Implanted:Qty: 1 on 05/08/2021 by Graham Ascencio MD at OR [facility] Right: Leg Upper [employer] 03/01/2031-18 / / [id number] Cable/Sle Beaded D/M 20 Vit - [id number] Implanted:Qty: 1 on 05/08/2021 by Graham Ascencio MD at OR [facility] Right: Leg Upper YUE : ORTHOPAEDICS 11/16/2025 6704-0-520 / / [id number] 15mm 150mm Sts Distal Stem Implanted:Qty: 1 on 05/08/2021 by Graham Ascencio MD at OR [facility] Right: Leg Upper [employer] : ORTHOPEDICS 04/02/2030 [id number] / / [id number] High Offset Cone Proximal Body Implanted:Qty: 1 on 05/08/2021 by Graham Ascencio MD at OR [facility] Right: Leg Upper BIOM[employer] : ORTHOPEDICS 07/08/2030 [id number] / / [id number] Cable/Short Gtr 2232-02-16 - [id number] Implanted:Qty: 1 on 05/08/2021 by Graham Ascencio MD at OR [facility] Right: Leg Upper [employer] 01/27/2031-18 / / [id number] Head Bioloxd Option 36mm - [id number] Implanted:Qty: 1 on 05/08/2021 by Graham Ascencio MD at OR [facility] Right: Leg Upper [employer] 08/21/2030 650-1057 / / [id number] Hip Fmrl Insert Ceropt Sleve-6 - [id number] Implanted:Qty: 1 on 05/08/2021 by Graham Ascencio MD at OR [facility] Right: Leg Upper [employer] 11/20/2030 650-1064 / / [id number] Cable/Short Gtr 2232-02-16 - [id number] Implanted:Qty: 1 on 05/08/2021 by Graham Ascencio MD at OR [facility] Right: Leg Upper [employer] 01/27/2031 4-18 / / [id number] Cable/Short Gtr 2232-02-16 - [id number] Implanted:Qty: 1 on 05/08/2021 by Graham Ascencio MD at OR [facility] Right: Leg Upper [employer] 01/20/2031 4-18 / / [id number] Cable/Sle Beaded D/M - [id number] Implanted:Qty: 1 on 05/08/2021 by Graham Ascencio MD at OR [facility] Right: Leg Upper YUE : ORTHOPAEDICS 11/30/2025 6704-0-520 / / [id number] documented as of this encounter Visit Diagnoses Diagnosis Anticoagulation management encounter Encounter for therapeutic drug [...] and were consensually agreed upon. Care Teams Human Performance Consultant Relationship Specialty Start Date End Date Jake Gomez DO [address] [place] [address] [phone] PCP - General Internal Medicine 09/16/21 documented as of this encounter
--- OUTSIDE RECORDS SUMMARY | 2024-06-09 17:47 | External Medical Summary | Summary of Care ---
Author Name Unknown Organization [facility] Address [address] [place] [address] Phone [phone] Care Team Providers Care Ramp Attendant Name Role Phone Jake Green Primary Care Provid er Reason for Visit * Reason Comments Follow Up BILATERAL FEET Encounter Details Date Type Department Care Team (Late st Contact Info) Description 02/28/2024 8:30 AM EDT Office Visit Podiatry [address] [place] [address] Lio Hairston, DPM [address] [place] [address] Type II diabetes mellitus with peripheral circulatory [...] Oral Tablet (Benicar)Indication s:Coronary artery disease involving jamul coronary artery of jamul heart without angina pectoris,HTN, goal below 140/90 [...] HTN, goal below 140/90,Coronary artery disease involving jamul coronary artery of jamul heart without angina pectoris TAKE 1 TABLET [...] tachycardia 03/13/2019 Coronary artery disease invo lving jamul coronary artery of jamul heart without angina pectoris 03/13/2019 History of pulmonary embolus (PE) 12/02/2017 DNR (do not resuscitate) 11/27/2017 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 use of anticoagulant therapy 0 11/22/2017 [...] GOLD Classification Coronary artery disease invo lving jamul coronary artery of jamul heart with angina pectoris 11/21/2020 04/28/2021 Morbid obesity 01/01/2020 05/14/2021 Overview: Per Obesity protocol Prediabetes 12/11/2018 04/11/2019 Overview: Per Prediabetes protocol #1 Hematoma of right lower extremity 11/22/2017 10/23/2019 Fall at home 11/22/2017 03/13/2019 History of factor V Leiden mutation 11/22/2017 10/23/2019 Gait abnormality 11/22/2017 04/02/2022 [facility] resident 11/22/20172017 OBESITY, BMI 30-34 (SEE ACTUAL [...] 10/19/2004 08/17/2017 Overview: TREATED 1 YEAR IN [facility] ICD-10 update of inactive term IMPOTENCE, ORGANIC [...] mRNA, LNP-s, No Pre serve, 2-Dose Series ([email or web address]) 09/25/2021,01/10/2021,12/13/2020 Pneumococcal Conjugate Vacc, 13 Valent (Prevnar) [...] as of this encounter Progress Notes * Loi Hairston, DPM - 02/28/2024 8:42 AM EDT Subjective: Patient presents with thickened painful fungal nails. Patient is a diet controlled diabetic Patient alert and oriented to person, place and time. 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 (HCC)11/21/2020 Depressive disorder, not elsewhere classified Diaphragmatic hernia Dyslipidemia, goal LDL below 160 Esophageal reflux HTN, goal below 140/90 Intestinal obstruction (HCC) 2008, 2009 Lung nodule Obesity, BMI not known Osteoarthrosis, unspecified whether generalized or localized, pelvic region and thigh Phlebitis and thrombophlebitis of other deep vessels of lower extremities Pneumonia Pulmonary embolus (HCC) post op 1986 Stable angina 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 IN [facility] Past Surgical History: Procedure Laterality Date ARTHROCENT ASP &/OR INJ MAJOR JX/BURSA W/O US Right 04/07/2021 ARTHROCENTESIS OR INJECTION MAJOR JOINT performed by Graham Ascencio MD at [place] [facility] BONE DEBRIDEMENT, FIRST 20 CM2 Right 06/02/2021 DEBRIDEMENT SKIN SUBCUTANEOUS TISSUE MUSCLE AND BONE performed by Graham Ascencio MD at OR [facility] CATHETERIZE LEFT HEART THRU SKIN 2003 ([facility]) 95% Ra, 40% LAD & RCA COLONOSCOPY 04/29/2009 Dr Howard [facility] - 2 polyps removed COLONOSCOPY 01/28/2011 ANASTAMOSIS AT 20 CM, Dr Palma-[facility] COLONOSCOPY, DIAGNOSTIC (RECTUM) 01/25/2019 adenomatous polyp, repeat 5 yrs/COLONOSCOPY FLEXIBLE PROXIMAL DIAGNOSTIC performed by Nick Hudson MD at ENDOSCOPY [facility] EGD, FLEXIBLE, DIAGNOSTIC 01/25/2019 normal/ESOPHAGOGASTRODUODENOSCOPY (EGD), FLEXIBLE, TRANSORAL, DIAGNOSTIC performed by Nick Hudson MD at ENDOSCOPY [facility] INFORMATION REPAIR R ELBOW LAPAROSCOPY; CHOLECYSTECTOMY 01/08/2010 Dr Howard-[facility] LAPAROSCOPY; REPAIR INITIAL INGUINAL HERNIA BOTH LUMBAR [...] performed by Graham Ascencio MD at OR [facility] TOTAL HIP REPLACEMENT & PROSTHESIS 05/08/2021 L-2000 Family History Problem Relation Age of Onset Leukemia Sister Heart disease Sister Other (MVA) Brother Dementia Brother Heart disease Brother Arthritis Brother No Known Problems Brother Glaucoma Mother Heart Disorder Mother Hypertension Mother Arthritis Mother Stroke Mother Eye Problems Mother Gastro-intestinal disorder Mother Heart Disorder Father Thyroid Disorder Father Gastro-intestinal disorder Father No Known Problems Sister Social History Socioeconomic History Marital status: Spouse [...] cigars, 1 a day Vaping Use Vaping Use: Never used Substance and Sexual Activity Alcohol use: Yes Alcohol/week: 10.0 standard drinks of alcohol Types: 3 12 oz of beer, 7 1.5 oz of liquor per week Comment: occ Drug use: No Sexual activity: Not on file Other Topics Concern Not on file Social History Narrative No pets. No mold. Social Determinants of Health Financial Resource Strain: Not on file Food Insecurity: No Food Insecurity (04/18/2023) Hunger Vital Sign Worried About Running Out of Food in the Last Year: Never true Ran Out of Food in the Last Year: Never true Transportation Needs: Not on file Physical Activity: Not on file Stress: Not on file Social Connections: Not on file Intimate Partner Violence: Not on file Housing Stability: Not on file Current Outpatient Medications Medication [...] tabs in 15 minutes 25 Tablet 5 Warfarin Sodium 1 MG Oral Tablet (Coumadin) TAKE 1-2 TABLETS BY MOUTH DAILY. DIRECTED BY ANTICOAG CLINIC 180 Tablet 3 Warfarin Sodium 2 MG Oral Tablet (Coumadin) TAKE 1 TABLET BY MOUTH WITH 1 MG DOSE ON SUN,MON,WED, THURS AND FRID AND 2 TABS ON TU & SAT 108 Tablet 4 Cyclobenzaprine HCl 10 MG Oral Tablet (Flexeril) [...] DAY IN THE MORNING 90 Tablet 3 No current facility-administered medications for [...] documented in this encounter Nursing Notes * Cristina You LPN - 02/28/2024 8:30 AM EDT Routine nail care Pt denies any concerns today for bilateral feet Pt is unaccompanied today Ilda Wilks LPN documented in this encounter Plan of Treatment Upcoming Encounters Date Type Department Care Team (Late st Contact Info) Description 05/07/2024 3:40 PM EDT [facility] [address] [facility] [address] Jake Green DO [address] [place], [place] [address] [address] 05/29/2024 8:30 AM EDT Office Visit Podiatry [address] [place] [phone] Lio Hairston, DPM [address] [place] [address] 06/26/2024 11:00 AM EDT Office Visit Dermatology, [address], [place] [address] Jaja Perez PA-C [address] [place] [address] [place] [phone] 07/23/2024 8:00 AM EDT Office Visit Cardiology, [facility] [address] [facility] [place] [address] Jasmin Ferrer PA-C [address] [place] [address] Scheduled Orders Name Type Priority Associated Diagnoses Orde r Schedule DEBRIDEMENT OF NAILS 6 OR MORE Procedures Routine Onychomycosis with ingrown toenail Pain due to onychomycosis of toenails of both feet Type II diabetes mellitus with peripheral circulatory disorder (HCC) Ordered: 02/28/2024 Scheduled Procedures Name Priority Associated Diagnoses Date/Ti me COLONOSCOPY FLEXIBLE PROXIMAL DIAGNOSTIC Recall History of colon polyps Health Maintenance Due Date Last Done Comments DISCUSS TOBACCO CESSATION (REFER TO SMARTSET #1649) 1945 COVID-19 Vaccine ( season) 2023 09/25/2021, [...] this encounter Medical Devices Implanted Type Area Insurance Broker Device Identifier Shelf Expiration Date Model / Serial / Lot Cable/Short Gtr 2232-02-16 - [id number] Implanted:Qty: 1 on 05/08/2021 by Graham Ascencio MD at [place] [facility] Right: Leg Upper [employer] 03/01/2031-2231-00 -18 / / [id number] Cable/Sle Beaded D/M 20 Vit - [id number] Implanted:Qty: 1 on 05/08/2021 by Graham Ascencio MD at [place] [facility] Right: Leg Upper YUE : ORTHOPAEDICS 11/16/2025 6704-0-520 / / [id number] 15mm 150mm Sts Distal Stem Implanted:Qty: 1 on 05/08/2021 by Graham Ascencio MD at [place] [facility] Right: Leg Upper [employer] : ORTHOPEDICS 04/02/2030 [id number] / / [id number] High Offset Cone Proximal Body Implanted:Qty: 1 on 05/08/2021 by Graham Ascencio MD at [place] [facility] Right: Leg Upper [employer] : ORTHOPEDICS 07/08/2030 [id number] / / [id number] Cable/Short Gtr 2232-02-16 - [id number] Implanted:Qty: 1 on 05/08/2021 by Graham Ascencio MD at [place] [facility] Right: Leg Upper [employer] 01/27/2031 4-18 / / [id number] Head Bioloxd Option 36mm - [id number] Implanted:Qty: 1 on 05/08/2021 by Graham Ascencio MD at [place] [facility] Right: Leg Upper [employer] 08/21/2030 650-1057 / / [id number] Hip Fmrl Insert Ceropt Sleve-6 - [id number] Implanted:Qty: 1 on 05/08/2021 by Graham Ascencio MD at [place] [facility] Right: Leg Upper [employer] 11/20/2030 650-1064 / / [id number] Cable/Short Gtr 2232-02-16 - [id number] Implanted:Qty: 1 on 05/08/2021 by Graham Ascencio MD at [place] [facility] Right: Leg Upper [employer] 01/27/2031 4-18 / / [id number] Cable/Short Gtr 2232-02-16 - [id number] Implanted:Qty: 1 on 05/08/2021 by Graham Ascencio MD at [place] [facility] Right: Leg Upper [employer] 01/20/2031 4-18 / / [id number] Cable/Sle Beaded D/M 20 Vit - [id number] Implanted:Qty: 1 on 05/08/2021 by Graham Ascencio MD at [place] [facility] Right: Leg Upper YUE : ORTHOPAEDICS 11/30/2025 6704-0-520 / / [id number] documented as of this encounter Visit Diagnoses Diagnosis Type II diabetes mellitus with peripheral circulatory disorder (HCC)- Primary Type II or unspecified type diabetes mellitus with peripheral circulatory disorders, not stated as uncontrolled Onychomycosis with ingrown toenail Dermatophytosis of nail Pain due to onychomycosis of toenails of both feet documented in this encounter Advance Directives Latest [...] and were consensually agreed upon. Care Teams Ramp Attendant Relationship Specialty Start Date End Date Jake Green DO [address] [place] [id number] PCP - General Internal Medicine 09/16/21 documented as of this encounter
--- OUTSIDE RECORDS SUMMARY | 2024-06-09 17:47 | External Medical Summary | Summary of Care ---
Author Name Unknown Organization [facility] Address [address] [place] [address] Phone [phone] Care Team Providers Care Dyslexia Teacher Name Role Phone Jake Green DO Primary Care Provid er Reason for Visit * Reason Comments eRx-Medication Refill Encounter Details Date Type Department Care Team (Late st Contact Info) Description 02/19/2024 Refill Cardiology, [facility] [address] [place] [phone] Antonia James PA-C [address] [place] [address] Hypertension associated with type 2 diabetes mellitus (HCC); HTN, goal below 140/90; S/P angioplasty with stent; Coronary artery disease involving un[place]ak[place]et coronary artery of un[place]et heart without angina pectoris Allergies Active Allergy Reactions Criticality Noted Date Comments Moxifloxacin Hcl In Nacl Itching,Nausea/vomit ing High 07/08/2012 20 minutes after first dose, hands itchy, head itchy, started vomiting documented as of this encounter (statuses as of 02/22/2024) Medications Medication Sig Dispensed Refills Start Date End Date Status pyridOXINE (VITAMIN B-6) 100 MG Tablet Take 1 Tablet by mouth in the morning. 0 Active Cyanocobalamin 1000 MCG CAPS Take 1 Capsule by mouth in the morning. 0 Active fluticasone (FLONASE) 50 MCG/ACT nasal sprayIndications: [...] Oral Tablet (Benicar)Indicati ons:Coronary artery disease involving un[place] coronary artery of [place] heart without angina pectoris,HTN, goal below 140/90 [...] s:HTN, goal below 140/90,Coronary artery disease involving [place] coronary artery of [place] heart without angina pectoris TAKE 1 TABLET BY MOUTH EVERY DAY IN THE MORNING 90 Tablet 3 02/22/2024 Active Furosemide 20 MG Oral Tablet (Lasix)Indication s:Coronary artery disease involving [place] coronary artery of [place] heart without angina pectoris,HTN, goal below 140/90 TAKE 1 TABLET BY MOUTH EVERY DAY IN THE MORNING 90 Tablet 3 03/29/2023 4 Discontinued Carvedilol 25 MG Oral Tablet (Coreg)Indication s:Hypertension associated with type 2 diabetes mellitus (HCC),HTN, goal below 140/90,S/P angioplasty with stent TAKE 1 TABLET BY MOUTH TWICE A DAY 180 Tablet 1 10/18/2023 4 Discontinued documented as of this encounter (statuses as of 02/22/2024) Active Problems Problem Noted Date Diagnosed Date [...] tachycardia 03/13/2019 Coronary artery disease invo lving unalakleet coronary artery of unalak[place]et heart without angina pectoris 03/13/2019 History of pulmonary embolus (PE) 12/02/2017 DNR (do not resuscitate) 11/27/2017 long-term current use of anticoagulant therapy 0 11/22/2017 [...] as of this encounter (statuses as of 02/22/2024) Resolved Problems Problem Noted Date Diagnosed Date Resolved Date Orthostatic lightheadedness 05/10/2021 04/02/2022 Postoperative anemia due to acute blood loss 04/02/2022 COPD, group B, by GOLD 2017 classification 02/09/2021 04/02/2022 Overview: Per COPD GOLD Classification Coronary artery disease invo lving unalak[place]et coronary artery of unalakleet heart with angina pectoris 11/21/2020 04/28/2021 Morbid [...] 10/19/2004 08/17/2017 Overview: TREATED 1 YEAR IN [facility] ICD-10 update of inactive term IMPOTENCE, [...] as of this encounter (statuses as of 02/22/2024) Immunizations Name Administration Dates Next Due COVID-19 mRNA, LNP-s, No Pre serve, 2-Dose Series ([employer]) 09/25/2021,01/10/2021,12/13/2020 Pneumococcal Conjugate Vacc, 13 Valent (Prevnar) [...] encounter Miscellaneous Notes * Telephone Encounter - Antonia James PA-C - 02/22/2024 9:57 AM EDT Signed Prescriptions: Disp Refills Carvedilol 25 MG Oral Tablet (Coreg) 180 Ta*3 Sig: TAKE 1 TABLET BY MOUTH TWICE A DAY Authorizing Provider: ANTONIA JAMES Furosemide 20 MG Oral Tablet (Lasix) 90 Tab*3 Sig: TAKE 1 TABLET BY MOUTH EVERY DAY IN THE MORNING Authorizing Provider: ANTONIA JAMES * Telephone Encounter - Janelle Hooker LPN - 02/20/2024 2:04 PM EDTPending Prescriptions: Disp Refills Carvedilol 25 MG Oral Tablet (Coreg) 180 Ta*3 Sig: TAKE 1 TABLET BY MOUTH TWICE A DAY Furosemide 20 MG Oral Tablet (Lasix) 90 Tab*3 Sig: TAKE 1 TABLET BY MOUTH EVERY DAY IN THE MORNING * Telephone Encounter - Janelle Hooker LPN - 02/20/2024 2:03 PM EDT Did you pend patient's preferred pharmacy and medication before forwarding? YES Pharmacy: [id number] [address] Pending Prescriptions: Disp Refills Carvedilol 25 MG Oral Tablet (Coreg) [Pha*180 Ta*3 Sig: TAKE 1 TABLET BY MOUTH TWICE A DAY Furosemide 20 MG Oral Tablet (Lasix) [Pha*90 Tab*3 Sig: TAKE 1 TABLET BY MOUTH EVERY DAY IN THE MORNING Last Visit: 01/23/2024 (in office), Visit date not found (telemedicine) Next Visit: 07/23/2024 If no future appointments scheduled, and last appointment is greater than a year ago, please schedule patient for a follow-up appointment Last date the medication was ordered: 10/18 and 03/29 Is this request for a controlled substance? NO Urine Drug Screen:No results found. However, due to the size of the patient record, not all encounters were searched. Please check Results Review for a complete set of results. Patient Phone Numbers Labs: Lab Results Component Value Date/Time CREAT 1.0 10/17/2023 12:10 PM CREAT 1.1 11/18/2020 08:48 AM CREAT 0.9 12/31/1996 08:40 AM POTASSIUM 4.3 10/17/2023 12:10 PM POTASSIUM 4.7 11/18/2020 08:48 AM POTASSIUM 4.1 12/31/1996 08:40 AM TSH 1.62 06/06/2020 03:57 PM LDLCALC 67 10/17/2023 12:10 PM LDLCALC 75 10/28/2020 10:46 AM LDLCALC 149. (H) 12/31/1996 08:40 AM LDLDIRECT NOT APPLICABLE 10/28/2020 10:46 AM ALT 23 10/17/2023 12:10 PM ALT 26 10/28/2020 10:46 AM ALT 31 08/21/1996 09:30 AM HGBA1C 6.7 (H) 10/17/2023 12:10 PM HGBA1C 6.6 (H) 06/06/2020 03:57 PM documented in this encounter Plan of Treatment Upcoming Encounters Date Type Department Care Team ([facility] st Contact Info) Description 02/28/2024 8:30 AM EDT Office Visit Podiatry [address] [phone] Lio Hairston, [facility] [address] [place] [address] 02/28/2024 8:50 AM EDT Anticoagulation Pharmacy [address] [phone] Pharmacist1, [facility] [address] [address] 05/07/2024 3:40 PM EDT Office Visit General Internal Medicine [facility] [address] [place] [address] Jake Green, [address] [place] [address] 06/26/2024 11:00 AM EDT Office Visit Dermatology, [address] [address] Jaja Perez PA-C [address] [place] [address] [place] [phone] 07/23/2024 8:00 AM EDT Office Visit Cardiology, [facility] [address] [place] [address] Antonia James PA-C [address] [place] [address] Scheduled Procedures Name Priority Associated Diagnoses Date/Ti me COLONOSCOPY FLEXIBLE PROXIMAL DIAGNOSTIC Recall History of colon polyps Health Maintenance Due Date Last Done Comments DISCUSS TOBACCO CESSATION (REFER TO SMARTSET #9811) 1945 COVID-19 Vaccine ( season) 2023 09/25/2021, 01/10/2021, 12/13/2020 Albumin/Creatinine Ratio 09/14/2023 09/14/2022, 06/0 12/2021 COLONOSCOPY-EVERY 5 YRS AGES 18-100 01/26/2024 01/25/2019, 01/25/2019, 11/30/2010 HbA1c 04/17/2024 10/17/2023, 06/0 02/2023, 09/14/2022, [...] Vaccine: 65+ Years Completed 08/17/2017, 02/04/2016, 04/03/2007 Zoster Vaccines Completed 07/17/2020, 070 10/2019, 03/10/2020 Alpha-1 Antitrypsin Completed 04/16/2022 Influenza Vaccine (FLU shot) Completed , 10/05/2022, 09/23/2021, Additional history exists GARDASIL-HPV IMMUNIZATION SERIES Aged Out No longer eligible based on patient's age to complete this topic Hepatitis B Aged Out No longer eligi ble based on patient's age to complete this topic MENINGOCOCCAL (MENACTRA/MENVEO) Aged Out No longer eligible based on patient's age to complete this topic documented as of this encounter Medical Devices Implanted Type Area Employee Training Specialist Device Identifier Shelf Expiration Date Model / Serial / Lot Cable/Short Gtr 2232-02-16 - [id number] Implanted:Qty: 1 on 05/08/2021 by Graham Ascencio [place] [facility] [place]: Leg Upper [employer] 03/01/2031 4-18 / / [id number] Cable/Sle Beaded D/M 20 Vit - [id number] Implanted:Qty: 1 on 05/08/2021 by Graham Ascencio [place] [facility] [place]: Leg Upper YUE : ORTHOPAEDICS 11/16/2025 6704-0-520 / / [id number] 15mm 150mm Sts Distal Stem Implanted:Qty: 1 on 05/08/2021 by Graham Ascencio MD [place] [facility] [place]: Leg Upper [employer] : ORTHOPEDICS 04/02/2030 [id number] / / [id number] High Offset Cone Proximal Body Implanted:Qty: 1 on 05/08/2021 by Graham Ascencio MD [place] [facility] [place]: Leg Upper [employer] : ORTHOPEDICS 07/08/2030 [id number] / / [id number] Cable/Short Gtr 2232-02-16 - [id number] Implanted:Qty: 1 on 05/08/2021 by Graham Ascencio MD [place] [facility] [place]: Leg Upper [employer] 01/27/2031 4-18 / / [id number] Head Bioloxd Option 36mm - [id number] Implanted:Qty: 1 on 05/08/2021 by Graham Ascencio MD [place] [facility] [place] Right: Leg Upper [employer] 08/21/2030 650-1057 / / [id number] Hip Fmrl Insert Ceropt Sleve-6 - [id number] Implanted:Qty: 1 on 05/08/2021 by Graham Ascencio MD [place] [facility] [place] Right: Leg Upper [employer] 11/20/2030 650-1064 / / [id number] Cable/Short Gtr 2232-02-16 [id number] Implanted:Qty: 1 on 05/08/2021 by Graham Ascencio MD [place] [facility] [place] Right: Leg Upper [employer] 01/27/2031 4-18 / / [id number] Cable/Short Gtr 2232-02-16 [id number] Implanted:Qty: 1 on 05/08/2021 by Graham Ascencio MD [place] [facility] [place] Right: Leg Upper [employer] 01/20/2031 4-18 / / [id number] Cable/Sle Beaded D/M 20 Vit - [id number] Implanted:Qty: 1 on 05/08/2021 by Graham Ascencio MD [place] [facility] [place]: Leg Upper YUE : ORTHOPAEDICS 11/30/2025 6704-0-520 / / [id number] documented as of this encounter Visit Diagnoses Diagnosis Hypertension associated with type 2 diabetes mellitus (HCC) HTN, goal below 140/90 Unspecified essential hypertension S/P angioplasty with stent Postsurgical percutaneous transluminal coronary angioplasty status Coronary artery disease involving unalak[place] coronary artery of unalakleet heart without angina pectoris documented in this encounter Advance Directives Latest [...] and were consensually agreed upon. Care Teams Dyslexia Teacher Relationship Specialty Start Date End Date Jake Green DO [address] [place] [phone] PCP - General Internal Medicine 09/16/21 documented as of this encounter
--- OUTSIDE RECORDS SUMMARY | 2024-06-09 17:48 | External Medical Summary | Summary of Care ---
Author Name Unknown Organization [facility] Address [address] [place] [address] Phone [phone] Care Team Providers Care Electrical Appliance Mechanic Name Role Phone Jake Green DO Primary Care Provid er Encounter Details Date Type Department Care Team ([facility] st Contact Info) Description 02/08/2024 Patient Reported Data Patient Survey Ortho FORCE Allergies Active Allergy Reactions Criticality Noted Date Comments Moxifloxacin Hcl In Nacl Itching,Nausea/vomit ing High 07/08/2012 20 minutes after first dose, hands itchy, head itchy, started vomiting documented as of this encounter (statuses as of 02/08/2024) Medications Medication Sig Dispensed Refills Start Date [...] 15 minutes 25 Tablet 5 03/15/2022 Active Furosemide 20 MG Oral Tablet (Lasix)Indications: Coronary artery disease involving ho-chunk coronary artery of ho-chunk heart without angina pectoris,HTN, goal below 140/90 TAKE 1 TABLET BY MOUTH EVERY DAY IN THE MORNING 90 Tablet 3 03/29/2023 Active Warfarin Sodium 1 MG Oral Tablet (Coumadin)Indicatio ns:Factor V deficiency, congenital (HCC),History of pulmonary embolus (PE) TAKE 1-2 TABLETS BY MOUTH DAILY. DIRECTED BY ANTICOAG CLINIC 180 Tablet 3 04/04/2023 Active Warfarin Sodium 2 MG Oral Tablet (Coumadin)Indicatio ns:Anticoagulation management encounter TAKE 1 TABLET BY MOUTH WITH 1 MG DOSE ON SUN,MON,WED, TH AND TUED AND 2 TABS ON & [...] EVERY DAY 90 Tablet 3 06/28/2023 Active Carvedilol 25 MG Oral Tablet (Coreg)Indications: Hypertension associated with type 2 diabetes mellitus (HCC),HTN, goal below 140/90,S/P angioplasty with stent TAKE 1 TABLET BY MOUTH TWICE A DAY 180 Tablet 1 10/18/2023 Active Esomeprazole Magnesium 40 MG Oral Capsule [...] Oral Tablet (Benicar)Indication s:Coronary artery disease involving ho-chunk coronary artery of ho-chunk heart without angina pectoris,HTN, goal below 140/90 TAKE 1 TABLET BY MOUTH TWICE A DAY 180 Tablet 3 01/23/2024 Active documented as of this encounter (statuses as of 02/08/2024) Active Problems Problem Noted Date Diagnosed Date [...] tachycardia 03/13/2019 Coronary artery disease invo lving ho-chunk coronary artery of ho-chunk heart without angina pectoris 03/13/2019 History of [...] as of this encounter (statuses as of 02/08/2024) Resolved Problems Problem Noted Date Diagnosed Date Resolved Date Orthostatic lightheadedness 05/10/2021 04/02/2022 Postoperative anemia due to acute blood loss 1 04/02/2022 COPD, group B, by GOLD 2017 classification 02/09/2021 04/02/2022 Overview: Per COPD GOLD Classification Coronary artery disease invo lving ho-chunk coronary artery of ho-chunk heart with angina pectoris 11/21/2020 04/28/2021 Morbid obesity 01/01/2020 05/14/2021 Overview: Per Obesity protocol Prediabetes 12/11/2018 04/11/2019 Overview: Per Prediabetes protocol #1 Hematoma of right lower extremity 11/22/2017 10/23/2019 Fall at home 11/22/2017 03/13/2019 History of factor V Leiden mutation 11/22/2017 10/23/2019 Gait abnormality 11/22/2017 04/02/2022 residential resident 11/22/20172017 OBESITY, BMI 30-34 (SEE ACTUAL [...] 10/19/2004 08/17/2017 Overview: TREATED 1 YEAR IN [facility] ICD-10 update of [...] as of this encounter (statuses as of 02/08/2024) Immunizations Name Administration Dates Next Due COVID-19 mRNA, LNP-s, No Pre serve, 2-Dose Series ([email or web address]) 09/25/2021,01/10/2021,12/13/2020 Pneumococcal Conjugate Vacc, 13 Valent (Prevnar) [...] 02/28/2024 8:30 AM EDT Office Visit Podiatry [facility] [address] [facility] [address] [place] [address] Lio Hairston, [facility] [address] [place] [address] 02/28/2024 8:50 AM EDT Anticoagulation Pharmacy [facility] [address] [place] [address] Pharmacist1, [facility] [place] [address] [place] [address] 05/07/2024 3:40 PM EDT Office Visit General Internal Medicine [facility] [address] [facility], [place] [address] Jake Green, [address] [address] 06/26/2024 11:00 AM EDT Office Visit Dermatology[address] [address] Jaja Perez PA-C [address] [place] [address] [place] [address] 07/23/2024 8:00 AM EDT Office Visit Cardiology, [facility] [address] [address] Jasmin Ferrer PA-C [address] [place] [address] Scheduled Procedures Name Priority Associated Diagnoses Date/Ti [...] this encounter Medical Devices Implanted Type Area Solar Installer Pv Device Identifier Shelf Expiration Date Model / Serial / Lot Cable/Short Gtr 2232-02-16 - [id number] Implanted:Qty: 1 on 05/08/2021 by Graham Ascencio MD at [place] [facility] [place] Right: Leg Upper [employer] 03/01/2031 4-18 / / [id number] Cable/Sle Beaded D/M 20 Vit - [id number] Implanted:Qty: 1 on 05/08/2021 by Graham Ascencio MD at [place] [facility] [place] Right: Leg Upper YUE : ORTHOPAEDICS 11/16/2025 6704-0-520 / / [id number] 15mm 150mm Sts Distal Stem Implanted:Qty: 1 on 05/08/2021 by Graham Ascencio MD at [place] [facility] [place] Right: Leg Upper [employer] : ORTHOPEDICS 04/02/2030 [id number] / / [id number] High Offset Cone Proximal Body Implanted:Qty: 1 on 05/08/2021 by Graham Ascencio MD at [place] [facility] [place] Right: Leg Upper [employer] : ORTHOPEDICS 07/08/2030 [id number] / / [id number] Cable/Short Gtr 2232-02-16 - [id number] Implanted:Qty: 1 on 05/08/2021 by Graham Ascencio MD at [place] [facility] [place] Right: Leg Upper [employer] 01/27/203102-15 / [id number] Head Bioloxd Option 36mm - [id number] Implanted:Qty: 1 on 05/08/2021 by Graham Ascencio MD at [place] [facility] [place] Right: Leg Upper [employer] 08/21/2030 650-1057 / / [id number] Hip Fmrl Insert Ceropt Sleve-6 - [id number] Implanted:Qty: 1 on 05/08/2021 by Graham Ascencio MD at [place] [facility] [place] Right: Leg Upper [employer] 11/20/2030 650-1064 / / [id number] Cable/Short Gtr 2232-02-16 - [id number] Implanted:Qty: 1 on 05/08/2021 by Graham Ascencio MD at [place] [facility] [place] Right: Leg Upper [employer] 01/27/2031- / / [id number] Cable/Short Gtr 2232-02-16 - [id number] Implanted:Qty: 1 on 05/08/2021 by Graham Ascencio MD at [place] [facility] [place] Right: Leg Upper [employer] 01/20/2031- / / [id number] Cable/Sle Beaded D/M 20 Vit - [id number] Implanted:Qty: 1 on 05/08/2021 by Graham Ascencio MD at [place] [facility] Right: Leg Upper YUE : ORTHOPAEDICS 11/30/2025 6704-0-520 / / [id number] documented as of this encounter Advance Directives [...] and were consensually agreed upon. Care Teams Electrical Appliance Mechanic Relationship Specialty Start Date End Date Jake Green DO [address] [place] [phone] PCP - General Internal Medicine 09/16/21 documented as of this encounter
[2024-06-09 18:23] LABS: Basophils # (auto) 0.01 K/uL (0.00-0.20); Basophils % (auto) 0.1 %; Eosinophils # (auto) 0.01 K/uL (0.00-0.50); Eosinophils % (auto) 0.1 %; Hematocrit (blood only) 45.5 % (42.0-52.0); Hemoglobin 16.1 g/dl (14.0-18.0); Immature Granulocytes # (auto) 0.03 K/uL (0.01-0.20); Immature Granulocytes % (auto) 0.3 %; Lymphocytes # (auto) 1.19 K/uL (1.20-3.40); Lymphocytes % (auto) 10.9 %; Mean Corpuscular Hemoglobin 31.9 pg (25.0-34.0); Mean Corpuscular Hgb Conc 35.4 g/dL (32.0-36.0); Mean Corpuscular Volume 90.3 fL (80.0-100.0); Monocytes # (auto) 0.64 K/uL (0.11-0.59); Monocytes % (auto) 5.9 %; Neutrophils # (auto) 8.99 K/uL (1.40-6.50); Neutrophils % (auto) 82.7 %; Platelet Count 175 K/uL (130-400); RDW Coefficient of Variation 13.7 % (11.5-14.5); RDW Standard Deviation 45.1 fL (36.4-46.3); Red Blood Count 5.04 M/uL (4.70-6.10); White Blood Count 10.87 K/ul (4.8-10.8)
--- NOTE | 2024-06-09 18:23 | Emergency Department Note ---
Impression & Plan SBO (small bowel obstruction), Abdominal pain, Nausea & vomiting ED Provider Note HISTORY OF PRESENT ILLNESS: Patient is a 79-year-old male presenting with generalized abdominal pain. Patient is concerned that he has a bowel obstruction. He reports that he has vomited 8 times since lunch. He has generalized abdominal pain. Reports he had a very small bowel movement early this morning but states he has not had any rectal output since. He states he is not passing gas. He states this feels like his previous bowel obstruction. He denies any chest pain or shortness of breath. He has had multiple abdominal surgeries and colon resection with adhesion removals secondary to bowel obstructions. He denies any fevers. ROS: as above PHYSICAL EXAM: Constitutional: Patient appears in no acute distress. HENT: Head: Normocephalic and atraumatic. Eyes: EOMI, PERRL Mouth/Throat: Mucous membranes moist. Neck: Trachea midline. Neck supple. Cardiovascular: RRR, No murmurs, rubs or gallops. Intact distal pulses. Pulmonary/Chest: No respiratory distress. Breath sounds clear and equal bilaterally. No wheezes or rales. Abdominal: Abdomen soft, no rebound or guarding. Generalized tenderness to palpation. Patient has a notable ventral hernia in the upper abdomen Musculoskeletal: No edema, tenderness or deformity noted. Skin: Warm and dry. No rash, erythema, pallor or cyanosis Psychiatric: Appropriate mood and affect for situation. Neurological: Alert and keenly responsive. CN II-XII grossly intact, moving all extremities equally and fully. MDM: - Vitals signs stable - History obtained via patient. History as above. - Chronic conditions affecting care: hx of small bowel obstruction; DVT and PE hx; HTN; HLD; CAD (s/p PCI) - Differential diagnoses include, but are not limited to: Small bowel obstruction; ischemic colitis; strangulated hernia; diverticulitis; colitis - Order placed for continuous cardiac monitoring. At this time, monitor showed rate of 74 bpm with normal sinus rhythm, per my interpretation. - External medical records reviewed. Discharge summary dated 01/08/2019 was reviewed. Patient was admitted that time for epigastric abdominal pain without evidence of a bowel obstruction. - Laboratory workup interpreted by myself showed slight leukocytosis (WBC 10.87); elevated INR (1.8); normal electrolytes; normal lactate; normal lipase - CT abdomen/pelvis wo contrast findings consistent with small bowel obstruction due to a mid abdominal ventral hernia. - NG tube placed by nursing staff - Discussion was had with returned case inspector about patient's case and need for admission - Hospitalist consulted for admission - Patient admitted to [facility] service for further evaluation and management. ASSESSMENT AND PLAN: Diagnosis: Small bowel obstruction; abdominal pain; nausea and vomiting Plan: Admit Past Med/Surg History Problem List (Updated 06/09/24 @ 20:14 by Cielo Hairston MD) Nausea & vomiting (Acute) Abdominal pain (Acute) SBO (small bowel obstruction) (Acute) BPH loc w/o ur obs/LUTS Elevated PSA Nocturnal hypoxemia Hardware failure H/O bilateral hip replacements Spinal stenosis Obesity Moderate obstructive sleep apnea Hypertension (Chronic) Hyperglycemia Chest pain (Acute) Epigastric abdominal pain (Acute) Abnormal CT scan, chest (Chronic) Discharge planning issues DVT prophylaxis History of deep venous thrombosis or pulmonary embolus (Chronic) Factor V Leiden mutation (Chronic) Coronary artery disease (Chronic) Small bowel obstruction (Acute) History of cholecystectomy (Chronic) Diverticulosis (Chronic) Asthma (Chronic) Medical History Hardware failure Spinal stenosis Enlarged prostate Hyperglycemia Diverticulosis Pneumonia Hypertension Surgical History H/O bilateral hip replacements History of back surgery History of carotid angioplasty History of colectomy History of tonsillectomy and adenoidectomy History of rotator cuff surgery History of hernia repair History of hip replacement History of colonoscopy History of cholecystectomy History of arthroplasty History of cholecystectomy Family History Son Sleep apnea Other No significant family history Social History Smoking Status: Current some day smoker Tobacco Type: Cigars Second Hand Exposure: No; Do You Dip or Chew Tobacco: No; Hx Alcohol Use: No Hx Substance Use: No Preferred Language: Bahraini Communication Ability: Effective Hospital Cleaner Required: No Beliefs That Will Affect Care: None Current Living Situation: Spouse 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 Verified 06/09/24 18:36 N/V Avelox Allergy Severe N/V Uncoded 01/30/24 08:57 Home Meds Home Medications Medication Instructions Recorded Confirmed aspirin 81 mg tablet,delayed 81 mg PO DAILY 08/28/18 06/09/24 release (Aspir-) cyanocobalamin (vitamin B-12) 1,000 mcg PO DAILY 08/28/18 06/09/24 1,000 mcg tablet (Vitamin B-12) esomeprazole magnesium 40 mg 40 mg PO HS 08/28/18 06/09/24 capsule,delayed release (Nexium) isosorbide mononitrate 60 mg 60 mg PO DAILY 08/28/18 06/09/24 tablet,extended release 24 hr nitroglycerin 0.4 mg sublingual 0.4 mg sublingual UD PRN Chest Pain 08/28/18 06/09/24 tablet (Nitrostat) olmesartan 5 mg tablet (Benicar) 5 mg PO BID 08/28/18 06/09/24 pyridoxine (vitamin B6) 100 mg 100 mg PO DAILY 08/28/18 06/09/24 tablet (Vitamin B-6) folic acid 800 mcg tablet 0.8 mg PO DAILY 01/05/19 06/09/24 furosemide 20 mg tablet (Lasix) 20 mg PO DAILY 06/10/23 06/09/24 atorvastatin 80 mg tablet 80 mg PO QAM 06/09/24 06/09/24 carvedilol 25 mg tablet 25 mg PO BID 06/09/24 06/09/24 diclofenac sodium 1 % topical gel 2 g topical DAILY 06/09/24 06/09/24 warfarin 1 mg tablet See Rx Instructions .Route .COMPLEX 06/09/24 06/09/24 Results & Data (ED) Vital Signs Vital Signs - 24 hr 06/09/24 17:37 06/09/24 18:28 06/09/24 18:29 Temperature 36.3 C L Temperature Source Temporal Artery Scan Pulse Rate 74 73 Respiratory Rate 22 Respiratory Depth Normal Blood Pressure 135/82 Blood Pressure Mean 99 Pulse Oximetry 96 Oxygen Delivery Method Room Air Room Air Sepsis Recent Fever Within 48 Hours No Sepsis New/Unexplained Change in Mental Status No Sepsis Action Taken by Nursing No Action Required Laboratory Data 06/09/24 18:00 06/09/24 18:00 Lab Results 06/09/24 06/09/24 Range/Units 18:00 18:08 WBC 10.87 H (4.8-10.8) K/ul RBC 5.04 (4.70-6.10) M/uL Hgb 16.1 (14.0-18.0) g/dl Hct 45.5 (42.0-52.0) % MCV 90.3 (80.0-100.0) fL MCH 31.9 (25.0-34.0) pg MCHC 35.4 (32.0-36.0) g/dL RDW Std Deviation 45.1 (36.4-46.3) fL RDW Coeff of Guille 13.7 (11.5-14.5) % Plt Count 175 (130-400) K/uL MPV 10.0 (9.4-12.4) fL Immature Gran % (Auto) 0.3 % Neut % (Auto) 82.7 % Lymph % (Auto) 10.9 % [place] % (Auto) 5.9 % Eos % (Auto) 0.1 % Baso % (Auto) 0.1 % Neut # (Auto) 8.99 H (1.40-6.50) K/uL Lymph # (Auto) 1.19 L (1.20-3.40) K/uL [place] # (Auto) 0.64 H (0.11-0.59) K/uL Eos # (Auto) 0.01 (0.00-0.50) K/uL Baso # (Auto) 0.01 (0.00-0.20) K/uL Immature Gran # (Auto) 0.03 (0.01-0.20) K/uL PT 18.1 H (9.0-12.0) Seconds INR 1.8 H (0.9-1.1) Sodium 138 (136-145) mmol/L Potassium 4.3 (3.5-5.1) mmol/L Chloride 105 (98-107) mmol/L Carbon Dioxide 24 (21-32) mmol/L Anion Gap 9 (3-11) BUN 20 (6-23) mg/dl Creatinine 0.96 (0.6-1.4) mg/dl Est Cr Clr Drug Dosing 73.1 ml/min Est GFR ( Amer) 87.4 ml/min Est GFR (Non-Af Amer) 75.4 ml/min BUN/Creatinine Ratio 20.8 H (10-20) Glucose 149 H (70-99(Fasting)) mg/dl Lactate 1.4 (0.4-2.0) mmol/L Calcium 10.1 (8.6-10.3) mg/dl Total Bilirubin 1.0 (0.2-1.0) mg/dl AST 21 (13-39) U/L ALT 20 (7-52) U/L Alkaline Phosphatase 71 (34-104) U/L Total Protein 7.9 (6.0-8.3) gm/dl Albumin 4.6 (3.4-5.0) gm/dl Globulin 3.3 (2.5-4.0) gm/dl Albumin/Globulin Ratio 1.4 (0.9-2) Lipase 14 (11-82) U/L Imaging Data Radiologist's Impression: Abdomen/Pelvis CT 06/09/24 17:49 CT OF THE ABDOMEN AND PELVIS WITHOUT CONTRAST CLINICAL HISTORY: abdominal pain and vomiting; hx of SBO COMPARISON STUDY: CT of the abdomen and pelvis November 13, 2019. TECHNIQUE: Axial images of the abdomen and pelvis were obtained without IV contrast. Images were reviewed in the axial, sagittal, and coronal planes. Automated exposure control was utilized for the study. A dose lowering technique was utilized adhering to the principles of ALARA. FINDINGS: Multiple subpleural nodules within the lower lungs are unchanged and CT of November 13, 2019. These are benign given stability. There is a small hiatal hernia. No pneumatosis, free air or portal venous gas is present. Evaluation of the abdomen and pelvis is suboptimal on this unenhanced exam. There is no biliary ductal dilatation status post cholecystectomy. Unenhanced images of the liver, spleen, adrenal glands and kidneys are unremarkable. There is no hydronephrosis. There are no urinary calculi. The anterior abdominal wall is markedly attenuated. There are multiple fat-containing ventral hernias. In addition, a mid abdominal ventral hernia on image 159 of 337 contains a knuckle of small bowel. This results in a small bowel obstruction. The upstream small bowel is moderately dilated with small bowel feces sign. The distal small bowel is relatively decompressed. Images of the pelvis are degraded by streak artifact from bilateral hip arthroplasties. No fluid collections are present. There is no abdominal or pelvic lymphadenopathy. There is colonic diverticulosis without evidence for acute diverticulitis. IMPRESSION: 1. Findings consistent with a small bowel obstruction due to a mid abdominal ventral hernia which contains a knuckle of small bowel, as described above. 2. Markedly attenuated anterior abdominal wall with numerous fat-containing ventral hernias.. No urinary calculi or hydronephrosis. 4. Colonic diverticulosis. No evidence for acute diverticulitis. ACT 112: Negative or not required by law. Electronically signed by: Rubens Sullivan M.D. 06/09/2024 6:29 PM Chest X-Ray 06/09/24 18:54 XR chest 1V portable CLINICAL HISTORY: s/p NG placement COMPARISON STUDY: No previous studies for comparison. FINDINGS: The nasogastric tube is difficult to visualize given suboptimal penetration however the tip likely projects over the proximal body of the stomach. The tube could be advanced an additional 4 cm before obtaining a KUB. Dilated loops of small bowel are noted, as shown on abdominal CT. Visualized portions of the lungs are clear. IMPRESSION: Nasogastric tube difficult to visualize given suboptimal penetration however the tip likely projects over the proximal body of the stomach. The tube could be advanced an additional 4 cm before obtaining a KUB. ACT 112: Negative or not required by law. Electronically signed by: Rubens Sullivan M.D. 06/09/2024 7:53 PM Discharge Plan Visit Data Chief Complaint: Constipation Stated Complaint: BOWL OBSTRUCTION ED Provider: Cielo Hairston Discharge Problem: SBO (small bowel obstruction), Abdominal pain, Nausea & vomiting Forms Stand Alone Forms: My [facility] [employer] Prescriptions Prescriptions: No Action furosemide [Lasix] 20 mg tablet 20 mg PO DAILY cyanocobalamin (vitamin B-12) [Vitamin B-12] 1,000 mcg Tablet 1,000 mcg PO DAILY aspirin [Aspir-81] 81 mg Tablet,Delayed Release (Dr/Ec) 81 mg PO DAILY isosorbide mononitrate 60 mg tablet extended release 24 hr 60 mg PO DAILY esomeprazole magnesium [Nexium] 40 mg capsule,delayed release(DR/EC) 40 mg PO HS nitroglycerin [Nitrostat] 0.4 mg Tablet, Sublingual 0.4 mg Sublingual UD PRN (Reason: Chest Pain) Rx Instructions: Pt states this is and he needs new script pyridoxine (vitamin B6) [Vitamin B-6] 100 mg Tablet 100 mg PO DAILY olmesartan [Benicar] 5 mg tablet 5 mg PO BID folic acid 800 mcg Tablet 0.8 mg PO DAILY atorvastatin 80 mg tablet 80 mg PO QAM carvedilol 25 mg tablet 25 mg PO BID warfarin 1 mg tablet See Rx Instructions .ROUTE .COMPLEX Rx Instructions: 3 mg Tuesday/Tuesday/Tuesday//Tuesday/Tuesday and 2mg on Tuesday diclofenac sodium 1 % gel 2 g TOPICAL DAILY Referrals Referrals: Jake Green MD [Primary Care Provider] -
--- NOTE | 2024-06-09 18:31 | CT Scan Report ---
CT OF THE ABDOMEN AND PELVIS WITHOUT CONTRAST CLINICAL HISTORY: abdominal pain and vomiting; hx of SBO COMPARISON STUDY: CT of the abdomen and pelvis November 13, 2019. TECHNIQUE: Axial images of the abdomen and pelvis were obtained without IV contrast. Images were revi ewed in the axial, sagittal, and coronal planes. Automated exposure control was utilized for the yu dy. A dose lowering technique was utilized adhering to the principles of ALARA. FINDINGS: Multiple subpleural nodules within the lower lungs are unchanged and CT of November 13, 2019 . These are benign given stability. There is a small hiatal hernia. No pneumatosis, free air or sally l venous gas is present. Evaluation of the abdomen and pelvis is suboptimal on this unenhanced exam. There is no biliary ductal dilatation status post cholecystectomy. Unenhanced images of the liver, sp connor, adrenal glands and kidneys are unremarkable. There is no hydronephrosis. There are no urinary c alculi. The anterior abdominal wall is markedly attenuated. There are multiple fat-containing ventral hernias. In addition, a mid abdominal ventral hernia on image 159 of 337 contains a knuckle of small bowel. This results in a small bowel obstruction. The upstream small bowel is moderately dilated wit h small bowel feces sign. The distal small bowel is relatively decompressed. Images of the pelvis are degraded by streak artifact from bilateral hip arthroplasties. No fluid collections are present. The re is no abdominal or pelvic lymphadenopathy. There is colonic diverticulosis without evidence for ac adrienne diverticulitis. IMPRESSION: 1. Findings consistent with a small bowel obstruction due to a mid abdominal ventral hernia which con tains a knuckle of small bowel, as described above. 2. Markedly attenuated anterior abdominal wall with numerous fat-containing ventral hernias.. No urin ha calculi or hydronephrosis. 4. Colonic diverticulosis. No evidence for acute diverticulitis. ACT 112: Negative or not required by law. Electronically signed by: Rubens Sullivan M.D. 06/09/2024 6:29 PM
[2024-06-09 18:37] LABS: Albumin Globulin Ratio 1.4 (0.9-2); Albumin Level 4.6 gm/dl (3.4-5.0); BUN Creatinine Ratio 20.8 (10-20); Calcium 10.1 mg/dl (8.6-10.3); Creatinine Clr Calc Pharmacy 73.1 ml/min; Est GFR (African American) 87.4 ml/min; Est GFR (Non-African American) 75.4 ml/min; Globulin 3.3 gm/dl (2.5-4.0); Potassium 4.3 mmol/L (3.5-5.1); Total Protein 7.9 gm/dl (6.0-8.3)
--- NOTE | 2024-06-09 19:54 | XRay Report ---
XR chest 1V portable CLINICAL HISTORY: s/p NG placement COMPARISON STUDY: No previous studies for comparison. FINDINGS: The nasogastric tube is difficult to visualize given suboptimal penetration however the tip likely projects over the proximal body of the stomach. The tube could be advanced an additional 4 cm before obtaining a KUB. Dilated loops of small bowel are noted, as shown on abdominal CT. Visualized portions of the lungs are clear. IMPRESSION: Nasogastric tube difficult to visualize given suboptimal penetration however the tip like ly projects over the proximal body of the stomach. The tube could be advanced an additional 4 cm befo re obtaining a KUB. ACT 112: Negative or not required by law. Electronically signed by: Rubens Sullivan M.D. 06/09/2024 7:53 PM
[2024-06-09 20:04] LABS: INR 1.8 (0.9-1.1); Prothrombin Time 18.1 Seconds (9.0-12.0)
[2024-06-09] MEDS: ONDANSETRON INJ 2 MG/ML 2 ML VIAL IV STA (20:20)
--- NOTE | 2024-06-09 20:47 | Surgery Consultation ---
Date of Consultation June 09, 2024 Assessment & Plan (1) SBO (small bowel obstruction): 79-year-old gentleman with extensive abdominal surgical history and multiple small bowel obstructions in the past presents with a small bowel obstruction. I was able to easily reduce the small bowel loop from the hernia, and on re- examination this loop stayed reduced. As the hernia was reducible, I would recommend conservative management with IV fluids and bowel rest. Continue NG tube decompression. We will follow while he is in the hospital. History of Present Illness Reason for Consultation: Small bowel obstruction Requesting Physician: MD Og Attending Physician: MD Og History of Present Illness 79-year-old gentleman with extensive past surgical history including diverticulosis surgery, hiatal hernia repair, multiple bowel obstructions surgeries who now presents with multiple hernias and a bowel obstruction. He has had multiple small bowel obstructions treated conservatively in the past. Yesterday he developed pain in his abdomen increasing into today. After lunch today he developed nausea and vomiting and vomited about 8 times. He denies fevers or chills. He denies other complaints. On CT scan he appears to have a moderate small bowel obstruction and a loop of small bowel contained within a ventral hernia which appears to be the site of obstruction. Allergies Allergy/AdvReac Type Severity Reaction Status Date / Time moxifloxacin Allergy Intermediate ITCHING. Verified 06/09/24 18:36 N/V Avelox Allergy Severe N/V Uncoded 01/30/24 08:57 Home Medications Medication Instructions Recorded Confirmed Type aspirin 81 mg tablet,delayed 81 mg PO DAILY 08/28/18 06/09/24 History release (Aspir-) cyanocobalamin (vitamin B-12) 1,000 mcg PO DAILY 08/28/18 06/09/24 History 1,000 mcg tablet (Vitamin B-12) esomeprazole magnesium 40 mg 40 mg PO HS 08/28/18 06/09/24 History capsule,delayed release (Nexium) isosorbide mononitrate 60 mg 60 mg PO DAILY 08/28/18 06/09/24 History tablet,extended release 24 hr nitroglycerin 0.4 mg sublingual 0.4 mg sublingual UD PRN Chest Pain 08/28/18 06/09/24 History tablet (Nitrostat) olmesartan 5 mg tablet (Benicar) 5 mg PO BID 08/28/18 06/09/24 History pyridoxine (vitamin B6) 100 mg 100 mg PO DAILY 08/28/18 06/09/24 History tablet (Vitamin B-6) folic acid 800 mcg tablet 0.8 mg PO DAILY 01/05/19 06/09/24 History furosemide 20 mg tablet (Lasix) 20 mg PO DAILY 06/10/23 06/09/24 History atorvastatin 80 mg tablet 80 mg PO QAM 06/09/24 06/09/24 History carvedilol 25 mg tablet 25 mg PO BID 06/09/24 06/09/24 History diclofenac sodium 1 % topical gel 2 g topical DAILY 06/09/24 06/09/24 History warfarin 1 mg tablet See Rx Instructions .Route .COMPLEX 06/09/24 06/09/24 History Patient History Medical History Enlarged prostate Surgical History History of back surgery History of carotid angioplasty History of colectomy History of tonsillectomy and adenoidectomy History of rotator cuff surgery History of hernia repair History of hip replacement History of colonoscopy History of cholecystectomy History of arthroplasty Family History Son Sleep apnea Other No significant family history Social History Smoking Status: Current some day smoker Tobacco Type: Cigars Second Hand Exposure: No; Do You Dip or Chew Tobacco: No; Hx Alcohol Use: No Hx Substance Use: No Preferred Language: Brazilian Communication Ability: Effective Supervisor [employer] Required: No Beliefs That Will Affect Care: None Current Living Situation: Spouse 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 Feels Safe at Home: Yes Assistive Devices: None Review of Systems Review of Systems: All systems reviewed & are unremarkable except as noted in HPI & below Physical Exam Constitutional: WD/WN, vitals as above Eyes: PERRL, conjunctivae normal, anicteric sclerae Neck: trachea midline, no thyromegaly Respiratory: normal respiratory effort; no respiratory distress and no labored breathing Cardiovascular: Rate/Rhythm: regular rate and regular rhythm Gastrointestinal (Abdomen): Inspection/Auscultation: abdomen normal to inspection and + abdomen distended Percussion/Palpation: + abdomen tender ( Mild diffuse tender to palpation) and abdomen soft; no guarding and abdomen not rigid multiple midline and transverse abdominal incisions, multiple hernias, the hernia containing the loop of small bowel in the left mid abdomen is easily reducible. I was able to reduce the small bowel from this hernia without significant pain or tenderness. Skin: no rashes, warm and dry Psychiatric: A+Ox3, euthymic affect Results & Data Vital Signs (Past 12 Hours) Vital Signs Temp Pulse Resp BP Pulse Ox O2 Del Method 06/09/24 18:29 73 06/09/24 18:28 Room Air 06/09/24 17:37 36.3 C L 74 22 135/82 96 Room Air Laboratory Results 06/09/24 06/09/24 Range/Units 18:08 18:00 WBC 10.87 H (4.8-10.8) K/ul RBC 5.04 (4.70-6.10) M/uL Hgb 16.1 (14.0-18.0) g/dl Hct 45.5 (42.0-52.0) % MCV 90.3 (80.0-100.0) fL MCH 31.9 (25.0-34.0) pg MCHC 35.4 (32.0-36.0) g/dL RDW Std Deviation 45.1 (36.4-46.3) fL RDW Coeff of Guille 13.7 (11.5-14.5) % Plt Count 175 (130-400) K/uL MPV 10.0 (9.4-12.4) fL Immature Gran % (Auto) 0.3 % Neut % (Auto) 82.7 % Lymph % (Auto) 10.9 % [place] % (Auto) 5.9 % Eos % (Auto) 0.1 % Baso % (Auto) 0.1 % Neut # (Auto) 8.99 H (1.40-6.50) K/uL Lymph # (Auto) 1.19 L (1.20-3.40) K/uL [place] # (Auto) 0.64 H (0.11-0.59) K/uL Eos # (Auto) 0.01 (0.00-0.50) K/uL Baso # (Auto) 0.01 (0.00-0.20) K/uL Immature Gran # (Auto) 0.03 (0.01-0.20) K/uL PT 18.1 H (9.0-12.0) Seconds INR 1.8 H (0.9-1.1) Sodium 138 (136-145) mmol/L Potassium 4.3 (3.5-5.1) mmol/L Chloride 105 (98-107) mmol/L Carbon Dioxide 24 (21-32) mmol/L Anion Gap 9 (3-11) BUN 20 (6-23) mg/dl Creatinine 0.96 (0.6-1.4) mg/dl Est Cr Clr Drug Dosing 73.1 ml/min Est GFR ( Amer) 87.4 ml/min Est GFR (Non-Af Amer) 75.4 ml/min BUN/Creatinine Ratio 20.8 H (10-20) Glucose 149 H (70-99(Fasting)) mg/dl Lactate 1.4 (0.4-2.0) mmol/L Calcium 10.1 (8.6-10.3) mg/dl Total Bilirubin 1.0 (0.2-1.0) mg/dl AST 21 (13-39) U/L ALT 20 (7-52) U/L Alkaline Phosphatase 71 (34-104) U/L Total Protein 7.9 (6.0-8.3) gm/dl Albumin 4.6 (3.4-5.0) gm/dl Globulin 3.3 (2.5-4.0) gm/dl Albumin/Globulin Ratio 1.4 (0.9-2) Lipase 14 (11-82) U/L Diagnostic Findings CT OF THE ABDOMEN AND PELVIS WITHOUT CONTRAST CLINICAL HISTORY: abdominal pain and vomiting; hx of SBO COMPARISON STUDY: CT of the abdomen and pelvis November 13, 2019. TECHNIQUE: Axial images of the abdomen and pelvis were obtained without IV contrast. Images were reviewed in the axial, sagittal, and coronal planes. Automated exposure control was utilized for the study. A dose lowering technique was utilized adhering to the principles of ALARA. FINDINGS: Multiple subpleural nodules within the lower lungs are unchanged and CT of November 13, 2019. These are benign given stability. There is a small hiatal hernia. No pneumatosis, free air or portal venous gas is present. Evaluation of the abdomen and pelvis is suboptimal on this unenhanced exam. There is no biliary ductal dilatation status post cholecystectomy. Unenhanced images of the liver, spleen, adrenal glands and kidneys are unremarkable. There is no hydronephrosis. There are no urinary calculi. The anterior abdominal wall is markedly attenuated. There are multiple fat-containing ventral hernias. In addition, a mid abdominal ventral hernia on image 159 of 337 contains a knuckle of small bowel. This results in a small bowel obstruction. The upstream small bowel is moderately dilated with small bowel feces sign. The distal small bowel is relatively decompressed. Images of the pelvis are degraded by streak artifact from bilateral hip arthroplasties. No fluid collections are present. There is no abdominal or pelvic lymphadenopathy. There is colonic diverticulosis without evidence for acute diverticulitis. IMPRESSION: 1. Findings consistent with a small bowel obstruction due to a mid abdominal ventral hernia which contains a knuckle of small bowel, as described above. 2. Markedly attenuated anterior abdominal wall with numerous fat-containing ventral hernias.. No urinary calculi or hydronephrosis. 4. Colonic diverticulosis. No evidence for acute diverticulitis. ACT 112: Negative or not required by law. Electronically signed by: Rubens Sullivan M.D. 06/09/2024 6:29 PM
[2024-06-09 22:03] LABS: Troponin I High Sensitivity 11.7 pg/ml (0-20)
[2024-06-09] MEDS ORDERED: NITROGLYCERIN SL 0.4 MG/TAB TAB SL PRN (22:55)
[2024-06-09] MEDS ORDERED: HYDROmorphone INJ 0.5 MG/0.5 ML SYR IV PRN ×2 (22:55)
[2024-06-09] MEDS ORDERED: ONDANSETRON INJ 2 MG/ML 2 ML VIAL IV PRN (22:55)
[2024-06-09] MEDS ORDERED: ENALAPRILAT 1.25 MG in DEXTROSE 5% 25 ML IV PRN (22:55)
[2024-06-09] MEDS ORDERED: ACETAMINOPHEN 1,000 MG/100 ML VIAL IV PRN (22:55)
[2024-06-09] MEDS: SODIUM CHLORIDE 0.9% 1,000 ML IV SCH (23:20)
[2024-06-10 00:44] LABS: Partial Thromboplastin Ratio 1.2; Partial Thromboplastin Time 32 Seconds (21-31)
[2024-06-10] MEDS: METOPROLOL TARTRATE 1 MG/ML VIAL IV SCH (00:52)
[2024-06-10] MEDS: HEPARIN SODIUM/DEXTROSE 25,000 UNITS/500 ML BAG IV SCH (00:53)
[2024-06-10] MEDS: Heparin IV Adult Wt-Based Low-Dose *NO* INITIAL Bolus Protocol IV STA (00:53)
--- NOTE | 2024-06-10 01:11 | History & Physical Report ---
Date of Service June 09, 2024 Assessment & Plan (1) SBO (small bowel obstruction): Plan: 79-year-old male with past medical history significant for hyperlipidemia, hypertension, type 2 diabetes, COPD, chronic diastolic CHF, dilated aortic root, SVT, CAD s/p stent, factor V deficiency, history of PE, depression presents with abdominal pain nausea vomiting and no bowel movement since last 2 days and found to have small bowel obstruction on the CAT scan. Patient has history of small bowel obstructions in the past. Patient has large vomitus in the ER. Was complaining of abdominal pain. Some lower chest pain. Shortness of breath. Headache. Not feeling well. Status post NG tube and placed on low intermittent suction. He had episode of chest tightness but that got resolved. No fevers. Currently no headache. Vision is okay. No runny nose or sore throat. No cough. Currently hemodynamics are okay. Small bowel obstruction History of multiple bowel obstructions in the past CT scan showing small bowel obstruction due to mid abdominal ventral hernia which contains a knuckle of small bowel. Markedly attenuated anterior abdomen wall with numerous fat-containing ventral hernias. Surgery reduced small bowel loop from the hernia. Currently status post NG tube and low intermittent suction IV fluids, IV pain meds., IV antiemetics as needed Close monitor Chest discomfort Currently resolved Troponin negative Will follow serial enzymes and echo Abnormal EKG Will consult cardiology in a.m. Med/telemetry CAD s/p stent Restart his Coreg, high-dose statin, aspirin as soon as possible Placed on IV Lopressor 5 mg every 6 hours Hypertension Currently n.p.o. Restart his home medication as soon as possible Continue IV Lopressor 5 mg every 6 hours IV Vasotec as needed Close monitor History of SVT Current on IV Lopressor History of factor V deficiency History of PE On warfarin and INR is 1.8 As patient currently n.p.o. start him on IV heparin low-dose DVT prophylaxis On IV heparin Disposition Med/telemetry Full code History of Present Illness Chief Complaint: Small bowel obstruction Primary Care Provider: Jake Green MD 79-year-old male with past medical history significant for hyperlipidemia, hypertension, type 2 diabetes, COPD, chronic diastolic CHF, dilated aortic root, SVT, CAD s/p stent, factor V deficiency, history of PE, depression presents with abdominal pain, nausea/vomiting and no bowel movement since last 2 days and found to have small bowel obstruction on the CAT scan. Patient has history of small bowel obstructions in the past. Patient has large vomitus in the ER. Was complaining of abdominal pain. Some lower chest pain. Shortness of breath. Headache. Not feeling well. Status post NG tube and placed on low intermittent suction. He had episode of chest tightness but that got resolved. No fevers. Currently no headache. Vision is okay. No runny nose or sore throat. No cough. Currently hemodynamics are okay. Past medical history. As mentioned above Past surgical history. Left heart catheterization. Colonoscopy. EGD. Laparoscopic cholecystectomy. Laparoscopic repair of inguinal hernia. Lumbar spine fusion in 1974 in 1979. Partial removal of colon in 2008. Tonsillectomy adenoidectomy. Repair of diaphragmatic hernia in 1986. Repair of ruptured rotator cuff in 2000. Revision of right total hip joint surgery in 2020. Social history. . Quit smoking in 2008. 1 cigar cigars 3 to 4 days a week. Alcohol occasional. No drug use. Family history. Mother had arthritis. Eye problems. Gastrointestinal disorder. Glaucoma. Heart disorder. Hypertension. Stroke. Father had gastrointestinal disorder. Heart disorder. Thyroid disorder. Brother and sister has heart disease. Sister had leukemia. Brother has dementia. Allergies Allergy/AdvReac Type Severity Reaction Status Date / Time moxifloxacin Allergy Intermediate ITCHING. Verified 06/09/24 18:36 N/V Home Medications Medication Instructions Recorded Confirmed Type aspirin 81 mg tablet,delayed 81 mg PO DAILY 08/28/18 06/09/24 History release (Aspir-) cyanocobalamin (vitamin B-12) 1,000 mcg PO DAILY 08/28/18 06/09/24 History 1,000 mcg tablet (Vitamin B-12) esomeprazole magnesium 40 mg 40 mg PO HS 08/28/18 06/09/24 History capsule,delayed release (Nexium) isosorbide mononitrate 60 mg 60 mg PO DAILY 08/28/18 06/09/24 History tablet,extended release 24 hr nitroglycerin 0.4 mg sublingual 0.4 mg sublingual UD PRN Chest Pain 08/28/18 06/09/24 History tablet (Nitrostat) olmesartan 5 mg tablet (Benicar) 5 mg PO BID 08/28/18 06/09/24 History pyridoxine (vitamin B6) 100 mg 100 mg PO DAILY 08/28/18 06/09/24 History tablet (Vitamin B-6) folic acid 800 mcg tablet 0.8 mg PO DAILY 01/05/19 06/09/24 History furosemide 20 mg tablet (Lasix) 20 mg PO DAILY 06/10/23 06/09/24 History atorvastatin 80 mg tablet 80 mg PO QAM 06/09/24 06/09/24 History carvedilol 25 mg tablet 25 mg PO BID 06/09/24 06/09/24 History diclofenac sodium 1 % topical gel 2 g topical DAILY 06/09/24 06/09/24 History warfarin 1 mg tablet See Rx Instructions .Route .COMPLEX 06/09/24 06/09/24 History Past Med/Surg History Problem List Nausea & vomiting (Acute) Abdominal pain (Acute) SBO (small bowel obstruction) (Acute) BPH loc w/o ur obs/LUTS Elevated PSA Nocturnal hypoxemia Hardware failure H/O bilateral hip replacements Spinal stenosis Obesity Moderate obstructive sleep apnea Hypertension (Chronic) Hyperglycemia Chest pain (Acute) Epigastric abdominal pain (Acute) Abnormal CT scan, chest (Chronic) Discharge planning issues DVT prophylaxis History of deep venous thrombosis or pulmonary embolus (Chronic) Factor V Leiden mutation (Chronic) Coronary artery disease (Chronic) Small bowel obstruction (Acute) History of cholecystectomy (Chronic) Diverticulosis (Chronic) Asthma (Chronic) Medical History Enlarged prostate Surgical History History of back surgery History of carotid angioplasty History of colectomy History of tonsillectomy and adenoidectomy History of rotator cuff surgery History of hernia repair History of hip replacement History of colonoscopy History of cholecystectomy History of arthroplasty Family History Son Sleep apnea Other No significant family history Social History Smoking Status: Current some day smoker Tobacco Type: Cigars Second Hand Exposure: No; Do You Dip or Chew Tobacco: No; Hx Alcohol Use: Yes Alcohol type: hard liquor Hx Substance Use: No Preferred Language: [place] Communication Ability: Effective Bottling 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 ENT- oropharynx clear Neck- supple, no JVD. Lungs- clear to auscultation no wheezing or crackles Heart- regular rhythm; no murmur, no gallop. Abdomen- Absent bowel sounds, diffuse discomfort, distended, Extremities- no pretibial edema, no erythema seen. Neuro- alert, oriented ; PERRL, no facial palsy; no dysarthria; moves extremities Results & Data Results & Data Vital Signs (Past 12 Hours) Vital Signs Temp Pulse Pulse Resp BP BP Pulse Ox 06/09/24 21:12 76 18 118/76 97 06/09/24 21:09 142 H 06/09/24 20:45 77 20 115/66 97 06/09/24 18:29 73 06/09/24 18:28 06/09/24 17:37 36.3 C L 74 22 135/82 96 O2 Del Method 06/09/24 21:12 Room Air 06/09/24 21:09 06/09/24 20:45 Room Air 06/09/24 18:29 06/09/24 18:28 Room Air 06/09/24 17:37 Room Air Diagnostic Findings Laboratory Results WBC 10.87 K/ul (4.8-10.8) H 06/09/24 18:00 RBC 5.04 M/uL (4.70-6.10) 06/09/24 18:00 Hgb 16.1 g/dl (14.0-18.0) 06/09/24 18:00 Hct 45.5 % (42.0-52.0) 06/09/24 18:00 MCV 90.3 fL (80.0-100.0) 06/09/24 18:00 MCH 31.9 pg (25.0-34.0) 06/09/24 18:00 MCHC 35.4 g/dL (32.0-36.0) 06/09/24 18:00 RDW Std Deviation 45.1 fL (36.4-46.3) 06/09/24 18:00 RDW Coeff of Guille 13.7 % (11.5-14.5) 06/09/24 18:00 Plt Count 175 K/uL (130-400) 06/09/24 18:00 MPV 10.0 fL (9.4-12.4) 06/09/24 18:00 Immature Gran % (Auto) 0.3 % 06/09/24 18:00 Neut % (Auto) 82.7 % 06/09/24 18:00 Lymph % (Auto) 10.9 % 06/09/24 18:00 [place] % (Auto) 5.9 % 06/09/24 18:00 Eos % (Auto) 0.1 % 06/09/24 18:00 Baso % (Auto) 0.1 % 06/09/24 18:00 Neut # (Auto) 8.99 K/uL (1.40-6.50) H 06/09/24 18:00 Lymph # (Auto) 1.19 K/uL (1.20-3.40) L 06/09/24 18:00 [place] # (Auto) 0.64 K/uL (0.11-0.59) H 06/09/24 18:00 Eos # (Auto) 0.01 K/uL (0.00-0.50) 06/09/24 18:00 Baso # (Auto) 0.01 K/uL (0.00-0.20) 06/09/24 18:00 Immature Gran # (Auto) 0.03 K/uL (0.01-0.20) 06/09/24 18:00 PT 18.1 Seconds (9.0-12.0) H 06/09/24 18:08 INR 1.8 (0.9-1.1) H 06/09/24 18:08 APTT 32 Seconds (21-31) H 06/10/24 00:08 PTT Ratio 1.2 06/10/24 00:08 Sodium 138 mmol/L (136-145) 06/09/24 18:00 Potassium 4.3 mmol/L (3.5-5.1) 06/09/24 18:00 Chloride 105 mmol/L (98-107) 06/09/24 18:00 Carbon Dioxide 24 mmol/L (21-32) 06/09/24 18:00 Anion Gap 9 (3-11) 06/09/24 18:00 BUN 20 mg/dl (6-23) 06/09/24 18:00 Creatinine 0.96 mg/dl (0.6-1.4) 06/09/24 18:00 Est Cr Clr Drug Dosing 73.1 ml/min 06/09/24 18:00 Est GFR ( Amer) 87.4 ml/min 06/09/24 18:00 Est GFR (Non-Af Amer) 75.4 ml/min 06/09/24 18:00 BUN/Creatinine Ratio 20.8 (10-20) H 06/09/24 18:00 Glucose 149 mg/dl (70-99(Fasting)) H 06/09/24 18:00 Lactate 1.4 mmol/L (0.4-2.0) 06/09/24 18:00 Calcium 10.1 mg/dl (8.6-10.3) 06/09/24 18:00 Total Bilirubin 1.0 mg/dl (0.2-1.0) 06/09/24 18:00 AST 21 U/L (13-39) 06/09/24 18:00 ALT 20 U/L (7-52) 06/09/24 18:00 Alkaline Phosphatase 71 U/L (34-104) 06/09/24 18:00 Troponin I High Sens 11.7 pg/ml (0-20) 06/09/24 18:00 Total Protein 7.9 gm/dl (6.0-8.3) 06/09/24 18:00 Albumin 4.6 gm/dl (3.4-5.0) 06/09/24 18:00 Globulin 3.3 gm/dl (2.5-4.0) 06/09/24 18:00 Albumin/Globulin Ratio 1.4 (0.9-2) 06/09/24 18:00 Lipase 14 U/L (11-82) 06/09/24 18:00 Impressions Abdomen/Pelvis CT 06/09/24 17:49 CT OF THE ABDOMEN AND PELVIS WITHOUT CONTRAST CLINICAL HISTORY: abdominal pain and vomiting; hx of SBO COMPARISON STUDY: CT of the abdomen and pelvis November 13, 2019. TECHNIQUE: Axial images of the abdomen and pelvis were obtained without IV contrast. Images were reviewed in the axial, sagittal, and coronal planes. Automated exposure control was utilized for the study. A dose lowering technique was utilized adhering to the principles of ALARA. FINDINGS: Multiple subpleural nodules within the lower lungs are unchanged and CT of November 13, 2019. These are benign given stability. There is a small hiatal hernia. No pneumatosis, free air or portal venous gas is present. Evaluation of the abdomen and pelvis is suboptimal on this unenhanced exam. There is no biliary ductal dilatation status post cholecystectomy. Unenhanced images of the liver, spleen, adrenal glands and kidneys are unremarkable. There is no hydronephrosis. There are no urinary calculi. The anterior abdominal wall is markedly attenuated. There are multiple fat-containing ventral hernias. In addition, a mid abdominal ventral hernia on image 159 of [phone] contains a knuckle of small bowel. This results in a small bowel obstruction. The upstream small bowel is moderately dilated with small bowel feces sign. The distal small bowel is relatively decompressed. Images of the pelvis are degraded by streak artifact from bilateral hip arthroplasties. No fluid collections are present. There is no abdominal or pelvic lymphadenopathy. There is colonic diverticulosis without evidence for acute diverticulitis. IMPRESSION: 1. Findings consistent with a small bowel obstruction due to a mid abdominal ventral hernia which contains a knuckle of small bowel, as described above. 2. Markedly attenuated anterior abdominal wall with numerous fat-containing ventral hernias.. No urinary calculi or hydronephrosis. 4. Colonic diverticulosis. No evidence for acute diverticulitis. ACT 112: Negative or not required by law. Electronically signed by: Rubens Sullivan M.D. 06/09/2024 6:29 PM Chest X-Ray 06/09/24 18:54 XR chest 1V portable CLINICAL HISTORY: s/p NG placement COMPARISON STUDY: No previous studies for comparison. FINDINGS: The nasogastric tube is difficult to visualize given suboptimal penetration however the tip likely projects over the proximal body of the stomach. The tube could be advanced an additional 4 cm before obtaining a KUB. Dilated loops of small bowel are noted, as shown on abdominal CT. Visualized portions of the lungs are clear. IMPRESSION: Nasogastric tube difficult to visualize given suboptimal penetration however the tip likely projects over the proximal body of the stomach. The tube could be advanced an additional 4 cm before obtaining a KUB. ACT 112: Negative or not required by law. Electronically signed by: Rubens Sullivan M.D. 06/09/2024 7:53 PM ECG Additional Comments: ECG. Normal sinus rhythm rate of 75. Right bundle branch block. Left anterior fascicle block. Bifascicular block. T wave inversions in anterior leads Code Status & VTE Plan VTE Prophylaxis Plan VTE Prophylaxis will be ordered: Yes
--- NOTE | 2024-06-10 01:52 | Surgery Progress Note ---
Date of Service June 10, 2024 Assessment & Plan (1) SBO (small bowel obstruction): Plan: 79-year-old gentleman with extensive abdominal surgical history and multiple small bowel obstructions in the past presents with a small bowel obstruction. I was able to easily reduce the small bowel loop from the hernia, and on re- examination this loop stayed reduced. As the hernia was reducible, I would recommend conservative management with IV fluids and bowel rest. Continue NG tube decompression. We will follow while he is in the hospital. 06/10/24 - the hernia still reduced. No flatus yet. Continue NG tube, IV flui ds, bowel rest. Will continue to follow. Admission and Anticipated Discharge Date Admission Date: June 09, 2024 Subjective Feeling better. Minimal pain. No nausea or vomiting. NG tube in place. Physical Exam Physical Exam: AFVSS NAD, A&O x 3 Abdomen: Soft, NTND Midline hernia reducible Results & Data Vital Signs (Past 12 Hours) Vital Signs Temp Pulse Pulse Resp BP BP Pulse Ox 06/10/24 01:01 88 06/10/24 00:52 88 154/90 H 06/09/24 23:18 06/09/24 23:18 37.2 C 80 18 137/47 L 97 06/09/24 22:55 37.2 C 80 18 137/47 L 97 06/09/24 22:55 06/09/24 22:35 73 06/09/24 21:12 76 18 118/76 97 06/09/24 21:09 142 H 06/09/24 20:45 77 20 115/66 97 06/09/24 18:29 73 06/09/24 18:28 06/09/24 17:37 36.3 C L 74 22 135/82 96 O2 Del Method O2 Del Method 06/10/24 01:01 06/10/24 00:52 06/09/24 23:18 Room Air 06/09/24 23:18 Room Air 06/09/24 22:55 Room Air 06/09/24 22:55 Room Air 06/09/24 22:35 06/09/24 21:12 Room Air 06/09/24 21:09 06/09/24 20:45 Room Air 06/09/24 18:29 06/09/24 18:28 Room Air 06/09/24 17:37 Room Air
[2024-06-10 05:33] LABS: Basophils # (auto) 0.02 K/uL (0.00-0.20); Basophils % (auto) 0.2 %; Eosinophils # (auto) 0.01 K/uL (0.00-0.50); Eosinophils % (auto) 0.1 %; Hematocrit (blood only) 44.1 % (42.0-52.0); Hemoglobin 15.7 g/dl (14.0-18.0); Immature Granulocytes # (auto) 0.02 K/uL (0.01-0.20); Immature Granulocytes % (auto) 0.2 %; Lymphocytes % (auto) 4.7 %; Mean Corpuscular Hemoglobin 31.9 pg (25.0-34.0); Mean Corpuscular Hgb Conc 35.6 g/dL (32.0-36.0); Mean Corpuscular Volume 89.6 fL (80.0-100.0); Mean Platelet Volume 9.9 fL (9.4-12.4); Monocytes # (auto) 0.87 K/uL (0.11-0.59); Monocytes % (auto) 8.2 %; Neutrophils # (auto) 9.23 K/uL (1.40-6.50); Neutrophils % (auto) 86.6 %; Platelet Count 139 K/uL (130-400); RDW Coefficient of Variation 13.9 % (11.5-14.5); RDW Standard Deviation 44.9 fL (36.4-46.3); Red Blood Count 4.92 M/uL (4.70-6.10); White Blood Count 10.65 K/ul (4.8-10.8)
[2024-06-10 05:47] LABS: BUN Creatinine Ratio 30.1 (10-20); Calcium 8.9 mg/dl (8.6-10.3); Creatinine Clr Calc Pharmacy 84.5 ml/min; Est GFR (African American) 97.7 ml/min; Est GFR (Non-African American) 84.3 ml/min; Potassium 3.8 mmol/L (3.5-5.1)
[2024-06-10 05:50] LABS: Appearance Urine Clear (Clear); Bacteria Urine Automated None Seen (None Seen); Bilirubin Urine 1+ (Negative); Blood Urine Negative (Negative); Color Urine Dark Yellow; Epithelial Cell Urine Auto 0-2 /hpf (0-2); Glucose Urine UA Negative (Negative); Ketones Urine 1+ (Negative); Leukocyte Esterase Urine Negative (Negative); Nitrite Urine Negative (Negative); Protein Urine Trace (Negative); RBC Urine Automated 0-2 /hpf (0-2); Specific Gravity Urine 1.033 (1.000-1.030); Urobilinogen Urine Negative (Negative); WBC Urine Automated 0-5 /hpf (0-5)
[2024-06-10 05:55] LABS: Troponin I High Sensitivity 18.9 pg/ml (0-20)
--- NOTE | 2024-06-10 07:16 | XRay Report ---
KUB CLINICAL HISTORY: NGT placement COMPARISON STUDY: CT of the abdomen and pelvis June 09, 2024 and KUB June 09, 2024. FINDINGS: The tip of the nasogastric tube is not well visualized on this exam due to suboptimal penet ration. The tube is at least at the gastroesophageal junction. IMPRESSION: Nasogastric tube tip not well visualized on this exam due to suboptimal penetration. Tip at least at the gastroesophageal junction. A CT of the abdomen without contrast for more definitive localization is recommended. ACT 112: Negative or not required by law. Electronically signed by: Rubens Sullivan M.D. 06/10/2024 7:15 AM
--- NOTE | 2024-06-10 07:45 | XRay Report ---
KUB CLINICAL HISTORY: ng tube placement COMPARISON STUDY: Chest radiograph and CT of the abdomen and pelvis performed earlier today. FINDINGS: The tip of the nasogastric tube is coiled at the gastroesophageal junction. IMPRESSION: Tip of the nasogastric tube slightly coiled at the gastroesophageal junction. Reposition ing is recommended. ACT 112: Negative or not required by law. Electronically signed by: Rubens Sullivan M.D. 06/10/2024 7:44 AM
--- NOTE | 2024-06-10 08:17 | Electrocardiogram Report ---
Test Reason : Blood Pressure : */* mmHG Vent. Rate : 75 BPM Atrial Rate : 75 BPM P-R Int : 176 ms QRS Dur : 140 ms QT Int : 434 ms P-R-T Axes : 31 -57 -5 degrees QTcB Int : 484 ms Normal sinus rhythm Right bundle branch block Left anterior fascicular block Abnormal ECG When compared with ECG of 07-Jan-2019 06:49, Left anterior fascicular block is now Present Confirmed by Junito Palma ([id number]) on 06/10/2024 8:17:36 AM Referred By: REFERRED SELF Confirmed By: Junito Palma
--- NOTE | 2024-06-10 08:30 | Electrocardiogram Report ---
Test Reason : Blood Pressure : */* mmHG Vent. Rate : 79 BPM Atrial Rate : 79 BPM P-R Int : 190 ms QRS Dur : 138 ms QT Int : 434 ms P-R-T Axes : 43 -41 -15 degrees QTcB Int : 497 ms Normal sinus rhythm Left anterior fascicular block Right bundle branch block Abnormal ECG When compared with ECG of 09-Jun-2024 21:11, No significant change was found Confirmed by Junito Palma ([id number]) on 06/10/2024 8:29:47 AM Referred By: REFERRED SELF Confirmed By: Junito Palma
--- NOTE | 2024-06-10 09:22 | CT Scan Report ---
CT OF THE ABDOMEN AND PELVIS WITHOUT CONTRAST CLINICAL HISTORY: ng tube placement COMPARISON STUDY: CT of the abdomen and pelvis June 09, 2024. KUB performed earlier today. TECHNIQUE: Axial images of the abdomen and pelvis were obtained without IV contrast. Images were revi ewed in the axial, sagittal, and coronal planes. Automated exposure control was utilized for the yu dy. A dose lowering technique was utilized adhering to the principles of ALARA. FINDINGS: Several subpleural pulmonary nodules within the lower lungs are unchanged since prior exams . These are benign given stability. A small hiatal hernia is noted. The nasogastric tube is well-posi tioned. The tip is within the distal body of the stomach. No pneumatosis, free air or portal venous g as is present. There is no biliary ductal dilatation status post cholecystectomy. Unenhanced images o f liver, spleen, adrenal glands, kidneys and pancreas are unremarkable. There is no hydronephrosis. T here are no urinary calculi. The anterior abdominal wall is markedly attenuated. Fat-containing ventr al hernias are again noted. The small bowel loop within a ventral hernia on CT of June 09, 2024 has been reduced. Small bowel dilatation has improved. Small bowel loops measure up to 3.5 cm in caliber . There is no abdominal or pelvic lymphadenopathy. Bilateral hip arthroplasties are incidentally note d. IMPRESSION: 1. Well-positioned nasogastric tube. Tip within the distal body of the stomach. 2. The previously described small bowel loop within a ventral hernia on CT of June 09, 2024 has bee n reduced and small bowel dilatation has improved. The findings suggest an improving small bowel obst ruction. 3. Markedly attenuated anterior abdominal wall with multiple fat containing ventral hernias. ACT 112: Negative or not required by law. Electronically signed by: Rubens Sullivan M.D. 06/10/2024 9:20 AM
--- NOTE | 2024-06-10 10:03 | Cardiology Consultation ---
<Statement entered by Candis Mcfarland, - 06/10/24 14:01> I have reviewed the advanced practitioner's documentation and agree with the plan of care. I accept the responsibility for the associated risk. Pt seen in cardiology consultation due to chest pain in the setting of an acute SBO that is being medically treated with NGT and had a s/p manual manipulation of abdominal hernia. Pt is feeling much better after those interventions; he is no longer having any chest pain and BP is better controlled. 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 echo today based on my interpretation although limited visualization EF is preserved no wall motion abnormalities and no significant valvular pathology. He is stable from a cardiac perspective; once able to take PO can restart his home cardiac medications. If pt did need a surgical intervention at this juncture he is at an acceptable moderate cardiovascular risk for any procedure. Pt has a follow up in our office in jul please re-consult as necessary Date of Consultation June 10, 2024 Assessment & Plan (1) Abdominal pain: (2) SBO (small bowel obstruction): (3) Moderate obstructive sleep apnea: (4) Chest pain: (5) Factor V Leiden mutation: (6) Coronary artery disease: Plan - Heart rate currently well-controlled -Blood pressure trending a little on the higher side but likely secondary to pain and small bowel obstruction -Resting echocardiogram indicated normal ejection fraction with no significant valvular disease, appears similar to prior echo completed in 2020 -ECG indicates normal sinus rhythm with right bundle branch and left anterior fascicular block which was also present on ECG completed in December in the card iology office -Troponins have been negative -No acute ischemic changes noted on ECG -Suspect the chest discomfort was referred pain from small bowel obstruction -Once able to tolerate oral intake would resume his home medication regimen which includes olmesartan, coreg, lasix, atorvastatin, isosorbide, aspirin, and warfarin -continue IV heparin, PRN IV lopressor, and PRN Vasotec while NPO Case discussed with Dr. Mcfarland. Please see attestation for additional recommendations. RUTH Holland Department of Cardiology, [facility] This chart was completed in part utilizing Speech Voice Recognition Software. Grammatical errors, random word insertions, pronoun errors, and incomplete sentences are an occasional consequence of this system due to software limitations, ambient noise, and hardware issues. Any formal questions or concerns about the content, text, or information contained within the body of this dictation should be directly addressed to the provider for clarification. History of Present Illness Reason for Consultation: Chest Pain Requesting Physician: Hospitalist Attending Physician: Mehnaz Dolan MD History of Present Illness 79 year old male seen in consultation today in regard to chest pain. . Presented to the ER yesterday with diffuse abdominal pain with some sequently found to have small bowel obstruction. He was evaluated by general surgery was able to reduce a hernia with physical manipulation and recommended NG tube for decompression. He did report chest discomfort during this time. Which has since resolved and not reoccurred. No past medical history of CAD, hypertension, hyperlipidemia, factor V, PE, [place], right bundle branch block, left anterior fascicular block, SVT, and diastolic CHF. Allergies Allergy/AdvReac Type Severity Reaction Status Date / Time moxifloxacin Allergy Intermediate ITCHING. Verified 06/09/24 18:36 N/V Home Medications Medication Instructions Recorded Confirmed Type aspirin 81 mg tablet,delayed 81 mg PO DAILY 08/28/18 06/09/24 History release (Aspir-) cyanocobalamin (vitamin B-12) 1,000 mcg PO DAILY 08/28/18 06/09/24 History 1,000 mcg tablet (Vitamin B-12) esomeprazole magnesium 40 mg 40 mg PO HS 08/28/18 06/09/24 History capsule,delayed release (Nexium) isosorbide mononitrate 60 mg 60 mg PO DAILY 08/28/18 06/09/24 History tablet,extended release 24 hr nitroglycerin 0.4 mg sublingual 0.4 mg sublingual UD PRN Chest Pain 08/28/18 06/09/24 History tablet (Nitrostat) olmesartan 5 mg tablet (Benicar) 5 mg PO BID 08/28/18 06/09/24 History pyridoxine (vitamin B6) 100 mg 100 mg PO DAILY 08/28/18 06/09/24 History tablet (Vitamin B-6) folic acid 800 mcg tablet 0.8 mg PO DAILY 01/05/19 06/09/24 History furosemide 20 mg tablet (Lasix) 20 mg PO DAILY 06/10/23 06/09/24 History atorvastatin 80 mg tablet 80 mg PO QAM 06/09/24 06/09/24 History carvedilol 25 mg tablet 25 mg PO BID 06/09/24 06/09/24 History diclofenac sodium 1 % topical gel 2 g topical DAILY 06/09/24 06/09/24 History warfarin 1 mg tablet See Rx Instructions .Route .COMPLEX 06/09/24 06/09/24 History Patient History Medical History Enlarged prostate Surgical History History of back surgery History of carotid angioplasty History of colectomy History of tonsillectomy and adenoidectomy History of rotator cuff surgery History of hernia repair History of hip replacement History of colonoscopy History of cholecystectomy History of arthroplasty Family History Son Sleep apnea Other No significant family history Social History Smoking Status: Current some day smoker Tobacco Type: Cigars Second Hand Exposure: No; Do You Dip or Chew Tobacco: No; Hx Alcohol Use: Yes Alcohol type: hard liquor Hx Substance Use: No Preferred Language: Salvadorean Communication Ability: Effective Sales Counselor Required: No Beliefs That Will Affect Care: None Current Living Situation: Spouse 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 Other Information That Helps Us Care for You: No Feels Safe at Home: Yes Safety Concerns: Feels Safe At This Time Assistive Devices: Denture - Upper, Glasses and Hearing Aid - Bilateral Review of Systems Constitutional: as per Subjective / HPI; no fever, no chills, no body aches and no weakness Respiratory: no cough and no dyspnea Cardiovascular: + chest pain; no palpitations and no fam ma Gastrointestinal: + abdominal pain and + constipation Physical Exam Constitutional: WD/WN, vitals as above well developed and well nourished Eyes: PERRL, conjunctivae normal, anicteric sclerae Neck: trachea midline, no thyromegaly Respiratory: normal respiratory effort, lungs clear to auscultation Cardiovascular: RRR, no murmur, no edema Vessels: no JVD Extremities: no edema Skin: no rashes, warm and dry Psychiatric: A+Ox3, euthymic affect Results & Data Vital Signs (Past 12 Hours) Vital Signs Temp Pulse Pulse Pulse Resp BP BP 06/10/24 08:01 37.0 C 74 16 06/10/24 06:44 75 06/10/24 06:10 78 112/70 06/10/24 05:41 78 131/73 06/10/24 04:38 06/10/24 03:21 36.6 C 87 20 06/10/24 01:01 88 06/10/24 00:52 88 154/90 H 06/09/24 23:18 06/09/24 23:18 37.2 C 80 18 137/47 L 06/09/24 22:55 37.2 C 80 18 137/47 L 06/09/24 22:55 06/09/24 22:35 73 BP Pulse Ox O2 Del Method O2 Del Method 06/10/24 08:01 159/81 H 97 Room Air 06/10/24 06:44 06/10/24 06:10 06/10/24 05:41 06/10/24 04:38 Room Air 06/10/24 03:21 115/81 97 Room Air 06/10/24 01:01 06/10/24 00:52 06/09/24 23:18 Room Air 06/09/24 23:18 97 Room Air 06/09/24 22:55 97 Room Air 06/09/24 22:55 Room Air 06/09/24 22:35 Diagnostic Findings Laboratory Results WBC 10.65 K/ul (4.8-10.8) 06/10/24 05:19 RBC 4.92 M/uL (4.70-6.10) 06/10/24 05:19 Hgb 15.7 g/dl (14.0-18.0) 06/10/24 05:19 Hct 44.1 % (42.0-52.0) 06/10/24 05:19 MCV 89.6 fL (80.0-100.0) 06/10/24 05:19 MCH 31.9 pg (25.0-34.0) 06/10/24 05:19 MCHC 35.6 g/dL (32.0-36.0) 06/10/24 05:19 RDW Std Deviation 44.9 fL (36.4-46.3) 06/10/24 05:19 RDW Coeff of Guille 13.9 % (11.5-14.5) 06/10/24 05:19 Plt Count 139 K/uL (130-400) 06/10/24 05:19 MPV 9.9 fL (9.4-12.4) 06/10/24 05:19 Immature Gran % (Auto) 0.2 % 06/10/24 05:19 Neut % (Auto) 86.6 % 06/10/24 05:19 Lymph % (Auto) 4.7 % 06/10/24 05:19 [place] % (Auto) 8.2 % 06/10/24 05:19 Eos % (Auto) 0.1 % 06/10/24 05:19 Baso % (Auto) 0.2 % 06/10/24 05:19 Neut # (Auto) 9.23 K/uL (1.40-6.50) H 06/10/24 05:19 Lymph # (Auto) 0.50 K/uL (1.20-3.40) L 06/10/24 05:19 [place] # (Auto) 0.87 K/uL (0.11-0.59) H 06/10/24 05:19 Eos # (Auto) 0.01 K/uL (0.00-0.50) 06/10/24 05:19 Baso # (Auto) 0.02 K/uL (0.00-0.20) 06/10/24 05:19 Immature Gran # (Auto) 0.02 K/uL (0.01-0.20) 06/10/24 05:19 PT 18.1 Seconds (9.0-12.0) H 06/09/24 18:08 INR 1.8 (0.9-1.1) H 06/09/24 18:08 APTT 32 Seconds (21-31) H 06/10/24 00:08 PTT Ratio 1.2 06/10/24 00:08 Heparin Anti-Xa, Unfract 0.20 IU/ml (0.3-0.7) L 06/10/24 07:13 Sodium 139 mmol/L (136-145) 06/10/24 05:19 Potassium 3.8 mmol/L (3.5-5.1) 06/10/24 05:19 Chloride 108 mmol/L (98-107) H 06/10/24 05:19 Carbon Dioxide 22 mmol/L (21-32) 06/10/24 05:19 Anion Gap 9 (3-11) 06/10/24 05:19 BUN 25 mg/dl (6-23) H 06/10/24 05:19 Creatinine 0.83 mg/dl (0.6-1.4) 06/10/24 05:19 Est Cr Clr Drug Dosing 84.5 ml/min 06/10/24 05:19 Est GFR ( Amer) 97.7 ml/min 06/10/24 05:19 Est GFR (Non-Af Amer) 84.3 ml/min 06/10/24 05:19 BUN/Creatinine Ratio 30.1 (10-20) H 06/10/24 05:19 Glucose 170 mg/dl (70-99(Fasting)) H 06/10/24 05:19 Lactate 1.4 mmol/L (0.4-2.0) 06/09/24 18:00 Calcium 8.9 mg/dl (8.6-10.3) 06/10/24 05:19 Magnesium 2.0 mg/dl (1.7-2.4) 06/10/24 05:19 Total Bilirubin 1.0 mg/dl (0.2-1.0) 06/09/24 18:00 AST 21 U/L (13-39) 06/09/24 18:00 ALT 20 U/L (7-52) 06/09/24 18:00 Alkaline Phosphatase 71 U/L (34-104) 06/09/24 18:00 Troponin I High Sens 18.9 pg/ml (0-20) D 06/10/24 05:19 Total Protein 7.9 gm/dl (6.0-8.3) 06/09/24 18:00 Albumin 4.6 gm/dl (3.4-5.0) 06/09/24 18:00 Globulin 3.3 gm/dl (2.5-4.0) 06/09/24 18:00 Albumin/Globulin Ratio 1.4 (0.9-2) 06/09/24 18:00 Lipase 14 U/L (11-82) 06/09/24 18:00 Urine Color Dark Yellow 06/10/24 Unknown Urine Appearance Clear (Clear) 06/10/24 Unknown Urine pH 5.0 (4.5-7.5) 06/10/24 Unknown Ur Specific [place] 1.033 (1.000-1.030) H 06/10/24 Unknown Urine Protein Trace (Negative) H 06/10/24 Unknown Urine Glucose (UA) Negative (Negative) 06/10/24 Unknown Urine Ketones 1+ (Negative) H 06/10/24 Unknown Urine Blood Negative (Negative) 06/10/24 Unknown Urine Nitrite Negative (Negative) 06/10/24 Unknown Urine Bilirubin 1+ (Negative) H 06/10/24 Unknown Urine Urobilinogen Negative (Negative) 06/10/24 Unknown Ur Leukocyte Esterase Negative (Negative) 06/10/24 Unknown Urine WBC (Auto) 0-5 /hpf (0-5) 06/10/24 Unknown Urine RBC (Auto) 0-2 /hpf (0-2) 06/10/24 Unknown U Hyaline Cast (Auto) 3-5 /lpf (0-2) H 06/10/24 Unknown U Epithel Cells (Auto) 0-2 /hpf (0-2) 06/10/24 Unknown Urine Bacteria (Auto) None Seen (None Seen) 06/10/24 Unknown Impressions Chest X-Ray 06/09/24 18:54 XR chest 1V portable CLINICAL HISTORY: s/p NG placement COMPARISON STUDY: No previous studies for comparison. FINDINGS: The nasogastric tube is difficult to visualize given suboptimal penetration however the tip likely projects over the proximal body of the stomach. The tube could be advanced an additional 4 cm before obtaining a KUB. Dilated loops of small bowel are noted, as shown on abdominal CT. Visualized portions of the lungs are clear. IMPRESSION: Nasogastric tube difficult to visualize given suboptimal penetration however the tip likely projects over the proximal body of the stomach. The tube could be advanced an additional 4 cm before obtaining a KUB. ACT 112: Negative or not required by law. Electronically signed by: Rubens Sullivan M.D. 06/09/2024 7:53 PM KUB X-Ray 06/10/24 02:57 KUB CLINICAL HISTORY: NGT placement COMPARISON STUDY: CT of the abdomen and pelvis June 09, 2024 and KUB June 09, 2024. FINDINGS: The tip of the nasogastric tube is not well visualized on this exam due to suboptimal penetration. The tube is at least at the gastroesophageal junction. IMPRESSION: Nasogastric tube tip not well visualized on this exam due to suboptimal penetration. Tip at least at the gastroesophageal junction. A CT of the abdomen without contrast for more definitive localization is recommended. ACT 112: Negative or not required by law. Electronically signed by: Rubens Sullivan M.D. 06/10/2024 7:15 AM Abdomen/Pelvis CT 06/10/24 07:59 CT OF THE ABDOMEN AND PELVIS WITHOUT CONTRAST CLINICAL HISTORY: ng tube placement COMPARISON STUDY: CT of the abdomen and pelvis June 09, 2024. KUB performed earlier today. TECHNIQUE: Axial images of the abdomen and pelvis were obtained without IV contrast. Images were reviewed in the axial, sagittal, and coronal planes. Automated exposure control was utilized for the study. A dose lowering technique was utilized adhering to the principles of ALARA. FINDINGS: Several subpleural pulmonary nodules within the lower lungs are uncha nged since prior exams. These are benign given stability. A small hiatal hernia is noted. The nasogastric tube is well-positioned. The tip is within the distal body of the stomach. No pneumatosis, free air or portal venous gas is present. There is no biliary ductal dilatation status post cholecystectomy. Unenhanced images of liver, spleen, adrenal glands, kidneys and pancreas are unremarkable. There is no hydronephrosis. There are no urinary calculi. The anterior abdominal wall is markedly attenuated. Fat-containing ventral hernias are again noted. The small bowel loop within a ventral hernia on CT of June 09, 2024 has been reduced. Small bowel dilatation has improved. Small bowel loops measure up to 3.5 cm in caliber. There is no abdominal or pelvic lymphadenopathy. Bilateral hip arthroplasties are incidentally noted. IMPRESSION: 1. Well-positioned nasogastric tube. Tip within the distal body of the stomach. 2. The previously described small bowel loop within a ventral hernia on CT of June 09, 2024 has been reduced and small bowel dilatation has improved. The findings suggest an improving small bowel obstruction. 3. Markedly attenuated anterior abdominal wall with multiple fat containing ventral hernias. ACT 112: Negative or not required by law. Electronically signed by: Rubens Sullivan M.D. 06/10/2024 9:20 AM (4) Chest pain Chest pain type: unspecified Qualified Code(s): R07.9 - Chest pain, unspecified
--- NOTE | 2024-06-10 14:42 | Hospitalist Progress Note ---
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 Patient has history of small bowel obstructions in the past. Patient has large vomitus in the ER. Was complaining of abdominal pain. Some lower chest pain. Shortness of breath. Headache. Not feeling well. Status post NG tube and placed on low intermittent suction. He had episode of chest tightness but that got resolved. No fevers. Currently no headache. Vision is okay. No runny nose or sore throat. No cough. He is being managed for the following: Small bowel obstruction History of multiple bowel obstructions CT scan showing small bowel obstruction due to mid abdominal ventral hernia which contains a knuckle of small bowel. Markedly attenuated anterior abdomen wall with numerous fat-containing ventral hernias. Surgery reduced small bowel loop from the hernia. NG tube in place, repeat imaging w/ improving SBO Pt /w improving belly pain, N, V. Has not moved gas or bowel. c/w IVF, pain meds, prn antiemetics. Gen Sx following, appreciate recs. Chest discomfort: noted at presentation, trop x 2 neg. EKG w/ no acute ST or T changes. ECHO w/ EF of 55-60%, no RWMA. Cardio evaled, appreciate recs. No chest pain or pressure per pt. c/w tele for now. Other chronic medical conditions: Continue with/resume home meds as and when able. CAD s/p stent: Restart his Coreg, high-dose statin, aspirin as soon as possible. Placed on IV Lopressor 5 mg every 6 hours. Hypertension: Currently n.p.o.. Restart his home medication as soon as possible. Continue IV Lopressor 5 mg every 6 hours. IV Vasotec as needed. Close monitor History of SVT: Current on IV Lopressor History of factor V deficiency/History of PE: On warfarin and INR is 1.8. As patient currently n.p.o. start him on IV heparin low-dose DVT prophylaxis: On IV heparin Disposition: Med/telemetry Full code Admission and Anticipated Discharge Date Admission Date: June 09, 2024 Subjective Patient was seen and examined at bedside. Patient was lying in bed, on room air, NG tube in place, NAD. Patient reports improvement in abdominal pain, denies nausea, denies vomiting later in the morning today, has not moved gas or bowel. Patient denies febrile illness or sore throat or chest pain or cough. Physical Exam Physical Exam: General- Not in acute distress Head- atraumatic Eyes- PERRL. ENT- oropharynx clear Neck- supple, no JVD. Lungs- clear to auscultation no wheezing or crackles Heart- regular rhythm; no murmur, no gallop. Abdomen- Hyperactive bowel sounds, nontender, soft. Healed old abdominal surgical scar x multiple. Extremities- no pretibial edema, no erythema seen. Neuro- alert, oriented ; PERRL, no facial palsy; no dysarthria; moves extremities Results & Data Results & Data Vital Signs (Past 12 Hours) Vital Signs Temp Pulse Pulse Resp BP BP Pulse Ox 06/10/24 12:50 80 06/10/24 11:53 36.6 C 72 16 131/75 95 06/10/24 11:42 72 135/72 06/10/24 08:01 37.0 C 74 16 159/81 H 97 06/10/24 06:44 75 06/10/24 06:10 78 112/70 06/10/24 05:41 78 131/73 06/10/24 04:38 06/10/24 03:21 36.6 C 87 20 115/81 97 O2 Del Method 06/10/24 12:50 06/10/24 11:53 Room Air 06/10/24 11:42 06/10/24 08:01 Room Air 06/10/24 06:44 06/10/24 06:10 06/10/24 05:41 06/10/24 04:38 Room Air 06/10/24 03:21 Room Air
[2024-06-11 05:04] LABS: Basophils # (auto) 0.02 K/uL (0.00-0.20); Basophils % (auto) 0.3 %; Eosinophils # (auto) 0.06 K/uL (0.00-0.50); Eosinophils % (auto) 0.8 %; Hematocrit (blood only) 41.8 % (42.0-52.0); Hemoglobin 14.1 g/dl (14.0-18.0); Immature Granulocytes # (auto) 0.02 K/uL (0.01-0.20); Immature Granulocytes % (auto) 0.3 %; Lymphocytes % (auto) 19.3 %; Mean Corpuscular Hemoglobin 31.4 pg (25.0-34.0); Mean Corpuscular Hgb Conc 33.7 g/dL (32.0-36.0); Mean Corpuscular Volume 93.1 fL (80.0-100.0); Mean Platelet Volume 9.9 fL (9.4-12.4); Monocytes # (auto) 0.71 K/uL (0.11-0.59); Monocytes % (auto) 9.8 %; Neutrophils # (auto) 5.03 K/uL (1.40-6.50); Neutrophils % (auto) 69.5 %; Platelet Count 131 K/uL (130-400); RDW Coefficient of Variation 14.2 % (11.5-14.5); RDW Standard Deviation 48.1 fL (36.4-46.3); Red Blood Count 4.49 M/uL (4.70-6.10); White Blood Count 7.24 K/ul (4.8-10.8)
[2024-06-11 05:19] LABS: BUN Creatinine Ratio 21.3 (10-20); Calcium 8.2 mg/dl (8.6-10.3); Creatinine Clr Calc Pharmacy 74.6 ml/min; Est GFR (African American) 89.6 ml/min; Est GFR (Non-African American) 77.3 ml/min; Phosphorus 2.4 mg/dl (2.5-4.9)
[2024-06-11 05:22] LABS: ANTI-Xa, UFH(UnfractionatedHep 0.27 IU/ml (0.3-0.7)
[2024-06-11] MEDS ORDERED: POTASSIUM PHOS 3 MMOL/1 ML INFUSION IV STA (07:53)
[2024-06-11] MEDS: hydrALAZINE HCL 20 MG/ML VIAL IV STA (08:07)
[2024-06-11] MEDS: POTASSIUM PHOSPHATE 15 MMOL in SODIUM CHLORIDE 0.9% 250 ML IV ONE (08:19)
--- NOTE | 2024-06-11 09:56 | Surgery Progress Note ---
Date of Service June 11, 2024 Assessment & Plan (1) SBO (small bowel obstruction): Plan: Hernia reducible avss minimal NGT output +flatus Plan: Discontinue NGT Start clears ambulate hallway continue medical management Discussed with Dr. castle who agrees with above. Admission and Anticipated Discharge Date Admission Date: June 09, 2024 Supervising Physician Co-Signing Physician Notes I have seen and examined the patient personally and agree with above assessment and plan. In brief, he is doing much better. He is passing flatus and has no tenderness to palpation. The hernia continues to be reducible. We will discontinue the NG tube and start clears. Encourage ambulation. Subjective feeling slightly better passing gas no bowel movement no n,v Physical Exam Constitutional: WD/WN, vitals as above + obese, cooperative and comfortable; no acute distress and not ill appearing Gastrointestinal (Abdomen): Inspection/Auscultation: + abdominal surgical scar (multiple laparotomy scars); abdomen not distended Percussion/Palpation: + abdomen tender (mild left mid abdomen), abdomen soft and + hernia (reducible); no guarding, abdomen not rigid and abdomen not firm Skin: no rashes, warm and dry Psychiatric: A+Ox3, euthymic affect Results & Data Vital Signs (Past 12 Hours) Vital Signs Temp Pulse Pulse Resp BP BP Pulse Ox 06/11/24 08:22 36.7 C 64 16 190/95 H 96 06/11/24 08:00 60 06/11/24 06:13 50 L 06/11/24 02:12 36.8 C 55 L 16 156/88 H 97 06/10/24 23:17 52 L 06/10/24 22:43 36.8 C 59 L 16 156/78 H 95 06/10/24 22:03 O2 Del Method 06/11/24 08:22 Room Air 06/11/24 08:00 06/11/24 06:13 06/11/24 02:12 Room Air 06/10/24 23:17 06/10/24 22:43 Room Air 06/10/24 22:03 Room Air Laboratory Results 06/11/24 06/11/24 06/10/24 Range/Units 12:14 04:44 14:13 WBC 7.24 (4.8-10.8) K/ul RBC 4.49 L (4.70-6.10) M/uL Hgb 14.1 (14.0-18.0) g/dl Hct 41.8 L (42.0-52.0) % MCV 93.1 (80.0-100.0) fL MCH 31.4 (25.0-34.0) pg MCHC 33.7 (32.0-36.0) g/dL RDW Std Deviation 48.1 H (36.4-46.3) fL RDW Coeff of Guille 14.2 (11.5-14.5) % Plt Count 131 (130-400) K/uL MPV 9.9 (9.4-12.4) fL Immature Gran % (Auto) 0.3 % Neut % (Auto) 69.5 % Lymph % (Auto) 19.3 % [place] % (Auto) 9.8 % Eos % (Auto) 0.8 % Baso % (Auto) 0.3 % Neut # (Auto) 5.03 (1.40-6.50) K/uL Lymph # (Auto) 1.40 (1.20-3.40) K/uL [place] # (Auto) 0.71 H (0.11-0.59) K/uL Eos # (Auto) 0.06 (0.00-0.50) K/uL Baso # (Auto) 0.02 (0.00-0.20) K/uL Immature Gran # (Auto) 0.02 (0.01-0.20) K/uL Heparin Anti-Xa, Unfract 0.31 0.27 L 0.30 (0.3-0.7) IU/ml Sodium 141 (136-145) mmol/L Potassium 4.0 (3.5-5.1) mmol/L Chloride 110 H (98-107) mmol/L Carbon Dioxide 26 (21-32) mmol/L Anion Gap 5 (3-11) BUN 20 (6-23) mg/dl Creatinine 0.94 (0.6-1.4) mg/dl Est Cr Clr Drug Dosing 74.6 ml/min Est GFR ( Amer) 89.6 ml/min Est GFR (Non-Af Amer) 77.3 ml/min BUN/Creatinine Ratio 21.3 H (10-20) Glucose 122 H (70-99(Fasting)) mg/dl Calcium 8.2 L (8.6-10.3) mg/dl Phosphorus 2.4 L (2.5-4.9) mg/dl Magnesium 2.0 (1.7-2.4) mg/dl
[2024-06-11] MEDS: LACTATED RINGER'S 1,000 ML IV SCH (12:47)
[2024-06-11 13:04] LABS: ANTI-Xa, UFH(UnfractionatedHep 0.31 IU/ml (0.3-0.7)
[2024-06-11] MEDS ORDERED: hydrALAZINE HCL 20 MG/ML VIAL IV PRN (14:40)
--- NOTE | 2024-06-11 14:41 | Hospitalist Progress Note ---
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 Patient has history of small bowel obstructions in the past. Patient has large vomitus in the ER. Was complaining of abdominal pain. Some lower chest pain. Shortness of breath. Headache. Not feeling well. Status post NG tube and placed on low intermittent suction. He had episode of chest tightness but that got resolved. No fevers. Currently no headache. Vision is okay. No runny nose or sore throat. No cough. He is being managed for the following: Small bowel obstruction History of multiple bowel obstructions CT scan showing small bowel obstruction due to mid abdominal ventral hernia which contains a knuckle of small bowel. Markedly attenuated anterior abdomen wall with numerous fat-containing ventral hernias. Surgery reduced small bowel loop from the hernia. NG tube in place, repeat imaging w/ improving SBO Pt /w improving belly pain, N, V. Has not moved gas or bowel. c/w IVF, pain meds, prn antiemetics. Gen Sx following, on clears today, NGT removed. Chest discomfort: noted at presentation, trop x 2 neg. EKG w/ no acute ST or T changes. ECHO w/ EF of 55-60%, no RWMA. Cardio evaled, appreciate recs. No chest pain or pressure per pt. c/w tele for now. Other chronic medical conditions: Continue with/resume home meds as and when able. CAD s/p stent: Restart his Coreg, high-dose statin, aspirin as soon as possible. Placed on IV Lopressor 5 mg every 6 hours. Hypertension: Currently on clears. Restart his home medication likely ashley. Continue IV Lopressor 5 mg every 6 hours. IV Vasotec as needed. prn hydralazine. Close monitor History of SVT: Current on IV Lopressor History of factor V deficiency/History of PE: On warfarin and INR is 1.8. As patient currently n.p.o. start him on IV heparin low-dose DVT prophylaxis: On IV heparin Disposition: Med/telemetry Full code Admission and Anticipated Discharge Date Admission Date: June 09, 2024 Subjective Patient was seen and examined at bedside. Patient was lying in bed, on room air, NG tube in place, NAD. Patient reports improvement in abdominal pain, denies nausea, denies vomiting , moving gas, has not moved bowel. abd pain resolved. Patient denies febrile illness or sore throat or chest pain or cough. Physical Exam Physical Exam: General- Not in acute distress Head- atraumatic Eyes- PERRL. ENT- oropharynx clear Neck- supple, no JVD. Lungs- clear to auscultation no wheezing or crackles Heart- regular rhythm; no murmur, no gallop. Abdomen- Hypoactive bowel sounds, nontender, soft. Healed old abdominal surgical scar x multiple. Extremities- no pretibial edema, no erythema seen. Neuro- alert, oriented ; PERRL, no facial palsy; no dysarthria; moves extremities Results & Data Results & Data Vital Signs (Past 12 Hours) Vital Signs Temp Pulse Pulse Resp BP BP Pulse Ox 06/11/24 12:48 69 165/85 H 06/11/24 11:33 36.7 C 70 16 166/87 H 98 06/11/24 11:33 70 166/81 H 06/11/24 08:22 36.7 C 64 16 190/95 H 96 06/11/24 08:00 60 06/11/24 06:13 50 L O2 Del Method 06/11/24 12:48 06/11/24 11:33 Room Air 06/11/24 11:33 06/11/24 08:22 Room Air 06/11/24 08:00 06/11/24 06:13
[2024-06-12 07:07] LABS: ANTI-Xa, UFH(UnfractionatedHep 0.27 IU/ml (0.3-0.7); BUN Creatinine Ratio 17.6 (10-20); Calcium 7.9 mg/dl (8.6-10.3); Creatinine Clr Calc Pharmacy 103.1 ml/min; Est GFR (Non-African American) 91.5 ml/min; Magnesium 1.9 mg/dl (1.7-2.4); Phosphorus 2.4 mg/dl (2.5-4.9); Potassium 3.3 mmol/L (3.5-5.1)
[2024-06-12] MEDS ORDERED: POTASSIUM PHOS 3 MMOL/1 ML INFUSION IV STA (08:18)
[2024-06-12] MEDS: POTASSIUM CHLORIDE / WTR 10 MEQ/100 ML PLCT IV SCH (10:58)
--- NOTE | 2024-06-12 11:55 | Surgery Progress Note ---
Date of Service June 12, 2024 Assessment & Plan (1) SBO (small bowel obstruction): Plan: Hernia reducible avss +flatus, small bm yesterday Plan: Full liquids abdominal binder replace electrolytes ambulate hallway continue medical management Admission and Anticipated Discharge Date Admission Date: June 09, 2024 Supervising Physician Co-Signing Physician Notes I have seen and examined the patient personally and agree with the above assessment and plan. His hernia continues to be reducible, and he had a bowel movement yesterday. He has no tenderness to palpation on exam. Will advance his diet as tolerated. Will continue to monitor. Subjective feeling much better today no abdominal pain passing gas, small bowel movement yesterday no n,v tolerating clear liquids Physical Exam Constitutional: WD/WN, vitals as above + obese, cooperative and comfortable; no acute distress and not ill appearing Respiratory: normal respiratory effort; no respiratory distress Gastrointestinal (Abdomen): Inspection/Auscultation: abdomen normal to inspection; abdomen not distended Percussion/Palpation: abdomen nontender, no guarding, abdomen not rigid and abdomen not firm Skin: no rashes, warm and dry Psychiatric: Orientation: alert and oriented x 3 Results & Data Vital Signs (Past 12 Hours) Vital Signs Temp Pulse Pulse Resp BP BP Pulse Ox 06/12/24 11:12 36.3 C L 64 18 146/82 H 98 06/12/24 08:32 37 C 101 H 17 146/78 H 97 06/12/24 07:45 61 06/12/24 05:45 58 L 06/12/24 02:30 36.7 C 60 16 153/79 H 97 06/12/24 00:51 61 06/12/24 00:37 61 129/75 06/12/24 00:00 58 L O2 Del Method 06/12/24 11:12 Room Air 06/12/24 08:32 Room Air 06/12/24 07:45 06/12/24 05:45 06/12/24 02:30 Room Air 06/12/24 00:51 06/12/24 00:37 06/12/24 00:00 Laboratory Results 06/12/24 06/11/24 Range/Units 06:23 12:14 Heparin Anti-Xa, Unfract 0.27 L 0.31 (0.3-0.7) IU/ml Sodium 139 (136-145) mmol/L Potassium 3.3 L (3.5-5.1) mmol/L Chloride 108 H (98-107) mmol/L Carbon Dioxide 25 (21-32) mmol/L Anion Gap 6 (3-11) BUN 12 (6-23) mg/dl Creatinine 0.68 (0.6-1.4) mg/dl Est Cr Clr Drug Dosing 103.1 ml/min Est GFR ( Amer) 106.0 ml/min Est GFR (Non-Af Amer) 91.5 ml/min BUN/Creatinine Ratio 17.6 (10-20) Glucose 118 H (70-99(Fasting)) mg/dl Calcium 7.9 L (8.6-10.3) mg/dl Phosphorus 2.4 L (2.5-4.9) mg/dl Magnesium 1.9 (1.7-2.4) mg/dl
--- NOTE | 2024-06-12 14:43 | Hospitalist Progress Note ---
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 Patient has history of small bowel obstructions in the past. Patient has large vomitus in the ER. Was complaining of abdominal pain. Some lower chest pain. Shortness of breath. Headache. Not feeling well. Status post NG tube and placed on low intermittent suction. He had episode of chest tightness but that got resolved. No fevers. Currently no headache. Vision is okay. No runny nose or sore throat. No cough. He is being managed for the following: Small bowel obstruction History of multiple bowel obstructions CT scan showing small bowel obstruction due to mid abdominal ventral hernia which contains a knuckle of small bowel. Markedly attenuated anterior abdomen wall with numerous fat-containing ventral hernias. Surgery reduced small bowel loop from the hernia at ED. NG tube removed 06/11, repeat imaging w/ improving SBO Pt /w no belly pain, N, V. Has moved small bowel x 8/12 am, is moving gas. Tolerating clears, gen sx advanced diet to full liq. Will resume pt's home po meds. Will dc ivf, kcl replaced, monitor electrolytes. Gen Sx following, appreciate recs. Chest discomfort: noted at presentation, trop x 2 neg. EKG w/ no acute ST or T changes. ECHO w/ EF of 55-60%, no RWMA. Cardio evaled, appreciate recs. No chest pain or pressure per pt. c/w tele for now. Other chronic medical conditions: Continue with/resume home meds as and when able. CAD s/p stent: Restart his Coreg, high-dose statin, aspirin today. dc IV Lopressor 5 mg every 6 hours. Hypertension: Restart his home medication likely today. DC IV Lopressor 5 mg every 6 hours. dc iv Vasotec as needed. c/w prn hydralazine. Close monitor History of SVT: resume home po meds. History of factor V deficiency/History of PE: On warfarin as OP. Resume prior warfarin, c/w heparin drip (bridge). DVT prophylaxis: On IV heparin, start coumadin 06/12, follow pt/inr daily. DC hep drip when therapeutic inr achieved. Disposition: Med/telemetry Full code Time spent: 55 min Admission and Anticipated Discharge Date Admission Date: June 09, 2024 Subjective Patient was seen and examined at bedside. Patient was Sitting up in chair, on room air, NAD. Patient's at bedside who was also updated on plan of care. Patient reports No abdominal pain, denies nausea, denies vomiting , moving gas, moved small bowel yesterday . Patient denies febrile illness or sore throat or chest pain or cough. Physical Exam Physical Exam: General- Not in acute distress Head- atraumatic Eyes- PERRL. ENT- oropharynx clear Neck- supple, no JVD. Lungs- clear to auscultation no wheezing or crackles Heart- regular rhythm; no murmur, no gallop. Abdomen- Nl bowel sounds, nontender, soft. Healed old abdominal surgical scar x multiple. Extremities- no pretibial edema, no erythema seen. Neuro- alert, oriented ; PERRL, no facial palsy; no dysarthria; moves extremities Results & Data Results & Data Vital Signs (Past 12 Hours) Vital Signs Temp Pulse Pulse Resp BP BP Pulse Ox 06/12/24 14:05 77 06/12/24 13:07 78 145/85 H 06/12/24 11:12 36.3 C L 64 18 146/82 H 98 06/12/24 08:32 37 C 101 H 17 146/78 H 97 06/12/24 07:45 61 06/12/24 05:45 58 L O2 Del Method 06/12/24 14:05 06/12/24 13:07 06/12/24 11:12 Room Air 06/12/24 08:32 Room Air 06/12/24 07:45 06/12/24 05:45
[2024-06-12 15:30] LABS: ANTI-Xa, UFH(UnfractionatedHep 0.23 IU/ml (0.3-0.7)
[2024-06-12] MEDS: POTASSIUM PHOSPHATE 21 MMOL in SODIUM CHLORIDE 0.9% 500 ML IV ONE (15:39)
[2024-06-12] MEDS: WARFARIN SOD 3 MG TAB PO SCH (18:15)
[2024-06-12] MEDS: LOSARTAN POTASSIUM 25 MG TAB PO SCH (20:08)
[2024-06-12] MEDS: carvediloL 25 MG TAB PO SCH (20:08)
[2024-06-12] MEDS: PANTOprazole 40 MG TAB PO SCH (20:09)
[2024-06-12 22:04] LABS: ANTI-Xa, UFH(UnfractionatedHep 0.26 IU/ml (0.3-0.7)
[2024-06-13 05:28] LABS: Basophils # (auto) 0.01 K/uL (0.00-0.20); Basophils % (auto) 0.2 %; Eosinophils # (auto) 0.04 K/uL (0.00-0.50); Eosinophils % (auto) 0.8 %; Hematocrit (blood only) 39.1 % (42.0-52.0); Hemoglobin 13.6 g/dl (14.0-18.0); Immature Granulocytes # (auto) 0.01 K/uL (0.01-0.20); Immature Granulocytes % (auto) 0.2 %; Lymphocytes # (auto) 0.67 K/uL (1.20-3.40); Lymphocytes % (auto) 13.1 %; Mean Corpuscular Hemoglobin 31.7 pg (25.0-34.0); Mean Corpuscular Hgb Conc 34.8 g/dL (32.0-36.0); Mean Corpuscular Volume 91.1 fL (80.0-100.0); Mean Platelet Volume 9.7 fL (9.4-12.4); Monocytes # (auto) 0.54 K/uL (0.11-0.59); Monocytes % (auto) 10.6 %; Neutrophils # (auto) 3.84 K/uL (1.40-6.50); Neutrophils % (auto) 75.1 %; Platelet Count 116 K/uL (130-400); RDW Standard Deviation 47.1 fL (36.4-46.3); Red Blood Count 4.29 M/uL (4.70-6.10); White Blood Count 5.11 K/ul (4.8-10.8)
[2024-06-13 05:35] LABS: BUN Creatinine Ratio 9.1 (10-20); Est GFR (African American) 100.7 ml/min; Est GFR (Non-African American) 86.9 ml/min; Magnesium 1.7 mg/dl (1.7-2.4); Phosphorus 2.7 mg/dl (2.5-4.9); Potassium 3.5 mmol/L (3.5-5.1)
[2024-06-13 05:45] LABS: ANTI-Xa, UFH(UnfractionatedHep 0.41 IU/ml (0.3-0.7); INR 1.5 (0.9-1.1); Prothrombin Time 15.4 Seconds (9.0-12.0)
--- NOTE | 2024-06-13 09:08 | Surgery Progress Note ---
Date of Service June 13, 2024 Assessment & Plan (1) SBO (small bowel obstruction): Plan: Hernia reducible avss + return of bowel function, tolerating advanced diet benign abdominal examination Plan: advance to low fiber diet abdominal binder, recommend wearing daily on discharge ambulate hallway continue medical management our services signing off, please call with questions/concerns. Discussed with Dr. Gray who agrees with above. Admission and Anticipated Discharge Date Admission Date: June 09, 2024 Subjective feeling good no abdominal pain no n,v tolerating full liquids passing gas and bowel movement yesterday afternoon Physical Exam Constitutional: WD/WN, vitals as above + obese, cooperative and comfortable; no acute distress and not ill appearing Gastrointestinal (Abdomen): Inspection/Auscultation: abdomen normal to inspection and + abdominal surgical scar (multiple laparotomy scars); abdomen not distended Percussion/Palpation: abdomen soft, + hernia and + ascites (left mid abdomen, reduced); abdomen nontender, no guarding, abdomen not rigid and abdomen not firm Psychiatric: Orientation: alert and oriented x 3 Results & Data Vital Signs (Past 12 Hours) Vital Signs Temp Pulse Pulse Resp BP BP Pulse Ox 06/13/24 07:18 37.7 C H 65 18 170/92 H 95 06/13/24 02:52 36.9 C 76 20 154/87 H 97 06/12/24 22:50 37.5 C 79 20 160/75 H 94 06/12/24 21:50 65 06/12/24 21:37 O2 Del Method 06/13/24 07:18 Room Air 06/13/24 02:52 Room Air 06/12/24 22:50 Room Air 06/12/24 21:50 06/12/24 21:37 Room Air Laboratory Results 06/13/24 06/12/24 06/12/24 Range/Units 05:01 21:32 14:25 WBC 5.11 (4.8-10.8) K/ul RBC 4.29 L (4.70-6.10) M/uL Hgb 13.6 L (14.0-18.0) g/dl Hct 39.1 L (42.0-52.0) % MCV 91.1 (80.0-100.0) fL MCH 31.7 (25.0-34.0) pg MCHC 34.8 (32.0-36.0) g/dL RDW Std Deviation 47.1 H (36.4-46.3) fL RDW Coeff of Guille 14.0 (11.5-14.5) % Plt Count 116 L (130-400) K/uL MPV 9.7 (9.4-12.4) fL Immature Gran % (Auto) 0.2 % Neut % (Auto) 75.1 % Lymph % (Auto) 13.1 % Cache % (Auto) 10.6 % Eos % (Auto) 0.8 % Baso % (Auto) 0.2 % Neut # (Auto) 3.84 (1.40-6.50) K/uL Lymph # (Auto) 0.67 L (1.20-3.40) K/uL Cache # (Auto) 0.54 (0.11-0.59) K/uL Eos # (Auto) 0.04 (0.00-0.50) K/uL Baso # (Auto) 0.01 (0.00-0.20) K/uL Immature Gran # (Auto) 0.01 (0.01-0.20) K/uL PT 15.4 H (9.0-12.0) Seconds INR 1.5 H (0.9-1.1) Heparin Anti-Xa, Unfract 0.41 0.26 L 0.23 L (0.3-0.7) IU/ml Sodium 136 (136-145) mmol/L Potassium 3.5 (3.5-5.1) mmol/L Chloride 104 (98-107) mmol/L Carbon Dioxide 25 (21-32) mmol/L Anion Gap 7 (3-11) BUN 7 (6-23) mg/dl Creatinine 0.77 (0.6-1.4) mg/dl Est Cr Clr Drug Dosing 91.0 ml/min Est GFR ( Amer) 100.7 ml/min Est GFR (Non-Af Amer) 86.9 ml/min BUN/Creatinine Ratio 9.1 L (10-20) Glucose 124 H (70-99(Fasting)) mg/dl Calcium 8.0 L (8.6-10.3) mg/dl Phosphorus 2.7 (2.5-4.9) mg/dl Magnesium 1.7 (1.7-2.4) mg/dl
[2024-06-13] MEDS: PYRIDOXINE HCL 50 MG TAB PO SCH (09:17)
[2024-06-13] MEDS: FUROSEMIDE 20 MG TAB PO SCH (09:18)
[2024-06-13] MEDS: ISOSORBIDE MONO EXTENDED REL 60 MG TABCR PO SCH (09:18)
[2024-06-13] MEDS: CYANOCOBALAMIN (B-12) 500 MCG TABLET PO SCH (09:19)
[2024-06-13] MEDS: ATORVASTATIN 40 MG TAB PO SCH (09:19)
[2024-06-13] MEDS: ASPIRIN 81 MG ECTAB PO SCH (09:19)
[2024-06-13] MEDS: FOLIC ACID 400 MCG TAB PO SCH (09:20)
--- NOTE | 2024-06-13 14:49 | Hospitalist Progress Note ---
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 Patient has history of small bowel obstructions in the past. Patient has large vomitus in the ER. Was complaining of abdominal pain. Some lower chest pain. Shortness of breath. Headache. Not feeling well. Status post NG tube and placed on low intermittent suction. He had episode of chest tightness but that got resolved. No fevers. Currently no headache. Vision is okay. No runny nose or sore throat. No cough. He is being managed for the following: Small bowel obstruction History of multiple bowel obstructions CT scan showing small bowel obstruction due to mid abdominal ventral hernia which contains a knuckle of small bowel. Markedly attenuated anterior abdomen wall with numerous fat-containing ventral hernias. Surgery reduced small bowel loop from the hernia at ED. NG tube removed 06/11, repeat imaging w/ improving SBO Pt /w no belly pain, N, V. Has moved small bowel x 8/12 am, is moving gas. Tolerating clears, gen sx advanced diet to full liq. Will resume pt's home po meds. Will dc ivf, kcl replaced, monitor electrolytes. appreciate surgery input and recommendation Clinically much better and tolerating advancement diet Advised to have more mobility and likely discharge tomorrow Chest discomfort: Noted at presentation, trop x 2 neg. EKG w/ no acute ST or T changes. ECHO w/ EF of 55-60%, no RWMA. Cardio evaled, appreciate recs. No chest pain or pressure per pt. c/w tele for now. Denies any chest discomfort and/or chest pain Other chronic medical conditions: Continue with/resume home meds as and when able. CAD s/p stent: Restart his Coreg, high-dose statin, aspirin today. dc IV Lopressor 5 mg every 6 hours. Hypertension: Restart his home medication likely today. DC IV Lopressor 5 mg every 6 hours. dc iv Vasotec as needed. c/w prn hydralazine. Close monitor History of SVT: resume home po meds. History of factor V deficiency/History of PE: On warfarin as OP. Resume prior warfarin, c/w heparin drip (bridge). DVT prophylaxis: On IV heparin, start coumadin 06/12, follow pt/inr daily. DC hep drip when therapeutic inr achieved. Disposition: Med/telemetry Full code Admission and Anticipated Discharge Date Admission Date: June 09, 2024 Subjective 06/13/2024 Patient was seen and examined in medical telemetry unit He has been feeling much better and denies any abdominal distention, discomfort, nausea and or vomiting Has been passing gas and bowel is moved He has been tolerating clears and diet will be advanced as tolerated further Review of Systems Review of Systems: All systems reviewed and are unremarkable except as noted below Physical Exam Physical Exam: Lying in bed without any apparent distress Constitutional: well developed, well nourished, + ill appearing and + obese Eyes: PERRL, conjunctivae normal, anicteric sclerae ENMT: external ear and nose normal, oropharynx normal Neck: trachea midline, no thyromegaly Respiratory: no respiratory distress Auscultation: lungs clear to auscultation bilaterally Cardiovascular: Rate/Rhythm: regular rate and regular rhythm; not tachycardic Heart Sounds: normal S1 and normal S2; no murmur Extremities: no edema Gastrointestinal (Abdomen): Inspection/Auscultation: + abdomen distended (Has abdominal binder on) and normal bowel sounds Percussion/Palpation: + abdomen tender (Mildly tender all over without guarding and no rigidity) and abdomen soft Musculoskeletal: No acute arthritis involving any of the joints Neurologic: normal touch/pain/proprioception and moves all extremities; no focal motor deficits Lymphatic: no cervical or axillary lymphadenopathy Results & Data Results & Data Vital Signs (Past 12 Hours) Vital Signs Temp Pulse Pulse Resp BP BP Pulse Ox 06/13/24 11:22 36.9 C 70 18 107/62 93 06/13/24 08:01 59 L 06/13/24 07:18 37.7 C H 65 18 170/92 H 95 06/13/24 02:52 36.9 C 76 20 154/87 H 97 O2 Del Method 06/13/24 11:22 Room Air 06/13/24 08:01 06/13/24 07:18 Room Air 06/13/24 02:52 Room Air Laboratory Results Short CBC 06/13/24 Range/Units 05:01 WBC 5.11 (4.8-10.8) K/ul Hgb 13.6 L (14.0-18.0) g/dl Hct 39.1 L (42.0-52.0) % Plt Count 116 L (130-400) K/uL BMP 06/13/24 05:01 Sodium 136 Potassium 3.5 Chloride 104 Carbon Dioxide 25 BUN 7 Creatinine 0.77 Glucose 124 H Calcium 8.0 L Medications Administered Current Inpatient Medications Acetaminophen (Acetaminophen 325 Mg Tab) 650 mg PO Q4H PRN PRN Reason: Pain or Fever Stop: 07/12/24 14:50 Aspirin (Aspirin 81 Mg Ectab) 81 mg PO DAILY JEANE Stop: 07/13/24 08:59 Last Admin: 06/13/24 09:19 Dose: 81 mg Atorvastatin Calcium (Atorvastatin 40 Mg Tab) 80 mg PO QAM JEANE Stop: 07/13/24 08:59 Last Admin: 06/13/24 09:19 Dose: 80 mg Carvedilol (Carvedilol 25 Mg Tab) 25 mg PO BID JEANE Stop: 07/12/24 20:59 Last Admin: 06/13/24 09:19 Dose: 25 mg Cyanocobalamin (Cyanocobalamin (B-12) 500 Mcg Tablet) 1,000 mcg PO DAILY JEANE Stop: 07/13/24 08:59 Last Admin: 06/13/24 09:19 Dose: 1,000 mcg Folic Acid (Folic Acid 400 Mcg Tab) 800 mcg PO DAILY JEANE Stop: 07/13/24 08:59 Last Admin: 06/13/24 09:20 Dose: 800 mcg Furosemide (Furosemide 20 Mg Tab) 20 mg PO DAILY JEANE Stop: 07/13/24 08:59 Last Admin: 06/13/24 09:18 Dose: 20 mg Hydralazine HCl (Hydralazine Hcl 20 Mg/Ml Vial) 5 mg IV Q6H PRN PRN Reason: HTN Stop: 07/11/24 14:44 Hydromorphone HCl (Hydromorphone Inj 0.5 Mg/0.5 Ml Syr) 0.5 mg IV Q4H PRN PRN Reason: Severe Pain (Scale 7, 8, 9,10) Stop: 06/23/24 22:54 Hydromorphone HCl (Hydromorphone Inj 0.5 Mg/0.5 Ml Syr) 0.25 mg IV Q4H PRN PRN Reason: Moderate Pain (Scale 4, 5, 6) Stop: 06/23/24 22:54 Heparin Sodium/Dextrose (Heparin Sodium/Dextrose) 25,000 units in 500 mls @ 30 mls/hr IV .[id number] [facility]; Protocol Stop: 07/09/24 23:44 Last Admin: 06/13/24 09:23 Dose: 1,500 units/hr, 30 mls/hr Isosorbide Mononitrate (Isosorbide [place] Extended Rel 60 Mg Tabcr) 60 mg PO DAILY [facility] Stop: 07/13/24 08:59 Last Admin: 06/13/24 09:18 Dose: 60 mg Losartan Potassium (Losartan Potassium 25 Mg Tab) 12.5 mg PO BID [facility]; Protocol Stop: 07/12/24 20:59 Last Admin: 06/13/24 09:16 Dose: 12.5 mg Nitroglycerin (Nitroglycerin Sl 0.4 Mg/Tab Tab) 0.4 mg SL Q5M PRN PRN Reason: Chest Pain Stop: 07/09/24 22:54 Ondansetron HCl (Ondansetron Inj 2 Mg/Ml 2 Ml Vial) 4 mg IV Q6H PRN PRN Reason: Nausea Stop: 07/09/24 22:54 Pantoprazole Sodium (Pantoprazole 40 Mg Tab) 40 mg PO HS [facility] Stop: 07/12/24 20:59 Last Admin: 06/12/24 20:09 Dose: 40 mg Pyridoxine HCl (Pyridoxine Hcl 50 Mg Tab) 100 mg PO DAILY [facility] Stop: 07/13/24 08:59 Last Admin: 06/13/24 09:17 Dose: 100 mg Warfarin Sodium (Warfarin Sod 3 Mg Tab) 3 mg PO [email or web address] [facility] Stop: 07/12/24 15:59 Last Admin: 06/12/24 18:15 Dose: 3 mg Warfarin Sodium (Warfarin Sod 2 Mg Tab) 2 mg PO [email or web address] [facility] Stop: 07/20/24 15:59 Warfarin Sodium (Warfarin Sod 3 Mg Tab) 3 mg PO ONE ONE Stop: 06/13/24 16:01
[2024-06-13] MEDS ORDERED: WARFARIN SOD 1 MG TAB PO SCH (16:00)
[2024-06-13] MEDS ORDERED: WARFARIN SOD 2 MG TAB PO SCH (16:00)
[2024-06-13] MEDS: WARFARIN SOD 3 MG TAB PO ONE (16:55)
[2024-06-14 07:40] LABS: BUN Creatinine Ratio 12.6 (10-20); Calcium 8.2 mg/dl (8.6-10.3); Creatinine Clr Calc Pharmacy 81.3 ml/min; Est GFR (African American) 95.8 ml/min; Est GFR (Non-African American) 82.7 ml/min; Magnesium 1.8 mg/dl (1.7-2.4); Potassium 3.7 mmol/L (3.5-5.1)
[2024-06-14 07:41] LABS: ANTI-Xa, UFH(UnfractionatedHep 0.58 IU/ml (0.3-0.7); INR 1.6 (0.9-1.1); Prothrombin Time 16.8 Seconds (9.0-12.0)
[2024-06-14] MEDS: ACETAMINOPHEN 325 MG TAB PO PRN (09:04)
[2024-06-14] MEDS: WARFARIN SOD 5 MG TAB PO ONE (11:05)
[2024-06-14] MEDS: FUROSEMIDE 40 MG/4 ML VIAL IV ONE (11:06)
[2024-06-14] MEDS: POTASSIUM CHLORIDE CRTAB 20 MEQ TABCR PO STA (11:06)
--- NOTE | 2024-06-14 11:18 | Hospitalist Progress Note ---
Date of Service June 14, 2024 Assessment & Plan (1) SBO (small bowel obstruction): Plan: 79-year-old male with past medical history significant for hyperlipidemia, hypertension, type 2 diabetes, COPD, chronic diastolic CHF, dilated aortic root, SVT, CAD s/p stent, factor V deficiency, history of PE, depression presents with abdominal pain nausea vomiting and no bowel movement since last 2 days [employer] and found to have small bowel obstruction on the CAT scan. Patient has history of small bowel obstructions in the past. Patient has large vomitus in the ER. Was complaining of abdominal pain. Some lower chest pain. Shortness of breath. Headache. Not feeling well. Status post NG tube and placed on low intermittent suction. He had episode of chest tightness but that got resolved. No fevers. Currently no headache. Vision is okay. No runny nose or sore throat. No cough. He is being managed for the following: Small bowel obstruction History of multiple bowel obstructions CT scan showing small bowel obstruction due to mid abdominal ventral hernia which contains a knuckle of small bowel. Markedly attenuated anterior abdomen wall with numerous fat-containing ventral hernias. Surgery reduced small bowel loop from the hernia at ED. NG tube removed 06/11, repeat imaging w/ improving SBO Pt /w no belly pain, N, V. Has moved small bowel x 8/12 am, is moving gas. Tolerating clears, gen sx advanced diet to full liq. Will resume pt's home po meds. Will dc ivf, kcl replaced, monitor electrolytes. Appreciate surgery input and recommendation Clinically much better and tolerating advancement diet Feels bloated today with a cumulative fluid balance of 7532 Will give additional dose of 40 of Lasix intravenously Has been tolerating regular diet and bowel has been moving Likely discharge tomorrow Chest discomfort: Noted at presentation, trop x 2 neg. EKG w/ no acute ST or T changes. ECHO w/ EF of 55-60%, no RWMA. Cardio evaled, appreciate recs. No chest pain or pressure per pt. c/w tele for now. Denies any chest discomfort and/or chest pain Did have minimal shortness of breath with exertion but resolved this morning Will get additional dose of Lasix 40 mg IV with potassium Will monitor PRP tomorrow Other chronic medical conditions: Continue with/resume home meds as and when able. CAD s/p stent: Restart his Coreg, high-dose statin, aspirin today. dc IV Lopressor 5 mg every 6 hours. Hypertension: Restart his home medication likely today. DC IV Lopressor 5 mg every 6 hours. dc iv Vasotec as needed. c/w prn hydralazine. Close monitor Blood pressure remains controlled History of SVT: resume home po meds. Heart rate remains controlled History of factor V deficiency/History of PE: On warfarin as OP. Resume prior warfarin, c/w heparin drip (bridge). INR is not yet therapeutic Will give 5 mg of Coumadin one-time dose this afternoon Check INR tomorrow and likely discharge tomorrow DVT prophylaxis: On IV heparin, start coumadin 06/12, follow pt/inr daily. DC hep drip when therapeutic inr achieved. Disposition: Med/telemetry Full code Admission and Anticipated Discharge Date Admission Date: June 09, 2024 Subjective 06/13/2024 Patient was seen and examined in medical telemetry unit He has been feeling much better and denies any abdominal distention, discomfort, nausea and or vomiting Has been passing gas and bowel is moved He has been tolerating clears and diet will be advanced as tolerated further 06/14/2024 The patient was seen and examined in medical telemetry unit He has been bloated and felt short of breath with minimal exertion Has some abdominal discomfort but no pain INR is not yet therapeutic Review of Systems Review of Systems: All systems reviewed and are unremarkable except as noted below Physical Exam Physical Exam: sitting on a chair without any acute distress Constitutional: well developed, well nourished, + ill appearing and + obese Eyes: PERRL, conjunctivae normal, anicteric sclerae ENMT: external ear and nose normal, oropharynx normal Neck: trachea midline, no thyromegaly Respiratory: no respiratory distress Auscultation: lungs clear to auscultation bilaterally Cardiovascular: Rate/Rhythm: regular rate and regular rhythm; not tachycardic Heart Sounds: normal S1 and normal S2; no murmur Extremities: no edema Gastrointestinal (Abdomen): Inspection/Auscultation: + abdomen distended (Has abdominal binder on) and normal bowel sounds Percussion/Palpation: + abdomen tender (Mildly tender all over without guarding and no rigidity) and abdomen soft Neurologic: normal touch/pain/proprioception and moves all extremities; no focal motor deficits Lymphatic: no cervical or axillary lymphadenopathy Results & Data Results & Data Vital Signs (Past 12 Hours) Vital Signs Temp Pulse Pulse Resp BP BP Pulse Ox 06/14/24 11:10 36.4 C L 63 20 112/54 L 96 06/14/24 07:38 36.7 C 69 18 128/71 96 06/14/24 07:22 60 06/14/24 03:46 37.3 C 66 16 99/50 L 97 06/13/24 23:41 36.6 C 57 L 16 116/66 91 O2 Del Method 06/14/24 11:10 Room Air 06/14/24 07:38 Room Air 06/14/24 07:22 06/14/24 03:46 Room Air 06/13/24 23:41 Room Air Laboratory Results BMP 06/14/24 06:51 Sodium 137 Potassium 3.7 Chloride 105 Carbon Dioxide 25 BUN 11 Creatinine 0.87 Glucose 133 H Calcium 8.2 L Medications Administered Current Inpatient Medications Acetaminophen (Acetaminophen 325 Mg Tab) 650 mg PO Q4H PRN PRN Reason: Pain or Fever Stop: 07/12/24 14:50 Last Admin: 06/14/24 09:04 Dose: 650 mg Aspirin (Aspirin 81 Mg Ectab) 81 mg PO DAILY JEANE Stop: 07/13/24 08:59 Last Admin: 06/14/24 09:03 Dose: 81 mg Atorvastatin Calcium (Atorvastatin 40 Mg Tab) 80 mg PO QAM JEANE Stop: 07/13/24 08:59 Last Admin: 06/14/24 09:02 Dose: 80 mg Carvedilol (Carvedilol 25 Mg Tab) 25 mg PO BID JEANE Stop: 07/12/24 20:59 Last Admin: 06/14/24 09:03 Dose: 25 mg Cyanocobalamin (Cyanocobalamin (B-12) 500 Mcg Tablet) 1,000 mcg PO DAILY JEANE Stop: 07/13/24 08:59 Last Admin: 06/14/24 09:03 Dose: 1,000 mcg Folic Acid (Folic Acid 400 Mcg Tab) 800 mcg PO DAILY JEANE Stop: 07/13/24 08:59 Last Admin: 06/14/24 09:03 Dose: 800 mcg Furosemide (Furosemide 20 Mg Tab) 20 mg PO DAILY JEANE Stop: 07/13/24 08:59 Last Admin: 06/14/24 09:03 Dose: 20 mg Hydralazine HCl (Hydralazine Hcl 20 Mg/Ml Vial) 5 mg IV Q6H PRN PRN Reason: HTN Stop: 07/11/24 14:44 Hydromorphone HCl (Hydromorphone Inj 0.5 Mg/0.5 Ml Syr) 0.5 mg IV Q4H PRN PRN Reason: Severe Pain (Scale 7, 8, 9,10) Stop: 06/23/24 22:54 Hydromorphone HCl (Hydromorphone Inj 0.5 Mg/0.5 Ml Syr) 0.25 mg IV Q4H PRN PRN Reason: Moderate Pain (Scale 4, 5, 6) Stop: 06/23/24 22:54 Heparin Sodium/Dextrose (Heparin Sodium/Dextrose) 25,000 units in 500 mls @ 30 mls/hr IV .[id number] [facility]; Protocol Stop: 07/09/24 23:44 Last Titration: 06/14/24 07:45 Dose: 1,500 units/hr, 30 mls/hr Isosorbide Mononitrate (Isosorbide [place] Extended Rel 60 Mg Tabcr) 60 mg PO DAILY [facility] Stop: 07/13/24 08:59 Last Admin: 06/14/24 09:03 Dose: 60 mg Losartan Potassium (Losartan Potassium 25 Mg Tab) 12.5 mg PO BID [facility]; Protocol Stop: 07/12/24 20:59 Last Admin: 06/14/24 09:03 Dose: 12.5 mg Nitroglycerin (Nitroglycerin Sl 0.4 Mg/Tab Tab) 0.4 mg SL Q5M PRN PRN Reason: Chest Pain Stop: 07/09/24 22:54 Ondansetron HCl (Ondansetron Inj 2 Mg/Ml 2 Ml Vial) 4 mg IV Q6H PRN PRN Reason: Nausea Stop: 07/09/24 22:54 Pantoprazole Sodium (Pantoprazole 40 Mg Tab) 40 mg PO HS [facility] Stop: 07/12/24 20:59 Last Admin: 06/13/24 21:05 Dose: 40 mg Pyridoxine HCl (Pyridoxine Hcl 50 Mg Tab) 100 mg PO DAILY [facility] Stop: 07/13/24 08:59 Last Admin: 06/14/24 09:06 Dose: 100 mg Warfarin Sodium (Warfarin Sod 3 Mg Tab) 3 mg PO [id number]@1600 [facility] Stop: 07/12/24 15:59 Last Admin: 06/12/24 18:15 Dose: 3 mg Warfarin Sodium (Warfarin Sod 2 Mg Tab) 2 mg PO We@1600 [facility] Stop: 07/20/24 15:59
[2024-06-14] MEDS: DICLOFENAC SOD 1% GEL 100 GM TUBE EXT PRN (13:00)
[2024-06-14] MEDS: DICLOFENAC SOD 1% GEL 100 GM TUBE EXT SCH (17:15)
[2024-06-15 07:32] LABS: Basophils # (auto) 0.02 K/uL (0.00-0.20); Basophils % (auto) 0.3 %; Eosinophils # (auto) 0.06 K/uL (0.00-0.50); Hematocrit (blood only) 35.5 % (42.0-52.0); Hemoglobin 12.5 g/dl (14.0-18.0); Immature Granulocytes # (auto) 0.02 K/uL (0.01-0.20); Immature Granulocytes % (auto) 0.3 %; Lymphocytes # (auto) 1.04 K/uL (1.20-3.40); Lymphocytes % (auto) 18.1 %; Mean Corpuscular Hemoglobin 31.7 pg (25.0-34.0); Mean Corpuscular Hgb Conc 35.2 g/dL (32.0-36.0); Mean Corpuscular Volume 90.1 fL (80.0-100.0); Mean Platelet Volume 9.7 fL (9.4-12.4); Monocytes # (auto) 0.65 K/uL (0.11-0.59); Monocytes % (auto) 11.3 %; Neutrophils # (auto) 3.96 K/uL (1.40-6.50); Platelet Count 121 K/uL (130-400); RDW Coefficient of Variation 13.9 % (11.5-14.5); RDW Standard Deviation 45.7 fL (36.4-46.3); Red Blood Count 3.94 M/uL (4.70-6.10); White Blood Count 5.75 K/ul (4.8-10.8)
[2024-06-15 07:38] LABS: ANTI-Xa, UFH(UnfractionatedHep 0.56 IU/ml (0.3-0.7); INR 1.9 (0.9-1.1); Prothrombin Time 19.7 Seconds (9.0-12.0)
[2024-06-15 07:41] VITALS: RESP 18; O2SAT 95
[2024-06-15 07:42] LABS: BUN Creatinine Ratio 16.3 (10-20); Calcium 8.1 mg/dl (8.6-10.3); Est GFR (African American) 99.2 ml/min; Est GFR (Non-African American) 85.6 ml/min; Potassium 3.6 mmol/L (3.5-5.1)
[2024-06-15 11:10] VITALS: PULSE 66; TEMP 98.2
--- NOTE | 2024-06-15 12:36 | Hospitalist Progress Note ---
Date of Service June 15, 2024 Assessment & Plan (1) SBO (small bowel obstruction): Plan: 79-year-old male with past medical history significant for hyperlipidemia, hypertension, type 2 diabetes, COPD, chronic diastolic CHF, dilated aortic root, SVT, CAD s/p stent, factor V deficiency, history of PE, depression presents with abdominal pain nausea vomiting and no bowel movement since last 2 days [employer] and found to have small bowel obstruction on the CAT scan. Patient has history of small bowel obstructions in the past. Patient has large vomitus in the ER. Was complaining of abdominal pain. Some lower chest pain. Shortness of breath. Headache. Not feeling well. Status post NG tube and placed on low intermittent suction. He had episode of chest tightness but that got resolved. No fevers. Currently no headache. Vision is okay. No runny nose or sore throat. No cough. He is being managed for the following: Small bowel obstruction H/O Multiple bowel obstructions --CT scan showing small bowel obstruction due to mid abdominal ventral hernia which contains a knuckle of small bowel. Markedly attenuated anterior abdomen wall with numerous fat-containing ventral hernias. Surgery reduced small bowel loop from the hernia at ED. NG tube removed 06/11, repeat imaging w/ improving SBO +Flatus, BMs per record Tolerated low fiber diet Appreciate surgery input Received IV fluids Plan to be discharged home today Chest discomfort: Noted at presentation, trop x 2 neg. EKG w/ no acute ST or T changes. ECHO w/ EF of 55-60%, no RWMA. Cardio evaled, appreciate recs. No chest pain or pressure per pt. c/w tele for now. Denies any chest discomfort and/or chest pain Likely due to volume overload Received a dose of IV Lasix Resolved Other chronic medical conditions: Continue with/resume home meds as and when able. CAD s/p stent: Continue Coreg, statin, aspirin Hypertension: Continue current medications Monitor BP History of SVT: resume home po meds. Heart rate remains controlled History of factor V deficiency/History of PE: On warfarin as OP. Resume prior warfarin, c/w heparin drip (bridge). INR 1.9 today Advised to follow-up with Coumadin clinic on discharge DVT prophylaxis: On IV heparin, Coumadin CODE STATUS Full code Disposition Home Admission and Anticipated Discharge Date Admission Date: June 09, 2024 Subjective Patient is seen and examined at bedside Eager to get discharged Denies any abdominal pain today Also denies any chest pain, dyspnea, nausea, vomiting, dizziness Tolerating cardiac diet Plan to be discharged home today Review of Systems Review of Systems: All systems reviewed & are unremarkable except as noted in Subjective Physical Exam Physical Exam: Physical Exam: Vitals signs as noted above General Appearance:Obese, no apparent distress Head: normocephalic, Atraumatic Eyes: normal inspection, EOMI Neck: supple, Trachea midline Respiratory/Chest: Normal breath sounds, CTA, No accessory muscle use Cardiovascular: S1, S2, No murmur Abdomen/GI:Soft, Non tender, Bowel sounds present, +Abd incision, binder Extremities/Musculoskeletal:normal inspection, 1+ edema Neurologic/Psych:AAOX3, grossly no focal neurological deficits Skin: normal color, warm Results & Data Results & Data Vital Signs (Past 12 Hours) Vital Signs Temp Pulse Pulse Resp BP Pulse Ox O2 Del Method 06/15/24 11:09 36.8 C 66 18 98/60 L 95 Room Air 06/15/24 07:40 37.9 C H 81 18 148/72 H 95 Room Air 06/15/24 07:32 Room Air 06/15/24 07:12 69 06/15/24 03:53 36.8 C 72 16 134/70 94 Room Air Laboratory Results Short CBC 06/15/24 Range/Units 07:06 WBC 5.75 (4.8-10.8) K/ul Hgb 12.5 L (14.0-18.0) g/dl Hct 35.5 L (42.0-52.0) % Plt Count 121 L (130-400) K/uL BMP 06/15/24 07:06 Sodium 136 Potassium 3.6 Chloride 104 Carbon Dioxide 26 BUN 13 Creatinine 0.80 Glucose 142 H Calcium 8.1 L
--- NOTE | 2024-06-15 12:41 | Discharge Summary ---
Date of Service June 15, 2024 Admission HPI Per Admitting Provider 79-year-old male with past medical history significant for hyperlipidemia, hypertension, type 2 diabetes, COPD, chronic diastolic CHF, dilated aortic root, SVT, CAD s/p stent, factor V deficiency, history of PE, depression presents with abdominal pain, nausea/vomiting and no bowel movement since last 2 days and found to have small bowel obstruction on the CAT scan. Patient has history of small bowel obstructions in the past. Patient has large vomitus in the ER. Was complaining of abdominal pain. Some lower chest pain. Shortness of breath. Headache. Not feeling well. Status post NG tube and placed on low intermittent suction. He had episode of chest tightness but that got resolved. No fevers. Currently no headache. Vision is okay. No runny nose or sore throat. No cough. Currently hemodynamics are okay. Past medical history. As mentioned above Past surgical history. Left heart catheterization. Colonoscopy. EGD. Laparoscopic cholecystectomy. Laparoscopic repair of inguinal hernia. Lumbar spine fusion in 1974 in 1979. Partial removal of colon in 2008. Tonsillectomy adenoidectomy. Repair of diaphragmatic hernia in 1986. Repair of ruptured rotator cuff in 2000. Revision of right total hip joint surgery in 2020. Social history. . Quit smoking in 2008. 1 cigar cigars 3 to 4 days a week. Alcohol occasional. No drug use. Family history. Mother had arthritis. Eye problems. Gastrointestinal disorder. Glaucoma. Heart disorder. Hypertension. Stroke. Father had gastrointestinal disorder. Heart disorder. Thyroid disorder. Brother and sister has heart disease. Sister had leukemia. Brother has dementia. Admission Exam Per Admitting Provider General- Not in acute distress Head- atraumatic Eyes- PERRL. ENT- oropharynx clear Neck- supple, no JVD. Lungs- clear to auscultation no wheezing or crackles Heart- regular rhythm; no murmur, no gallop. Abdomen- Absent bowel sounds, diffuse discomfort, distended, Extremities- no pretibial edema, no erythema seen. Neuro- alert, oriented ; PERRL, no facial palsy; no dysarthria; moves extremities Principal Diagnosis Small bowel obstruction Subtherapeutic INR Discharge Data Allergies Allergy/AdvReac Type Severity Reaction Status Date / Time moxifloxacin Allergy Intermediate ITCHING. Verified 06/09/24 18:36 N/V Consultations 06/09/24 19:19 ED Decision to Admit Stat 06/09/24 22:55 Consult General Surgery Routine 06/10/24 08:00 Consult Cardiology Routine Procedures Performed Laboratory Results WBC 5.75 K/ul (4.8-10.8) 06/15/24 07:06 RBC 3.94 M/uL (4.70-6.10) L 06/15/24 07:06 Hgb 12.5 g/dl (14.0-18.0) L 06/15/24 07:06 Hct 35.5 % (42.0-52.0) L 06/15/24 07:06 MCV 90.1 fL (80.0-100.0) 06/15/24 07:06 MCH 31.7 pg (25.0-34.0) 06/15/24 07:06 MCHC 35.2 g/dL (32.0-36.0) 06/15/24 07:06 RDW Std Deviation 45.7 fL (36.4-46.3) 06/15/24 07:06 RDW Coeff of Guille 13.9 % (11.5-14.5) 06/15/24 07:06 Plt Count 121 K/uL (130-400) L 06/15/24 07:06 MPV 9.7 fL (9.4-12.4) 06/15/24 07:06 Immature Gran % (Auto) 0.3 % 06/15/24 07:06 Neut % (Auto) 69.0 % 06/15/24 07:06 Lymph % (Auto) 18.1 % 06/15/24 07:06 [place] % (Auto) 11.3 % 06/15/24 07:06 Eos % (Auto) 1.0 % 06/15/24 07:06 Baso % (Auto) 0.3 % 06/15/24 07:06 Neut # (Auto) 3.96 K/uL (1.40-6.50) 06/15/24 07:06 Lymph # (Auto) 1.04 K/uL (1.20-3.40) L 06/15/24 07:06 [place] # (Auto) 0.65 K/uL (0.11-0.59) H 06/15/24 07:06 Eos # (Auto) 0.06 K/uL (0.00-0.50) 06/15/24 07:06 Baso # (Auto) 0.02 K/uL (0.00-0.20) 06/15/24 07:06 Immature Gran # (Auto) 0.02 K/uL (0.01-0.20) 06/15/24 07:06 PT 19.7 Seconds (9.0-12.0) H 06/15/24 07:06 INR 1.9 (0.9-1.1) H 06/15/24 07:06 APTT 32 Seconds (21-31) H 06/10/24 00:08 PTT Ratio 1.2 06/10/24 00:08 Heparin Anti-Xa, Unfract 0.56 IU/ml (0.3-0.7) 06/15/24 07:06 Sodium 136 mmol/L (136-145) 06/15/24 07:06 Potassium 3.6 mmol/L (3.5-5.1) 06/15/24 07:06 Chloride 104 mmol/L (98-107) 06/15/24 07:06 Carbon Dioxide 26 mmol/L (21-32) 06/15/24 07:06 Anion Gap 6 (3-11) 06/15/24 07:06 BUN 13 mg/dl (6-23) 06/15/24 07:06 Creatinine 0.80 mg/dl (0.6-1.4) 06/15/24 07:06 Est Cr Clr Drug Dosing 88.0 ml/min 06/15/24 07:06 Est GFR ( Amer) 99.2 ml/min 06/15/24 07:06 Est GFR (Non-Af Amer) 85.6 ml/min 06/15/24 07:06 BUN/Creatinine Ratio 16.3 (10-20) 06/15/24 07:06 Glucose 142 mg/dl (70-99(Fasting)) H 06/15/24 07:06 Lactate 1.4 mmol/L (0.4-2.0) 06/09/24 18:00 Calcium 8.1 mg/dl (8.6-10.3) L 06/15/24 07:06 Phosphorus 2.7 mg/dl (2.5-4.9) 06/13/24 05:01 Magnesium 1.8 mg/dl (1.7-2.4) 06/14/24 06:51 Total Bilirubin 1.0 mg/dl (0.2-1.0) 06/09/24 18:00 AST 21 U/L (13-39) 06/09/24 18:00 ALT 20 U/L (7-52) 06/09/24 18:00 Alkaline Phosphatase 71 U/L (34-104) 06/09/24 18:00 Troponin I High Sens 18.9 pg/ml (0-20) D 06/10/24 05:19 Total Protein 7.9 gm/dl (6.0-8.3) 06/09/24 18:00 Albumin 4.6 gm/dl (3.4-5.0) 06/09/24 18:00 Globulin 3.3 gm/dl (2.5-4.0) 06/09/24 18:00 Albumin/Globulin Ratio 1.4 (0.9-2) 06/09/24 18:00 Lipase 14 U/L (11-82) 06/09/24 18:00 Urine Color Dark Yellow 06/10/24 Unknown Urine Appearance Clear (Clear) 06/10/24 Unknown Urine pH 5.0 (4.5-7.5) 06/10/24 Unknown Ur Specific [place] 1.033 (1.000-1.030) H 06/10/24 Unknown Urine Protein Trace (Negative) H 06/10/24 Unknown Urine Glucose (UA) Negative (Negative) 06/10/24 Unknown Urine Ketones 1+ (Negative) H 06/10/24 Unknown Urine Blood Negative (Negative) 06/10/24 Unknown Urine Nitrite Negative (Negative) 06/10/24 Unknown Urine Bilirubin 1+ (Negative) H 06/10/24 Unknown Urine Urobilinogen Negative (Negative) 06/10/24 Unknown Ur Leukocyte Esterase Negative (Negative) 06/10/24 Unknown Urine WBC (Auto) 0-5 /hpf (0-5) 06/10/24 Unknown Urine RBC (Auto) 0-2 /hpf (0-2) 06/10/24 Unknown U Hyaline Cast (Auto) 3-5 /lpf (0-2) H 06/10/24 Unknown U Epithel Cells (Auto) 0-2 /hpf (0-2) 06/10/24 Unknown Urine Bacteria (Auto) None Seen (None Seen) 06/10/24 Unknown Impressions Chest X-Ray 06/09/24 18:54 XR chest 1V portable CLINICAL HISTORY: s/p NG placement COMPARISON STUDY: No previous studies for comparison. FINDINGS: The nasogastric tube is difficult to visualize given suboptimal penetration however the tip likely projects over the proximal body of the stomach. The tube could be advanced an additional 4 cm before obtaining a KUB. Dilated loops of small bowel are noted, as shown on abdominal CT. Visualized portions of the lungs are clear. IMPRESSION: Nasogastric tube difficult to visualize given suboptimal penetration however the tip likely projects over the proximal body of the stomach. The tube could be advanced an additional 4 cm before obtaining a KUB. ACT 112: Negative or not required by law. Electronically signed by: Rubens Sullivan M.D. 06/09/2024 7:53 PM KUB X-Ray 06/10/24 02:57 KUB CLINICAL HISTORY: NGT placement COMPARISON STUDY: CT of the abdomen and pelvis June 09, 2024 and KUB June 09, 2024. FINDINGS: The tip of the nasogastric tube is not well visualized on this exam due to suboptimal penetration. The tube is at least at the gastroesophageal junction. IMPRESSION: Nasogastric tube tip not well visualized on this exam due to suboptimal penetration. Tip at least at the gastroesophageal junction. A CT of the abdomen without contrast for more definitive localization is recommended. ACT 112: Negative or not required by law. Electronically signed by: Rubens Sullivan M.D. 06/10/2024 7:15 AM Abdomen/Pelvis CT 06/10/24 07:59 CT OF THE ABDOMEN AND PELVIS WITHOUT CONTRAST CLINICAL HISTORY: ng tube placement COMPARISON STUDY: CT of the abdomen and pelvis June 09, 2024. KUB performed earlier today. TECHNIQUE: Axial images of the abdomen and pelvis were obtained without IV contrast. Images were reviewed in the axial, sagittal, and coronal planes. Automated exposure control was utilized for the study. A dose lowering technique was utilized adhering to the principles of ALARA. FINDINGS: Several subpleural pulmonary nodules within the lower lungs are unchanged since prior exams. These are benign given stability. A small hiatal hernia is noted. The nasogastric tube is well-positioned. The tip is within the distal body of the stomach. No pneumatosis, free air or portal venous gas is p resent. There is no biliary ductal dilatation status post cholecystectomy. Unenhanced images of liver, spleen, adrenal glands, kidneys and pancreas are unremarkable. There is no hydronephrosis. There are no urinary calculi. The anterior abdominal wall is markedly attenuated. Fat-containing ventral hernias are again noted. The small bowel loop within a ventral hernia on CT of June 09, 2024 has been reduced. Small bowel dilatation has improved. Small bowel loops measure up to 3.5 cm in caliber. There is no abdominal or pelvic lymphadenopathy. Bilateral hip arthroplasties are incidentally noted. IMPRESSION: 1. Well-positioned nasogastric tube. Tip within the distal body of the stomach. 2. The previously described small bowel loop within a ventral hernia on CT of June 09, 2024 has been reduced and small bowel dilatation has improved. The findings suggest an improving small bowel obstruction. 3. Markedly attenuated anterior abdominal wall with multiple fat containing ventral hernias. ACT 112: Negative or not required by law. Electronically signed by: Rubens Sullivan M.D. 06/10/2024 9:20 AM Ordered Studies 06/09/24 17:49 CT abd pelvis wo con Stat 06/10/24 07:59 CT Abd and Pelvis [CT abd pelvis wo con] Stat Hospital Course (1) SBO (small bowel obstruction): 79-year-old male with past medical history significant for hyperlipidemia, hypertension, type 2 diabetes, COPD, chronic diastolic CHF, dilated aortic root, SVT, CAD s/p stent, factor V deficiency, history of PE, depression presents with abdominal pain nausea vomiting and no bowel movement since last 2 days [employer] and found to have small bowel obstruction on the CAT scan. Patient has history of small bowel obstructions in the past. Patient has large vomitus in the ER. Was complaining of abdominal pain. Some lower chest pain. Shortness of breath. Headache. Not feeling well. Status post NG tube and placed on low intermittent suction. He had episode of chest tightness but that got resolved. No fevers. Currently no headache. Vision is okay. No runny nose or sore throat. No cough. He is being managed for the following: Small bowel obstruction H/O Multiple bowel obstructions --CT scan showing small bowel obstruction due to mid abdominal ventral hernia w hich contains a knuckle of small bowel. Markedly attenuated anterior abdomen wall with numerous fat-containing ventral hernias. Surgery reduced small bowel loop from the hernia at ED. NG tube removed 06/11, repeat imaging w/ improving SBO +Flatus, BMs per record Tolerated low fiber diet Appreciate surgery input Received IV fluids Plan to be discharged home today Chest discomfort: Noted at presentation, trop x 2 neg. EKG w/ no acute ST or T changes. ECHO w/ EF of 55-60%, no RWMA. Cardio evaled, appreciate recs. No chest pain or pressure per pt. c/w tele for now. Denies any chest discomfort and/or chest pain Likely due to volume overload Received a dose of IV Lasix Resolved Other chronic medical conditions: Continue with/resume home meds as and when able. CAD s/p stent: Continue Coreg, statin, aspirin Hypertension: Continue current medications Monitor BP History of SVT: resume home po meds. Heart rate remains controlled History of factor V deficiency/History of PE: On warfarin as OP. Resume prior warfarin, c/w heparin drip (bridge). INR 1.9 today Advised to follow-up with Coumadin clinic on discharge DVT prophylaxis: On IV heparin, Coumadin CODE STATUS Full code Disposition Home Total Time Total Time Spent Total Time Spent (In Minutes): 47 minutes Discharge Plan Discharge Items Patient Disposition: Home - Self-Care Reason For Visit: SBO, CHEST TIGHTNESS Discharge Diagnosis: Small bowel obstruction Subtherapeutic INR Activity: Per Instructions section Exercise/Sports: Gradually increase as tolerated Non-emergency contact: Primary Care Provider, Surgeon and Specialist Call non-emergency contact if: you have any medication questions, your symptoms worsen, your pain is concerning for you and you have a fever Follow-up/Referrals: Jake Green MD [Primary Care Provider] - (Date & Time 06/18/2024 1:40 PM Provider Jake Green DO Department General Internal Medicine [facility] ) Diet: Heart Healthy and Low Fiber Addtl Attending Provider Instructions: Follow-up with your primary care physician on 06/18/2024 1:40 PM Follow-up with your surgeon Dr. Gray as recommended Follow-up with Coumadin clinic for monitoring your PT/INR and adjustment of Coumadin dose as needed Seek immediate medical attention if your symptoms reoccur or worsen Please take all medications as instructed on discharge list below. Please call if you have any questions or problems. You can reach a [facility] hospitalist on duty at [facility] 24 hours a day by calling [phone] Pending Studies at Discharge: No Stand-Alone Forms: My [facility], Smoking Cessation Medications and DC Order Prescriptions: New polyethylene glycol 3350 [Miralax] 17 gram/dose powder 17 g PO DAILY PRN (Reason: constipation) Qty: 119 0RF Continued furosemide [Lasix] 20 mg tablet 20 mg PO DAILY cyanocobalamin (vitamin B-12) [Vitamin B-12] 1,000 mcg Tablet 1,000 mcg PO DAILY aspirin [Aspir-81] 81 mg Tablet,Delayed Release (Dr/Ec) 81 mg PO DAILY isosorbide mononitrate 60 mg tablet extended release 24 hr 60 mg PO DAILY esomeprazole magnesium [Nexium] 40 mg capsule,delayed release(DR/EC) 40 mg PO HS nitroglycerin [Nitrostat] 0.4 mg Tablet, Sublingual 0.4 mg Sublingual UD PRN (Reason: Chest Pain) Rx Instructions: Pt states this is and he needs new script pyridoxine (vitamin B6) [Vitamin B-6] 100 mg Tablet 100 mg PO DAILY olmesartan [Benicar] 5 mg tablet 5 mg PO BID folic acid 800 mcg Tablet 0.8 mg PO DAILY atorvastatin 80 mg tablet 80 mg PO QAM carvedilol 25 mg tablet 25 mg PO BID warfarin 1 mg tablet See Rx Instructions .ROUTE .COMPLEX Rx Instructions: 3 mg Tuesday/Tuesday/Tuesday//Tuesday/Tuesday and 2mg on Tuesday diclofenac sodium 1 % gel 2 g TOPICAL DAILY Discharge Orders: Discharge Order (Routine); Ordered 06/15/24 Ordered By: Vitaliy Rangel Admission Data Admit Date/Time: 06/09/24 21:40 Attending Provider: Vitaliy Rangel Admit Provider: Brayden Foley Primary Care Provider: Jake Green Other Providers: Brayden Foley; Jay Gray; Mehnaz Dolan
[2024-06-15 12:50] VITALS: BP 110/64
[2024-06-20] MEDS ORDERED: WARFARIN SOD 2 MG TAB PO SCH (16:00)
== END 2024-06-15 14:09 | disposition home or self-care (01) | DRG 394 ==
LOC: ED 17:35 → 2N 21:40 → SUATTDRO 21:40 → 2N 06-10 04:38
DX: Z95.5 Presence of coronary angioplasty implant and graft; Z87.891 Personal history of nicotine dependence; E78.5 Hyperlipidemia, unspecified; Z79.82 Long term (current) use of aspirin; I11.0 Hypertensive heart disease with heart failure; Z86.711 Personal history of pulmonary embolism; D68.2 Hereditary deficiency of other clotting factors; G47.33 Obstructive sleep apnea (adult) (pediatric); K43.6 Other and unspecified ventral hernia with obstruction, without gangrene; Z96.643 Presence of artificial hip joint, bilateral; I50.32 Chronic diastolic (congestive) heart failure; I47.10 Supraventricular tachycardia, unspecified; R79.1 Abnormal coagulation profile; I25.10 Atherosclerotic heart disease of native coronary artery without angina pectoris; Z88.1 Allergy status to other antibiotic agents; Z86.718 Personal history of other venous thrombosis and embolism